=== PATIENT | male | born 1975 | race African-American/Black ===

== ENCOUNTER 2016-11-06 13:46 | Inpatient (IN) | payer MEDICAID ==
[~2016-11-06] VITALS: Ht 182.9 cm; Wt 66.1 kg
[~2016-11-06 13:46] MED LIST: BACTRIM DS TABL1 TAB PO; BENADRYL25 MG PO; DIFLUCAN PREMI100 MG PO; DIFLUCAN100 MG PO; DIFLUCAN150 MG PO; DILAUDID2 MG PO; FLAGYL500 MG PO; HUMALOG 30100 UNITS/ SC; HUMULIN R100 U/ML; HYDROCODONE-APA1 TAB PO; LANTUS INSULIN10 ML SC; LISINOPRIL5 MG PO; NICODERM C1 PATCH .1 TRANSDERM; NOVOLIN 70/30 110 ML; NOVOLOG100 U/M1 SC; PROTONIX40 MG PO; REGLAN5 MG PO; ZOFRAN ODT4 MG/UDTAB PO
[2016-11-06 16:22] LABS: HEMATOCRIT 36.4 % (42.0-54.0); HEMOGLOBIN 11.4 g/dL (13.5-17.5); IMMATURE GRANULOCYTES 0.2 % (0-5); MCH 25.7 pg (26.0-34.0); MCHC 31.3 g/dL (31.0-37.0); MCV 82.2 fL (80.0-100.0); MEAN PLATELET VOLUME 9.8 fL (7.4-10.4); MONOCYTES 7.1 % (2-11); NEUTROPHILS 57.7 % (40-80); PLATELET COUNT 349 10x3/uL (130-400); RBC 4.43 10x6/uL (4.20-6.10); RDW 14.9 % (11.5-14.5); WBC 8.4 10x3/uL (4.8-10.8)
[2016-11-06 16:32] LABS: APPEARANCE CLEAR (CLEAR); BILIRUBIN NEGATIVE (NEGATIVE); COLOR YELLOW (YELLOW); GLUCOSE 1000 mg/dL (NEGATIVE); KETONE MODERATE mg/dL (NEGATIVE); LEUKOCYTE ESTERASE NEGATIVE (NEGATIVE); NITRITE NEGATIVE (NEGATIVE); PROTEIN NEGATIVE (NEGATIVE); SPECIFIC GRAVITY 1.015 (1.005-1.020); UROBILINOGEN NORMAL (NORMAL)
[2016-11-06 16:36] LABS: KETONE - SERUM MODERATE mg/dL (NEGATIVE)
[2016-11-06 16:37] LABS: ALBUMIN 2.4 g/dL (3.4-5.0); ALKALINE PHOSPHATASE 188 U/L (46-116); ALT (SGPT) 97 U/L (10-68); BILIRUBIN - TOTAL 0.36 mg/dL (0.2-1.3); CALC OSMOLALITY 294 mosm/kg (275-300); CALCIUM 8.3 mg/dL (8.5-10.1); CARBON DIOXIDE 15.1 mmol/L (21.0-32.0); CHLORIDE - SERUM 101 mmol/L (98-107); CREATININE - SERUM 1.4 mg/dL (0.6-1.3); POTASSIUM - SERUM 3.5 mmol/L (3.5-5.1); PROTEIN - SERUM 6.2 g/dL (6.4-8.2); SODIUM 137 mmol/L (136-145); UREA NITROGEN 22 mg/dL (7-18); eGFR NON AFRICAN AMERICAN 60 mL/min (90-120)
[2016-11-06 16:38] LABS: GLUCOSE 427 mg/dL (74-106)
[2016-11-06 18:31] LABS: MAGNESIUM - SERUM 1.9 mg/dL (1.8-2.4); PHOSPHOROUS 3.7 mg/dL (2.5-4.9)
[2016-11-06 19:00] VITALS: BP 114/85
--- NOTE | 2016-11-06 19:09 | NUR ---
PAGED DR. HOLLINGSWORTH PT REQUESTING PAIN MEDICATION FOR KIDNEY PAIN 08/16.
--- NOTE | 2016-11-06 19:30 | NUR ---
ADMISSION ASSESSMENT COMPLETED AND NOTED AT THIS TIME. PT IS ON INSULIN DRIP WITH INSULIN CHECKS EVERY HOUR WITH ADJUSTMENTS TO INSULIN FLOW. FIRST BLOOD SUGER IS 426 AND INSULIN IS SET AT 11 UNITS/HR. PT HAS C/O DISCOMFORT AND PAIN TO THE ABDOMEN. WILL CHECK FOR PAIN AND NAUSEA MEDICATION. WILL CONTINUE TO MONITOR PER ICU PROTOCOL
[2016-11-06 20:00] VITALS: BP 92/68
[2016-11-06 20:23] VITALS: BP 114/85; BMI 17.6
[2016-11-06 21:00] VITALS: BP 120/93
--- NOTE | 2016-11-06 21:00 | NUR ---
ORDERS FOR MORPHINE AND ZOFRAM RECEIVED AND GIVEN TO PT ORDERED. BLOOD SUGAR AT THIS TIME IS 169 AND INSULIN WAS TURNED DOWN TO 5.4 UNITS/HR. WILL CONTINUE TO MONITOR PER ICU PROTOCOL
[2016-11-06 22:00] VITALS: BP 104/79
--- NOTE | 2016-11-06 22:14 | NUR ---
BLOOD SUGAR WAS 78 AT THIS TIME AND PER INSULIN PROTOCOL THE RATE IS NOW AT 0.7. WILL RECHECK AT 2300. PT ALSO ASK FOR SOMETHING TO EAT AND WAS GIVEN CHICKEN BROTH. WILL CONTINUE TO MONITOR PER ICU PROTOCOL.
--- NOTE | 2016-11-06 22:47 | NUR ---
GAVE 125 [address] PER [address]'S ORDERS WITH APPLE JUICE. WILL CONTINUE TO MONITOR
[2016-11-06 23:00] VITALS: BP 91/51
--- NOTE | 2016-11-06 23:04 | NUR ---
BLOOD SUGAR WAS 119. PER DKA PROTOCOL CHANGED RATE TO 2.3. WILL CONTINUE TO MONITOR
[2016-11-07] VITALS (14 sets, daily range): BP systolic 78–117; BP diastolic 48–92
--- NOTE | 2016-11-07 01:16 | NUR ---
PT'S BLOOD SUGAR WAS 116 AT THIS TIME. INSULIN DRIP PLACED AT 2.2 AT THIS TIME. WILL RECHECK AT 0200. PT CONTINUES TO SLEEP.
--- NOTE | 2016-11-07 02:22 | NUR ---
PT HAD LARGE BM IN THE BED. CLEANED PT UP WELL CHANGED ALL BEDDING. BLOOD SUGAR WAS 88 AT 0200 AND INSULIN DRIP DOWN TO 0.8 AT THIS TIME. WILL CONTINUE TO MONITOR
--- NOTE | 2016-11-07 02:42 | NUR ---
PT HAS ASK FOR PAIN MEDICATION AND THIS WAS GIVEN PER 'S ORDERS. WILL CONTINUE TO MONITOR
--- NOTE | 2016-11-07 04:46 | NUR ---
PT JUST HAD ANOTHER BM IN THE BED. GOWN CHANGED WELL BEDDING. WILL CONTINUE TO MONITOR
--- NOTE | 2016-11-07 05:05 | NUR ---
PTS BLOOD SUGAR WAS 132 AT THIS TIME AND INSULIN PROTOCOL CALLS FOR 2.1 UNITS FOR NEXT HOUR
[2016-11-07 05:46] LABS: BASOPHILS 0.7 % (0.0-2.0); EOSINOPHILS 5.3 % (0-7); HEMATOCRIT 31.8 % (42.0-54.0); HEMOGLOBIN 10.2 g/dL (13.5-17.5); IMMATURE GRANULOCYTES 0.2 % (0-5); LYMPHOCYTES 34.9 % (15-50); MCH 25.6 pg (26.0-34.0); MCHC 32.1 g/dL (31.0-37.0); MEAN PLATELET VOLUME 9.7 fL (7.4-10.4); MONOCYTES 8.9 % (2-11); PLATELET COUNT 297 10x3/uL (130-400); RBC 3.99 10x6/uL (4.20-6.10); RDW 14.9 % (11.5-14.5)
[2016-11-07 05:50] LABS: MCV 79.7 fL (80.0-100.0); WBC 5.8 10x3/uL (4.8-10.8)
[2016-11-07 05:51] LABS: CALCIUM 7.5 mg/dL (8.5-10.1); CHLORIDE - SERUM 108 mmol/L (98-107); POTASSIUM - SERUM 3.2 mmol/L (3.5-5.1); SODIUM 141 mmol/L (136-145)
[2016-11-07 05:53] LABS: CALC OSMOLALITY 281 mosm/kg (275-300); CARBON DIOXIDE 23.3 mmol/L (21.0-32.0); CREATININE - SERUM 0.9 mg/dL (0.6-1.3); GLUCOSE 104 mg/dL (74-106); UREA NITROGEN 15 mg/dL (7-18); eGFR NON AFRICAN AMERICAN > 90 mL/min (90-120)
--- NOTE | 2016-11-07 06:34 | NUR ---
0600 BLOOD SUGAR WAS 75 AND INSULIN DRIP IS NOW AT 0.3 UNITS/HR. PT CONTINUES TO WANT HIS DIET CHANGED TO SOLIDS. WILL PASS ON TO NURSE COMMOING ON. CONTINUE TO MONITO
--- NOTE | 2016-11-07 06:58 | NUR ---
0700 BLOOD SUGAR WAS 80 AND INSULIN DRIP IS NOW AT 0.04. PASSED ON TO ON COMMING NURSE THAT PT WOULD LIKE TO HAVE DIET CHANGED HE IS VERY HUNGRY.
[2016-11-07 12:06] LABS: KETONE - SERUM NEGATIVE (NEGATIVE)
[2016-11-07 12:11] LABS: CALC OSMOLALITY 286 mosm/kg (275-300); CALCIUM 7.9 mg/dL (8.5-10.1); CHLORIDE - SERUM 111 mmol/L (98-107); CREATININE - SERUM 0.8 mg/dL (0.6-1.3); GLUCOSE 94 mg/dL (74-106); MAGNESIUM - SERUM 1.6 mg/dL (1.8-2.4); POTASSIUM - SERUM 3.4 mmol/L (3.5-5.1); SODIUM 144 mmol/L (136-145); UREA NITROGEN 13 mg/dL (7-18); eGFR NON AFRICAN AMERICAN > 90 mL/min (90-120)
--- NOTE | 2016-11-07 13:41 | NUR ---
AWAITING MEAL TRAY. AWAITING FLOOR BED.
[2016-11-07 16:42] LABS: KETONE - SERUM SMALL mg/dL (NEGATIVE)
[2016-11-07 16:47] LABS: CALCIUM 7.9 mg/dL (8.5-10.1); CHLORIDE - SERUM 108 mmol/L (98-107); CREATININE - SERUM 0.8 mg/dL (0.6-1.3); MAGNESIUM - SERUM 1.5 mg/dL (1.8-2.4); SODIUM 140 mmol/L (136-145); UREA NITROGEN 14 mg/dL (7-18); eGFR NON AFRICAN AMERICAN > 90 mL/min (90-120)
[2016-11-07 16:55] LABS: CALC OSMOLALITY 291 mosm/kg (275-300); GLUCOSE 319 mg/dL (74-106); POTASSIUM - SERUM 4.3 mmol/L (3.5-5.1)
--- NOTE | 2016-11-07 20:48 | NUR ---
PT ARRIVED TO FLOOR FROM ICU BY WHEELCHAIR PT AMBULATORY WITH NO DISTRESS OBSERVED OR NOTED. PT REQUESTING PAIN MEDS FOR FLANK AREA ON RIGHT SIDE DR HOLLINGSWORTH CALLED AND PAIN MEDS ORDERED NORCO 10/325 Q4HP ADMIN TO PT ORDERED AND WILL MONITOR. IVP SALINE LOCKED AND FLUCHED WITH 10CC NS. BED LOW AND LOCKED CALL LIGHT IN REACH SRX2
[2016-11-07 20:58] LABS: KETONE - SERUM NEGATIVE (NEGATIVE)
[2016-11-07 20:59] LABS: CALC OSMOLALITY 291 mosm/kg (275-300); CALCIUM 8.1 mg/dL (8.5-10.1); CARBON DIOXIDE 21.8 mmol/L (21.0-32.0); CHLORIDE - SERUM 107 mmol/L (98-107); GLUCOSE 311 mg/dL (74-106); MAGNESIUM - SERUM 1.5 mg/dL (1.8-2.4); SODIUM 140 mmol/L (136-145); UREA NITROGEN 16 mg/dL (7-18); eGFR NON AFRICAN AMERICAN 79 mL/min (90-120)
[2016-11-07 21:04] LABS: CREATININE - SERUM 1.1 mg/dL (0.6-1.3)
[2016-11-08 00:30] VITALS: BP 110/74
[2016-11-08 04:30] VITALS: BP 114/72
[2016-11-08 06:20] LABS: BASOPHILS 1.2 % (0.0-2.0); EOSINOPHILS 6.3 % (0-7); HEMATOCRIT 30.5 % (42.0-54.0); HEMOGLOBIN 9.7 g/dL (13.5-17.5); IMMATURE GRANULOCYTES 0.2 % (0-5); LYMPHOCYTES 35.6 % (15-50); MCH 25.8 pg (26.0-34.0); MCHC 31.8 g/dL (31.0-37.0); MCV 81.1 fL (80.0-100.0); MEAN PLATELET VOLUME 10.3 fL (7.4-10.4); MONOCYTES 9.9 % (2-11); NEUTROPHILS 46.8 % (40-80); PLATELET COUNT 291 10x3/uL (130-400); RBC 3.76 10x6/uL (4.20-6.10); RDW 15.1 % (11.5-14.5); WBC 4.9 10x3/uL (4.8-10.8)
[2016-11-08 07:03] LABS: CALCIUM 7.9 mg/dL (8.5-10.1); CARBON DIOXIDE 24.8 mmol/L (21.0-32.0); CHLORIDE - SERUM 109 mmol/L (98-107); POTASSIUM - SERUM 4.2 mmol/L (3.5-5.1); SODIUM 142 mmol/L (136-145); UREA NITROGEN 18 mg/dL (7-18)
[2016-11-08 07:07] LABS: CALC OSMOLALITY 286 mosm/kg (275-300); CREATININE - SERUM 0.8 mg/dL (0.6-1.3); GLUCOSE 140 mg/dL (74-106); eGFR NON AFRICAN AMERICAN > 90 mL/min (90-120)
--- NOTE | 2016-11-08 07:15 | NUR ---
RECIEVED REPORT ON PATIENT, PATIENT IS ALERT AND ORIENTED AT THIS TIME. PATIENT HAS A R FA IV WITH NS INFUSING AT 100ML/HR. PATIENT IS SITTING UP IN BED, DENIES ANY NEEDS AT THIS TIME, REQUESTING PAIN MEDICATION FOR PAIN IN BACK 06/16. WILL GIVE NORCO. BED LOW AND LOCKED. CPOC
[2016-11-08 07:35] VITALS: BP 117/78
--- NOTE | 2016-11-08 09:30 | NUR ---
LEAVING FLOOR. SAUL NUR TAKING OVER. REPORT GIVEN. CPOC
--- NOTE | 2016-11-08 10:12 | NUR ---
PATIENT AMBULATING IN THE STRINGER WITH . RESP WITH EASE.
[2016-11-08 11:22] VITALS: BP 97/91
--- NOTE | 2016-11-08 13:12 | NUR ---
NICODERM PATCH PLACED ON R UPPER ARM. SLEEPING PAIN EASING/
--- NOTE | 2016-11-08 13:30 | NUR ---
RETURNED TO FLOOR, RESUME CARE OF PATIENT. PATIENT IS ALERT AND ORIENTED AT THIS TIME. PATIENT AMBULATING AROUND ROOM. DENIES ANY NEEDS. CPOC
--- NOTE | 2016-11-08 13:31 | NUR ---
RETURNED TO RESUME CARE, PATIENT SITTING UP IN BED. DENIES ANY NEEDS OR COMPLAINTS AT THIS TIME. CPOC
--- NOTE | 2016-11-08 14:00 | NUR ---
PATIENT PUT ON ENTERIC ISOLATION FOR CDIFF. CPOC
[2016-11-08 14:23] VITALS: Ht 182.9 cm; Wt 66.1 kg
[2016-11-08 15:34] VITALS: BP 133/85
--- NOTE | 2016-11-08 16:30 | NUR ---
NORCO GIVEN FOR PAIN 8/10 IN BACK. PATIENT FSBS 176, WILL GIVE 4 UNITS OF HUMALOG. CPOC
--- NOTE | 2016-11-08 18:27 | NUR ---
PATIENT SLEEPING, NAD NOTED. CHEST RISES AND FALLS EQUALLY. CPOC
[2016-11-08 22:42] VITALS: BP 119/79
--- NOTE | 2016-11-09 03:30 | NUR ---
NURSE ROUNDS 21:00 - PT AWAKE, ALERT, ORIENTED, DENIED NAUSEA, REQUESTING PRN PAIN MEDICATION. CONTINUE TO MONITOR CLOSELY.
--- NOTE | 2016-11-09 05:23 | NUR ---
PT LYING IN BED, EYES CLOSED, RESPIRATIONS EVEN AND UNLABORED. PT IS EASILY ROUSABLE TO VERBAL STIMULI. CONTINUE TO MONITOR CLOSELY.
[2016-11-09 05:35] VITALS: BP 105/73
[2016-11-09 06:33] LABS: BASOPHILS 0.8 % (0.0-2.0); EOSINOPHILS 3.9 % (0-7); HEMATOCRIT 28.3 % (42.0-54.0); HEMOGLOBIN 9.6 g/dL (13.5-17.5); IMMATURE GRANULOCYTES 0.4 % (0-5); LYMPHOCYTES 33.1 % (15-50); MCH 26.8 pg (26.0-34.0); MCHC 33.9 g/dL (31.0-37.0); MEAN PLATELET VOLUME 10.1 fL (7.4-10.4); MONOCYTES 10.4 % (2-11); NEUTROPHILS 51.4 % (40-80); PLATELET COUNT 274 10x3/uL (130-400); RBC 3.58 10x6/uL (4.20-6.10); RDW 14.8 % (11.5-14.5); WBC 5.2 10x3/uL (4.8-10.8)
[2016-11-09 06:39] LABS: MCV 79.1 fL (80.0-100.0)
[2016-11-09 06:50] LABS: CALC OSMOLALITY 269 mosm/kg (275-300); CALCIUM 8.4 mg/dL (8.5-10.1); CARBON DIOXIDE 27.7 mmol/L (21.0-32.0); CHLORIDE - SERUM 102 mmol/L (98-107); CREATININE - SERUM 0.8 mg/dL (0.6-1.3); POTASSIUM - SERUM 4.1 mmol/L (3.5-5.1); SODIUM 134 mmol/L (136-145); UREA NITROGEN 22 mg/dL (7-18); eGFR NON AFRICAN AMERICAN > 90 mL/min (90-120)
[2016-11-09 06:51] LABS: GLUCOSE 77 mg/dL (74-106)
[2016-11-09 07:25] VITALS: BP 122/81
--- NOTE | 2016-11-09 07:45 | NUR ---
PATIENT IS RESTING QUIETLY WITH EYES CLOSED. HIS IVF AREN'T INFUSING PER HIS REQUEST PER REPORT. DID NOT AWAKEN HIM. DAILY PLAN BOARD FILLED OUT.
--- NOTE | 2016-11-09 09:55 | NUR ---
MAGALY BACK TO HIS ROOM FROM XRAY. HE REQUESTS MEAL. HE'D REFUSED HIS BREAKFAST AND IS NOW HUNGRY. DECLINES BREAKFAST FOODS. REQUEST TO KITCHEN. MEDICATIONS GIVEN. HE STATE SHTAT HE JUST FEELS LIKE SLEEPING TODAY. HE C/O HIS BACK AND HEAD HURTING. NORCO WAS GIVEN. WILL WAIT FOR IT TO BE EFFECTIVE. IVF INFUSING TO RIGHT FA IV AT THIS TIME. INSERTION SITE IS WITHOUT EVIDENCE OF INFILTRATION OR INFECTION. HE WANTS IT OFF SOON THE ABT IS INFUSED. HE STATES HE IS DROWNING ON NS INFUSION.
--- NOTE | 2016-11-09 10:19 | NUR ---
PATIENT IS RESTING QUIETLY WITH EYES CLOSED.
[2016-11-09 11:21] VITALS: BP 121/70
--- NOTE | 2016-11-09 11:50 | NUR ---
PATIENT IS AWAKE AND ALERT. FSBS 56. LUNCH TRAY GIVEN IMMEDIATELY.
--- NOTE | 2016-11-09 12:15 | NUR ---
PATIENT IS SITTING UP IN THE BEDSIDE. HE HAS EATEN ALL OF HIS LUNCH. HE IS ASYMPTOMATIC AT THIS TIME.
--- NOTE | 2016-11-09 13:45 | NUR ---
PATIENT'S FSBS IS 125 TWO HOURS POST PARANDIAL. HE REQUESTS MORE FOOD, C/O HUNGER. TRAY REQUESTED FROM KITCHEN. REPORTED TO DIETITIAN HERE ON THE UNIT.
--- NOTE | 2016-11-09 14:59 | NUR ---
PATIENT RESTING QUIETLY WITH COVERS PULLED UP TO HIS CHIN. RESPIRATIONS DEEP AND EVEN.
[2016-11-09 15:33] VITALS: BP 123/83
[2016-11-09 22:28] VITALS: BP 119/74
--- NOTE | 2016-11-09 22:35 | HP ---
PATIENT: JODI WEISS MEDICAL RECORD: [id number] ACCOUNT: [id number] LOCATION:[address] : 77 ADMISSION DATE: 11/06/16 HISTORY AND PHYSICAL EXAMINATION DATE OF ADMISSION: 11/06/2016 REASON FOR ADMISSION: Abdominal pain. HISTORY OF PRESENT ILLNESS: This is a 41-year-old male with a long time history of type 1 diabetes who has had multiple admissions into the hospital for DKA. He has had some abdominal pain and diarrhea for about 3 weeks. He states he just ran out of his insulin a couple days ago and has an appointment with his [facility] doctor soon for that. His sugar was 648 when he came into the ER. His serum ketones were positive. His stool test for C. diff was positive. He was admitted to ICU for close monitoring of his DKA. PAST MEDICAL HISTORY: Again, multiple admissions for DKA. He has a history of pancreatitis. PAST SURGICAL HISTORY: Cholecystectomy in 2013. HOME MEDICATIONS: Only Lantus insulin 30 units twice a day and sliding scale ____. SOCIAL HISTORY: Single, disabled due to his diabetes. FAMILY HISTORY: His father was murdered at unknown age. Mother is reportedly healthy. HABITS: He smokes cigarettes. He admits to marijuana. Denies alcohol or drug use, but has tested positive in the past for drugs. REVIEW OF SYSTEMS: GENERAL: No major weight changes. HEENT: No sinus or allergy problems. RESPIRATORY: No history of asthma or emphysema. CARDIAC: No diagnosis of heart disease. No chest pain or palpitations. GASTROINTESTINAL: He has had some nausea and vomiting. ____. GENITOURINARY: Has polyuria. ENDOCRINE: Uncontrolled diabetes. MUSCULOSKELETAL: He states his back hurts. SKIN: No rash. PSYCHIATRIC: Denies depression or melancholia. PHYSICAL EXAMINATION: VITAL SIGNS: Today, temperature 97.9, pulse 105, respirations 20, blood pressure 114/85. GENERAL: He is a thin male, does not appear in distress at this time. HEENT: Grossly within normal limits. NECK: Supple. HEART: Regular rate and rhythm. LUNGS: Fairly clear. ABDOMEN: Soft. EXTREMITIES: No edema. HISTORY AND PHYSICAL [id number] JODI WEISS BACK: He admits to some back pain. LABORATORY WORK: Glucose 648. ABG: pH is 7.35, pCO2 of 26, pO2 of 120. Urinalysis yellow, clear, moderate ketones, 1000 mg per deciliter of glucose or higher. Serum ketones were positive. Sodium 137, potassium 3.5, chloride 101, CO2 of 15, BUN 22, creatinine 1.4, AST was normal at 42, ALT a little elevated at 97, alkaline phosphatase elevated at 188. CBC showed a white count of 8400, hemoglobin 11.4, hematocrit 36.4, and platelets 349,000. ASSESSMENT: 1. Diabetic ketoacidosis. 2. Clostridium difficile diarrhea. PLAN: Admit to the ICU for protocol for diabetic ketoacidosis. We will start oral vancomycin for his Clostridium difficile. Other tests and procedures as warranted. TRANSINT:[id number] Voice Confirmation ID: [id number] DOCUMENT ID: [id number] BUD HOLLINGSWORTH MD at 2235 CC: [id number] DICTATION DATE: 11/07/16 1331 RIBBON BLOCKMAKER: 11/07/16 1420 ADM IN [place] [id number] [place] [id number]
--- NOTE | 2016-11-10 00:29 | NUR ---
NURSE ROUNDS 19:30 - PT AWAKE, ALERT, ORIENTED, DENIES ANY ACUTE NEEDS AT THIS TIME. PT STATES HE IS FEELING BETTER SINCE STARTING FLAGYL IV. CONTINUE TO MONITOR CLOSELY.
[2016-11-10 00:59] VITALS: BP 113/69
[2016-11-10 05:21] VITALS: BP 141/75
[2016-11-10 06:57] LABS: BASOPHILS 0.8 % (0.0-2.0); EOSINOPHILS 2.4 % (0-7); HEMATOCRIT 28.7 % (42.0-54.0); HEMOGLOBIN 9.3 g/dL (13.5-17.5); IMMATURE GRANULOCYTES 0.3 % (0-5); LYMPHOCYTES 30.9 % (15-50); MCH 25.8 pg (26.0-34.0); MCHC 32.4 g/dL (31.0-37.0); MCV 79.7 fL (80.0-100.0); MEAN PLATELET VOLUME 10.1 fL (7.4-10.4); MONOCYTES 9.5 % (2-11); NEUTROPHILS 56.1 % (40-80); PLATELET COUNT 258 10x3/uL (130-400); RDW 14.8 % (11.5-14.5)
[2016-11-10 07:08] LABS: WBC 3.7 10x3/uL (4.8-10.8)
[2016-11-10 08:00] VITALS: BP 86/55
--- NOTE | 2016-11-10 10:00 | NUR ---
Sitting on side of bed, reports pain is better now, educated patient on NPO now for procedure scheduled for 1500, which includes no pills, water or food. Agreeable stating " I'll probaly sleep until then." food and water removed from bedside table.
[2016-11-10 12:00] VITALS: BP 114/74
--- NOTE | 2016-11-10 15:40 | NUR ---
PATIENT REFUSED GASTRIC SCAN. SCAN RESCHEDULED FOR AM.
[2016-11-10 16:00] VITALS: BP 103/74
--- NOTE | 2016-11-10 16:39 | NUR ---
NEBULIZER DELIVERED. PATIENT HAS O2 @ HOME. IV OUT AND MONITOR OFF. PATIENT RIDE HERE. PATIENT TAKEN TO CAR VIA WC.
--- NOTE | 2016-11-10 19:48 | NUR ---
PT SITTING UP BED, EATING SOUP. DENIES ANY NEEDS. AWAKE, ALERT, ORIENTED. CONTINUE TO MONITOR CLOSELY.
[2016-11-10 20:26] VITALS: BP 120/72
--- NOTE | 2016-11-10 23:09 | NUR ---
PAGED DR. HOLLINGSWORTH PER PTS REQUEST FOR SLEEP RX. DR. HOLLINGSWORTH AUTHORIZED AMBIEN 10MG 1 PO Q HS PRN. CONTINUE TO MONITOR CLOSELY.
[2016-11-11 00:38] VITALS: BP 115/67
[2016-11-11 00:55] VITALS: BP 171/108
--- NOTE | 2016-11-11 04:30 | NUR ---
PT LYING IN BED ON RIGHT SIDE, EYES CLOSED, RESPIRATIONS EVEN AND UNLABORED. PT IS EASILY ROUSABLE TO VERBAL STIMULI. CONTINUE TO MONITOR CLOSELY.
[2016-11-11 04:40] VITALS: BP 112/63
[2016-11-11 05:43] LABS: EOSINOPHILS 3.7 % (0-7); HEMATOCRIT 30.5 % (42.0-54.0); HEMOGLOBIN 9.8 g/dL (13.5-17.5); IMMATURE GRANULOCYTES 0.2 % (0-5); LYMPHOCYTES 40.2 % (15-50); MCH 25.8 pg (26.0-34.0); MCHC 32.1 g/dL (31.0-37.0); MCV 80.3 fL (80.0-100.0); MEAN PLATELET VOLUME 10.9 fL (7.4-10.4); MONOCYTES 12.1 % (2-11); NEUTROPHILS 42.8 % (40-80); PLATELET COUNT 287 10x3/uL (130-400); RDW 14.9 % (11.5-14.5); WBC 4.1 10x3/uL (4.8-10.8)
[2016-11-11 07:15] LABS: CALC OSMOLALITY 276 mosm/kg (275-300); CHLORIDE - SERUM 97 mmol/L (98-107); CREATININE - SERUM 0.9 mg/dL (0.6-1.3); POTASSIUM - SERUM 4.5 mmol/L (3.5-5.1); SODIUM 135 mmol/L (136-145); UREA NITROGEN 23 mg/dL (7-18); eGFR NON AFRICAN AMERICAN > 90 mL/min (90-120)
[2016-11-11 07:17] LABS: GLUCOSE 154 mg/dL (74-106)
--- NOTE | 2016-11-11 07:58 | NUR ---
AM ROUNDING- PT CURRENTLY ABOUT TO GO TO GASTRIC EMPTYING SCAN IN RADIOLOGY. PT IS FSBS ACHS, 154 THIS AM WITH NO COVERAGE VIA RADIO ADJUSTER NURSE, KATINA, RADIO ADJUSTER NURSE STATES PT USUALLY REFUSES INSULIN. IV SEEN TO RIGHT FOREARM WITH NS RUNNING AT 100CC. PT IS IN CONTACT ISOLATION FOR C.DIFF. ON ROOM AIR. NO MONITOR. PT IS ALERT AND ORIENTED. NPO CURRENTLY FOR GASTRIC EMPYTING SCAN. PT IS UP AD GUI. 0700- PT TO RADIOLOGY VIA WHEELCHAIR FOR GASTRIC EMPTYING SCAN.
--- NOTE | 2016-11-11 08:23 | NUR ---
0816- PT BACK FROM PROCEDURE VIA WHEELCHAIR. PT CAME OUT OF ROOM UP TO [facility] INFORMED PT THAT HE NEEDS TO GET BACK TO HIS ROOM DUE TO BEING IN CONTACT ISOLATION. INFORMED PT THAT I WILL PUT ORDERS IN FOR DIET TRAY. WILL CONTINUE TO MONITOR.
--- NOTE | 2016-11-11 08:28 | NUR ---
CALLED DIETARY TO INFORM THEM THAT PT IS SUPPOSE TO BE ON CLEAR LIQUID DIET.
--- NOTE | 2016-11-11 08:53 | NUR ---
PT REFUSES RUSSELL CATHETER.
--- NOTE | 2016-11-11 09:39 | NUR ---
PT STANDING AT DOOR DEMANDING TO HAVE HIS REGULAR DIET. INFORMED PT THAT I WOULD HAVE TO CALL AND GET ORDERS FROM DOCTOR HOLLINGSWORTH. CALLED DR. LEBLANC OFFICE. SPOKE WITH DR. HOLLINGSWORTH. DR. HOLLINGSWORTH STATED HE CAN HAVE A DIABETIC DIET AND TO HOLD PTS LOMOTIL. WILL CONTINUE TO MONITOR.
--- NOTE | 2016-11-11 11:59 | NUR ---
Nutrition follow-up: Diet advanced to ADA consistent CHO post-gastric emptying scan. Pt now with severe gastroparesis. Labs reviewed In isolation for C.Diff Wt: 132# PO intake fair to good at this time. RDN following.
[2016-11-11 12:00] VITALS: BP 106/75
--- NOTE | 2016-11-11 12:38 | NUR ---
1209- CALLED DR. HOLLINGSWORTH TO INFORM HIM OF PTS BS BEING 402 ORDERED PER SLIDING SCALE. DR. HOLLINGSWORTH NOTIFIED. NO NEW ORDERS. WILL CONTINUE TO MONITOR.
--- NOTE | 2016-11-11 14:19 | NUR ---
PT REFUSES IV FLUIDS.
[2016-11-11 16:00] VITALS: BP 106/68
[2016-11-11 16:50] LABS: HIV 1 & 2- RAPID SCREEN NEGATIVE (NEGATIVE)
--- NOTE | 2016-11-11 18:05 | NUR ---
1400- WHILE GIVING PT HIS ORDERED MEDICINE, PT GOT LOUD AND SHOUTED, WHILE DOING SO DROPLETS OF PTS SALIVA WENT IN AND AROUND MY MOUTH DUE TO BEING CLOSE TO PT GIVING HIM HIS MEDICINE. INFORMED SCREEN AND CYCLONE REPAIRER SAUL GERMAN. MIREILLE FROM [employer] WAS CALLED AND I FILLED OUT PAPERWORK. MIREILLE STATED SHE WOULD UPDATE ME WITH WHATEVER ELSE I NEEDED TO DO.
--- NOTE | 2016-11-11 18:15 | NUR ---
PT LAYING IN BED ON BACK WATCHING TV. DENIES ANY NEED AT THIS CURRENT TIME. WILL CONTINUE TO MONITOR.
--- NOTE | 2016-11-11 20:09 | NUR ---
PT LYING IN BED TALKING ON PHONE STATED TO WHOM EVER ON OTHER END "YEAH THAT LIVIA*ALAN IS RE*ARDED". PT PREVIOUSLY STATED TO PICKLER HELPER THAT HE WAS WAITING ON SOMEONE TO PICK HIM UP SO THAT HE COULD LEAVE. PT UPSET BECAUSE HE WAS DENIED SOUP BECAUSE HIS PREVIOUS FSBS 418, AND PRIOR TO THAT FSBS 402. PT PREVIOUSLY RECEIVED 20UNITS OF INSULIN BOTH TIMES. CURRENT FSBS 345, PT INFORMED PICKLER HELPER THAT HE HAD SOMEONE BRINGING HIM PIZZA.
[2016-11-11 20:34] VITALS: BP 107/64
[2016-11-12] VITALS: BP 108/58
--- NOTE | 2016-11-12 01:30 | NUR ---
PT ON ISOLATION FOR C DIFF. PT WALKED UP TO NURSES STATION AND ASKED FOR "PAIN PILL". PT DEMONSTRATES NO OUTWARD SIGNS OR SYMPTOMS OF DISTRESS OR PAIN. PT THEN ASKED TO WAIT AT DESK. PT WAS THEN INFORMED THAT MEDICATION WOULD BE BROUGHT TO HIM. UPON ENTERING ROOM PT WAS FOUND LYING IN BED WITH HANDS BEHIND HIS HEAD STRETCHED OUT WATCHING TV.
[2016-11-12 04:00] VITALS: BP 111/68
[2016-11-12 05:16] LABS: BASOPHILS 1.3 % (0.0-2.0); EOSINOPHILS 5.2 % (0-7); HEMATOCRIT 32.4 % (42.0-54.0); HEMOGLOBIN 10.3 g/dL (13.5-17.5); IMMATURE GRANULOCYTES 0.6 % (0-5); MCH 26.2 pg (26.0-34.0); MCHC 31.8 g/dL (31.0-37.0); MEAN PLATELET VOLUME 10.3 fL (7.4-10.4); MONOCYTES 13.3 % (2-11); NEUTROPHILS 35.6 % (40-80); PLATELET COUNT 329 10x3/uL (130-400); RBC 3.93 10x6/uL (4.20-6.10); RDW 15.5 % (11.5-14.5)
[2016-11-12 05:22] LABS: MCV 82.4 fL (80.0-100.0); WBC 5.3 10x3/uL (4.8-10.8)
--- NOTE | 2016-11-12 05:28 | NUR ---
CALL LIGHT IN REACH. WILL CONTINUE WITH PLAN OF CARE.
--- NOTE | 2016-11-12 05:40 | NUR ---
PT DEMONSTRATES NO OUTER SIGNS OR SYMPTOMS OF PAIN. REQUESTING NORCO AGAIN. PT HAS EATEN MULTIPLE TIMES THROUGH OUT THE NIGHT. BECOMES LOUD AND VERBALLY DISRUPTIVE WHEN HE DOESNT GET HIS WAY
--- NOTE | 2016-11-12 07:26 | NUR ---
AM ROUNDING- PT LAYING IN BED ON BACK WITH LIGHTS OFF SLEEPING. NO NEED AT CURRENT TIME. PT IS ON ROOM AIR. NO MONITOR. IV SEEN TO RIGHT FOREARM SALINE LOCKED AND PATENT. PER REPORT FROM CUTTER HELPER NURSEBABAR, PT REFUSED IV FLUIDS AND FLAGYL. IN CONTACT ISOLATION FOR C.DIFF. CLEAN, DRY, AND INTACT DRESSING SEEN TO RIGHT LOWER ANKLE AREA. PT IS UP AD GUI PER REPORT FROM CUTTER HELPER NURSEBABAR. WILL CONTINUE TO MONITOR.
--- NOTE | 2016-11-12 07:53 | NUR ---
CALLED INTO PTS ROOM WITH PT DEMANDING A SANDWICH AND CHIPS WITH VEGTABLE SOUP AND CRACKERS. I INFOMRED PT THAT I WILL CALL AND SEE IF DIETRY CAN GET HIM A SANDWICH AND CHIPS HE YELLED AT ME AND STATED " WHAT DO YOU MEAN YOU ARE GOING TO SEE IF THEY CAN". PT TOLD ME TO JUST GO HE DOES NOT NEED ANYTHING.
[2016-11-12] MEDS ORDERED: LANTUS INSULIN10 ML SC (08:26)
[2016-11-12] MEDS ORDERED: FLAGYL500 MG PO (08:28)
[2016-11-12] MEDS ORDERED: HUMALOG 30100 UNITS/ SC (08:29)
[2016-11-12] MEDS ORDERED: LOMOTIL TABLET1 TAB PO (08:29)
[2016-11-12 09:01] VITALS: BP 124/71
--- NOTE | 2016-11-12 09:53 | NUR ---
Patient Name: JODI WEISS Admission Status: ER Accout number: [id number] Admission Date: 11-06-2016 : 1975 Admission Diagnosis:OTH DIABETES MELLITUS WITH KETOACIDOSIS WITHOUT COMA Attending: LINUS Current LOS: 6 Anticipated DC Date: 11-12-2016 Planned Disposition: Home Primary Insurance: MEDICAID [place] Discharge Planning Comments: CM met with patient to discuss discharge planning/needs. The patient's plan is to discharge home where he resides with his friend "Nicky Henderson" ([phone]). The patient states he is independent of all ADL's and is ambulating in room at time of CM visit. However, he states he has a walker at home but denies additional DME needs at this time. The patient denies Home Health services. He states his home environment is safe to return to. The patient's transportation home will be his friend "Nicky Henderson" ([phone]). CM will continue to follow and assist as needed with discharge planning/needs. Hospitality Workers: Amanda Castro RN/ROXANA stion Answer Score * Is the patient Alert and Oriented? Yes 0 * How many steps to enter\\exit or inside your home? 3 0 * PCP Dr. Lopez ([place]) 0 * Pharmacy [facility] [phone] 0 * Preadmission Environment Home with Family 0 * ADLs Independent 0 * Equipment Rolling Walker 0 * List name and contact numbers for known caregivers / representatives who currently or will assist patient after discharge: Nicky Henderson 0 * Community resources currently utilized None 0 * Please name any agencies selected above. The patient states he was previously on [facility] but had been discharged from their services prior to this admission. 0 * Additional services required to return to the preadmission environment? No 0 * Can the patient safely return to the preadmission environment? Yes 0 * Has this patient been hospitalized within the prior 30 days at any hospital? No 0
[2016-11-12 12:15] LABS: HEPATITIS C ANTIBODY <0.1 (0.0-0.9)
--- NOTE | 2016-11-12 13:06 | NUR ---
1255-PATIENT TO COME TO DESK AND ASK IF HIS DISCHARGE PAPERWORK IS READY HIS RIDE IS ON THE WAY. I ASKED PAULY, DISCHARGE CORDINATOR, AND SHE WILL WORK ON HIS NEXT. THIS IS RELAYED TO THE PATIENT WHO REPLIES, "JUST TAKE MY IV OUT AND I WILL GO AMA, MY RIDE WONT WAIT". DR HOLLINGSWORTH IS HERE AND PERSCRIPTIONS ARE SIGNED. SALINE LOCK IS REMOVED WITH CATH TIP INTACT. PATIENT DID NOT WANT TO WAIT ON THE REST OF HIS PAPERWORK SO PAULY JUST PRINTED HIS MEDICATION LIST AND THE PATIENT WALKED OUT.
== END 2016-11-12 13:17 | disposition home or self-care (01) | DRG 638 ==
LOC: D.ER 13:46 → D.M2 18:00 → D.ICU 18:00 → D.M2 11-07 20:37
PROVIDERS: Emergency Medicine; ADMIT Family Medicine
DX: E10.10 Type 1 diabetes mellitus with ketoacidosis without coma (principal); A04.7 Enterocolitis due to Clostridium difficile; Z79.4 Long term (current) use of insulin; I10 Essential (primary) hypertension

== ENCOUNTER 2016-11-17 18:40 | Emergency (ER) | payer MEDICAID ==
[2016-11-08 14:23] VITALS: BMI 17.5
[~2016-11-17 18:40] MED LIST changes: +LOMOTIL TABLET1 TAB PO
[2016-11-17 20:18] LABS: BASOPHILS 0.5 % (0.0-2.0); EOSINOPHILS 1.8 % (0-7); HEMATOCRIT 34.9 % (42.0-54.0); HEMOGLOBIN 11.1 g/dL (13.5-17.5); IMMATURE GRANULOCYTES 0.4 % (0-5); LYMPHOCYTES 21.4 % (15-50); MCHC 31.8 g/dL (31.0-37.0); MCV 81.7 fL (80.0-100.0); MEAN PLATELET VOLUME 9.5 fL (7.4-10.4); MONOCYTES 4.6 % (2-11); NEUTROPHILS 71.3 % (40-80); PLATELET COUNT 389 10x3/uL (130-400); RBC 4.27 10x6/uL (4.20-6.10); RDW 14.7 % (11.5-14.5); WBC 8.4 10x3/uL (4.8-10.8)
[2016-11-17 20:24] LABS: APPEARANCE CLEAR (CLEAR); BILIRUBIN NEGATIVE (NEGATIVE); COLOR YELLOW (YELLOW); GLUCOSE 1000 mg/dL (NEGATIVE); KETONE NEGATIVE (NEGATIVE); LEUKOCYTE ESTERASE NEGATIVE (NEGATIVE); NITRITE NEGATIVE (NEGATIVE); PROTEIN NEGATIVE (NEGATIVE); SPECIFIC GRAVITY 1.025 (1.005-1.020); UROBILINOGEN NORMAL (NORMAL)
[2016-11-17 20:39] LABS: ALBUMIN 2.5 g/dL (3.4-5.0); ANION GAP 11.8 mmol/L (8-16); BILIRUBIN - TOTAL 0.23 mg/dL (0.2-1.3); CALCIUM 8.8 mg/dL (8.5-10.1); CARBON DIOXIDE 26.5 mmol/L (21.0-32.0); CREATININE - SERUM 1.3 mg/dL (0.6-1.3); POTASSIUM - SERUM 5.3 mmol/L (3.5-5.1); PROTEIN - SERUM 6.5 g/dL (6.4-8.2)
[2016-11-17 22:01] LABS: KETONE - SERUM SMALL mg/dL (NEGATIVE)
[2016-11-17 22:04] LABS: MAGNESIUM - SERUM 1.6 mg/dL (1.8-2.4)
== END 2016-11-17 23:20 | disposition left against medical advice (07) ==
LOC: D.ER 18:40
PROVIDERS: Emergency Medicine
DX: E11.65 Type 2 diabetes mellitus with hyperglycemia (principal); A04.7 Enterocolitis due to Clostridium difficile; E83.42 Hypomagnesemia; R79.89 Other specified abnormal findings of blood chemistry; Z91.19 Patient's noncompliance with other medical treatment and regimen

== ENCOUNTER 2016-11-22 20:38 | Emergency (ER) | payer MEDICAID ==
[2016-11-08 14:23] VITALS: BMI 17.5
[2016-11-22 21:34] LABS: BASOPHILS 0.4 % (0.0-2.0); EOSINOPHILS 1.5 % (0-7); HEMATOCRIT 29.9 % (42.0-54.0); HEMOGLOBIN 9.3 g/dL (13.5-17.5); IMMATURE GRANULOCYTES 0.3 % (0-5); LYMPHOCYTES 19.5 % (15-50); MCH 25.6 pg (26.0-34.0); MCHC 31.1 g/dL (31.0-37.0); MCV 82.4 fL (80.0-100.0); MEAN PLATELET VOLUME 9.9 fL (7.4-10.4); MONOCYTES 3.4 % (2-11); NEUTROPHILS 74.9 % (40-80); RBC 3.63 10x6/uL (4.20-6.10); RDW 15.1 % (11.5-14.5); WBC 7.1 10x3/uL (4.8-10.8)
[2016-11-22 21:40] LABS: PLATELET COUNT 310 10x3/uL (130-400)
[2016-11-22 21:58] LABS: KETONE - SERUM NEGATIVE (NEGATIVE)
[2016-11-22 22:08] LABS: ALBUMIN 2.2 g/dL (3.4-5.0); ALKALINE PHOSPHATASE 252 U/L (46-116); ALT (SGPT) 175 U/L (10-68); CARBON DIOXIDE 25.8 mmol/L (21.0-32.0); CHLORIDE - SERUM 98 mmol/L (98-107); CREATININE - SERUM 1.1 mg/dL (0.6-1.3); PROTEIN - SERUM 5.8 g/dL (6.4-8.2); SODIUM 131 mmol/L (136-145); UREA NITROGEN 20 mg/dL (7-18); eGFR NON AFRICAN AMERICAN 79 mL/min (90-120)
[2016-11-22 22:18] LABS: CALC OSMOLALITY 295 mosm/kg (275-300); GLUCOSE 646 mg/dL (74-106)
== END 2016-11-23 02:37 | disposition home or self-care (01) ==
LOC: D.ER 20:38
PROVIDERS: Emergency Medicine
DX: E11.65 Type 2 diabetes mellitus with hyperglycemia (principal); Z79.4 Long term (current) use of insulin; Z91.14 Patient's other noncompliance with medication regimen; E83.42 Hypomagnesemia; R79.89 Other specified abnormal findings of blood chemistry; F17.200 Nicotine dependence, unspecified, uncomplicated

== ENCOUNTER 2016-11-25 20:24 | Emergency (ER) | payer MEDICAID ==
[2016-11-08 14:23] VITALS: BMI 17.5
[2016-11-25 20:52] LABS: BASOPHILS 0.6 % (0.0-2.0); EOSINOPHILS 2.7 % (0-7); HEMATOCRIT 34.8 % (42.0-54.0); IMMATURE GRANULOCYTES 0.1 % (0-5); LYMPHOCYTES 24.2 % (15-50); MCH 26.3 pg (26.0-34.0); MCHC 31.6 g/dL (31.0-37.0); MCV 83.1 fL (80.0-100.0); MEAN PLATELET VOLUME 10.1 fL (7.4-10.4); MONOCYTES 5.6 % (2-11); NEUTROPHILS 66.8 % (40-80); RBC 4.19 10x6/uL (4.20-6.10); RDW 15.5 % (11.5-14.5); WBC 7.8 10x3/uL (4.8-10.8)
[2016-11-25 20:53] LABS: APPEARANCE CLEAR (CLEAR); BILIRUBIN NEGATIVE (NEGATIVE); COLOR YELLOW (YELLOW); GLUCOSE 1000 mg/dL (NEGATIVE); KETONE MODERATE mg/dL (NEGATIVE); LEUKOCYTE ESTERASE NEGATIVE (NEGATIVE); NITRITE NEGATIVE (NEGATIVE); PLATELET COUNT 475 10x3/uL (130-400); PROTEIN NEGATIVE (NEGATIVE); SPECIFIC GRAVITY 1.015 (1.005-1.020); UROBILINOGEN NORMAL (NORMAL)
[2016-11-25 21:06] LABS: UDS - AMPHET POSITIVE QUAL (NEGATIVE); UDS - BARB NEGATIVE QUAL (NEGATIVE); UDS - BENZO NEGATIVE QUAL (NEGATIVE); UDS - COCAINE POSITIVE QUAL (NEGATIVE); UDS - METH NEGATIVE QUAL (NEGATIVE); UDS - OPIATE POSITIVE QUAL (NEGATIVE); UDS - PCP NEGATIVE QUAL (NEGATIVE); UDS - THC NEGATIVE QUAL (NEGATIVE)
[2016-11-25 21:09] LABS: KETONE - SERUM SMALL mg/dL (NEGATIVE)
[2016-11-25 21:13] LABS: ALBUMIN 2.7 g/dL (3.4-5.0); ALKALINE PHOSPHATASE 310 U/L (46-116); ALT (SGPT) 222 U/L (10-68); BILIRUBIN - TOTAL 0.29 mg/dL (0.2-1.3); CALCIUM 9.6 mg/dL (8.5-10.1); CARBON DIOXIDE 28.5 mmol/L (21.0-32.0); CHLORIDE - SERUM 98 mmol/L (98-107); MAGNESIUM - SERUM 1.9 mg/dL (1.8-2.4); POTASSIUM - SERUM 5.1 mmol/L (3.5-5.1); PROTEIN - SERUM 6.6 g/dL (6.4-8.2); SODIUM 136 mmol/L (136-145); UREA NITROGEN 14 mg/dL (7-18); eGFR NON AFRICAN AMERICAN 88 mL/min (90-120)
[2016-11-25 21:14] LABS: CALC OSMOLALITY 297 mosm/kg (275-300)
[2016-11-25 21:15] LABS: GLUCOSE 549 mg/dL (74-106)
[2016-11-25 22:02] LABS: AMYLASE - SERUM 54 U/L (25-115); LIPASE 196 U/L (73-393)
== END 2016-11-25 22:40 | disposition home or self-care (01) ==
LOC: D.ER 20:24
PROVIDERS: Nurse Practitioner Family; Physician Assistant
DX: E11.65 Type 2 diabetes mellitus with hyperglycemia (principal); Z79.4 Long term (current) use of insulin; R10.13 Epigastric pain; A04.7 Enterocolitis due to Clostridium difficile; F19.10 Other psychoactive substance abuse, uncomplicated; R79.89 Other specified abnormal findings of blood chemistry; F17.200 Nicotine dependence, unspecified, uncomplicated

== ENCOUNTER 2016-11-29 01:26 | Emergency (ER) | payer MEDICAID ==
[2016-11-08 14:23] VITALS: BMI 17.5
[2016-11-29 01:48] LABS: BASOPHILS 0.6 % (0.0-2.0); EOSINOPHILS 3.9 % (0-7); HEMATOCRIT 32.3 % (42.0-54.0); HEMOGLOBIN 10.2 g/dL (13.5-17.5); IMMATURE GRANULOCYTES 0.2 % (0-5); LYMPHOCYTES 34.6 % (15-50); MCH 25.7 pg (26.0-34.0); MCHC 31.6 g/dL (31.0-37.0); MCV 81.4 fL (80.0-100.0); MEAN PLATELET VOLUME 9.2 fL (7.4-10.4); MONOCYTES 14.1 % (2-11); NEUTROPHILS 46.6 % (40-80); PLATELET COUNT 462 10x3/uL (130-400); RBC 3.97 10x6/uL (4.20-6.10); WBC 4.8 10x3/uL (4.8-10.8)
--- NOTE | 2016-11-29 01:49 | NUR ---
PATIENT REFUSED CXR @5300. NOTIFIED.
[2016-11-29 02:00] LABS: ALBUMIN 2.6 g/dL (3.4-5.0); ALKALINE PHOSPHATASE 256 U/L (46-116); ALT (SGPT) 213 U/L (10-68); CALC OSMOLALITY 280 mosm/kg (275-300); CALCIUM 8.5 mg/dL (8.5-10.1); CARBON DIOXIDE 27.8 mmol/L (21.0-32.0); CHLORIDE - SERUM 104 mmol/L (98-107); CREATININE - SERUM 0.8 mg/dL (0.6-1.3); GLUCOSE 80 mg/dL (74-106); POTASSIUM - SERUM 3.3 mmol/L (3.5-5.1); PROTEIN - SERUM 6.4 g/dL (6.4-8.2); SODIUM 141 mmol/L (136-145); UREA NITROGEN 14 mg/dL (7-18); eGFR NON AFRICAN AMERICAN > 90 mL/min (90-120)
[2016-11-29 02:07] LABS: AMYLASE - SERUM 45 U/L (25-115); CREATINE KINASE 77 UL (21-232); LIPASE 107 U/L (73-393); PRO BNP 48 pg/mL (0-125)
== END 2016-11-29 02:57 | disposition home or self-care (01) ==
LOC: D.ER 01:26
PROVIDERS: Family Medicine
DX: E11.649 Type 2 diabetes mellitus with hypoglycemia without coma (principal); Z79.4 Long term (current) use of insulin; E83.42 Hypomagnesemia

== ENCOUNTER 2016-12-29 13:10 | Emergency (ER) | payer MEDICAID ==
[2016-11-08 14:23] VITALS: BMI 17.5
== END 2016-12-29 15:21 | disposition home or self-care (01) ==
LOC: D.ER 13:10
DX: L02.612 Cutaneous abscess of left foot (principal); E11.9 Type 2 diabetes mellitus without complications; Z79.4 Long term (current) use of insulin; F17.200 Nicotine dependence, unspecified, uncomplicated

== ENCOUNTER 2017-02-02 08:47 | Emergency (ER) | payer MEDICAID ==
[2016-11-08 14:23] VITALS: BMI 17.5
[2017-02-02 09:26] LABS: BASOPHILS 0.6 % (0.0-2.0); EOSINOPHILS 1.6 % (0-7); HEMATOCRIT 37.1 % (42.0-54.0); HEMOGLOBIN 12.2 g/dL (13.5-17.5); IMMATURE GRANULOCYTES 0.1 % (0-5); MCH 26.7 pg (26.0-34.0); MCHC 32.9 g/dL (31.0-37.0); MCV 81.2 fL (80.0-100.0); MEAN PLATELET VOLUME 10.9 fL (7.4-10.4); MONOCYTES 5.9 % (2-11); NEUTROPHILS 62.8 % (40-80); RBC 4.57 10x6/uL (4.20-6.10); RDW 13.5 % (11.5-14.5)
[2017-02-02 09:31] LABS: PLATELET COUNT 345 10x3/uL (130-400)
[2017-02-02 09:34] LABS: ALBUMIN 3.1 g/dL (3.4-5.0); ANION GAP 25.1 mmol/L (8-16); BILIRUBIN - TOTAL 0.47 mg/dL (0.2-1.3); CALCIUM 9.2 mg/dL (8.5-10.1); CREATININE - SERUM 1.3 mg/dL (0.6-1.3); POTASSIUM - SERUM 5.1 mmol/L (3.5-5.1); PROTEIN - SERUM 7.6 g/dL (6.4-8.2)
== END 2017-02-02 12:40 | disposition home or self-care (01) ==
LOC: D.ER 08:47
PROVIDERS: Emergency Medicine
DX: E11.65 Type 2 diabetes mellitus with hyperglycemia (principal); Z79.4 Long term (current) use of insulin; E83.42 Hypomagnesemia; F17.200 Nicotine dependence, unspecified, uncomplicated; R00.0 Tachycardia, unspecified

== ENCOUNTER 2017-02-04 15:50 | Inpatient (IN) | payer MEDICAID ==
[2017-02-04] VITALS (7 sets, daily range): BP systolic 87–115; BP diastolic 74–87; BMI 15.7
[~2017-02-04] VITALS: Ht 182.9 cm; Wt 52.5 kg
[2017-02-04 16:58] LABS: BASOPHILS 0.3 % (0.0-2.0); EOSINOPHILS 0.1 % (0-7); HEMATOCRIT 41.2 % (42.0-54.0); HEMOGLOBIN 12.9 g/dL (13.5-17.5); IMMATURE GRANULOCYTES 0.5 % (0-5); LYMPHOCYTES 18.9 % (15-50); MCH 26.5 pg (26.0-34.0); MCHC 31.3 g/dL (31.0-37.0); MCV 84.6 fL (80.0-100.0); MEAN PLATELET VOLUME 10.8 fL (7.4-10.4); MONOCYTES 2.8 % (2-11); NEUTROPHILS 77.4 % (40-80); RBC 4.87 10x6/uL (4.20-6.10); WBC 16.7 10x3/uL (4.8-10.8)
[2017-02-04 17:07] LABS: PLATELET COUNT 420 10x3/uL (130-400)
[2017-02-04 17:12] LABS: KETONE - SERUM LARGE mg/dL (NEGATIVE)
[2017-02-04 17:21] LABS: ALBUMIN 3.3 g/dL (3.4-5.0); ALKALINE PHOSPHATASE 267 U/L (46-116); ALT (SGPT) 106 U/L (10-68); CALCIUM 9.6 mg/dL (8.5-10.1); CHLORIDE - SERUM 95 mmol/L (98-107); CREATININE - SERUM 1.7 mg/dL (0.6-1.3); POTASSIUM - SERUM 5.8 mmol/L (3.5-5.1); PROTEIN - SERUM 7.6 g/dL (6.4-8.2); SODIUM 134 mmol/L (136-145); UREA NITROGEN 24 mg/dL (7-18); eGFR NON AFRICAN AMERICAN 48 mL/min (90-120)
[2017-02-04 17:36] LABS: CALC OSMOLALITY 308 mosm/kg (275-300); CARBON DIOXIDE 4.3 mmol/L (21.0-32.0); GLUCOSE 756 mg/dL (74-106)
--- NOTE | 2017-02-04 21:55 | NUR ---
ARRIVED TO ROOM 2310 VIA STRETCHER. AMBULATED WEAKLY TO ICU BED. CONNECTED TO ICU MONITORING EQUIPMENT. RT ABOVE AC AREA PIV-18G INTACT WITH INSULIN INFUSING @ 10 UNITS/HR AND NS @ 200ML/HR. TEMPERATURE IN ROOM TURNED UP TO 80 DEGREES PER REQUEST FOR BEING COLD. TEMPORAL TEMP 96.5. WILL REASSESS. SINUS TACHYCARDIA ON THE MONITOR IN THE 110'S. ON ROOM AIR. REPORTING BACK PAIN A 10/10 ON NUMBER SCALE. REPORTS HIS "KIDNEYS HURT". WILL CALL ER MD FOR ORDERS. WILL MONITOR.
--- NOTE | 2017-02-04 22:30 | NUR ---
PO PAIN MED GIVEN. WILL MONITOR.
[2017-02-04 23:10] LABS: CALCIUM 8.3 mg/dL (8.5-10.1); CREATININE - SERUM 1.5 mg/dL (0.6-1.3)
[2017-02-04 23:12] LABS: ANION GAP 29.1 mmol/L (8-16); CARBON DIOXIDE 11.5 mmol/L (21.0-32.0); POTASSIUM - SERUM 3.6 mmol/L (3.5-5.1)
--- NOTE | 2017-02-04 23:37 | NUR ---
CHANGED IV FLUIDS FROM D5 TO NS @ 150ML/HR PER DR. FERRELL ORDERS. D/C'ED INSULIN GTT PER ORDERS. WILL MONITOR CLOSELY.
[2017-02-05] VITALS (21 sets, daily range): BP systolic 91–123; BP diastolic 55–85; Ht 182.9 cm; Wt 52.5 kg
--- NOTE | 2017-02-05 00:30 | NUR ---
EYES CLOSED. NO ACUTE DISTRESS NOTED.
--- NOTE | 2017-02-05 02:05 | NUR ---
AWOKE. VOMITTED 250ML OF MAROON-COLORED LIQUID EMESIS. DR. FERRELL, ER DOC CALLED AND INFORMED OF EMESIS AND COLOR AND REQUEST FOR NAUSEA MEDS. NEW ORDERS OBTAINED. URINAL GIVEN AND URINATED CLEAR, YELLOW URINE-450ML. AFTER ZOFRAN GIVEN, ATTEMPTED TO COMPLETE MED REC. WOULD NOT ANSWER THE LAST TIME HE TOOK THE MEDS. STATES "I JUST WANT TO GO TO SLEEP". WILL MONITOR.
--- NOTE | 2017-02-05 03:00 | NUR ---
SWETA [place] AT BEDSIDE FOR AM LABS. RIGHT BEFORE LAB DRAW HAD MORE EMESIS OF MAROON/BROWN COLORED EMESIS. REASSESSMENT COMPLETED. SEE ASSESSMENT FLOWSHEET. NO NEW ACUTE CHANGES NOTED.
[2017-02-05 03:21] LABS: BASOPHILS 0.2 % (0.0-2.0); EOSINOPHILS 0 % (0-7); HEMATOCRIT 34.3 % (42.0-54.0); HEMOGLOBIN 11.5 g/dL (13.5-17.5); IMMATURE GRANULOCYTES 0.4 % (0-5); LYMPHOCYTES 9.2 % (15-50); MCH 26.4 pg (26.0-34.0); MCHC 33.5 g/dL (31.0-37.0); MEAN PLATELET VOLUME 9.8 fL (7.4-10.4); MONOCYTES 6.6 % (2-11); NEUTROPHILS 83.6 % (40-80); PLATELET COUNT 396 10x3/uL (130-400); RBC 4.35 10x6/uL (4.20-6.10); RDW 13.3 % (11.5-14.5); WBC 16.5 10x3/uL (4.8-10.8)
[2017-02-05 03:22] LABS: MCV 78.9 fL (80.0-100.0)
[2017-02-05 03:30] LABS: ANION GAP 30.1 mmol/L (8-16); CALCIUM 8.1 mg/dL (8.5-10.1); CREATININE - SERUM 1.2 mg/dL (0.6-1.3); POTASSIUM - SERUM 4.1 mmol/L (3.5-5.1)
--- NOTE | 2017-02-05 04:10 | NUR ---
EYES CLOSED. NO ACUTE DISTRESS NOTED. WILL MONITOR.
--- NOTE | 2017-02-05 05:21 | NUR ---
PO PAIN MEDS GIVEN PER REQUEST.
--- NOTE | 2017-02-05 05:30 | NUR ---
FSBS ASSESSED. SUGAR-288
--- NOTE | 2017-02-05 06:00 | NUR ---
DR FERRELL CALLED AND INFORMED OF GLUCOSE AND MORE EMESIS EARLIER. NEW ORDERS RECEIVED.
--- NOTE | 2017-02-05 07:30 | NUR ---
PATIENT REFUSED AM LAB DRAW, NURSE WELL JEWEL CUPPING MACHINE OPERATOR ATTEMPTED TO GET PATIENT TO ALLOW LAB SHARON WITHOUT RESULT. NO LAB DRAWN PER PATIENT REQUEST.
--- NOTE | 2017-02-05 10:40 | NUR ---
X-RAY ATTEPTED TO DO CXR ORDERED, PATIENT ADAMENTLY REFUSES TO ALLOW CXR.
[2017-02-05 10:42] LABS: ALBUMIN 2.5 g/dL (3.4-5.0); BILIRUBIN - DIRECT 0.05 mg/dL (0.00-0.30); BILIRUBIN - INDIRECT 0.3 mg/dL (0.00-1.00); BILIRUBIN - TOTAL 0.35 mg/dL (0.2-1.3); MAGNESIUM - SERUM 1.7 mg/dL (1.8-2.4); PHOSPHOROUS 2.1 mg/dL (2.5-4.9); PROTEIN - SERUM 6.5 g/dL (6.4-8.2)
[2017-02-05 14:10] LABS: ANION GAP 16.9 mmol/L (8-16); CALCIUM 8.1 mg/dL (8.5-10.1); CREATININE - SERUM 1.2 mg/dL (0.6-1.3); POTASSIUM - SERUM 3.6 mmol/L (3.5-5.1)
[2017-02-05 14:13] LABS: CARBON DIOXIDE 17.7 mmol/L (21.0-32.0)
--- NOTE | 2017-02-05 16:00 | NUR ---
NO CHANGE NOTED
[2017-02-05 16:01] LABS: UDS - AMPHET POSITIVE QUAL (NEGATIVE); UDS - BARB NEGATIVE QUAL (NEGATIVE); UDS - BENZO NEGATIVE QUAL (NEGATIVE); UDS - COCAINE NEGATIVE QUAL (NEGATIVE); UDS - METH NEGATIVE QUAL (NEGATIVE); UDS - OPIATE POSITIVE QUAL (NEGATIVE); UDS - PCP NEGATIVE QUAL (NEGATIVE); UDS - THC NEGATIVE QUAL (NEGATIVE)
--- NOTE | 2017-02-05 17:27 | NUR ---
DR. PRABHAKAR NOTIFIED OF FSBS.
--- NOTE | 2017-02-05 17:52 | NUR ---
ATTEMPTED TO GET PATIENT TO EAT WITHOUT SUCCESS. C/O NAUSEA AND ZOFRAN WAS GIVEN.
[2017-02-05 18:14] LABS: KETONE - SERUM MODERATE mg/dL (NEGATIVE)
[2017-02-05 18:18] LABS: CALC OSMOLALITY 282 mosm/kg (275-300); CALCIUM 8.3 mg/dL (8.5-10.1); CARBON DIOXIDE 18.8 mmol/L (21.0-32.0); CHLORIDE - SERUM 106 mmol/L (98-107); CREATININE - SERUM 1.2 mg/dL (0.6-1.3); POTASSIUM - SERUM 3.7 mmol/L (3.5-5.1); SODIUM 139 mmol/L (136-145); UREA NITROGEN 18 mg/dL (7-18); eGFR NON AFRICAN AMERICAN 72 mL/min (90-120)
[2017-02-05 18:19] LABS: GLUCOSE 150 mg/dL (74-106)
--- NOTE | 2017-02-05 18:21 | NUR ---
GLUCOSE ON SERIEL BMP 150 NO INTERVENTION REQUIRED
--- NOTE | 2017-02-05 19:40 | NUR ---
ASSESSMENT COMPLETED. SEE ASSESSMENT. LAYING ON HIS RT SIDE. EYES CLOSED. BARELY OPENED EYES FOR ASSESSMENT. RT UPPER AC AREA 18G PIV INTACT WITH NS @ 5ML/HR. REPORTS BACK PAIN WHEN ASKED AN 8/10 ON NUMBER SCALE. REQUEST PAIN PILL, PILL GIVEN. DENIES NAUSEA BY BARELY SHAKING HEAD "NO". NEW CUP OF WATER GIVEN WITH PAIN MEDS. REPORTS "I DON'T FEEL GOOD". WILL MONITOR.
--- NOTE | 2017-02-05 21:30 | NUR ---
SPOKE WITH DR. NIEVES ON FOR DR. PRABHAKAR HE IS E.R. PHYSICIAN. INFORMED OF LOW SUGARS REQUIRING D50 X2 TODAY AND NOT EATING. NEW ORDERS RECEIVED. D5W @ 75ML/HR HUNG ORDERED.
--- NOTE | 2017-02-05 22:00 | NUR ---
AWAKE. ASKING FOR ME TO CALL HIS MOM. ASHLEY-MOM CALLED AND INFORMED HER HE WAS IN ICU. THANKFUL AND ASKED FOR APPLE JUICE TO TRY TO DRINK. APPLE JUICE X2 CONTAINERS GIVEN. WILL MONITOR.
[2017-02-05 22:13] LABS: CALCIUM 8.3 mg/dL (8.5-10.1); CHLORIDE - SERUM 108 mmol/L (98-107); CREATININE - SERUM 1.2 mg/dL (0.6-1.3); POTASSIUM - SERUM 3.3 mmol/L (3.5-5.1); SODIUM 142 mmol/L (136-145); UREA NITROGEN 16 mg/dL (7-18); eGFR NON AFRICAN AMERICAN 72 mL/min (90-120)
[2017-02-05 22:14] LABS: CALC OSMOLALITY 283 mosm/kg (275-300); CARBON DIOXIDE 23.9 mmol/L (21.0-32.0); GLUCOSE 95 mg/dL (74-106); KETONE - SERUM MODERATE mg/dL (NEGATIVE)
--- NOTE | 2017-02-05 22:43 | NUR ---
PO KCL PLACED IN BEDSIDE APPLE JUICE. INFORMED OF NEED TO DRINK TO GET POTASSIUM UP.
--- NOTE | 2017-02-05 23:30 | NUR ---
REASSESSMENT COMPLETED. SEE ASSESSMENT FLOWSHEET. FSBS ASSESSED. SUGAR-79.
--- NOTE | 2017-02-05 23:42 | NUR ---
IV ABX STARTED PER NEW ORDERS. BEGINS TO MOAN WHEN NURSING IS AT BEDSIDE. WILL MONITOR.
[2017-02-06] VITALS (8 sets, daily range): BP systolic 104–129; BP diastolic 59–88
--- NOTE | 2017-02-06 00:45 | NUR ---
ASKING OTHER NURSING STAFF FOR APPLE JUICE. WILL NOT DRINK APPLE JUICE WITH POTASSIUM IN IT.
--- NOTE | 2017-02-06 02:00 | NUR ---
EMPTIED URINAL OF CLEAR, MASON URINE-350ML. EYES CLOSED. NO ACUTE DISTRESS NOTED. WILL MONITOR.
--- NOTE | 2017-02-06 02:30 | NUR ---
REASSESSMENT COMPLETED. SEE ASSESSMENT FLOWSHEET. SAT ON SIDE OF BED WITH NURSING PRESENT. REPORTS APPLE JUICE "TORE MY STOMACH UP". DENIES NAUSEA. NO EMESIS THIS EVENING. REFUSES PO AND IV POTASSIUM. PRN PAIN PILL GIVEN FOR BACK PAIN PER REQUEST WITH WATER. WILL MONITOR.
--- NOTE | 2017-02-06 02:30 | NUR ---
AWAKE. ASKING FOR PAIN MEDS. STATES HE IS FEELING A LITTLE BIT BETTER. REASSESSMENT COMPLETED. SEE ASSESSMENT. NO NEW ACUTE CHANGES NOTED. WILL MONITOR.
--- NOTE | 2017-02-06 04:00 | NUR ---
REPORT GIVEN TO LASHAWN ON MED-SURG. TO BE TRANSFERRED TO ROOM 2231.
--- NOTE | 2017-02-06 04:50 | NUR ---
UPON ABOUT TO TAKE TO MEDSUR-REPORTS NAUSEA. ZOFRAN TO BE GIVEN AND RT AC PIV HALF WAY OUT THE VEIN AND IV INFILTRATED.
--- NOTE | 2017-02-06 05:15 | NUR ---
NEW IV SITE TO RT LOWER FOREARM 20G PIV X1 STICK PER NIRMALA PANTOJA RN. AM LABS DRAWN AT THIS TIME. WILL MONITOR.
--- NOTE | 2017-02-06 05:30 | NUR ---
TRANSFERRED TO ROOM 2231 VIA . [facility] NURSE MADE AWARE OF ARRIVAL AND CHANGES.
[2017-02-06 05:38] LABS: BASOPHILS 0.2 % (0.0-2.0); EOSINOPHILS 0.4 % (0-7); HEMATOCRIT 31.5 % (42.0-54.0); HEMOGLOBIN 10.6 g/dL (13.5-17.5); IMMATURE GRANULOCYTES 0.3 % (0-5); LYMPHOCYTES 13.2 % (15-50); MCHC 33.7 g/dL (31.0-37.0); MCV 77.4 fL (80.0-100.0); MEAN PLATELET VOLUME 9.3 fL (7.4-10.4); MONOCYTES 5.9 % (2-11); PLATELET COUNT 318 10x3/uL (130-400); RBC 4.07 10x6/uL (4.20-6.10); RDW 13.5 % (11.5-14.5)
[2017-02-06 05:39] LABS: WBC 10.7 10x3/uL (4.8-10.8)
[2017-02-06 05:45] LABS: KETONE - SERUM SMALL mg/dL (NEGATIVE)
[2017-02-06 06:05] LABS: ALBUMIN 2.4 g/dL (3.4-5.0); ALKALINE PHOSPHATASE 174 U/L (46-116); ALT (SGPT) 60 U/L (10-68); AMYLASE - SERUM 62 U/L (25-115); BILIRUBIN - INDIRECT 0.11 mg/dL (0.00-1.00); BILIRUBIN - TOTAL 0.15 mg/dL (0.2-1.3); CALC OSMOLALITY 277 mosm/kg (275-300); CALCIUM 8.4 mg/dL (8.5-10.1); CARBON DIOXIDE 23.9 mmol/L (21.0-32.0); CHLORIDE - SERUM 105 mmol/L (98-107); CREATININE - SERUM 1.2 mg/dL (0.6-1.3); GLUCOSE 91 mg/dL (74-106); LIPASE 90 U/L (73-393); MAGNESIUM - SERUM 1.8 mg/dL (1.8-2.4); PHOSPHOROUS 1.8 mg/dL (2.5-4.9); POTASSIUM - SERUM 3.2 mmol/L (3.5-5.1); PROTEIN - SERUM 6.2 g/dL (6.4-8.2); SODIUM 139 mmol/L (136-145); UREA NITROGEN 12 mg/dL (7-18); eGFR NON AFRICAN AMERICAN 72 mL/min (90-120)
[2017-02-06 06:11] LABS: BILIRUBIN - DIRECT 0.04 mg/dL (0.00-0.30)
--- NOTE | 2017-02-06 11:42 | NUR ---
PT RESTING IN BED WITH EYES CLOSED. PRN NORCO GIVEN PER PT COMPLAINTS OF 7/10 GENERALIZED PAIN. WILL REASSESS. WANTING TO KNOW WHEN HE WILL BE OFF THE CLEAR LIQUIDS. CURRENT FSBS 78. ENCOURAGED PT TO DRINK REGULAR SODA'S I PROVIDED AND LEFT ON BEDSIDE TABLE. STATED HE WOULD IF HE HAD SOME REAL FOOD. NEW BAG OF IVF HUNG. BED LOW, CALL LIGHT IN REACH, DENIES NEEDS. CPOC.
--- NOTE | 2017-02-06 12:15 | NUR ---
RESTING QUIETLY IWTH EYES CLOSED. DENIES NEEDS. IV TO RIGHT AC PATENT WTIHOUT REDNESS AT INSERTION SITE.
--- NOTE | 2017-02-06 19:50 | NUR ---
ASSESSMENT COMPLETED, NO ACUTE DISTRESS NOTED, IV INFUSING WITH EASE, PT DENIES NEEDS AT THIS TIME, CL IN REACH, WILL MONITOR
--- NOTE | 2017-02-06 23:16 | NUR ---
PRN NORCO AND ZOFRAN GIVEN PER REQUEST CARLOS WELL, CL IN REACH
--- NOTE | 2017-02-06 23:27 | NUR ---
20 UNITS INSULIN GIVEN PER SLIDING SCALE FOR BS OF 414, PT HAS BEEN EATING LARGE AMOUNTS OF FOOD, MD AWARE, NO NEW ORDERS
--- NOTE | 2017-02-07 01:34 | NUR ---
RESTING WITH EYES CLOSED, RESP WITH EASE, NO DISTRESS NOTED, CL IN REACH
[2017-02-07 05:37] LABS: BASOPHILS 0.3 % (0.0-2.0); EOSINOPHILS 1.3 % (0-7); HEMATOCRIT 31.1 % (42.0-54.0); HEMOGLOBIN 10.4 g/dL (13.5-17.5); IMMATURE GRANULOCYTES 0.1 % (0-5); LYMPHOCYTES 29.9 % (15-50); MCH 26.1 pg (26.0-34.0); MCHC 33.4 g/dL (31.0-37.0); MCV 78.1 fL (80.0-100.0); MEAN PLATELET VOLUME 10.2 fL (7.4-10.4); MONOCYTES 6.6 % (2-11); NEUTROPHILS 61.8 % (40-80); PLATELET COUNT 274 10x3/uL (130-400); RBC 3.98 10x6/uL (4.20-6.10); RDW 13.5 % (11.5-14.5)
[2017-02-07 06:17] LABS: ALBUMIN 2.2 g/dL (3.4-5.0); ALKALINE PHOSPHATASE 168 U/L (46-116); ALT (SGPT) 58 U/L (10-68); CALCIUM 8.5 mg/dL (8.5-10.1); CARBON DIOXIDE 26.7 mmol/L (21.0-32.0); CHLORIDE - SERUM 102 mmol/L (98-107); CREATININE - SERUM 1.1 mg/dL (0.6-1.3); POTASSIUM - SERUM 3.1 mmol/L (3.5-5.1); PROTEIN - SERUM 5.8 g/dL (6.4-8.2); SODIUM 138 mmol/L (136-145); UREA NITROGEN 14 mg/dL (7-18); eGFR NON AFRICAN AMERICAN 79 mL/min (90-120)
[2017-02-07 06:25] LABS: CALC OSMOLALITY 280 mosm/kg (275-300); GLUCOSE 165 mg/dL (74-106)
--- NOTE | 2017-02-07 06:37 | NUR ---
KCL 3.1, PT REFUSED TREATMENT
[2017-02-07 08:06] VITALS: BP 116/84
[2017-02-07 11:21] VITALS: BP 151/77
--- NOTE | 2017-02-07 13:33 | NUR ---
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 PATIENT STATED HE LIVES WITH HIS MOM (ASHLEY) AND SHE WILL DRIVE HIM HOME AT DISCHARGE. PATIENT HAS 4 STEPS W/RAILS TO ENTER HOME AND NO STAIRS INSIDE. PATIENT STATED HE SEES A DOCTOR AT [facility]. PATIENT HAS A GLUCOMETER (CKS 4X A DAY) AND A WALKER. PATIENT DENIES NEEDS FOR HOME HEALTH AND STATED HE WILL GO HOME WITH HIS MOM AT DISCHARGE. CM WILL CONTINUE TO FOLLOW PATIENT WITH D/C NEEDS AND PLANS. PCP [facility] IN [facility] [address] [phone] ASHLEY (MOM) [phone] Plaster Applicator: Vikki Ballard Is the patient Alert and Oriented? Yes 0 * How many steps to enter\exit or inside your home? 4 W/RAILS 0 * PCP [facility] 0 * [facility] [address] 0 * Preadmission Environment Home with Family 0 * ADLs Independent 0 * Equipment Glucometer Walker 0 * List name and contact numbers for known caregivers / representatives who currently or will assist patient after discharge: ASHLEY CANALES) [phone] 0 * Community resources currently utilized None 0 * Additional services required to return to the preadmission environment? Yes 0 * Can the patient safely return to the preadmission environment? Yes 0 * Has this patient been hospitalized within the prior 30 days at any hospital? No 0 Grand Total: 0
[2017-02-07 15:20] VITALS: BP 130/64
[2017-02-07 19:00] VITALS: BP 123/96
--- NOTE | 2017-02-07 19:55 | NUR ---
PT SITTING UP ON SIDE OF BED, ASSESSMENT COMPLETED, NO DISTRESS NOTED, DENIES NEEDS, CL IN REACH, WILL MONITOR
--- NOTE | 2017-02-07 21:22 | NUR ---
AMBULATING IN STRINGER, NO DISTRESS NOTED
--- NOTE | 2017-02-07 23:10 | NUR ---
NORCO GIVEN FOR C/O BACK PAIN 05/16 ALONG WITH IV AB'S CARLOS WELL, CL IN REACH
--- NOTE | 2017-02-08 01:21 | NUR ---
RESTING WITH EYES CLOSED, RESP WITH EASE, CL IN REACH
[2017-02-08 04:00] VITALS: BP 98/72
[2017-02-08 04:59] LABS: BASOPHILS 0.3 % (0.0-2.0); EOSINOPHILS 1.8 % (0-7); HEMATOCRIT 33.5 % (42.0-54.0); HEMOGLOBIN 11.2 g/dL (13.5-17.5); IMMATURE GRANULOCYTES 0.2 % (0-5); LYMPHOCYTES 30.2 % (15-50); MCH 26.3 pg (26.0-34.0); MCHC 33.4 g/dL (31.0-37.0); MCV 78.6 fL (80.0-100.0); MEAN PLATELET VOLUME 10.2 fL (7.4-10.4); NEUTROPHILS 62.5 % (40-80); PLATELET COUNT 279 10x3/uL (130-400); RBC 4.26 10x6/uL (4.20-6.10); RDW 13.4 % (11.5-14.5); WBC 6.3 10x3/uL (4.8-10.8)
[2017-02-08 05:12] LABS: ALBUMIN 2.6 g/dL (3.4-5.0); ALKALINE PHOSPHATASE 191 U/L (46-116); ALT (SGPT) 67 U/L (10-68); CALCIUM 8.8 mg/dL (8.5-10.1); CARBON DIOXIDE 26.6 mmol/L (21.0-32.0); CHLORIDE - SERUM 98 mmol/L (98-107); PROTEIN - SERUM 6.6 g/dL (6.4-8.2); SODIUM 136 mmol/L (136-145); UREA NITROGEN 17 mg/dL (7-18); eGFR NON AFRICAN AMERICAN 88 mL/min (90-120)
[2017-02-08 05:15] LABS: BILIRUBIN - TOTAL 0.08 mg/dL (0.2-1.3); CALC OSMOLALITY 287 mosm/kg (275-300); GLUCOSE 359 mg/dL (74-106); POTASSIUM - SERUM 3.7 mmol/L (3.5-5.1)
[2017-02-08 08:22] VITALS: BP 117/93
[2017-02-08] MEDS ORDERED: DOXYCYCLINE HY100 M2 PO (09:46)
--- NOTE | 2017-02-08 10:46 | NUR ---
CM REASSESSMENT NOTE: PATIENT IS DISCHARGING HOME TODAY-NO NEEDS PER PATIENT. PATIENT DENIED HOME HEALTH OR ANY OTHER NEEDS. MOTHER TO DRIVE HIM HOME.
--- NOTE | 2017-02-08 11:55 | NUR ---
PT IV D/C PATENT AND CATHETER INTACT.
--- NOTE | 2017-02-08 11:59 | NUR ---
PT LEFT FACILITY VIA WALKING VIA PRIVATE VEHICLE AT THIS TIME
== END 2017-02-08 11:59 | disposition home or self-care (01) | DRG 638 ==
LOC: D.ER 15:50 → D.MS 17:25 → D.ICU 17:25 → D.MS 02-06 05:30
PROVIDERS: Emergency Medicine; Family Medicine; Internal Medicine Pulmonary Disease; Surgery; ADMIT Family Medicine
DX: E10.10 Type 1 diabetes mellitus with ketoacidosis without coma (principal); E87.1 Hypo-osmolality and hyponatremia; Z79.4 Long term (current) use of insulin; E86.0 Dehydration; N28.9 Disorder of kidney and ureter, unspecified; E87.6 Hypokalemia; D64.9 Anemia, unspecified; Z91.19 Patient's noncompliance with other medical treatment and regimen; F15.90 Other stimulant use, unspecified, uncomplicated; F11.90 Opioid use, unspecified, uncomplicated

== ENCOUNTER 2017-02-21 17:18 | Emergency (ER) | payer MEDICAID ==
[2017-02-05 10:42] VITALS: BMI 15.7
[~2017-02-21 17:18] MED LIST changes: +DOXYCYCLINE HY100 M2 PO
== END 2017-02-21 19:51 | disposition left against medical advice (07) ==
LOC: D.ER 17:18
DX: E11.65 Type 2 diabetes mellitus with hyperglycemia (principal)

== ENCOUNTER → 2017-02-23 | Emergency (ER) | payer MEDICAID ==
[2017-02-05 10:42] VITALS: BMI 15.7
== END | disposition home or self-care (01) ==
LOC: D.ER 09:56
DX: E10.65 Type 1 diabetes mellitus with hyperglycemia (principal); Z79.4 Long term (current) use of insulin; L30.9 Dermatitis, unspecified

== ENCOUNTER 2017-03-11 12:30 | Emergency (ER) | payer MEDICAID ==
[2017-02-05 10:42] VITALS: BMI 15.7
[2017-03-11 13:44] LABS: BASOPHILS 1.3 % (0-2); EOSINOPHILS 2.8 % (0-7); HEMATOCRIT 37.8 % (42.0-54.0); HEMOGLOBIN 12.3 g/dL (13.5-17.5); IMMATURE GRANULOCYTES 0.3 % (0-5); LYMPHOCYTES 34.1 % (15-50); MCH 27.3 pg (26.0-34.0); MCHC 32.5 g/dL (31.0-37.0); MCV 83.8 fL (80.0-100.0); MEAN PLATELET VOLUME 10.3 fL (7.4-10.4); MONOCYTES 5.2 % (2-11); NEUTROPHILS 56.3 % (40-80); RBC 4.51 10x6/uL (4.20-6.10); RDW 14.6 % (11.5-14.5); WBC 7.1 10x3/uL (4.8-10.8)
[2017-03-11 13:47] LABS: PLATELET COUNT 367 10x3/uL (130-400)
[2017-03-11 13:53] LABS: KETONE - SERUM NEGATIVE (NEGATIVE)
[2017-03-11 14:01] LABS: ALBUMIN 2.7 g/dL (3.4-5.0); ALKALINE PHOSPHATASE 278 U/L (46-116); ALT (SGPT) 138 U/L (10-68); CALC OSMOLALITY 291 mosm/kg (275-300); CALCIUM 8.7 mg/dL (8.5-10.1); CARBON DIOXIDE 27.7 mmol/L (21.0-32.0); CHLORIDE - SERUM 100 mmol/L (98-107); CREATININE - SERUM 1.3 mg/dL (0.6-1.3); GLUCOSE 339 mg/dL (74-106); POTASSIUM - SERUM 3.6 mmol/L (3.5-5.1); PROTEIN - SERUM 6.5 g/dL (6.4-8.2); SODIUM 138 mmol/L (136-145); UREA NITROGEN 21 mg/dL (7-18); eGFR NON AFRICAN AMERICAN 65 mL/min (90-120)
== END 2017-03-11 15:09 | disposition home or self-care (01) ==
LOC: D.ER 12:30
PROVIDERS: Family Medicine
DX: R13.10 Dysphagia, unspecified (principal); E11.9 Type 2 diabetes mellitus without complications; Z79.4 Long term (current) use of insulin; E83.42 Hypomagnesemia; F17.200 Nicotine dependence, unspecified, uncomplicated

== ENCOUNTER 2017-03-16 05:48 | Inpatient (IN) | payer MEDICAID ==
[~2017-03-16] VITALS: Ht 182.9 cm; Wt 63.5 kg
[2017-03-16 06:25] LABS: EOSINOPHILS 1.6 % (0-7); HEMATOCRIT 35.7 % (42.0-54.0); HEMOGLOBIN 11.7 g/dL (13.5-17.5); IMMATURE GRANULOCYTES 0.2 % (0-5); LYMPHOCYTES 26.4 % (15-50); MCH 27.2 pg (26.0-34.0); MCHC 32.8 g/dL (31.0-37.0); MEAN PLATELET VOLUME 10.6 fL (7.4-10.4); NEUTROPHILS 65.8 % (40-80); PLATELET COUNT 333 10x3/uL (130-400); RDW 14.1 % (11.5-14.5); WBC 6.2 10x3/uL (4.8-10.8)
[2017-03-16 06:30] LABS: APPEARANCE CLEAR (CLEAR); COLOR YELLOW (YELLOW); LEUKOCYTE ESTERASE NEGATIVE (NEGATIVE); NITRITE NEGATIVE (NEGATIVE); PROTEIN NEGATIVE (NEGATIVE); SPECIFIC GRAVITY 1.015 (1.005-1.020)
[2017-03-16 06:31] LABS: BILIRUBIN NEGATIVE (NEGATIVE); GLUCOSE 1000 mg/dL (NEGATIVE); KETONE LARGE mg/dL (NEGATIVE); UROBILINOGEN NORMAL (NORMAL)
[2017-03-16 06:42] LABS: ALBUMIN 2.9 g/dL (3.4-5.0); ALKALINE PHOSPHATASE 315 U/L (46-116); ALT (SGPT) 147 U/L (10-68); AMYLASE - SERUM 32 U/L (25-115); BILIRUBIN - TOTAL 0.47 mg/dL (0.2-1.3); CARBON DIOXIDE 15.3 mmol/L (21.0-32.0); CHLORIDE - SERUM 92 mmol/L (98-107); CREATININE - SERUM 1.2 mg/dL (0.6-1.3); LIPASE 144 U/L (73-393); PROTEIN - SERUM 6.6 g/dL (6.4-8.2); SODIUM 128 mmol/L (136-145); UREA NITROGEN 24 mg/dL (7-18); eGFR NON AFRICAN AMERICAN 72 mL/min (90-120)
[2017-03-16 06:48] LABS: KETONE - SERUM LARGE mg/dL (NEGATIVE)
[2017-03-16 07:21] LABS: CALC OSMOLALITY 300 mosm/kg (275-300); GLUCOSE 816 mg/dL (74-106)
[2017-03-16 11:13] LABS: UDS - AMPHET POSITIVE QUAL (NEGATIVE); UDS - BARB NEGATIVE QUAL (NEGATIVE); UDS - BENZO NEGATIVE QUAL (NEGATIVE); UDS - COCAINE NEGATIVE QUAL (NEGATIVE); UDS - METH NEGATIVE QUAL (NEGATIVE); UDS - OPIATE NEGATIVE QUAL (NEGATIVE); UDS - PCP NEGATIVE QUAL (NEGATIVE); UDS - THC NEGATIVE QUAL (NEGATIVE)
[2017-03-16 17:35] LABS: CALCIUM 8.9 mg/dL (8.5-10.1); CREATININE - SERUM 1.3 mg/dL (0.6-1.3); POTASSIUM - SERUM 4.6 mmol/L (3.5-5.1)
[2017-03-16 17:44] LABS: CARBON DIOXIDE 26.6 mmol/L (21.0-32.0)
[2017-03-16 18:01] VITALS: BP 122/84
[2017-03-16 18:54] VITALS: BMI 19.0
[2017-03-16] MEDS ORDERED: NOVOLOG100 U/M1 SC (18:57)
[2017-03-16] MEDS ORDERED: LANTUS SOL100 UNIT/1 SC (18:58)
[2017-03-16 19:00] VITALS: BP 104/70
[2017-03-17 04:00] VITALS: BP 106/81
[2017-03-17 06:34] LABS: BASOPHILS 0.6 % (0-2); EOSINOPHILS 5.2 % (0-7); HEMATOCRIT 34.6 % (42.0-54.0); HEMOGLOBIN 11.4 g/dL (13.5-17.5); IMMATURE GRANULOCYTES 0.1 % (0-5); LYMPHOCYTES 44.1 % (15-50); MCH 26.8 pg (26.0-34.0); MCHC 32.9 g/dL (31.0-37.0); MCV 81.4 fL (80.0-100.0); MEAN PLATELET VOLUME 11.3 fL (7.4-10.4); MONOCYTES 4.8 % (2-11); NEUTROPHILS 45.2 % (40-80); PLATELET COUNT 358 10x3/uL (130-400); RBC 4.25 10x6/uL (4.20-6.10); WBC 7.8 10x3/uL (4.8-10.8)
[2017-03-17 06:55] LABS: ALBUMIN 2.7 g/dL (3.4-5.0); ALKALINE PHOSPHATASE 239 U/L (46-116); BILIRUBIN - TOTAL 0.16 mg/dL (0.2-1.3); CALCIUM 9.1 mg/dL (8.5-10.1); CARBON DIOXIDE 24.7 mmol/L (21.0-32.0); CHLORIDE - SERUM 107 mmol/L (98-107); PROTEIN - SERUM 6.3 g/dL (6.4-8.2); SODIUM 140 mmol/L (136-145); UREA NITROGEN 22 mg/dL (7-18)
[2017-03-17 07:01] LABS: ALT (SGPT) 110 U/L (10-68); CALC OSMOLALITY 280 mosm/kg (275-300); CREATININE - SERUM 0.8 mg/dL (0.6-1.3); GLUCOSE 88 mg/dL (74-106); eGFR NON AFRICAN AMERICAN > 90 mL/min (90-120)
[2017-03-17 08:44] VITALS: BP 116/80
[2017-03-17 12:57] VITALS: BP 132/90
[2017-03-17 14:15] VITALS: Ht 182.9 cm; Wt 63.5 kg
[2017-03-17 17:00] VITALS: BP 116/87
[2017-03-17 20:00] VITALS: BP 128/94
[2017-03-18] VITALS: BP 128/98
[2017-03-18 04:00] VITALS: BP 133/73
[2017-03-18 05:28] LABS: BASOPHILS 0.7 % (0-2); EOSINOPHILS 5.2 % (0-7); HEMATOCRIT 32.2 % (42.0-54.0); HEMOGLOBIN 10.7 g/dL (13.5-17.5); IMMATURE GRANULOCYTES 0.2 % (0-5); LYMPHOCYTES 44.8 % (15-50); MCHC 33.2 g/dL (31.0-37.0); MCV 81.3 fL (80.0-100.0); MEAN PLATELET VOLUME 10.5 fL (7.4-10.4); MONOCYTES 6.4 % (2-11); NEUTROPHILS 42.7 % (40-80); PLATELET COUNT 308 10x3/uL (130-400); RBC 3.96 10x6/uL (4.20-6.10); WBC 6.1 10x3/uL (4.8-10.8)
[2017-03-18 05:56] LABS: ALBUMIN 2.6 g/dL (3.4-5.0); ALKALINE PHOSPHATASE 211 U/L (46-116); ALT (SGPT) 97 U/L (10-68); CALCIUM 8.9 mg/dL (8.5-10.1); CARBON DIOXIDE 30.8 mmol/L (21.0-32.0); CHLORIDE - SERUM 108 mmol/L (98-107); CREATININE - SERUM 0.7 mg/dL (0.6-1.3); POTASSIUM - SERUM 4.4 mmol/L (3.5-5.1); PROTEIN - SERUM 6.2 g/dL (6.4-8.2); SODIUM 142 mmol/L (136-145); UREA NITROGEN 20 mg/dL (7-18); eGFR NON AFRICAN AMERICAN > 90 mL/min (90-120)
[2017-03-18 06:00] LABS: BILIRUBIN - TOTAL 0.08 mg/dL (0.2-1.3); CALC OSMOLALITY 283 mosm/kg (275-300); GLUCOSE 54 mg/dL (74-106)
[2017-03-18 08:58] VITALS: BP 116/80
[2017-03-18 12:21] VITALS: BP 119/81
[2017-03-18 15:47] VITALS: BP 120/86
[2017-03-18 20:29] VITALS: BP 115/79
== END 2017-03-18 21:21 | disposition left against medical advice (07) | DRG 638 ==
LOC: D.ER 05:48 → D.ICU 13:18 → D.ER 13:18 → D.MS 13:18 → OBSVTIME 13:18 → D.ICU 14:30 → D.MS 14:30 → D.ICU 14:58 → D.SDCHOLD 14:58 → D.MS 15:39
PROVIDERS: Family Medicine; ADMIT Family Medicine
DX: E10.10 Type 1 diabetes mellitus with ketoacidosis without coma (principal); E87.1 Hypo-osmolality and hyponatremia; F15.20 Other stimulant dependence, uncomplicated; F17.203 Nicotine dependence unspecified, with withdrawal; Z79.4 Long term (current) use of insulin; K59.00 Constipation, unspecified; I10 Essential (primary) hypertension; N28.9 Disorder of kidney and ureter, unspecified; Z91.19 Patient's noncompliance with other medical treatment and regimen

== ENCOUNTER 2017-03-23 01:55 | Emergency (ER) | payer MEDICAID ==
[2017-03-17 14:15] VITALS: BMI 19.0
[~2017-03-23 01:55] MED LIST changes: +LANTUS SOL100 UNIT/1 SC
== END 2017-03-23 04:08 | disposition home or self-care (01) ==
LOC: D.ER 01:55
DX: E10.65 Type 1 diabetes mellitus with hyperglycemia (principal); Z79.4 Long term (current) use of insulin; F17.200 Nicotine dependence, unspecified, uncomplicated; R00.0 Tachycardia, unspecified; I45.10 Unspecified right bundle-branch block

== ENCOUNTER 2017-03-28 20:14 | Emergency (ER) | payer MEDICAID ==
[2017-03-17 14:15] VITALS: BMI 19.0
[2017-03-28 21:26] LABS: EOSINOPHILS 3.2 % (0-7); HEMATOCRIT 31.5 % (42.0-54.0); HEMOGLOBIN 10.4 g/dL (13.5-17.5); IMMATURE GRANULOCYTES 0.2 % (0-5); LYMPHOCYTES 30.4 % (15-50); MCH 27.5 pg (26.0-34.0); MCV 83.3 fL (80.0-100.0); MEAN PLATELET VOLUME 10.3 fL (7.4-10.4); NEUTROPHILS 58.2 % (40-80); PLATELET COUNT 333 10x3/uL (130-400); RBC 3.78 10x6/uL (4.20-6.10); RDW 14.3 % (11.5-14.5)
[2017-03-28 21:51] LABS: ALBUMIN 2.4 g/dL (3.4-5.0); ANION GAP 18.8 mmol/L (8-16); CALCIUM 7.6 mg/dL (8.5-10.1); CARBON DIOXIDE 19.2 mmol/L (21.0-32.0); CREATININE - SERUM 1.3 mg/dL (0.6-1.3); PROTEIN - SERUM 5.7 g/dL (6.4-8.2)
[2017-03-28 22:03] LABS: BILIRUBIN - TOTAL 0.07 mg/dL (0.2-1.3)
== END 2017-03-28 22:00 | disposition left against medical advice (07) ==
LOC: D.ER 20:14
PROVIDERS: Physician Assistant
DX: E10.65 Type 1 diabetes mellitus with hyperglycemia (principal); Z79.4 Long term (current) use of insulin; F17.200 Nicotine dependence, unspecified, uncomplicated

== ENCOUNTER 2017-04-02 06:23 | Emergency (ER) | payer MEDICAID ==
[2017-03-17 14:15] VITALS: BMI 19.0
[2017-04-02 07:05] LABS: BASOPHILS 1.6 % (0-2); EOSINOPHILS 1.3 % (0-7); HEMATOCRIT 35.2 % (42.0-54.0); HEMOGLOBIN 11.1 g/dL (13.5-17.5); IMMATURE GRANULOCYTES 0.3 % (0-5); LYMPHOCYTES 42.2 % (15-50); MCH 27.1 pg (26.0-34.0); MCHC 31.5 g/dL (31.0-37.0); MCV 85.9 fL (80.0-100.0); MEAN PLATELET VOLUME 10.6 fL (7.4-10.4); NEUTROPHILS 49.6 % (40-80); PLATELET COUNT 294 10x3/uL (130-400); RDW 14.7 % (11.5-14.5); WBC 3.8 10x3/uL (4.8-10.8)
[2017-04-02 07:12] LABS: KETONE - SERUM SMALL mg/dL (NEGATIVE)
[2017-04-02 07:25] LABS: ALKALINE PHOSPHATASE 331 U/L (46-116); ALT (SGPT) 668 U/L (10-68); BILIRUBIN - TOTAL 0.33 mg/dL (0.2-1.3); CALCIUM 8.9 mg/dL (8.5-10.1); CARBON DIOXIDE 22.3 mmol/L (21.0-32.0); CHLORIDE - SERUM 92 mmol/L (98-107); CREATININE - SERUM 1.6 mg/dL (0.6-1.3); POTASSIUM - SERUM 5.8 mmol/L (3.5-5.1); PROTEIN - SERUM 6.8 g/dL (6.4-8.2); SODIUM 127 mmol/L (136-145); UREA NITROGEN 22 mg/dL (7-18); eGFR NON AFRICAN AMERICAN 51 mL/min (90-120)
[2017-04-02 07:30] LABS: CALC OSMOLALITY 297 mosm/kg (275-300); GLUCOSE 818 mg/dL (74-106)
[2017-04-02 07:54] LABS: APPEARANCE CLEAR (CLEAR); BILIRUBIN NEGATIVE (NEGATIVE); COLOR STRAW (YELLOW); GLUCOSE 1000 mg/dL (NEGATIVE); KETONE SMALL mg/dL (NEGATIVE); LEUKOCYTE ESTERASE NEGATIVE (NEGATIVE); NITRITE NEGATIVE (NEGATIVE); PROTEIN NEGATIVE (NEGATIVE); UROBILINOGEN NORMAL (NORMAL)
[2017-04-02 08:03] LABS: UDS - AMPHET POSITIVE QUAL (NEGATIVE); UDS - BARB NEGATIVE QUAL (NEGATIVE); UDS - BENZO NEGATIVE QUAL (NEGATIVE); UDS - COCAINE NEGATIVE QUAL (NEGATIVE); UDS - METH NEGATIVE QUAL (NEGATIVE); UDS - OPIATE NEGATIVE QUAL (NEGATIVE); UDS - PCP NEGATIVE QUAL (NEGATIVE); UDS - THC NEGATIVE QUAL (NEGATIVE)
[2017-04-02 11:00] LABS: CALCIUM 8.4 mg/dL (8.5-10.1); CREATININE - SERUM 1.3 mg/dL (0.6-1.3)
== END 2017-04-02 12:00 | disposition home or self-care (01) ==
LOC: D.ER 06:23
PROVIDERS: Emergency Medicine
DX: E11.65 Type 2 diabetes mellitus with hyperglycemia (principal); Z79.4 Long term (current) use of insulin; Z91.14 Patient's other noncompliance with medication regimen; F15.10 Other stimulant abuse, uncomplicated

== ENCOUNTER 2017-04-10 15:40 | Inpatient (IN) | payer MEDICAID ==
[~2017-04-10] VITALS: Ht 182.9 cm; Wt 59.6 kg
[2017-04-10 16:37] LABS: BASOPHILS 1.3 % (0-2); EOSINOPHILS 2.1 % (0-7); HEMATOCRIT 36.5 % (42.0-54.0); HEMOGLOBIN 11.9 g/dL (13.5-17.5); IMMATURE GRANULOCYTES 0.1 % (0-5); LYMPHOCYTES 28.9 % (15-50); MCH 27.2 pg (26.0-34.0); MCHC 32.6 g/dL (31.0-37.0); MCV 83.5 fL (80.0-100.0); MEAN PLATELET VOLUME 9.9 fL (7.4-10.4); MONOCYTES 4.5 % (2-11); NEUTROPHILS 63.1 % (40-80); PLATELET COUNT 317 10x3/uL (130-400); RBC 4.37 10x6/uL (4.20-6.10); RDW 14.4 % (11.5-14.5); WBC 6.7 10x3/uL (4.8-10.8)
[2017-04-10 16:54] LABS: APPEARANCE CLEAR (CLEAR); BACTERIA FEW /hpf (NONE SEEN); BILIRUBIN NEGATIVE (NEGATIVE); COLOR STRAW (YELLOW); EPITHELIAL CELLS 0-5 /hpf (0-5); GLUCOSE 1000 mg/dL (NEGATIVE); KETONE MODERATE mg/dL (NEGATIVE); LEUKOCYTE ESTERASE TRACE (NEGATIVE); NITRITE NEGATIVE (NEGATIVE); PROTEIN NEGATIVE (NEGATIVE); RED CELLS - URINE OCC /hpf (0-5); UROBILINOGEN NORMAL (NORMAL); WHITE CELLS - URINE 0-5 /hpf (0-5); YEAST OCC /hpf (NONE SEEN)
[2017-04-10 17:10] LABS: KETONE - SERUM MODERATE mg/dL (NEGATIVE)
[2017-04-10 17:19] LABS: ALKALINE PHOSPHATASE 255 U/L (46-116); ALT (SGPT) 149 U/L (10-68); BILIRUBIN - TOTAL 0.41 mg/dL (0.2-1.3); CALCIUM 8.9 mg/dL (8.5-10.1); CHLORIDE - SERUM 92 mmol/L (98-107); CREATININE - SERUM 1.2 mg/dL (0.6-1.3); POTASSIUM - SERUM 5.3 mmol/L (3.5-5.1); PROTEIN - SERUM 7.2 g/dL (6.4-8.2); SODIUM 128 mmol/L (136-145); UREA NITROGEN 27 mg/dL (7-18); eGFR NON AFRICAN AMERICAN 72 mL/min (90-120)
[2017-04-10 17:22] LABS: CALC OSMOLALITY 299 mosm/kg (275-300); GLUCOSE 778 mg/dL (74-106)
[2017-04-10 22:15] VITALS: BP 101/70; Ht 182.9 cm; Wt 59.6 kg
--- NOTE | 2017-04-10 23:06 | NUR ---
PT ARRIVED VIA W/C FROM ER AT 2200 HRS. PT DENIED ANY DISCOMFORT. VSS. IV TO R HAND SL. ADMISSION ASSESSMENT, HISTORY AND HOME MED LIST COMPLETED. ST PER CM HR 105. BS "HI" PER GLUCOMETER. AWAITING LAB DRAW. PT REFUSES IV FLUIDS. WILL CONTINUE TO MONITOR. SR UP X2, CALL LIGHT WITHIN REACH.
--- NOTE | 2017-04-10 23:34 | NUR ---
DILAUDID 0.5MG IV GIVEN FOR C/O KIDNEY PAIN. 12 UNITS REG INSULIN GIVEN SUB-Q TO UPPER R ARM FOR READING OF "HI". ON GLUCOMETER. AWAITING LAB RESLUTS.
[2017-04-11] VITALS (7 sets, daily range): BP systolic 98–117; BP diastolic 64–83
--- NOTE | 2017-04-11 00:24 | NUR ---
LAB FSBS 881. ADDITINAL 8 UNITS REG INSULIN GIVNE SUB-Q TO UPPER L ARM FROM INTERMEDIATE S/S. 10 UNITS REG INSULIN GIVNE IV TO R HAND. WILL RECHECK IN 1 HR. WILL CONTINUE TO MONITOR.
--- NOTE | 2017-04-11 01:14 | NUR ---
FSBS 495 AND 467 RESPECTIVELY. STAT LAB GLUCOSE ORDERED.
--- NOTE | 2017-04-11 02:16 | NUR ---
REG INSULIN 20 UNITS GIVEN SUB-Q TO UPPER L ARM FOR BS 467. WILL CONTINUE TO MONITOR.
--- NOTE | 2017-04-11 04:25 | NUR ---
PT RESTING WITH EYES CLOSED. RESP EVEN AND REGULAR. SR UP X2, CALL LIGHT WITHIN REACH.
--- NOTE | 2017-04-11 04:45 | NUR ---
FSBS 165. PT DECLINES COVERAGE. WILL CONTINUE TO MONITOR.
--- NOTE | 2017-04-11 06:04 | NUR ---
VSS THROUGHOUT NGIHT. BS DOWN TO 165. PT STATES PAIN NOW 7/10 AFTER IV DILAUDID ADMINISTRATION. NEEDS MET; WILL CONTINUE TO MONITOR.
--- NOTE | 2017-04-11 07:21 | NUR ---
AM ROUNDS - PT APPEARS TO BE SLEEPING IN BED. BREATHS ARE EQUAL AND NON LABORED. BED AT LOWEST PSOTION. SIDE RAIL UP X1. CALL AWAN IN REACH. MONITOR SHOWING SR, HR 92. PT REFUSSES IV FLUIDS. WILL CONTINUE TO MONITOR
--- NOTE | 2017-04-11 10:01 | NUR ---
RATIONALE FOR SCD'S EXPLAINED. REFUSED SCD'S.
--- NOTE | 2017-04-11 13:38 | NUR ---
FSBS 281. 10 UNITS GIVEN PER SS INSULIN. PT SITTING UP IN BED RESTING AND DENIES ANY FURTHER NEEDS AT THIS TIME. CL IN REACH. WILL CTM.
--- NOTE | 2017-04-11 17:40 | NUR ---
PROVIDED PT WITH PRN DILAUDID REQUESTED FOR SHARP BACK PAINS. PT JUST FINISHED DINNER AND IS SITTING UP IN BED RESTING AND DENIES ANY FURTHER NEEDS AT THIS TIME. CL IN REACH, WILL CTM.
--- NOTE | 2017-04-11 18:21 | NUR ---
PAGED CHERYL LUNA PT REQUESTED FOR STRONGER OR MORE OFTEN PAIN MEDICATION. SWETA CALLED BACK AND OKAY'D FOR PT TO HAVE HIS DILAUDID Q4H BUT DID NOT UP THE DOSE, SHE ALSO WANTED A US OF KIDNEYS ORDERED AND DRUG SCREEN WHICH I ORDERED. NO FURTHER NEEDS WILL CTM.
--- NOTE | 2017-04-11 20:51 | NUR ---
PT AWAKE, ALERT, ORIENTED, WALKING AROUND THE UNIT, ASKING FOR CRACKERS AND MILK. PT ASKED ME IF I WOULD GO AHEAD AND GIVE HIM THE FULL 1MG OF DILAUDID SINCE I WAS GOING TO WASTE THE UNUSED AMOUNT. 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 PT WILL CONTINUE TO BE MONITORED CLOSELY AND FREQUENTLY.
--- NOTE | 2017-04-11 23:31 | NUR ---
PT SITTING ON SIDE OF BED, AWAKE, ALERT, ORIENTED, EATING CHICKEN NOODLE SOUP AND CRACKERS. DENIES ANY NEEDS AT THIS TIME. CONTINUE TO MONITOR CLOSELY.
[2017-04-12 03:43] VITALS: BP 112/77
--- NOTE | 2017-04-12 04:51 | NUR ---
PT HAS BEEN AWAKE MOST OF THIS SHIFT, REQUESTING LARGE AMOUNTS OF FOOD MAINLY, CHICKEN NOODLE SOUP AND DOZENS OF SALTINE CRACKERS WITH AT LEAST 8 CARTONS OF MILK SO FAR. I HAVE ASKED PT TO TRY AND REST. CONTINUE TO MONITOR CLOSELY.
--- NOTE | 2017-04-12 07:30 | NUR ---
PT RESITNG IN BED WITH EYES CLOSED. AWOKE EASILY TO VERBAL STIMULI. NO ACUTE DISTRESS NOTED. PT VOICED COMPLAINT OF KIDNEY PAIN , WHICH HE STATES NEVER GOES AWAY. SALINE LOCK NOTED TO RIGHT HAND. CALL LIGHT IN REACH.
[2017-04-12 09:26] VITALS: BP 103/70
--- NOTE | 2017-04-12 09:38 | NUR ---
UP SOB WITH CALL LIGHT IN REACH. NO NEEDS VOICED AT THIS TIME. WILL MONITOR.
[2017-04-12 11:21] LABS: UDS - AMPHET NEGATIVE QUAL (NEGATIVE); UDS - BARB NEGATIVE QUAL (NEGATIVE); UDS - BENZO NEGATIVE QUAL (NEGATIVE); UDS - COCAINE NEGATIVE QUAL (NEGATIVE); UDS - METH NEGATIVE QUAL (NEGATIVE); UDS - OPIATE NEGATIVE QUAL (NEGATIVE); UDS - PCP NEGATIVE QUAL (NEGATIVE); UDS - THC NEGATIVE QUAL (NEGATIVE)
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
--- NOTE | 2017-04-12 12:10 | NUR ---
PT IS RESTING IN HIS ROOM FEEDING SELF LUNCH. NO ACUTE DISTRESS NOTED.
[2017-04-12 12:21] VITALS: BP 104/66
[2017-04-12 12:37] LABS: BASOPHILS 0.6 % (0-2); EOSINOPHILS 6.2 % (0-7); HEMATOCRIT 35.1 % (42.0-54.0); HEMOGLOBIN 11.5 g/dL (13.5-17.5); IMMATURE GRANULOCYTES 0.1 % (0-5); LYMPHOCYTES 37.4 % (15-50); MCH 27.4 pg (26.0-34.0); MCHC 32.8 g/dL (31.0-37.0); MCV 83.8 fL (80.0-100.0); MEAN PLATELET VOLUME 9.5 fL (7.4-10.4); MONOCYTES 6.3 % (2-11); NEUTROPHILS 49.4 % (40-80); PLATELET COUNT 309 10x3/uL (130-400); RBC 4.19 10x6/uL (4.20-6.10); RDW 14.7 % (11.5-14.5); WBC 7.1 10x3/uL (4.8-10.8)
[2017-04-12 12:45] LABS: CALCIUM 8.9 mg/dL (8.5-10.1); CARBON DIOXIDE 26.3 mmol/L (21.0-32.0); CHLORIDE - SERUM 105 mmol/L (98-107); SODIUM 139 mmol/L (136-145); UREA NITROGEN 21 mg/dL (7-18); eGFR NON AFRICAN AMERICAN > 90 mL/min (90-120)
[2017-04-12 12:46] LABS: CALC OSMOLALITY 280 mosm/kg (275-300); GLUCOSE 91 mg/dL (74-106)
[2017-04-12 12:47] LABS: CREATININE - SERUM 0.8 mg/dL (0.6-1.3); POTASSIUM - SERUM 4.2 mmol/L (3.5-5.1)
--- NOTE | 2017-04-12 14:16 | NUR ---
PT IS RESTING QUIETLY IN BED WITH EYES CLOSED. RESPS ARE EVEN AND UNLABORED. NO ACUTE DISTRESS NOTED.
[2017-04-12 14:47] LABS: APPEARANCE CLEAR (CLEAR); BILIRUBIN NEGATIVE (NEGATIVE); COLOR YELLOW (YELLOW); GLUCOSE 250 mg/dL (NEGATIVE); KETONE NEGATIVE (NEGATIVE); LEUKOCYTE ESTERASE TRACE (NEGATIVE); NITRITE NEGATIVE (NEGATIVE); PROTEIN TRACE mg/dL (NEGATIVE); UROBILINOGEN NORMAL (NORMAL)
[2017-04-12 14:48] LABS: AMORPHOUS SEDIMENT <1+ /lpf (NONE SEEN); BACTERIA MODERATE /hpf (NONE SEEN); EPITHELIAL CELLS 0-5 /hpf (0-5); GRANULAR CAST NONE SEEN /lpf (NONE SEEN); HYALINE CAST NONE SEEN /lpf (NONE SEEN); MUCUS NONE SEEN /lpf (NONE SEEN); RED CELL CAST NONE SEEN /lpf (NONE SEEN); RED CELLS - URINE NONE SEEN /hpf (0-5); SPERMATOZOA NONE SEEN /hpf (NONE SEEN); WAXY CAST NONE SEEN /lpf (NONE SEEN); WHITE CELLS - URINE OCC /hpf (0-5); YEAST OCC /hpf (NONE SEEN)
[2017-04-12 15:32] VITALS: BP 143/103
--- NOTE | 2017-04-12 15:57 | NUR ---
PT RESTING IN HIS ROOM TALKING TO A FRIEND. NO NEEDS VOICED.
--- NOTE | 2017-04-12 19:30 | NUR ---
PT AAOX4 UP AD GUI IN HALLS DENIES ANY NEEDS OR DISCOMFORT AT THIS TIME
[2017-04-12 20:20] VITALS: BP 112/79
--- NOTE | 2017-04-12 21:56 | NUR ---
FSBS 334 REG INSULIN 12 UNITS GIVEN SQ RT ARM SCHEDULED LANTUS 24 UNIT GIVEN SQ RT ARM
[2017-04-12 23:52] VITALS: BP 127/95
[2017-04-13 03:53] VITALS: BP 109/70
--- NOTE | 2017-04-13 04:48 | NUR ---
FSBS 164 REFUSED COVERAGE STATES HE WILL BOTTOM OUT
--- NOTE | 2017-04-13 07:33 | NUR ---
0723-AM ROUNDING DONE WITH PATIENT REQUESTING HIS PAIN MEDICATION. DILAUDID 4 MG SLOW IVP WITH NS GIVEN TO RIGHT HAND SALINE LOCK. RATES PAIN TO KIDNEY AREA 06/16. UP AD GUI. WILL MONITOR.
--- NOTE | 2017-04-13 09:23 | NUR ---
0900-FSBS IS 88. ENCOURAGED PATIENT TO EAT.
--- NOTE | 2017-04-13 10:12 | NUR ---
FSBS IS NOW 63. I CC IM OF GLUCOGON GIVEN PATIENT STATES THAT HE CAN'T EAT.
[2017-04-13 16:03] VITALS: BP 107/76
--- NOTE | 2017-04-13 17:33 | NUR ---
COMPLAINTS OF NAUSEA STILL, UNABLE TO GIVE ZOFRAN. WILL CONTINUE TO MONITOR.
--- NOTE | 2017-04-13 20:00 | NUR ---
PT SITTING ON SIDE OF BED. EATING DINNER. ALERT & ORIENTED. RIGHT HAND SALINE LOC. NO 02. FSBS. PT STATES HE HAS A PAIN LEVEL OF 8/10 IN HIS KIDNEYS. BED IN LOWEST POSITION AND CALL LIGHT WITHIN REACH.
[2017-04-14] VITALS: BP 101/70
--- NOTE | 2017-04-14 | NUR ---
PT IN BED. WATCHING TV. BED IN LOWEST POSITION AND CALL LIGHT WITHIN REACH.
--- NOTE | 2017-04-14 03:41 | NUR ---
FINAL CLEANER AT BEDSIDE TO OBTAIN VITALS, CALL LIGHT IN REACH. WILL CONTINUE WITH PLAN OF CARE.
[2017-04-14 04:00] VITALS: BP 128/82
--- NOTE | 2017-04-14 05:46 | NUR ---
PT LYING IN BED. WATCHING TV. BED IN LOWEST POSITION AND CALL LIGHT WITHIN REACH.
--- NOTE | 2017-04-14 07:17 | NUR ---
AM ROUNDING DONE WITH PATIENT HAVING NO NEEDS VOICED AT THIS TIME. STATES THAT HE FEELS MUCH BETTER THAN YESTERDAY. SALINE LOCK SEEN TO RIGHT HAND. ON ROOM AIR, UP AD GUI. WILL MONITOR SUGARS TODAY.
[2017-04-14 08:16] VITALS: BP 127/88
--- NOTE | 2017-04-14 10:10 | NUR ---
0900-REQUESTING PAIN MEDICATION FOR HIS BACK/KIDNEY AREA. RATES PAIN 8, IV DILAUDID GIVEN PER REQUEST.
[2017-04-14 11:42] VITALS: BP 111/79
--- NOTE | 2017-04-14 13:03 | NUR ---
VERBAL AND WRITTEN DISCHARGE INSTRUCTIONS GIVEN TO PATIENT. SALINE LOCK REMOVED WITH CATH TIP INTACT. I WALKED WITH THE PATIENT TO THE FRONT DOOR OF HOSPITAL AND HIS MOTHER PICKED HIM UP.
== END 2017-04-14 13:10 | disposition home or self-care (01) | DRG 638 ==
LOC: D.ER 15:40 → D.M2 21:23
PROVIDERS: Emergency Medicine; ADMIT Family Medicine
DX: E10.65 Type 1 diabetes mellitus with hyperglycemia (principal); F17.203 Nicotine dependence unspecified, with withdrawal; I10 Essential (primary) hypertension; G89.4 Chronic pain syndrome; Z79.4 Long term (current) use of insulin; N20.0 Calculus of kidney; Z91.19 Patient's noncompliance with other medical treatment and regimen

== ENCOUNTER 2017-04-23 16:13 | Inpatient (IN) | payer MEDICAID ==
[~2017-04-23] VITALS: Ht 182.9 cm; Wt 67.1 kg
[2017-04-23 16:48] LABS: BASOPHILS 0.5 % (0-2); HEMATOCRIT 35.1 % (42.0-54.0); HEMOGLOBIN 10.8 g/dL (13.5-17.5); IMMATURE GRANULOCYTES 0.2 % (0-5); LYMPHOCYTES 18.6 % (15-50); MCH 27.5 pg (26.0-34.0); MCHC 30.8 g/dL (31.0-37.0); MCV 89.3 fL (80.0-100.0); MEAN PLATELET VOLUME 9.7 fL (7.4-10.4); MONOCYTES 4.7 % (2-11); PLATELET COUNT 362 10x3/uL (130-400); RBC 3.93 10x6/uL (4.20-6.10); RDW 13.8 % (11.5-14.5)
[2017-04-23 16:58] LABS: HEMOGLOBIN A1C 12.6 % (4.8-6.0)
[2017-04-23 17:00] LABS: KETONE - SERUM SMALL mg/dL (NEGATIVE)
[2017-04-23 17:06] LABS: ALBUMIN 2.7 g/dL (3.4-5.0); ALKALINE PHOSPHATASE 190 U/L (46-116); ALT (SGPT) 136 U/L (10-68); BILIRUBIN - TOTAL 0.39 mg/dL (0.2-1.3); CALCIUM 8.2 mg/dL (8.5-10.1); CARBON DIOXIDE 18.9 mmol/L (21.0-32.0); CHLORIDE - SERUM 93 mmol/L (98-107); CREATININE - SERUM 1.3 mg/dL (0.6-1.3); MAGNESIUM - SERUM 1.4 mg/dL (1.8-2.4); PHOSPHOROUS 3.6 mg/dL (2.5-4.9); POTASSIUM - SERUM 4.1 mmol/L (3.5-5.1); PROTEIN - SERUM 6.3 g/dL (6.4-8.2); SODIUM 125 mmol/L (136-145); UREA NITROGEN 16 mg/dL (7-18); eGFR NON AFRICAN AMERICAN 65 mL/min (90-120)
[2017-04-23 17:10] LABS: CALC OSMOLALITY 298 mosm/kg (275-300); GLUCOSE 924 mg/dL (74-106)
[2017-04-23 18:22] LABS: APPEARANCE HAZY (CLEAR); BILIRUBIN NEGATIVE (NEGATIVE); COLOR STRAW (YELLOW); GLUCOSE 1000 mg/dL (NEGATIVE); KETONE NEGATIVE (NEGATIVE); LEUKOCYTE ESTERASE TRACE (NEGATIVE); NITRITE NEGATIVE (NEGATIVE); PROTEIN NEGATIVE (NEGATIVE); UROBILINOGEN NORMAL (NORMAL)
[2017-04-23 18:29] LABS: UDS - AMPHET POSITIVE QUAL (NEGATIVE); UDS - BARB NEGATIVE QUAL (NEGATIVE); UDS - BENZO NEGATIVE QUAL (NEGATIVE); UDS - COCAINE NEGATIVE QUAL (NEGATIVE); UDS - METH NEGATIVE QUAL (NEGATIVE); UDS - OPIATE NEGATIVE QUAL (NEGATIVE); UDS - PCP NEGATIVE QUAL (NEGATIVE); UDS - THC NEGATIVE QUAL (NEGATIVE)
[2017-04-23 18:35] LABS: BACTERIA FEW /hpf (NONE SEEN); EPITHELIAL CELLS 0-5 /hpf (0-5); HYALINE CAST OCC /lpf (NONE SEEN); RED CELLS - URINE OCC /hpf (0-5); YEAST >1+ WITH HYPHAE /hpf (NONE SEEN)
[2017-04-23] MEDS ORDERED: DOXYCYCLINE HY100 M2 PO (19:25)
--- NOTE | 2017-04-23 19:25 | NUR ---
REC FROM ER VIA WC. AMBULATED TO BED WITH STEADY GAIT. ALERT/ORIENTED X 4. IV IV IN RT FA INTACT SL. C/O "KIDNEY PAIN" REQUESTED PAIN MEDICATION. DOSE OF DILAUDID 2 MG IV GIVEN IN ER AT 1648. NO ORDERS FOR PAIN CONTROL NOTED. ADMITTED FOR HYPERGLYCEMIC CONTROL. REQUESTED DIET SODA AND SCRUBS. ORIENTED TO ROOM AND CALL LIGHT.
[2017-04-23 20:02] VITALS: BP 98/69; BMI 19.0
[2017-04-23 21:00] VITALS: BP 85/53
--- NOTE | 2017-04-23 21:10 | NUR ---
AMBULATING IN ROOM. REQUESTED MORE BROTH AND A SANDWICH. CHECKED BS AT 563. ADMIN 12 UNITS HUMULIN R.
--- NOTE | 2017-04-24 02:57 | NUR ---
TOOK STOOL SAMPLE TO LAB. REQUESTED MORE SCRUBS, DUE TO DIARRHEA.
[2017-04-24 04:00] VITALS: BP 94/60
[2017-04-24 05:07] LABS: BASOPHILS 1.1 % (0-2); EOSINOPHILS 5.7 % (0-7); HEMATOCRIT 30.9 % (42.0-54.0); HEMOGLOBIN 10.3 g/dL (13.5-17.5); LYMPHOCYTES 35.3 % (15-50); MCH 27.7 pg (26.0-34.0); MCHC 33.3 g/dL (31.0-37.0); MCV 83.1 fL (80.0-100.0); MONOCYTES 5.9 % (2-11); PLATELET COUNT 364 10x3/uL (130-400); RBC 3.72 10x6/uL (4.20-6.10); RDW 13.5 % (11.5-14.5); WBC 5.4 10x3/uL (4.8-10.8)
[2017-04-24 05:18] LABS: CALC OSMOLALITY 290 mosm/kg (275-300); CALCIUM 8.2 mg/dL (8.5-10.1); CARBON DIOXIDE 19.2 mmol/L (21.0-32.0); CHLORIDE - SERUM 110 mmol/L (98-107); CREATININE - SERUM 1.1 mg/dL (0.6-1.3); POTASSIUM - SERUM 3.7 mmol/L (3.5-5.1); SODIUM 141 mmol/L (136-145); UREA NITROGEN 13 mg/dL (7-18); eGFR NON AFRICAN AMERICAN 79 mL/min (90-120)
[2017-04-24 05:20] LABS: GLUCOSE 273 mg/dL (74-106)
--- NOTE | 2017-04-24 06:15 | NUR ---
CHECKED BS AT 158. ADMIN HUMULIN R 2 UNITS. DENIES ANY NEEDS.
--- NOTE | 2017-04-24 07:43 | NUR ---
0715-ROUNDING DONE WITH PATIENT APPEARING ASLEEP LAYING ON RIGHT SIDE. RESP ARE EVEN AND NON LABORED. ON ROOM AIR. WILL MONITOR.
[2017-04-24 08:00] VITALS: BP 119/89
[2017-04-24 11:45] VITALS: BP 122/89
--- NOTE | 2017-04-24 13:48 | NUR ---
POC GLUCOSE IS 482. WILL COVER WITH 12 U HUMULIN AND NOTIFY SYED SOLORIO WHO IS ON THE FLOOR.
--- NOTE | 2017-04-24 15:16 | NUR ---
PATIENT REFUSES TO WEAR HEART MONITOR.
[2017-04-24 15:56] VITALS: BP 139/99
--- NOTE | 2017-04-24 16:01 | NUR ---
CALLED TO ROOM WITH PATIENT WANTING MORE CHICKEN BROTH, MILK, AND CRACKERS. I INFORMED PATIENT THAT THIS WILL MAKE HIS BLOOD SUGAR GO UP MORE AND COULD HE POSSIBLE WAIT UNTIL I CHECK HIS SUGAR AT 4:30. PATIENT COMPLAINTS THAT HE IS "HUNGRY, ALL I WANT TO DO IS EAT". FOOD GIVEN HE DOES NOT WANT TO WAIT.
--- NOTE | 2017-04-24 19:20 | NUR ---
AWAKE, ALERT AND ORIENTED X 4. DENIES ANY NEEDS. IV IN R FA INTACT SL. ORIENTED TO CALL LIGHT FOR ANY NEEDS.
[2017-04-24 21:30] VITALS: BP 131/74
--- NOTE | 2017-04-24 21:58 | NUR ---
CHECKED BS WITH GLUCOMETER AT 408. ADMIN SCHED LANTUS 30 UNITS AND HUMALOG 16 UNITS PER SLIDING SCALE. REQUESTED MILK AND SALTINE CRACKERS.
[2017-04-25 00:55] VITALS: BP 116/83
[2017-04-25 05:55] VITALS: BP 130/99
--- NOTE | 2017-04-25 06:20 | NUR ---
CHECKED BS AT 114. NO INSULIN REQUIRED PER SLIDING SCALE. DENIES ANY NEEDS.
[2017-04-25 07:05] LABS: BASOPHILS 0.8 % (0-2); EOSINOPHILS 5.7 % (0-7); HEMATOCRIT 29.8 % (42.0-54.0); HEMOGLOBIN 10.1 g/dL (13.5-17.5); IMMATURE GRANULOCYTES 0.2 % (0-5); MCH 27.8 pg (26.0-34.0); MCHC 33.9 g/dL (31.0-37.0); MCV 82.1 fL (80.0-100.0); MEAN PLATELET VOLUME 9.5 fL (7.4-10.4); MONOCYTES 6.2 % (2-11); NEUTROPHILS 44.1 % (40-80); PLATELET COUNT 315 10x3/uL (130-400); RBC 3.63 10x6/uL (4.20-6.10); RDW 13.4 % (11.5-14.5); WBC 6.1 10x3/uL (4.8-10.8)
[2017-04-25 07:14] LABS: CALCIUM 7.9 mg/dL (8.5-10.1); CARBON DIOXIDE 22.7 mmol/L (21.0-32.0); CHLORIDE - SERUM 109 mmol/L (98-107); POTASSIUM - SERUM 3.7 mmol/L (3.5-5.1); SODIUM 139 mmol/L (136-145); UREA NITROGEN 15 mg/dL (7-18)
[2017-04-25 07:15] LABS: CALC OSMOLALITY 279 mosm/kg (275-300); CREATININE - SERUM 0.8 mg/dL (0.6-1.3); GLUCOSE 111 mg/dL (74-106); eGFR NON AFRICAN AMERICAN > 90 mL/min (90-120)
[2017-04-25 08:22] VITALS: BP 119/89
[2017-04-25 11:00] VITALS: Ht 182.9 cm; Wt 67.1 kg
--- NOTE | 2017-04-25 11:04 | NUR ---
AWAKE IN ROOM THIS AM. NO APPARENT DISTRESS. WILL CONTINUE TO MONITOR.
[2017-04-25 11:46] VITALS: BP 132/96
[2017-04-25 16:00] VITALS: BP 121/79
--- NOTE | 2017-04-25 18:06 | NUR ---
PATIENT HAS BEEN AMBULATING AND EATING ALOT.
--- NOTE | 2017-04-25 19:40 | NUR ---
RECEIVED REPORT, PT STANDING AT BEDSIDE TABLE EATING, DENIES ANY NEEDS, CALL LIGHT IN REACH, WILL CONTINUE PLAN OF CARE
[2017-04-25 20:16] VITALS: BP 96/65
--- NOTE | 2017-04-26 02:56 | NUR ---
ASSESSMENT COMPLETE, SEE FLOWSHEET, PT SLEEPING, BED IS LOW, SRX2, CALL LIGHT IN REACH, WILL CONTINUE TO MONITOR
[2017-04-26 05:15] VITALS: BP 131/99
[2017-04-26 05:55] LABS: BASOPHILS 0.9 % (0-2); EOSINOPHILS 4.7 % (0-7); HEMATOCRIT 29.2 % (42.0-54.0); HEMOGLOBIN 9.9 g/dL (13.5-17.5); IMMATURE GRANULOCYTES 0.3 % (0-5); LYMPHOCYTES 46.4 % (15-50); MCH 27.6 pg (26.0-34.0); MCHC 33.9 g/dL (31.0-37.0); MCV 81.3 fL (80.0-100.0); MEAN PLATELET VOLUME 10.3 fL (7.4-10.4); MONOCYTES 7.3 % (2-11); NEUTROPHILS 40.4 % (40-80); PLATELET COUNT 309 10x3/uL (130-400); RBC 3.59 10x6/uL (4.20-6.10); RDW 13.5 % (11.5-14.5); WBC 6.5 10x3/uL (4.8-10.8)
[2017-04-26 06:14] LABS: HEMOGLOBIN A1C 12.8 % (4.8-6.0)
[2017-04-26 06:15] LABS: CALC OSMOLALITY 280 mosm/kg (275-300); CALCIUM 8.3 mg/dL (8.5-10.1); CARBON DIOXIDE 27.8 mmol/L (21.0-32.0); CHLORIDE - SERUM 106 mmol/L (98-107); CREATININE - SERUM 0.7 mg/dL (0.6-1.3); POTASSIUM - SERUM 3.5 mmol/L (3.5-5.1); SODIUM 141 mmol/L (136-145); UREA NITROGEN 17 mg/dL (7-18); eGFR NON AFRICAN AMERICAN > 90 mL/min (90-120)
[2017-04-26 06:17] LABS: GLUCOSE 55 mg/dL (74-106)
--- NOTE | 2017-04-26 07:00 | NUR ---
RECEIVED REPORT. ASSUMED CARE OF PATIENT. CALL LIGHT WITHIN REACH. PATIENT RESTING ON RIGHT LATERAL SIDE. RESP EVEN AND UNLABORED. EASILY AROUSED. NO DISTRESS.
[2017-04-26 07:57] VITALS: BP 101/69
--- NOTE | 2017-04-26 08:16 | NUR ---
SITTING TO SIDE OF BED CONSUMING AM MEAL AT THIS TIME.
--- NOTE | 2017-04-26 09:26 | NUR ---
REFUSED NICOTINE PATCH. REMOVED CURRENT PATCH FROM RIGHT DELTOID. PATIENT STATES HE WANTS IT OFF AND THAT IT IS GIVING HIM A TERRIBLE HEADACHE AND DOES NOT WANT TO USE THESE PATCHES ANY FURTHER. NO DISTRESS.
--- NOTE | 2017-04-26 11:33 | NUR ---
FSBS 296 PT REC'D 10 UNITS OF INSULIN PER SS. PT SITTING UP IN BED EATING A SNACK DENIES ANY CURRENT NEEDS. WILL CTM.
--- NOTE | 2017-04-26 12:09 | NUR ---
Patient Name: JODI WEISS Admission Status: ER Accout number: [id number] Admission Date: 04-23-2017 : 1975 Admission Diagnosis: Attending: DASHAWN Current LOS: 3 Anticipated DC Date: 04-26-2017 Planned Disposition: Home Primary Insurance: MEDICAID [place] Discharge Planning Comments: * Is the patient Alert and Oriented? Yes 0 * How many steps to enter\exit or inside your home? NONE 0 * PCP DR. DONIS AT [facility] 0 * Pharmacy [facility] ON [address] 0 * Preadmission Environment Homeless 0 * Other Environment STAYS WITH MOTHER WHEN HAS NOWHERE ELSE TO GO 0 * Facility Name NONE 0 * ADLs Independent 0 * Equipment Glucometer 0 * Other Equipment NO MEDICAL EQUIPMENT PROVIDER PREFERENCE 0 * List name and contact numbers for known caregivers / representatives who currently or will assist patient after discharge: ASHLEY OWENSNER, [facility], 0 * Community resources currently utilized None 0 * Please name any agencies selected above. NONE 0 * Additional services required to return to the preadmission environment? No 0 * Can the patient safely return to the preadmission environment? Yes 0 * Has this patient been hospitalized within the prior 30 days at any hospital? Yes 0 CM MET WITH PT IN ROOM TO DISCUSS DISCHARGE PLANNING AND NEEDS. PT REPORTS LIVING AT HOMELESS, ALONE AND INDEPENDENTLY. PT REPORTS HE CAN STAY WITH HIS MOTHER IF HE HAS NOT OTHER PLACE TO GO. PT HAS APPOINTMENT WITH [facility] FOR POSSIBLE ASSISTANCE AND REPORTS ALL OTHER RESOURCES PROVIDED LAST WEEK DID NOT HELP HIM. PT HAS GLUCOMETER AND NO MEDICAL EQUIPMENT PROVIDER PREFERENCE. PT HAS NO OUTSIDE SERVICES ASSISTING IN THE HOME. CM DISCUSSED AVAILABILITY OF HOME HEALTH, REHAB SERVICES AND MEDICAL EQUIPMENT. PT DENIES DISCHARGE NEEDS, REPORTS HE WILL CALL HIS COUSIN WHO WILL PICK HIM UP FOR DISCHARGE TODAY. Contact Person: Ron Prajapati
--- NOTE | 2017-04-26 14:09 | NUR ---
DISCHARGE INSTRUCTIONS GIVEN. TO CAR VIA .
== END 2017-04-26 14:12 | disposition home or self-care (01) | DRG 638 ==
LOC: D.ER 16:13 → D.M2 18:41
PROVIDERS: Emergency Medicine; Family Medicine; ADMIT Family Medicine Adult Medicine
DX: E10.65 Type 1 diabetes mellitus with hyperglycemia (principal); B37.49 Other urogenital candidiasis; F17.203 Nicotine dependence unspecified, with withdrawal; E10.40 Type 1 diabetes mellitus with diabetic neuropathy, unspecified; Z79.4 Long term (current) use of insulin; D64.9 Anemia, unspecified; I10 Essential (primary) hypertension; F15.10 Other stimulant abuse, uncomplicated; Z91.19 Patient's noncompliance with other medical treatment and regimen

== ENCOUNTER 2017-05-18 07:46 | Emergency (ER) | payer MEDICAID ==
[2017-04-25 11:00] VITALS: BMI 18.4
== END 2017-05-18 10:04 | disposition home or self-care (01) ==
LOC: D.ER 07:46
DX: M54.5 Low back pain (principal); F17.200 Nicotine dependence, unspecified, uncomplicated; E11.9 Type 2 diabetes mellitus without complications; Z79.4 Long term (current) use of insulin

== ENCOUNTER 2017-05-28 10:19 | Emergency (ER) | payer MEDICAID ==
[2017-04-25 11:00] VITALS: BMI 18.4
[2017-05-28 11:23] LABS: BASOPHILS 1.2 % (0-2); EOSINOPHILS 2.7 % (0-7); HEMATOCRIT 32.7 % (42.0-54.0); HEMOGLOBIN 10.8 g/dL (13.5-17.5); IMMATURE GRANULOCYTES 0.2 % (0-5); LYMPHOCYTES 32.1 % (15-50); MCH 27.2 pg (26.0-34.0); MCV 82.4 fL (80.0-100.0); MEAN PLATELET VOLUME 10.4 fL (7.4-10.4); MONOCYTES 7.8 % (2-11); RBC 3.97 10x6/uL (4.20-6.10); RDW 13.3 % (11.5-14.5)
[2017-05-28 11:25] LABS: PLATELET COUNT 247 10x3/uL (130-400)
[2017-05-28 11:31] LABS: KETONE - SERUM SMALL mg/dL (NEGATIVE)
[2017-05-28 11:31] LABS: APPEARANCE CLEAR (CLEAR); BILIRUBIN NEGATIVE (NEGATIVE); COLOR YELLOW (YELLOW); GLUCOSE 1000 mg/dL (NEGATIVE); KETONE NEGATIVE (NEGATIVE); LEUKOCYTE ESTERASE NEGATIVE (NEGATIVE); NITRITE NEGATIVE (NEGATIVE); PROTEIN TRACE mg/dL (NEGATIVE); RED CELLS - URINE 0-5 /hpf (0-5); SPECIFIC GRAVITY 1.015 (1.005-1.020); UROBILINOGEN NORMAL (NORMAL); WHITE CELLS - URINE NSEEN /hpf (0-5)
[2017-05-28 11:41] LABS: ALBUMIN 2.8 g/dL (3.4-5.0); ALKALINE PHOSPHATASE 200 U/L (46-116); ALT (SGPT) 181 U/L (10-68); BILIRUBIN - TOTAL 0.19 mg/dL (0.2-1.3); CALC OSMOLALITY 283 mosm/kg (275-300); CALCIUM 8.6 mg/dL (8.5-10.1); CARBON DIOXIDE 20.9 mmol/L (21.0-32.0); CHLORIDE - SERUM 102 mmol/L (98-107); GLUCOSE 288 mg/dL (74-106); POTASSIUM - SERUM 3.8 mmol/L (3.5-5.1); PROTEIN - SERUM 6.7 g/dL (6.4-8.2); SODIUM 135 mmol/L (136-145); UREA NITROGEN 20 mg/dL (7-18); eGFR NON AFRICAN AMERICAN 88 mL/min (90-120)
== END 2017-05-28 15:25 | disposition home or self-care (01) ==
LOC: D.ER 10:19
PROVIDERS: Emergency Medicine
DX: E11.65 Type 2 diabetes mellitus with hyperglycemia (principal); Z79.4 Long term (current) use of insulin; Z91.19 Patient's noncompliance with other medical treatment and regimen; F17.200 Nicotine dependence, unspecified, uncomplicated

== ENCOUNTER 2017-07-01 05:33 | Emergency (ER) | payer MEDICAID ==
[2017-04-25 11:00] VITALS: BMI 18.4
[2017-07-01 06:14] LABS: HEMATOCRIT 34.6 % (42.0-54.0); LYMPHOCYTES 22.9 % (15-50); MCHC 34.7 g/dL (31.0-37.0); MCV 80.8 fL (80.0-100.0); MEAN PLATELET VOLUME 10.6 fL (7.4-10.4); NEUTROPHILS 75.1 % (40-80); PLATELET COUNT 226 10x3/uL (130-400); RBC 4.28 10x6/uL (4.20-6.10); RDW 14.1 % (11.5-14.5)
[2017-07-01 06:27] LABS: ALBUMIN 2.9 g/dL (3.4-5.0); ALKALINE PHOSPHATASE 265 U/L (46-116); ALT (SGPT) 244 U/L (10-68); BILIRUBIN - TOTAL 0.31 mg/dL (0.2-1.3); CALCIUM 8.5 mg/dL (8.5-10.1); CARBON DIOXIDE 23.4 mmol/L (21.0-32.0); CHLORIDE - SERUM 94 mmol/L (98-107); CREATININE - SERUM 0.8 mg/dL (0.6-1.3); PROTEIN - SERUM 6.4 g/dL (6.4-8.2); SODIUM 128 mmol/L (136-145); UREA NITROGEN 22 mg/dL (7-18); eGFR NON AFRICAN AMERICAN > 90 mL/min (90-120)
[2017-07-01 06:29] LABS: CALC OSMOLALITY 281 mosm/kg (275-300)
[2017-07-01 06:30] LABS: POTASSIUM - SERUM 5.4 mmol/L (3.5-5.1)
[2017-07-01 06:32] LABS: GLUCOSE 488 mg/dL (74-106)
[2017-07-01 06:54] LABS: KETONE - SERUM SMALL mg/dL (NEGATIVE)
== END 2017-07-01 10:25 | disposition home or self-care (01) ==
LOC: D.ER 05:33
PROVIDERS: Emergency Medicine
DX: F19.10 Other psychoactive substance abuse, uncomplicated (principal); R44.0 Auditory hallucinations; F32.9 Major depressive disorder, single episode, unspecified

== ENCOUNTER 2017-07-02 01:37 | Emergency (ER) | payer MEDICAID ==
[2017-04-25 11:00] VITALS: BMI 18.4
[2017-07-02 02:01] LABS: BASOPHILS 0.8 % (0-2); EOSINOPHILS 1.6 % (0-7); HEMATOCRIT 34.7 % (42.0-54.0); HEMOGLOBIN 11.1 g/dL (13.5-17.5); IMMATURE GRANULOCYTES 0.2 % (0-5); LYMPHOCYTES 30.1 % (15-50); MCH 27.5 pg (26.0-34.0); MEAN PLATELET VOLUME 10.6 fL (7.4-10.4); MONOCYTES 7.2 % (2-11); NEUTROPHILS 60.1 % (40-80); PLATELET COUNT 237 10x3/uL (130-400); RBC 4.03 10x6/uL (4.20-6.10); RDW 13.8 % (11.5-14.5)
[2017-07-02 02:02] LABS: MCV 86.1 fL (80.0-100.0); WBC 4.9 10x3/uL (4.8-10.8)
[2017-07-02 02:12] LABS: KETONE - SERUM SMALL mg/dL (NEGATIVE)
[2017-07-02 02:14] LABS: ALBUMIN 2.5 g/dL (3.4-5.0); ALKALINE PHOSPHATASE 246 U/L (46-116); ALT (SGPT) 211 U/L (10-68); CALCIUM 7.9 mg/dL (8.5-10.1); CARBON DIOXIDE 23.3 mmol/L (21.0-32.0); CHLORIDE - SERUM 92 mmol/L (98-107); POTASSIUM - SERUM 5.1 mmol/L (3.5-5.1); PROTEIN - SERUM 5.9 g/dL (6.4-8.2); SODIUM 126 mmol/L (136-145); UREA NITROGEN 19 mg/dL (7-18); eGFR NON AFRICAN AMERICAN 55 mL/min (90-120)
[2017-07-02 02:17] LABS: CREATININE - SERUM 1.5 mg/dL (0.6-1.3)
[2017-07-02 02:26] LABS: CALC OSMOLALITY 307 mosm/kg (275-300); GLUCOSE 1059 mg/dL (74-106)
== END 2017-07-02 06:26 | disposition home or self-care (01) ==
LOC: D.ER 01:37
PROVIDERS: Emergency Medicine
DX: E11.65 Type 2 diabetes mellitus with hyperglycemia (principal)

== ENCOUNTER 2017-07-21 14:22 | Emergency (ER) | payer MEDICAID ==
[2017-04-25 11:00] VITALS: BMI 18.4
[2017-07-21 15:21] LABS: BASOPHILS 0.9 % (0-2); EOSINOPHILS 4.3 % (0-7); HEMATOCRIT 32.2 % (42.0-54.0); HEMOGLOBIN 10.4 g/dL (13.5-17.5); IMMATURE GRANULOCYTES 0.1 % (0-5); LYMPHOCYTES 30.2 % (15-50); MCHC 32.3 g/dL (31.0-37.0); MCV 83.6 fL (80.0-100.0); MEAN PLATELET VOLUME 9.9 fL (7.4-10.4); MONOCYTES 6.9 % (2-11); NEUTROPHILS 57.6 % (40-80); RBC 3.85 10x6/uL (4.20-6.10); WBC 6.7 10x3/uL (4.8-10.8)
[2017-07-21 15:27] LABS: PLATELET COUNT 336 10x3/uL (130-400)
[2017-07-21 15:42] LABS: ALBUMIN 2.9 g/dL (3.4-5.0); ALKALINE PHOSPHATASE 202 U/L (46-116); ALT (SGPT) 106 U/L (10-68); AMYLASE - SERUM 43 U/L (25-115); BILIRUBIN - TOTAL 0.18 mg/dL (0.2-1.3); CALC OSMOLALITY 286 mosm/kg (275-300); CALCIUM 8.8 mg/dL (8.5-10.1); CARBON DIOXIDE 24.2 mmol/L (21.0-32.0); CHLORIDE - SERUM 103 mmol/L (98-107); CREATININE - SERUM 0.9 mg/dL (0.6-1.3); GLUCOSE 322 mg/dL (74-106); LIPASE 127 U/L (73-393); POTASSIUM - SERUM 4.2 mmol/L (3.5-5.1); PROTEIN - SERUM 6.7 g/dL (6.4-8.2); SODIUM 137 mmol/L (136-145); UREA NITROGEN 16 mg/dL (7-18); eGFR NON AFRICAN AMERICAN > 90 mL/min (90-120)
[2017-07-21 15:56] LABS: APPEARANCE CLEAR (CLEAR); COLOR YELLOW (YELLOW); GLUCOSE 1000 mg/dL (NEGATIVE); KETONE NEGATIVE (NEGATIVE); LEUKOCYTE ESTERASE NEGATIVE (NEGATIVE); NITRITE NEGATIVE (NEGATIVE); PROTEIN TRACE mg/dL (NEGATIVE); SPECIFIC GRAVITY 1.025 (1.005-1.020)
[2017-07-21 15:57] LABS: BILIRUBIN NEGATIVE (NEGATIVE); UROBILINOGEN NORMAL (NORMAL)
[2017-07-21 15:58] LABS: BACTERIA FEW /hpf (NONE SEEN); MUCUS <1+ /lpf (NONE SEEN); RED CELLS - URINE 0-5 /hpf (0-5); WHITE CELLS - URINE 0-5 /hpf (0-5); YEAST RARE /hpf (NONE SEEN)
== END 2017-07-21 16:10 | disposition left against medical advice (07) ==
LOC: D.ER 14:22
PROVIDERS: Family Medicine
DX: R42 Dizziness and giddiness (principal); E10.8 Type 1 diabetes mellitus with unspecified complications; Z79.4 Long term (current) use of insulin; F17.200 Nicotine dependence, unspecified, uncomplicated

== ENCOUNTER 2017-08-28 13:00 | Emergency (ER) | payer MEDICAID ==
[2017-04-25 11:00] VITALS: BMI 18.4
[2017-08-28 13:34] LABS: APPEARANCE CLEAR (CLEAR); BILIRUBIN NEGATIVE (NEGATIVE); COLOR STRAW (YELLOW); GLUCOSE 1000 mg/dL (NEGATIVE); KETONE NEGATIVE (NEGATIVE); NITRITE NEGATIVE (NEGATIVE); PROTEIN NEGATIVE (NEGATIVE); SPECIFIC GRAVITY 1.015 (1.005-1.020); UROBILINOGEN NORMAL (NORMAL)
[2017-08-28 13:59] LABS: BASOPHILS 0.8 % (0-2); EOSINOPHILS 7.2 % (0-7); HEMATOCRIT 32.6 % (42.0-54.0); HEMOGLOBIN 10.9 g/dL (13.5-17.5); IMMATURE GRANULOCYTES 0.2 % (0-5); LYMPHOCYTES 24.2 % (15-50); MCHC 33.4 g/dL (31.0-37.0); MCV 80.7 fL (80.0-100.0); MONOCYTES 5.1 % (2-11); NEUTROPHILS 62.5 % (40-80); RBC 4.04 10x6/uL (4.20-6.10); RDW 12.2 % (11.5-14.5); WBC 8.7 10x3/uL (4.8-10.8)
[2017-08-28 14:00] LABS: PLATELET COUNT 263 10x3/uL (130-400)
[2017-08-28 14:08] LABS: KETONE - SERUM SMALL mg/dL (NEGATIVE)
[2017-08-28 14:09] LABS: UDS - AMPHET NEGATIVE QUAL (NEGATIVE); UDS - BARB NEGATIVE QUAL (NEGATIVE); UDS - BENZO NEGATIVE QUAL (NEGATIVE); UDS - COCAINE NEGATIVE QUAL (NEGATIVE); UDS - OPIATE NEGATIVE QUAL (NEGATIVE); UDS - PCP NEGATIVE QUAL (NEGATIVE); UDS - THC NEGATIVE QUAL (NEGATIVE)
[2017-08-28 14:19] LABS: ALBUMIN 3.1 g/dL (3.4-5.0); ALKALINE PHOSPHATASE 204 U/L (46-116); ALT (SGPT) 71 U/L (10-68); AMYLASE - SERUM 65 U/L (25-115); BILIRUBIN - TOTAL 0.15 mg/dL (0.2-1.3); CALC OSMOLALITY 290 mosm/kg (275-300); CALCIUM 9.3 mg/dL (8.5-10.1); CHLORIDE - SERUM 95 mmol/L (98-107); LIPASE 315 U/L (73-393); POTASSIUM - SERUM 4.2 mmol/L (3.5-5.1); PROTEIN - SERUM 6.8 g/dL (6.4-8.2); SODIUM 132 mmol/L (136-145); UREA NITROGEN 12 mg/dL (7-18); eGFR NON AFRICAN AMERICAN 88 mL/min (90-120)
[2017-08-28 14:21] LABS: GLUCOSE 574 mg/dL (74-106)
== END 2017-08-28 15:44 | disposition home or self-care (01) ==
LOC: D.ER 13:00
PROVIDERS: Family Medicine
DX: E11.65 Type 2 diabetes mellitus with hyperglycemia (principal); Z79.4 Long term (current) use of insulin

== ENCOUNTER 2017-10-13 12:19 | Inpatient (IN) | payer MEDICAID ==
[~2017-10-13] VITALS: Ht 182.9 cm; Wt 65.2 kg
[2017-10-13] VITALS (10 sets, daily range): BP systolic 122–147; BP diastolic 77–99; BMI 22.4
[2017-10-13 13:07] LABS: APPEARANCE HAZY (CLEAR); BILIRUBIN NEGATIVE (NEGATIVE); COLOR YELLOW (YELLOW); GLUCOSE 1000 mg/dL (NEGATIVE); KETONE LARGE mg/dL (NEGATIVE); NITRITE NEGATIVE (NEGATIVE); PROTEIN NEGATIVE (NEGATIVE); UROBILINOGEN NORMAL (NORMAL)
[2017-10-13 13:34] LABS: BASOPHILS 1.1 % (0-2); EOSINOPHILS 2.8 % (0-7); HEMATOCRIT 34.5 % (42.0-54.0); HEMOGLOBIN 11.2 g/dL (13.5-17.5); IMMATURE GRANULOCYTES 0.1 % (0-5); LYMPHOCYTES 26.6 % (15-50); MCH 26.7 pg (26.0-34.0); MCHC 32.5 g/dL (31.0-37.0); MCV 82.3 fL (80.0-100.0); MEAN PLATELET VOLUME 10.4 fL (7.4-10.4); MONOCYTES 4.2 % (2-11); NEUTROPHILS 65.2 % (40-80); RBC 4.19 10x6/uL (4.20-6.10); RDW 12.8 % (11.5-14.5); WBC 8.3 10x3/uL (4.8-10.8)
[2017-10-13 13:38] LABS: PLATELET COUNT 320 10x3/uL (130-400)
[2017-10-13 13:51] LABS: ALBUMIN 3.3 g/dL (3.4-5.0); ALKALINE PHOSPHATASE 142 U/L (46-116); ALT (SGPT) 57 U/L (10-68); BILIRUBIN - TOTAL 0.44 mg/dL (0.2-1.3); CARBON DIOXIDE 16.7 mmol/L (21.0-32.0); CHLORIDE - SERUM 96 mmol/L (98-107); CREATININE - SERUM 1.1 mg/dL (0.6-1.3); POTASSIUM - SERUM 4.1 mmol/L (3.5-5.1); PROTEIN - SERUM 7.1 g/dL (6.4-8.2); SODIUM 137 mmol/L (136-145); UREA NITROGEN 18 mg/dL (7-18); eGFR NON AFRICAN AMERICAN 79 mL/min (90-120)
[2017-10-13 13:52] LABS: CALC OSMOLALITY 300 mosm/kg (275-300)
[2017-10-13 13:55] LABS: GLUCOSE 543 mg/dL (74-106)
[2017-10-13 14:16] LABS: UDS - AMPHET POSITIVE QUAL (NEGATIVE); UDS - BARB NEGATIVE QUAL (NEGATIVE); UDS - BENZO NEGATIVE QUAL (NEGATIVE); UDS - COCAINE NEGATIVE QUAL (NEGATIVE); UDS - OPIATE NEGATIVE QUAL (NEGATIVE); UDS - PCP NEGATIVE QUAL (NEGATIVE); UDS - THC NEGATIVE QUAL (NEGATIVE)
--- NOTE | 2017-10-13 16:03 | NUR ---
REC'D PT TO ICU, VSS, AFEBRILE. ALL ALARMS AND MONITORING EQUIPENT ATTACHED. INSULIN GTT AT 4U/HR. PT C/O PAIN TO BILAT FLANK AREAS. WILL CALL DR CONSTANTINO AND REPORT PAIN LEVVEL.
[2017-10-13 16:13] LABS: ANION GAP 20.3 mmol/L (8-16); CALCIUM 8.7 mg/dL (8.5-10.1); CREATININE - SERUM 1.2 mg/dL (0.6-1.3); MAGNESIUM - SERUM 1.8 mg/dL (1.8-2.4)
[2017-10-13 16:14] LABS: POTASSIUM - SERUM 3.3 mmol/L (3.5-5.1)
--- NOTE | 2017-10-13 16:18 | NUR ---
REPORTED TO DR CONSTANTINO RE: PT ASKING FOR DILAUDID AND ZOFRAN. REC'D ORDERS FOR ELECTROLYTE PROTOCOL AND BMP Q4H. ANSWERED QUESTIONS RE: LABS AND ORDERS.
--- NOTE | 2017-10-13 17:55 | NUR ---
PT REQUESTING FOOD. PAGED AND REC'D CALL BACK DR CONSTANTINO. CL DIET ORDER RECEIVED. PT GIVEN CLEAR LIQUIDS AND EXPLANED ORDER AND DX PROCESS. PT REQUESTING FOR E TO GIVE HIM FOOD THAT IS CONTRARY TO PHYSICIAN ORDERS. PT STATES THAT HE WILL NOT TELL AND NO ONE WILL KNOW. EXPLANED IMPORTANCE OF FOLLOWING ORDERS. PT BEGINS TO ASK THIS RN TO REARRANGE THEROOM AND CLOSE DOOR.
--- NOTE | 2017-10-13 17:59 | NUR ---
PT CALLS THIS RN INTO THE [facility] AND ASKED WHO THE PHYSICIAN THAT JUST WALKED BY. IS ASKING AGAIN FOR THIS RN TO GIVE HIM FOOD THAT IS AGNIST CL DIET ORDERS.
--- NOTE | 2017-10-13 18:47 | NUR ---
DR CONSTANTINO HERE. DR CONSTANTINO AT AND HE INSTRUCTS PT POC. PT CALLS THIS RN IN ROOM AND ASK FOR CRACKERS. EXPLANE THAT HIS DIET IS NOW FL. PT REPORTS THAT HE IS GOING HOME IF HE CAN'S HAVE CRACKERS. EXPLANE TO PT RE FL DIET. PT ASK THIS RN TO TELL THE PHYSICIAN TO COME BACK INTO THE ROOM. DR CONSTANTINO ORDERS AGAIN VERBALLY TO THIS RN THAT THE POC STILL REMAINS THE SAME.
--- NOTE | 2017-10-13 19:30 | NUR ---
REPORT RECEIVED. SHIFT ASSESSMENT COMPLETED PER FLOW SHEET, PATIENT AAOX4. TELEMETRY MONITORING HR 98. REQUESTING SWEETS AND STATING HE IS HUNGRY AND HAS NOT HAD ANYTHING TO EAT EXCEPT CHICKEN BROTH, TEACHING WAS PROVIDED THAT HE IS DIABETIC AND DUE TO HIGH BLOOD SUGAR HE CAN NOT HAVE ANY SWEETS, ALSO TOLD HIM THAT HE IS CURRENTLY ON A FULL LIQUID DIET AND CANNOT HAVE SOLID FOOD AT THIS TIME. HE VERBALIZED UNDERSTANDING BUT STATED THAT "I DO NOT FOLLOW A DIABETIC DIET AT HOME, I CAN EAT A WHOLE CAKE BY MYSELF AT HOME IN ONE DAY, I CANNOT HELP THAT I HAVE A SWEET TOOTH" AGAIN, TEACHING WAS PROVIDED ON THE IMPORTANCE OF FOLLOWING A DIBETIC DIET, HE VERBALIZED UNDERSTANDING AND ASKED FOR DOOR TO BE CLOSED.
--- NOTE | 2017-10-13 20:02 | NUR ---
PT UP TO BEDSIDE COMMODE, GAIT STEADY, NO PROBLEMS WITH AMBULATING. 400 MLS OF BROWN/GREEN DIARRHEA NOTED. CHICKEN BROTH PROVIDED PER REQUEST. WILL CONTINUE TO MONITOR. CALL LIGHT WITHIN REACH.
[2017-10-13 20:03] LABS: CALC OSMOLALITY 287 mosm/kg (275-300); CALCIUM 8.3 mg/dL (8.5-10.1); CARBON DIOXIDE 23.2 mmol/L (21.0-32.0); CHLORIDE - SERUM 107 mmol/L (98-107); MAGNESIUM - SERUM 1.5 mg/dL (1.8-2.4); POTASSIUM - SERUM 3.7 mmol/L (3.5-5.1); SODIUM 143 mmol/L (136-145); UREA NITROGEN 15 mg/dL (7-18); eGFR NON AFRICAN AMERICAN 88 mL/min (90-120)
[2017-10-13 20:08] LABS: GLUCOSE 140 mg/dL (74-106)
--- NOTE | 2017-10-13 21:00 | NUR ---
LAYING IN BED RESTING, WATCHING TV. NO DISTRESS NOTED. WILL CONTINUE TO MONITOR.
--- NOTE | 2017-10-13 22:15 | NUR ---
PT LAYING IN BED WATCHING TV. WATER PROVIDED PER REQUEST. CALL LIGHT WITHIN REACH. BED IN LOWEST POSITION. WILL CONTINUE TO MONITOR.
--- NOTE | 2017-10-13 22:57 | NUR ---
REASSESSMENT COMPLETED PER FLOW SHEET, SEE FOR DETAILS. WILL CONTINUE TO MONITOR.
[2017-10-14] VITALS (13 sets, daily range): BP systolic 111–145; BP diastolic 74–800; Ht 182.9 cm; Wt 65.2 kg
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
--- NOTE | 2017-10-14 01:37 | NUR ---
FSBS CONTINUES TO BE ELEVATED, INSULIN ADMINISTERED, SEE EMAR FOR DETAILS. WILL CONTINUE TO REASSESS IN AN HOUR PER ORDERS.
--- NOTE | 2017-10-14 02:03 | NUR ---
PT SQL DATA ARCHITECT LIGHT, REQUESTING CLEAN BED LINENS AND CLEAN PANT SCRUBS DUE TO FECAL INSIDENT. DIARREAH NOTED TO BED LINENS AND BEDSIDE COMMODE EMPTIED. DIARRHEA NOTED. BED LINENS CHANGED AND CLEAN SCRUB PANTS PROVIDED. LIGHTS OFF PER REQUEST.
--- NOTE | 2017-10-14 02:57 | NUR ---
INSULIN GIVEN PER SLIDING SCALE, SEE EMAR FOR DETAILS. WILL RECHECK FSBS IN 2H. BLANKET PROVIDED PER REQUEST. PT ASKING IF I WILL CHANGE HIS ORDERS TO A DIBETIC DIET BEFORE BREAKFAST SO HE CAN HAVE SOLID FOOD, TOLD HIM THAT I COULD NOT CHANGE ORDERS UNTIL THE DOCTORS REEVALUATE HIM. HE VERBAZLIZED UNDERSTANDING AND STATED HE WANTED HIS LIGHTS OFF AND DOOR CLOSED.
--- NOTE | 2017-10-14 03:10 | NUR ---
REASSESSMENT COMPLETED PER FLOW SHEET, SEE FOR DETAILS. WILL CONTINUE TO MONITOR.
--- NOTE | 2017-10-14 04:42 | NUR ---
2% MILK PROVIDED PER REQUEST, DENIES OTHER NEEDS. WILL CONTINUE TO MONITOR.
--- NOTE | 2017-10-14 06:00 | NUR ---
PT LAYING IN BED RESTING, DENIES NEEDS. WILL CONTINUE TO MONITOR.
--- NOTE | 2017-10-14 07:33 | HP ---
PATIENT: JODI WEISS MEDICAL RECORD: [id number] ACCOUNT: [id number] LOCATION:[facility] D.2301 : [birth year] ADMISSION DATE: 10/13/17 HISTORY AND PHYSICAL EXAMINATION HISTORY OF PRESENT ILLNESS: A 42-year-old male admitted to the Emergency Room as unassigned medicine patient is a poorly compliant insulin-dependent diabetic type 1, history of numerous admissions, numerous ER visits, also history of methamphetamine abuse, presented with signs of DKA worked up in the ER, found significantly elevated glucose at 536, mildly acidotic with a pH of 7.327. Positive for serum ketones. His primary care physician is reportedly through [facility]. PAST MEDICAL HISTORY: Significant as above. ALLERGIES: GABAPENTIN. REVIEW OF SYSTEMS: GENERAL: No reported change in weight or appetite. HEENT: No cephalgia, visual changes, tinnitus, epistaxis or dysphagia. CARDIOVASCULAR: Denies chest pain, denies palpitations. PULMONARY: Denies hemoptysis, denies night sweats. GASTROINTESTINAL: Denies hematemesis, hematochezia, or melena. GENITOURINARY: Admits frequency. MUSCULOSKELETAL: No acute changes. ENDOCRINE: Denies polyuria, polydipsia, or polyphagia. PHYSICAL EXAMINATION: VITAL SIGNS: Temp 98.8, blood pressure is 134/77, heart rate 98, respirations 16 and O2 sats 97% on room air. GENERAL: Alert and oriented, no present distress. HEENT: Head is normocephalic, atraumatic. Eyes: Pupils are equally round and reactive to light and accommodation. Extraocular muscles intact. Conjunctiva was not injected. Ears: Canals patent, TMs are intact. Nose: Nares patent without drainage. Throat: No erythema, no exudates. NECK: Supple. No lymphadenopathy, no JVD. HEART: Regular rate and rhythm. No S3, S4, no rub. LUNGS: Clear to auscultation bilaterally. Breathing is nonlabored. ABDOMEN: Soft, nontender, bowel sounds positive. EXTREMITIES: Present times 4, no edema. NEUROLOGIC: Intact. SKIN: Warm and dry. No rash. LABORATORY DATA: Sodium 139, potassium 3.3, chloride 102, bicarbonate 20, BUN 17, creatinine 1.2. Glucose on admission was 536. Serum ketones large. Urine drug screen positive for amphetamines. ASSESSMENT AND PLAN: Diabetic ketoacidosis. The patient admitted, insulin drip, monitor electrolytes. Electrolyte protocol. Clear liquid diet, advance as tolerated. We will consult case management for drug rehabilitation. I counseled the patient on the importance of compliance with his medications and monitoring his blood sugars and follow up with his primary care physician at [facility]. TRANSINT:[id number] Voice Confirmation ID: [id number] DOCUMENT ID: [id number] HISTORY AND PHYSICAL [id number] JODI WEISS, REMA KAYE at 0733 CC: [id number] DICTATION DATE: 10/13/17 183 OB/GYN NURSE: 10/13/172120 ADM IN [facility] [address] [id number]
--- NOTE | 2017-10-14 07:35 | NUR ---
DR. ROCK AT BEDSIDE.
[2017-10-14 09:09] LABS: CALC OSMOLALITY 292 mosm/kg (275-300); CALCIUM 8.3 mg/dL (8.5-10.1); CARBON DIOXIDE 21.6 mmol/L (21.0-32.0); CHLORIDE - SERUM 107 mmol/L (98-107); CREATININE - SERUM 1.1 mg/dL (0.6-1.3); MAGNESIUM - SERUM 1.4 mg/dL (1.8-2.4); POTASSIUM - SERUM 3.8 mmol/L (3.5-5.1); SODIUM 141 mmol/L (136-145); UREA NITROGEN 14 mg/dL (7-18); eGFR NON AFRICAN AMERICAN 79 mL/min (90-120)
--- NOTE | 2017-10-14 09:10 | NUR ---
SET UP FOR HYGIENE CARE. NEW SCRUBS PROVIDED.
[2017-10-14 09:11] LABS: GLUCOSE 299 mg/dL (74-106)
--- NOTE | 2017-10-14 11:40 | NUR ---
INSULIN PER EMAR.
--- NOTE | 2017-10-14 13:10 | NUR ---
* Is the patient Alert and Oriented? Yes 0 * How many steps to enter\\exit or inside your home? 0 0 * PCP Dr. Chip ARANA 0 * Pharmacy [facility] [address] * Preadmission Environment Home with Family 0 * ADLs Partial Dependent 0 * Equipment Glucometer Rolling Walker 0 * Additional services required to return to the preadmission environment? Yes 0 * Can the patient safely return to the preadmission environment? Yes 0 * Has this patient been hospitalized within the prior 30 days at any hospital? No Patient Name: JODI WEISS Admission Status: ER Accout number: [id number] Admission Date: 10-13-2017 : 1975 Admission Diagnosis: Attending: REMA CONSTANTINO Current LOS: 1 Anticipated DC Date: 10-14-2017 Planned Disposition: Home Primary Insurance: MEDICAID [place] Discharge Planning Comments: CM met with patient to assess dc plans/needs. Patient states he lives with a friend. He states his mother will drive him home. He reports he uses a rolling walker for mobility. He has had home health in the past with [facility], but is not currently receiving services. Discussed drug treatment programs, both inpatient & outpatient - he declines at this time. He states, "I've been many times. They don't work. You have to want to quit for them to help". He states he only uses when his pain gets out of control because he has ran out of his pain medications. Advised CM will meet with him again before discharge. CM will follow. Envelope Stamping Machine Operator: Rachel Trammell
--- NOTE | 2017-10-14 13:57 | NUR ---
ROOM 2124 FOR TRANSFER. PT NOTIFIED.
--- NOTE | 2017-10-14 14:04 | NUR ---
ATTEMPTED TO CALL REPORT. NURSE UNAVAILABLE. TO RETURN CALL.
--- NOTE | 2017-10-14 14:22 | NUR ---
REPORT GIVEN TO AGUSTO CHAN.
--- NOTE | 2017-10-14 14:27 | NUR ---
PT REQUESTS TO TRANSFER "IN A LITTLE BIT"
--- NOTE | 2017-10-14 15:44 | NUR ---
TRANSFERRED TO ROOM 2124 VIA WHEELCHAIR AND ALL PERSONAL BELONGINGS.
--- NOTE | 2017-10-14 16:14 | NUR ---
RECIEVED FROM ICU. ALERT AND ORIENTED. IV TO LEFT HAND. IV FLUID OF NS WITH 20 MEQ OF K INFUSING AT 100CC AN HOUR. DENIES ANY NEEDS. SR UP WITH CALL LIGHT IN REAC. C/O BEING HUNGRY. FOOD ORDERED. WILL MONITOR
--- NOTE | 2017-10-14 18:04 | NUR ---
WALKING IN HALLWAY. C/O BEING HUNGRY AGAIN. KITCHEN NOTIFIED. WILL MONITOR
--- NOTE | 2017-10-14 19:30 | NUR ---
ROUNDING NOTE: AT CHANGE OF SHIFT, PT IS NOT HOOKED UP TO HIS IV. THIS NURSE ATTEMPTED TO RESTART PT'S IVF, BUT PT IS REFUSING. PER REPORT, PT'S 1800 FINGERSTICK WAS 450. PT IS CONSUMING EXTRA MEAL TRAYS AND REQUESTING EXTRA MEALS AND SNACKS. HE IS LEAVING THE FLOOR TO SMOKE WELL. THIS NURSE NOTES THAT THERE ARE CIGARETTES AND A ASSEMBLY MACHINE OFFBEARER ON THE PATIENTS BEDSIDE STAND. I REMINDED THE PATIENT THAT HE CANNOT SMOKE IN HIS ROOM. I ALSO ENCOUARGED THE PATIENT TO FOLLOW HIS MEDICAL PLAN OF CARE SO THAT HE DOES NOT END UP BACK IN THE ICU WITH DKA ON AN INSULIN DRIP. WILL CONTINUE TO MONITOR PATIENT. CHARGE NURSE IS AWARE OF PATIENT'S CONTINUED NONCOMPLIANCE.
--- NOTE | 2017-10-14 19:45 | NUR ---
ROUNDING NOTE: AT CHANGE OF SHIFT PT IS REQUESTING TO UPGRADE DIET FROM NPO TO ICE CHIPS OR CLEARS. DAY SHIFT NURSE HAD ALREADY CALLED BAT BOY/GIRL TO ASK ABOUT THIS, BUT DID NOT RECEIVE A RETURN CALL BACK. AFTER REVIEW OF PT'S LABS I ADVISED PT AGAINST UPGRADE OF DIET. PT'S LIPASE AND LIPASE ARE DRAMATICALLY TRENDING UP AND W/ DX OF PANCREATITIS ADVANCING DIET WOULD NOT BE RECOMMENDING AT THIS TIME. PT UNDERSTANDS AND AGREES. OFFERED PT MOUTHSWABS FOR COMFORT AND HE AGREED TO THIS. PAIN LEVEL 5/10, WHICH IS ACCEPTABLE TO PT AT THIS TIME. HE WOULD LIKE TO CONTINUE TO ALTERNATE ATIVAN AND MORPHINE TO CONTROL PAIN. HE WILL LET ME KNOW WHEN HE WANTS ATIVAN NEXT. HE JUST RECEIVED MORPHINE AT AROUND 1830. WILL CONTINUE TO CLOSELY MONITOR PT'S PAIN LEVEL.
[2017-10-15] VITALS: BP 130/94
[2017-10-15] MEDS ORDERED: HUMULIN R100 U/ML SC (03:40)
[2017-10-15 04:00] VITALS: BP 130/93
[2017-10-15 04:52] LABS: BASOPHILS 0.9 % (0-2); HEMATOCRIT 31.9 % (42.0-54.0); HEMOGLOBIN 10.5 g/dL (13.5-17.5); IMMATURE GRANULOCYTES 0.1 % (0-5); LYMPHOCYTES 36.5 % (15-50); MCH 26.7 pg (26.0-34.0); MCHC 32.9 g/dL (31.0-37.0); MCV 81.2 fL (80.0-100.0); MEAN PLATELET VOLUME 10.4 fL (7.4-10.4); NEUTROPHILS 48.5 % (40-80); PLATELET COUNT 306 10x3/uL (130-400); RBC 3.93 10x6/uL (4.20-6.10); RDW 12.6 % (11.5-14.5)
[2017-10-15 05:20] LABS: CALC OSMOLALITY 290 mosm/kg (275-300); CALCIUM 8.8 mg/dL (8.5-10.1); CARBON DIOXIDE 25.7 mmol/L (21.0-32.0); CHLORIDE - SERUM 107 mmol/L (98-107); CREATININE - SERUM 0.9 mg/dL (0.6-1.3); GLUCOSE 311 mg/dL (74-106); POTASSIUM - SERUM 3.7 mmol/L (3.5-5.1); SODIUM 141 mmol/L (136-145); eGFR NON AFRICAN AMERICAN > 90 mL/min (90-120)
[2017-10-15 05:21] LABS: UREA NITROGEN 8 mg/dL (7-18)
--- NOTE | 2017-10-15 07:10 | NUR ---
RECIEVED REPORT ON PATIENT, PATIENT IS ALERT AND ORIENTED AT THIS TIME. PATIENT HAS A R AC IV WITH NS INFUSING AT 50ML/HR. CANVAS WORKER AT BEDSIDE GETTING VITAL SIGNS. PATIENT DENIES ANY NEEDS AT THIS TIME. BED LOW AND LOCKED. CPOC
--- NOTE | 2017-10-15 07:29 | NUR ---
PT REFUSED HIS 2100 LANTUS UNTIL 0000 DUE TO CONCERNS ABOUT BOTTOMING OUT. PT HAS BEEN EATING CONSTANTLY ALL NIGHT LONG, 40 PACKAGES OF SALTINE CRACKERS, 10 CARTONS OF MILK, AND SEVERAL CUPS OF BROTH. PT FEELS CONSTANTLY HUNGRY. I TRIED TO EXPLAIN TO PT THAT THIS IS BECAUSE HIS BLOOD SUGARS ARE TOO HIGH BUT HE IS NOT LISTENING. WILL CONTINUE TO MONITOR.
[2017-10-15 07:56] VITALS: BP 145/106
--- NOTE | 2017-10-15 08:54 | NUR ---
PATIENT AMBULATING HALLWAY, DENIES ANY NEEDS. CPOC
--- NOTE | 2017-10-15 10:45 | NUR ---
PATIENT REQUESTING TO GO HOME, DR DOUGIE SMYTH PATIENT TO [facility]. CPOC
--- NOTE | 2017-10-15 11:20 | NUR ---
PATIENT AMBULATING HALLWAY. CPOC
--- NOTE | 2017-10-15 12:14 | NUR ---
PATIENT IS OUTSIDE STILL, WAITING FOR RETURN SO I CAN CHECK BS. CPOC
--- NOTE | 2017-10-15 13:10 | NUR ---
WENT OUTSIDE TO LOOK FOR PATIENT, COULD NOT FIND PATIENT, TRIED TO CALL PATIENT, NO ANSWER. WILL CONT TO TRY TO FIND PATIENT AND CALL. CPOC
--- NOTE | 2017-10-15 13:28 | NUR ---
TRIED TO CALL MOTHERASHLEY. PHONE NUMBER DOES NOT WORK. NOTIFIED. STRIKER OUT. CPOC
--- NOTE | 2017-10-15 14:37 | NUR ---
TRIED TO CALL PATIENT AGAIN. NO ANSWER. NOTIFIED SALES FLOOR ASSOCIATE. WILL TAKE PATIENT OUT OF SYSTEM.
--- NOTE | 2017-10-16 14:06 | DS ---
PATIENT:JODI WEISS :[birth year] MEDICAL RECORD: [id number] DISCHARGE SUMMARY ADMISSION DATE: 10/13/17 DISCHARGE DATE: 10/15/17 DATE OF ADMISSION: 10/13/2017 DATE OF DISCHARGE: 10/15/2017 ADMISSION DIAGNOSES: Diabetic ketoacidosis, methamphetamine abuse, type 1 diabetic. DISCHARGE DIAGNOSES: Diabetic ketoacidosis, type 1 diabetes, methamphetamine abuse. HOSPITAL COURSE: The patient had an uneventful hospital course. He was admitted through the Emergency Room unassigned medicine. His primary care physician is reportedly at [facility]. His glucose on admission was 536. He was alert and oriented. His pH was mildly acidotic at 7.327. His urine drug screen was positive for methamphetamine. He was admitted to the unit. Aggressive IV hydration, insulin drip. He was able to quickly come off insulin drip, changed to sliding scale. He was tolerating a regular diet, anxious to go home. The patient is discharged home in significantly improved condition. PHYSICAL EXAMINATION: VITAL SIGNS: Temperature 98.4, heart rate 93, respirations 18, blood pressure 145/106, O2 sats 99% on room air. GENERAL: Alert and oriented, in no present distress. Again, tolerating diet. LABORATORY DATA: Glucose is 309. CBC; white count 7, hemoglobin 10.5, hematocrit 31.9, and platelets 306. Chemistry shows sodium of 141, potassium 3.7, chloride 107, bicarbonate 25.7. BUN 8, creatinine 0.9. DISPOSITION: The patient is discharged home in a significantly improved condition. We will resume his home insulin regimen. He will follow up with his primary care at [facility]. Again counseled on the importance of compliance with medications, avoiding methamphetamines, diabetic diet. Recommend outpatient drug rehabilitation, the patient will consider. TRANSINT:[id number] Voice Confirmation ID: [id number] DOCUMENT ID: [id number] REMA CONSTANTINO DO at 1406 CC: [id number] DICTATION DATE: 10/15/17 1055 OTHER SPORTS COACH OR INSTRUCTOR: 10/16/17 0338 DIS IN 10/15/[id number] [place] [address]
== END 2017-10-15 14:38 | disposition home or self-care (01) | DRG 639 ==
LOC: D.ER 12:19 → D.ICU 15:00 → D.M2 10-14 15:44
PROVIDERS: Family Medicine; ADMIT Family Medicine
DX: E10.10 Type 1 diabetes mellitus with ketoacidosis without coma (principal); Z79.4 Long term (current) use of insulin; F15.10 Other stimulant abuse, uncomplicated

== ENCOUNTER 2017-10-28 17:25 | Emergency (ER) | payer MEDICAID ==
[2017-10-14 09:42] VITALS: BMI 17.7
[~2017-10-28 17:25] MED LIST changes: +HUMULIN R100 U/ML SC
== END 2017-10-28 17:51 | disposition home or self-care (01) ==
LOC: D.ER 17:25
DX: E10.65 Type 1 diabetes mellitus with hyperglycemia (principal); Z79.4 Long term (current) use of insulin; F17.200 Nicotine dependence, unspecified, uncomplicated

== ENCOUNTER 2017-11-06 05:13 | Inpatient (IN) | payer MEDICAID ==
[~2017-11-06] VITALS: Ht 185.4 cm; Wt 59.6 kg
[2017-11-06] VITALS (16 sets, daily range): BP systolic 73–120; BP diastolic 46–82; BMI 16.1; BMI 16.0
--- NOTE | ~2017-11-06 | HP ---
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 The patient is a well-known patient to our Emergency Room, has had at least 6 different admissions over the last year for recurrent DKA. He is noncompliant type 1 diabetic and has Lantus insulin, but does not use it on a regular basis. He also has a history of methamphetamine abuse, stated that he had some methamphetamine within the last 2 days and did not feel well, came into the Emergency Room for evaluation and was found to have evidence of very high blood sugar, was in acidosis and admission to the ICU to be obtained. PAST MEDICAL HISTORY: Significant for recurrent type 1 diabetes mellitus, admissions DKA multiple times, on compliance. He also has history of neuropathy, chronic renal insufficiency, nicotine dependence. PAST SURGICAL HISTORY: Gallbladder surgery. ALLERGIES: HE IS ALLERGIC TO GABAPENTIN. MEDICATIONS: Only medication includes Humulin R on a sliding scale and Lantus Pen, he is supposed to be on 24 units at night. SOCIAL HISTORY: The patient does smoke at least a half pack per day. No alcohol use. He does use marijuana and methamphetamines on a routine basis. REVIEW OF SYSTEMS: The patient indicates no fever or chills. No chest pain. He is having some abdominal cramps. No nausea, vomiting, diarrhea, diaphoresis, but is having increased urine output. The patient was found to have evidence of large ketones and has been admitted to the ICU. PHYSICAL EXAMINATION: VITAL SIGNS: At the time of history and physical as below. GENERAL: He is a thin 42-year-old black male with multiple tattoos that is resting comfortably. HEENT: Pupils are equal, round and reactive to light. Extraocular movements are intact. Oral cavity, oropharynx shows tacky mucous membranes. NECK: No cervical or pharyngeal adenopathy. No nuchal rigidity. LUNGS: Coarse breath sounds, but clear easily. HEART: Regular rate and rhythm with tachycardia. ABDOMEN: Soft, nontender, positive bowel sounds. No hepatosplenomegaly, no masses. EXTREMITIES: Again, tattoos are noted. No edema is noted. NEUROLOGIC: Sensation is intact and able to move all 4 extremities. LABORATORY DATA: Initial CO2 was 2.7. He has been started on a bicarbonate in his IV fluids. Initial sugar was 727. He has been started on large bolus of fluids, admitted to the ICU and DKA protocol has been followed. Other laboratory shows creatinine elevated at 1.8, BUN of 30. His anion gap of 30, pH of 7.08, pCO2 of 8.6, pO2 of 150, 98% saturation. He has pseudohyponatremia with sodium of 125. White count of 12,000, H&H 12 and 39, and platelets of 387. Potassium was initially elevated at 6. This was repeated and was 4.1, HISTORY AND PHYSICAL [id number] JODI WEISS nonhemolyzed. ASSESSMENT: 1. Diabetic ketoacidosis. 2. Type 1 diabetes mellitus. 3. Noncompliance. 4. Acidosis. 5. Pseudohyponatremia. 6. Hyperkalemia, now resolved. 7. Renal insufficiency. PLAN: The patient will be admitted to the ICU. Nephrology consultation to assist with IV fluids and electrolytes protocol. We will check laboratory appropriately. TRANSINT:[id number] Voice Confirmation ID: [id number] DOCUMENT ID: [id number] BABAR MCKEON MD at 1551 CC: [id number] DICTATION DATE: 11/06/17 1011 BOBBIN CLEANING MACHINE OPERATOR: 11/06/17 1116 ADM IN [address] [place] [address]
[2017-11-06 05:43] LABS: BASOPHILS 0.3 % (0-2); EOSINOPHILS 0.1 % (0-7); HEMATOCRIT 39.9 % (42.0-54.0); HEMOGLOBIN 12.5 g/dL (13.5-17.5); IMMATURE GRANULOCYTES 0.3 % (0-5); LYMPHOCYTES 14.8 % (15-50); MCH 26.4 pg (26.0-34.0); MCHC 31.3 g/dL (31.0-37.0); MCV 84.4 fL (80.0-100.0); MEAN PLATELET VOLUME 10.7 fL (7.4-10.4); MONOCYTES 2.6 % (2-11); NEUTROPHILS 81.9 % (40-80); RBC 4.73 10x6/uL (4.20-6.10); RDW 13.7 % (11.5-14.5); WBC 12.2 10x3/uL (4.8-10.8)
[2017-11-06 05:49] LABS: PLATELET COUNT 384 10x3/uL (130-400)
[2017-11-06 05:55] LABS: KETONE - SERUM MODERATE mg/dL (NEGATIVE)
[2017-11-06 06:12] LABS: ALBUMIN 3.5 g/dL (3.4-5.0); ALKALINE PHOSPHATASE 176 U/L (46-116); ALT (SGPT) 30 U/L (10-68); BILIRUBIN - TOTAL 0.45 mg/dL (0.2-1.3); CALCIUM 9.1 mg/dL (8.5-10.1); CHLORIDE - SERUM 92 mmol/L (98-107); MAGNESIUM - SERUM 2.2 mg/dL (1.8-2.4); PHOSPHOROUS 6.9 mg/dL (2.5-4.9); PROTEIN - SERUM 7.5 g/dL (6.4-8.2); SODIUM 134 mmol/L (136-145); UREA NITROGEN 30 mg/dL (7-18); eGFR NON AFRICAN AMERICAN 39 mL/min (90-120)
[2017-11-06 06:17] LABS: CALC OSMOLALITY 308 mosm/kg (275-300); CARBON DIOXIDE 2.7 mmol/L (21.0-32.0); GLUCOSE 727 mg/dL (74-106)
[2017-11-06 07:01] LABS: APPEARANCE CLEAR (CLEAR); BILIRUBIN NEGATIVE (NEGATIVE); COLOR YELLOW (YELLOW); GLUCOSE 1000 mg/dL (NEGATIVE); KETONE LARGE mg/dL (NEGATIVE); NITRITE NEGATIVE (NEGATIVE); PROTEIN 1+ mg/dL (NEGATIVE); UROBILINOGEN NORMAL (NORMAL)
[2017-11-06 07:02] LABS: BACTERIA NONE SEEN /hpf (NONE SEEN); EPITHELIAL CELLS 0-5 /hpf (0-5); RED CELLS - URINE 0-5 /hpf (0-5); WHITE CELLS - URINE NSEEN /hpf (0-5)
[2017-11-06 08:29] LABS: CALCIUM 8.3 mg/dL (8.5-10.1); CREATININE - SERUM 1.8 mg/dL (0.6-1.3)
[2017-11-06 08:30] LABS: ANION GAP 30.4 mmol/L (8-16); POTASSIUM - SERUM 4.1 mmol/L (3.5-5.1)
[2017-11-06 08:31] LABS: CARBON DIOXIDE 8.7 mmol/L (21.0-32.0)
[2017-11-06 10:26] LABS: UDS - AMPHET POSITIVE QUAL (NEGATIVE); UDS - BARB NEGATIVE QUAL (NEGATIVE); UDS - BENZO NEGATIVE QUAL (NEGATIVE); UDS - COCAINE NEGATIVE QUAL (NEGATIVE); UDS - OPIATE NEGATIVE QUAL (NEGATIVE); UDS - PCP NEGATIVE QUAL (NEGATIVE); UDS - THC NEGATIVE QUAL (NEGATIVE)
[2017-11-06 13:14] LABS: KETONE - SERUM MODERATE mg/dL (NEGATIVE)
[2017-11-06 13:33] LABS: CALC OSMOLALITY 286 mosm/kg (275-300); CALCIUM 8.3 mg/dL (8.5-10.1); CARBON DIOXIDE 16.8 mmol/L (21.0-32.0); CHLORIDE - SERUM 112 mmol/L (98-107); CREATININE - SERUM 1.4 mg/dL (0.6-1.3); GLUCOSE 94 mg/dL (74-106); MAGNESIUM - SERUM 1.9 mg/dL (1.8-2.4); POTASSIUM - SERUM 4.3 mmol/L (3.5-5.1); SODIUM 142 mmol/L (136-145); UREA NITROGEN 25 mg/dL (7-18); eGFR NON AFRICAN AMERICAN 60 mL/min (90-120)
[2017-11-06 16:19] LABS: KETONE - SERUM MODERATE mg/dL (NEGATIVE)
[2017-11-06 16:22] LABS: CALC OSMOLALITY 288 mosm/kg (275-300); CARBON DIOXIDE 19.2 mmol/L (21.0-32.0); CHLORIDE - SERUM 111 mmol/L (98-107); CREATININE - SERUM 1.4 mg/dL (0.6-1.3); GLUCOSE 94 mg/dL (74-106); MAGNESIUM - SERUM 1.8 mg/dL (1.8-2.4); SODIUM 143 mmol/L (136-145); UREA NITROGEN 24 mg/dL (7-18); eGFR NON AFRICAN AMERICAN 60 mL/min (90-120)
[2017-11-06 20:09] LABS: CALC OSMOLALITY 295 mosm/kg (275-300); CALCIUM 8.8 mg/dL (8.5-10.1); CARBON DIOXIDE 17.4 mmol/L (21.0-32.0); CHLORIDE - SERUM 108 mmol/L (98-107); CREATININE - SERUM 1.4 mg/dL (0.6-1.3); MAGNESIUM - SERUM 1.8 mg/dL (1.8-2.4); POTASSIUM - SERUM 3.8 mmol/L (3.5-5.1); SODIUM 144 mmol/L (136-145); UREA NITROGEN 23 mg/dL (7-18); eGFR NON AFRICAN AMERICAN 60 mL/min (90-120)
[2017-11-06 20:10] LABS: GLUCOSE 196 mg/dL (74-106)
[2017-11-06 20:19] LABS: KETONE - SERUM MODERATE mg/dL (NEGATIVE)
[2017-11-07] VITALS (17 sets, daily range): BP systolic 106–141; BP diastolic 64–97
[2017-11-07 05:21] LABS: BASOPHILS 0.3 % (0-2); EOSINOPHILS 0.9 % (0-7); HEMOGLOBIN 10.3 g/dL (13.5-17.5); IMMATURE GRANULOCYTES 0.1 % (0-5); LYMPHOCYTES 17.5 % (15-50); MCH 26.5 pg (26.0-34.0); MCHC 33.7 g/dL (31.0-37.0); MEAN PLATELET VOLUME 10.2 fL (7.4-10.4); MONOCYTES 4.4 % (2-11); NEUTROPHILS 76.8 % (40-80); PLATELET COUNT 352 10x3/uL (130-400); RBC 3.89 10x6/uL (4.20-6.10); RDW 13.4 % (11.5-14.5); WBC 9.5 10x3/uL (4.8-10.8)
[2017-11-07 05:25] LABS: HEMOGLOBIN A1C 12.9 % (4.8-6.0)
[2017-11-07 05:26] LABS: HEMATOCRIT 30.6 % (42.0-54.0); MCV 78.7 fL (80.0-100.0)
[2017-11-07 05:49] LABS: BILIRUBIN - TOTAL 0.27 mg/dL (0.2-1.3); CALCIUM 8.5 mg/dL (8.5-10.1); CREATININE - SERUM 1.3 mg/dL (0.6-1.3); POTASSIUM - SERUM 3.3 mmol/L (3.5-5.1); PROTEIN - SERUM 6.1 g/dL (6.4-8.2); THYROID STIMULATING HORMONE 0.32 uIU/mL (0.36-3.74)
[2017-11-07 05:50] LABS: ALBUMIN 2.6 g/dL (3.4-5.0); ANION GAP 14.9 mmol/L (8-16); CARBON DIOXIDE 23.4 mmol/L (21.0-32.0)
[2017-11-07 08:41] LABS: CREATININE - SERUM 1.3 mg/dL (0.6-1.3)
[2017-11-07 08:49] LABS: ANION GAP 12.7 mmol/L (8-16); CALCIUM 8.6 mg/dL (8.5-10.1); CARBON DIOXIDE 24.5 mmol/L (21.0-32.0); MAGNESIUM - SERUM 1.9 mg/dL (1.8-2.4); POTASSIUM - SERUM 3.2 mmol/L (3.5-5.1)
[2017-11-07 13:17] LABS: ANION GAP 16.1 mmol/L (8-16); CALCIUM 8.6 mg/dL (8.5-10.1); CARBON DIOXIDE 21.5 mmol/L (21.0-32.0); CREATININE - SERUM 1.3 mg/dL (0.6-1.3); MAGNESIUM - SERUM 1.8 mg/dL (1.8-2.4); POTASSIUM - SERUM 3.6 mmol/L (3.5-5.1)
[2017-11-08 04:00] VITALS: BP 118/84
[2017-11-08 06:57] LABS: BASOPHILS 0.3 % (0-2); HEMATOCRIT 29.5 % (42.0-54.0); HEMOGLOBIN 10.1 g/dL (13.5-17.5); IMMATURE GRANULOCYTES 0.2 % (0-5); LYMPHOCYTES 27.5 % (15-50); MCH 26.6 pg (26.0-34.0); MCHC 34.2 g/dL (31.0-37.0); MCV 77.8 fL (80.0-100.0); MEAN PLATELET VOLUME 10.5 fL (7.4-10.4); MONOCYTES 6.3 % (2-11); NEUTROPHILS 63.7 % (40-80); PLATELET COUNT 328 10x3/uL (130-400); RBC 3.79 10x6/uL (4.20-6.10); RDW 13.2 % (11.5-14.5)
[2017-11-08 07:14] LABS: ALBUMIN 2.6 g/dL (3.4-5.0); ALKALINE PHOSPHATASE 115 U/L (46-116); ALT (SGPT) 18 U/L (10-68); BILIRUBIN - TOTAL 0.13 mg/dL (0.2-1.3); CALCIUM 8.6 mg/dL (8.5-10.1); CARBON DIOXIDE 26.6 mmol/L (21.0-32.0); CHLORIDE - SERUM 103 mmol/L (98-107); CREATININE - SERUM 1.1 mg/dL (0.6-1.3); PROTEIN - SERUM 6.1 g/dL (6.4-8.2); SODIUM 140 mmol/L (136-145); UREA NITROGEN 15 mg/dL (7-18); eGFR NON AFRICAN AMERICAN 79 mL/min (90-120)
[2017-11-08 07:15] LABS: CALC OSMOLALITY 289 mosm/kg (275-300); GLUCOSE 282 mg/dL (74-106)
[2017-11-08 07:30] LABS: WBC 6.4 10x3/uL (4.8-10.8)
[2017-11-08 08:30] VITALS: BP 90/57
[2017-11-08 12:16] VITALS: BP 120/89
[2017-11-08 14:55] VITALS: BP 131/88
[2017-11-08 19:20] VITALS: Ht 185.4 cm; Wt 59.6 kg
[2017-11-08 20:00] VITALS: BP 108/80
[2017-11-09] VITALS: BP 139/93
[2017-11-09 04:00] VITALS: BP 133/82
[2017-11-09 09:06] VITALS: BP 116/84
[2017-11-09 13:19] VITALS: BP 139/94
== END 2017-11-09 14:50 | disposition home or self-care (01) | DRG 638 ==
LOC: D.ER 05:13 → D.MS 07:25 → D.ICU 07:25 → D.MS 11-07 17:25
PROVIDERS: Emergency Medicine; Family Medicine
DX: E10.10 Type 1 diabetes mellitus with ketoacidosis without coma (principal); F17.203 Nicotine dependence unspecified, with withdrawal; N17.9 Acute kidney failure, unspecified; E87.1 Hypo-osmolality and hyponatremia; Z79.4 Long term (current) use of insulin; F19.10 Other psychoactive substance abuse, uncomplicated; D50.9 Iron deficiency anemia, unspecified; N28.9 Disorder of kidney and ureter, unspecified; Z91.14 Patient's other noncompliance with medication regimen; G89.29 Other chronic pain; R13.10 Dysphagia, unspecified; F15.10 Other stimulant abuse, uncomplicated

== ENCOUNTER 2017-11-24 15:17 | Inpatient (IN) | payer MEDICAID ==
[~2017-11-24] VITALS: Ht 185.4 cm; Wt 66.8 kg
[2017-11-24 16:02] LABS: BASOPHILS 0.7 % (0-2); EOSINOPHILS 0.6 % (0-7); HEMATOCRIT 35.5 % (42.0-54.0); HEMOGLOBIN 11.3 g/dL (13.5-17.5); IMMATURE GRANULOCYTES 0.2 % (0-5); LYMPHOCYTES 13.9 % (15-50); MCH 26.4 pg (26.0-34.0); MCHC 31.8 g/dL (31.0-37.0); MCV 82.9 fL (80.0-100.0); MEAN PLATELET VOLUME 10.4 fL (7.4-10.4); MONOCYTES 6.9 % (2-11); NEUTROPHILS 77.7 % (40-80); PLATELET COUNT 326 10x3/uL (130-400); RBC 4.28 10x6/uL (4.20-6.10); RDW 14.4 % (11.5-14.5); WBC 9.9 10x3/uL (4.8-10.8)
[2017-11-24 16:07] LABS: APPEARANCE CLEAR (CLEAR); BILIRUBIN NEGATIVE (NEGATIVE); COLOR YELLOW (YELLOW); GLUCOSE 1000 mg/dL (NEGATIVE); KETONE MODERATE mg/dL (NEGATIVE); NITRITE NEGATIVE (NEGATIVE); PROTEIN NEGATIVE (NEGATIVE); UROBILINOGEN NORMAL (NORMAL)
[2017-11-24 16:09] LABS: WHITE CELLS - URINE OCC /hpf (0-5)
[2017-11-24 16:13] LABS: KETONE - SERUM MODERATE mg/dL (NEGATIVE)
[2017-11-24 16:17] LABS: ALBUMIN 3.2 g/dL (3.4-5.0); ALKALINE PHOSPHATASE 171 U/L (46-116); ALT (SGPT) 61 U/L (10-68); CALCIUM 8.6 mg/dL (8.5-10.1); CARBON DIOXIDE 16.6 mmol/L (21.0-32.0); CHLORIDE - SERUM 89 mmol/L (98-107); CREATINE KINASE 142 UL (21-232); CREATININE - SERUM 1.7 mg/dL (0.6-1.3); MAGNESIUM - SERUM 1.8 mg/dL (1.8-2.4); POTASSIUM - SERUM 4.5 mmol/L (3.5-5.1); PROTEIN - SERUM 7.3 g/dL (6.4-8.2); SODIUM 129 mmol/L (136-145); UREA NITROGEN 17 mg/dL (7-18); eGFR NON AFRICAN AMERICAN 48 mL/min (90-120)
[2017-11-24 16:22] LABS: CALC OSMOLALITY 307 mosm/kg (275-300)
[2017-11-24 16:23] LABS: GLUCOSE 953 mg/dL (74-106)
[2017-11-24 18:22] VITALS: BP 113/76; BMI 19.8
[2017-11-24 18:25] LABS: HEMOGLOBIN A1C 12.9 % (4.8-6.0)
[2017-11-24 18:35] LABS: ANION GAP 29.8 mmol/L (8-16); CARBON DIOXIDE 13.1 mmol/L (21.0-32.0); CREATININE - SERUM 1.7 mg/dL (0.6-1.3); MAGNESIUM - SERUM 1.5 mg/dL (1.8-2.4)
[2017-11-24 19:00] VITALS: BP 113/76; BP 84/60
[2017-11-24 19:01] LABS: POTASSIUM - SERUM 2.9 mmol/L (3.5-5.1)
[2017-11-24 19:38] LABS: UDS - AMPHET POSITIVE QUAL (NEGATIVE); UDS - BARB NEGATIVE QUAL (NEGATIVE); UDS - BENZO NEGATIVE QUAL (NEGATIVE); UDS - COCAINE NEGATIVE QUAL (NEGATIVE); UDS - OPIATE NEGATIVE QUAL (NEGATIVE); UDS - PCP NEGATIVE QUAL (NEGATIVE); UDS - THC NEGATIVE QUAL (NEGATIVE)
[2017-11-24 20:00] VITALS: BP 97/66
[2017-11-24 21:00] VITALS: BP 103/71
[2017-11-24 22:00] VITALS: BP 104/65
[2017-11-24 22:18] LABS: MAGNESIUM - SERUM 1.8 mg/dL (1.8-2.4)
[2017-11-24 22:22] LABS: ANION GAP 18.2 mmol/L (8-16); CARBON DIOXIDE 23.7 mmol/L (21.0-32.0); CREATININE - SERUM 1.2 mg/dL (0.6-1.3); POTASSIUM - SERUM 3.9 mmol/L (3.5-5.1)
[2017-11-24 23:00] VITALS: BP 114/75
[2017-11-24 23:06] LABS: APPEARANCE HAZY (CLEAR); BILIRUBIN NEGATIVE (NEGATIVE); COLOR YELLOW (YELLOW); GLUCOSE 1000 mg/dL (NEGATIVE); KETONE LARGE mg/dL (NEGATIVE); NITRITE NEGATIVE (NEGATIVE); PROTEIN NEGATIVE (NEGATIVE); SPECIFIC GRAVITY 1.015 (1.005-1.020); UROBILINOGEN NORMAL (NORMAL)
[2017-11-24 23:08] LABS: WHITE CELLS - URINE 0-5 /hpf (0-5)
[2017-11-24 23:09] LABS: BACTERIA FEW /hpf (NONE SEEN); YEAST >1+ /hpf (NONE SEEN)
[2017-11-25] VITALS (13 sets, daily range): BP systolic 110–137; BP diastolic 77–94; BMI 19.3
[2017-11-25 06:07] LABS: BASOPHILS 0.6 % (0-2); EOSINOPHILS 4.7 % (0-7); HEMATOCRIT 29.1 % (42.0-54.0); HEMOGLOBIN 9.6 g/dL (13.5-17.5); IMMATURE GRANULOCYTES 0.1 % (0-5); MCH 26.2 pg (26.0-34.0); MEAN PLATELET VOLUME 9.8 fL (7.4-10.4); MONOCYTES 9.8 % (2-11); NEUTROPHILS 65.8 % (40-80); PLATELET COUNT 264 10x3/uL (130-400); RBC 3.66 10x6/uL (4.20-6.10); RDW 13.9 % (11.5-14.5)
[2017-11-25 06:18] LABS: MCV 79.5 fL (80.0-100.0); WBC 7.1 10x3/uL (4.8-10.8)
[2017-11-25 06:39] LABS: CALC OSMOLALITY 285 mosm/kg (275-300); CALCIUM 7.8 mg/dL (8.5-10.1); CARBON DIOXIDE 27.6 mmol/L (21.0-32.0); CHLORIDE - SERUM 104 mmol/L (98-107); GLUCOSE 218 mg/dL (74-106); MAGNESIUM - SERUM 1.6 mg/dL (1.8-2.4); SODIUM 140 mmol/L (136-145); UREA NITROGEN 12 mg/dL (7-18); eGFR NON AFRICAN AMERICAN 88 mL/min (90-120)
[2017-11-26 04:00] VITALS: BP 122/85
[2017-11-26 08:26] VITALS: BP 125/85
[2017-11-26 11:40] VITALS: BP 129/91
[2017-11-26 16:11] VITALS: BP 120/86
[2017-11-26 19:00] VITALS: BP 118/75
[2017-11-27 03:34] VITALS: BP 132/89
[2017-11-27 06:29] LABS: BASOPHILS 0.3 % (0-2); HEMATOCRIT 27.1 % (42.0-54.0); HEMOGLOBIN 8.8 g/dL (13.5-17.5); IMMATURE GRANULOCYTES 0.2 % (0-5); LYMPHOCYTES 22.3 % (15-50); MCHC 32.5 g/dL (31.0-37.0); MCV 80.2 fL (80.0-100.0); MEAN PLATELET VOLUME 10.3 fL (7.4-10.4); MONOCYTES 7.2 % (2-11); PLATELET COUNT 264 10x3/uL (130-400); RBC 3.38 10x6/uL (4.20-6.10); WBC 6.4 10x3/uL (4.8-10.8)
[2017-11-27 06:49] LABS: CALCIUM 8.1 mg/dL (8.5-10.1); CARBON DIOXIDE 25.4 mmol/L (21.0-32.0); CHLORIDE - SERUM 102 mmol/L (98-107); CREATININE - SERUM 0.9 mg/dL (0.6-1.3); SODIUM 136 mmol/L (136-145); UREA NITROGEN 11 mg/dL (7-18); eGFR NON AFRICAN AMERICAN > 90 mL/min (90-120)
[2017-11-27 06:50] LABS: CALC OSMOLALITY 284 mosm/kg (275-300); GLUCOSE 345 mg/dL (74-106); POTASSIUM - SERUM 4.8 mmol/L (3.5-5.1)
[2017-11-27 08:32] VITALS: BP 148/103
[2017-11-27 11:24] VITALS: BP 144/98
[2017-11-27 15:46] VITALS: BP 126/93
[2017-11-27 20:00] VITALS: BP 136/94
[2017-11-28] VITALS: BP 130/81
[2017-11-28 04:00] VITALS: BP 120/86
[2017-11-28 07:55] VITALS: BP 133/96
[2017-11-28 12:00] VITALS: BP 138/88
[2017-11-28 14:16] LABS: ALP - ISO (ALP) 149 IU/L (39-117); ALP - ISO (BONE) FRACTION 22 % (12-68); ALP - ISO (LIVER) FRACTION 75 % (13-88); ALP - ISO(INTESTINAL) FRACTION 3 % (0-18)
[2017-11-28 16:17] VITALS: BP 126/70
[2017-11-28 17:59] VITALS: Ht 185.4 cm; Wt 66.8 kg
[2017-11-28 19:00] VITALS: BP 118/79
[2017-11-29 04:00] VITALS: BP 116/70
== END 2017-11-29 08:16 | disposition left against medical advice (07) | DRG 638 ==
LOC: D.ER 15:17 → D.ICU 16:58 → D.M2 16:58
PROVIDERS: Emergency Medicine; Family Medicine; Internal Medicine Nephrology
DX: E10.10 Type 1 diabetes mellitus with ketoacidosis without coma (principal); F17.203 Nicotine dependence unspecified, with withdrawal; Z79.4 Long term (current) use of insulin; Z91.14 Patient's other noncompliance with medication regimen; F15.10 Other stimulant abuse, uncomplicated; D50.9 Iron deficiency anemia, unspecified; E10.40 Type 1 diabetes mellitus with diabetic neuropathy, unspecified; Z72.0 Tobacco use

== ENCOUNTER 2018-01-08 16:41 | Emergency (ER) | payer MEDICAID ==
[2017-11-28 17:59] VITALS: BMI 19.3
[2018-01-08 17:29] LABS: BASOPHILS 1.4 % (0-2); EOSINOPHILS 5.4 % (0-7); HEMATOCRIT 38.1 % (42.0-54.0); HEMOGLOBIN 12.4 g/dL (13.5-17.5); LYMPHOCYTES 41.8 % (15-50); MCH 26.2 pg (26.0-34.0); MCHC 32.5 g/dL (31.0-37.0); MCV 80.4 fL (80.0-100.0); MEAN PLATELET VOLUME 10.6 fL (7.4-10.4); MONOCYTES 5.1 % (2-11); NEUTROPHILS 46.3 % (40-80); PLATELET COUNT 371 10x3/uL (130-400); RBC 4.74 10x6/uL (4.20-6.10); RDW 13.4 % (11.5-14.5); WBC 6.2 10x3/uL (4.8-10.8)
[2018-01-08 17:51] LABS: ALBUMIN 3.6 g/dL (3.4-5.0); ANION GAP 13.6 mmol/L (8-16); BILIRUBIN - TOTAL 0.37 mg/dL (0.2-1.3); CALCIUM 9.4 mg/dL (8.5-10.1); CARBON DIOXIDE 26.8 mmol/L (21.0-32.0); CREATININE - SERUM 1.3 mg/dL (0.6-1.3); POTASSIUM - SERUM 3.4 mmol/L (3.5-5.1); PROTEIN - SERUM 7.7 g/dL (6.4-8.2)
[2018-01-08 17:55] LABS: INR 1.12 (0.85-1.17)
[2018-01-08 17:59] LABS: KETONE - SERUM SMALL mg/dL (NEGATIVE)
[2018-01-08 18:17] LABS: CREATINE KINASE 70 UL (21-232); MAGNESIUM - SERUM 1.7 mg/dL (1.8-2.4); THYROID STIMULATING HORMONE 1.19 uIU/mL (0.36-3.74)
[2018-01-08 18:24] LABS: TROPONIN-I < 0.017 ng/mL (0.000-0.060)
== END 2018-01-08 18:15 | disposition left against medical advice (07) ==
LOC: D.ER 16:41
PROVIDERS: Family Medicine; Nurse Practitioner Family
DX: E11.65 Type 2 diabetes mellitus with hyperglycemia (principal)

== ENCOUNTER 2018-01-16 09:28 | Emergency (ER) | payer MEDICAID ==
[2017-11-28 17:59] VITALS: BMI 19.3
[2018-01-16 10:09] LABS: BASOPHILS 0.8 % (0-2); EOSINOPHILS 6.2 % (0-7); HEMATOCRIT 34.5 % (42.0-54.0); HEMOGLOBIN 11.3 g/dL (13.5-17.5); IMMATURE GRANULOCYTES 0.3 % (0-5); LYMPHOCYTES 29.8 % (15-50); MCH 25.6 pg (26.0-34.0); MCHC 32.8 g/dL (31.0-37.0); MCV 78.2 fL (80.0-100.0); MEAN PLATELET VOLUME 10.4 fL (7.4-10.4); NEUTROPHILS 55.9 % (40-80); PLATELET COUNT 397 10x3/uL (130-400); RBC 4.41 10x6/uL (4.20-6.10); RDW 13.4 % (11.5-14.5)
[2018-01-16 10:24] LABS: APPEARANCE HAZY (CLEAR); BILIRUBIN NEGATIVE (NEGATIVE); COLOR YELLOW (YELLOW); GLUCOSE 50 mg/dL (NEGATIVE); KETONE NEGATIVE (NEGATIVE); NITRITE NEGATIVE (NEGATIVE); PROTEIN TRACE mg/dL (NEGATIVE); UROBILINOGEN NORMAL (NORMAL)
[2018-01-16 10:25] LABS: RED CELLS - URINE 0-5 /hpf (0-5)
[2018-01-16 10:27] LABS: ALBUMIN 3.1 g/dL (3.4-5.0); ALKALINE PHOSPHATASE 122 U/L (46-116); ALT (SGPT) 33 U/L (10-68); CALCIUM 8.5 mg/dL (8.5-10.1); CARBON DIOXIDE 27.7 mmol/L (21.0-32.0); CHLORIDE - SERUM 104 mmol/L (98-107); CREATININE - SERUM 1.1 mg/dL (0.6-1.3); PROTEIN - SERUM 6.5 g/dL (6.4-8.2); SODIUM 139 mmol/L (136-145); UREA NITROGEN 13 mg/dL (7-18); eGFR NON AFRICAN AMERICAN 79 mL/min (90-120)
[2018-01-16 10:27] LABS: BACTERIA MODERATE /hpf (NONE SEEN); EPITHELIAL CELLS 0-5 /hpf (0-5); MUCUS >1+ /lpf (NONE SEEN)
[2018-01-16 10:29] LABS: CALC OSMOLALITY 279 mosm/kg (275-300); GLUCOSE 134 mg/dL (74-106)
[2018-01-16 10:30] LABS: POTASSIUM - SERUM 2.9 mmol/L (3.5-5.1)
== END 2018-01-16 12:03 | disposition home or self-care (01) ==
LOC: D.ER 09:28
PROVIDERS: Emergency Medicine
DX: R53.1 Weakness (principal)

== ENCOUNTER 2018-02-10 16:01 | Emergency (ER) | payer MEDICAID ==
[2017-11-28 17:59] VITALS: BMI 19.3
[2018-02-10 18:32] LABS: EOSINOPHILS 4.6 % (0-7); HEMATOCRIT 37.1 % (42.0-54.0); IMMATURE GRANULOCYTES 0.1 % (0-5); LYMPHOCYTES 31.2 % (15-50); MCH 25.6 pg (26.0-34.0); MCHC 32.3 g/dL (31.0-37.0); MCV 79.1 fL (80.0-100.0); MEAN PLATELET VOLUME 11.4 fL (7.4-10.4); MONOCYTES 4.5 % (2-11); NEUTROPHILS 58.6 % (40-80); PLATELET COUNT 352 10x3/uL (130-400); RBC 4.69 10x6/uL (4.20-6.10); RDW 13.4 % (11.5-14.5); WBC 6.7 10x3/uL (4.8-10.8)
[2018-02-10 18:38] LABS: KETONE - SERUM MODERATE mg/dL (NEGATIVE)
[2018-02-10 18:44] LABS: ALBUMIN 3.5 g/dL (3.4-5.0); ALKALINE PHOSPHATASE 190 U/L (46-116); ALT (SGPT) 52 U/L (10-68); CALCIUM 9.7 mg/dL (8.5-10.1); CARBON DIOXIDE 19.6 mmol/L (21.0-32.0); CHLORIDE - SERUM 89 mmol/L (98-107); CREATININE - SERUM 1.5 mg/dL (0.6-1.3); POTASSIUM - SERUM 5.1 mmol/L (3.5-5.1); PROTEIN - SERUM 7.8 g/dL (6.4-8.2); SODIUM 128 mmol/L (136-145); UREA NITROGEN 26 mg/dL (7-18); eGFR NON AFRICAN AMERICAN 55 mL/min (90-120)
[2018-02-10 18:50] LABS: APPEARANCE CLEAR (CLEAR); BILIRUBIN NEGATIVE (NEGATIVE); COLOR YELLOW (YELLOW); GLUCOSE 1000 mg/dL (NEGATIVE); KETONE MODERATE mg/dL (NEGATIVE); NITRITE NEGATIVE (NEGATIVE); PROTEIN NEGATIVE (NEGATIVE); UROBILINOGEN NORMAL (NORMAL)
[2018-02-10 18:52] LABS: CALC OSMOLALITY 301 mosm/kg (275-300); GLUCOSE 825 mg/dL (74-106)
== END 2018-02-10 19:32 | disposition left against medical advice (07) ==
LOC: D.ER 16:01
PROVIDERS: Family Medicine
DX: E11.65 Type 2 diabetes mellitus with hyperglycemia (principal); Z79.4 Long term (current) use of insulin; Z91.14 Patient's other noncompliance with medication regimen

== ENCOUNTER 2018-03-20 21:10 | Emergency (ER) | payer MEDICAID ==
[2017-11-28 17:59] VITALS: BMI 19.3
[2018-03-20 22:05] LABS: BASOPHILS 0.6 % (0-2); EOSINOPHILS 3.3 % (0-7); HEMATOCRIT 37.6 % (42.0-54.0); HEMOGLOBIN 12.5 g/dL (13.5-17.5); IMMATURE GRANULOCYTES 0.2 % (0-5); LYMPHOCYTES 33.9 % (15-50); MCH 25.8 pg (26.0-34.0); MCHC 33.2 g/dL (31.0-37.0); MCV 77.5 fL (80.0-100.0); MEAN PLATELET VOLUME 10.2 fL (7.4-10.4); MONOCYTES 5.6 % (2-11); NEUTROPHILS 56.4 % (40-80); PLATELET COUNT 323 10x3/uL (130-400); RBC 4.85 10x6/uL (4.20-6.10); RDW 13.6 % (11.5-14.5); WBC 9.4 10x3/uL (4.8-10.8)
[2018-03-20 22:19] LABS: ALBUMIN 3.6 g/dL (3.4-5.0); ALKALINE PHOSPHATASE 168 U/L (46-116); ALT (SGPT) 139 U/L (10-68); BILIRUBIN - TOTAL 0.19 mg/dL (0.2-1.3); CALC OSMOLALITY 281 mosm/kg (275-300); CARBON DIOXIDE 32.7 mmol/L (21.0-32.0); CHLORIDE - SERUM 102 mmol/L (98-107); CREATININE - SERUM 1.2 mg/dL (0.6-1.3); MAGNESIUM - SERUM 1.8 mg/dL (1.8-2.4); POTASSIUM - SERUM 3.5 mmol/L (3.5-5.1); PROTEIN - SERUM 7.9 g/dL (6.4-8.2); SODIUM 142 mmol/L (136-145); UREA NITROGEN 7 mg/dL (7-18); eGFR NON AFRICAN AMERICAN 71 mL/min (90-120)
[2018-03-20 22:27] LABS: GLUCOSE 115 mg/dL (74-106); KETONE - SERUM NEGATIVE (NEGATIVE)
== END 2018-03-21 00:48 | disposition home or self-care (01) ==
LOC: D.ER 21:10
PROVIDERS: Family Medicine
DX: E11.9 Type 2 diabetes mellitus without complications (principal); Z79.4 Long term (current) use of insulin; I95.9 Hypotension, unspecified; F17.200 Nicotine dependence, unspecified, uncomplicated

== ENCOUNTER 2018-04-03 15:30 | Emergency (ER) | payer MEDICAID ==
[2017-11-28 17:59] VITALS: BMI 19.3
[2018-04-03 16:29] LABS: EOSINOPHILS 6.1 % (0-7); HEMATOCRIT 29.6 % (42.0-54.0); HEMOGLOBIN 9.3 g/dL (13.5-17.5); IMMATURE GRANULOCYTES 0.1 % (0-5); LYMPHOCYTES 19.6 % (15-50); MCH 25.1 pg (26.0-34.0); MCHC 31.4 g/dL (31.0-37.0); MCV 79.8 fL (80.0-100.0); MEAN PLATELET VOLUME 10.1 fL (7.4-10.4); MONOCYTES 5.8 % (2-11); NEUTROPHILS 67.4 % (40-80); PLATELET COUNT 261 10x3/uL (130-400); RBC 3.71 10x6/uL (4.20-6.10); RDW 14.3 % (11.5-14.5)
[2018-04-03 16:34] LABS: KETONE - SERUM NEGATIVE (NEGATIVE)
[2018-04-03 16:40] LABS: APPEARANCE CLEAR (CLEAR); BILIRUBIN NEGATIVE (NEGATIVE); COLOR STRAW (YELLOW); GLUCOSE 1000 mg/dL (NEGATIVE); KETONE NEGATIVE (NEGATIVE); NITRITE NEGATIVE (NEGATIVE); PROTEIN NEGATIVE (NEGATIVE); UROBILINOGEN NORMAL (NORMAL)
[2018-04-03 17:33] LABS: ALBUMIN 2.7 g/dL (3.4-5.0); ALKALINE PHOSPHATASE 190 U/L (46-116); ALT (SGPT) 130 U/L (10-68); CALCIUM 7.7 mg/dL (8.5-10.1); CARBON DIOXIDE 26.3 mmol/L (21.0-32.0); CHLORIDE - SERUM 99 mmol/L (98-107); CREATININE - SERUM 1.1 mg/dL (0.6-1.3); POTASSIUM - SERUM 4.6 mmol/L (3.5-5.1); PROTEIN - SERUM 5.7 g/dL (6.4-8.2); SODIUM 131 mmol/L (136-145); UREA NITROGEN 7 mg/dL (7-18); eGFR NON AFRICAN AMERICAN 79 mL/min (90-120)
[2018-04-03 17:34] LABS: CALC OSMOLALITY 296 mosm/kg (275-300); GLUCOSE 754 mg/dL (74-106)
== END 2018-04-03 18:10 | disposition left against medical advice (07) ==
LOC: D.ER 15:30
PROVIDERS: Emergency Medicine
DX: E11.65 Type 2 diabetes mellitus with hyperglycemia (principal)

== ENCOUNTER 2018-05-11 19:22 | Emergency (ER) | payer MEDICAID ==
[~2018-05-11] VITALS: Ht 185.4 cm; Wt 71.8 kg
[2018-05-11 19:38] VITALS: BP 128/82; Ht 185.4 cm; Wt 71.8 kg
[2018-05-11 20:42] LABS: BASOPHILS 1.3 % (0-2); EOSINOPHILS 5.1 % (0-7); HEMATOCRIT 34.4 % (42.0-54.0); IMMATURE GRANULOCYTES 0.1 % (0-5); LYMPHOCYTES 27.1 % (15-50); MCH 25.5 pg (26.0-34.0); MCV 79.6 fL (80.0-100.0); MEAN PLATELET VOLUME 9.7 fL (7.4-10.4); MONOCYTES 6.7 % (2-11); NEUTROPHILS 59.7 % (40-80); PLATELET COUNT 349 10x3/uL (130-400); RBC 4.32 10x6/uL (4.20-6.10); RDW 14.4 % (11.5-14.5); WBC 8.6 10x3/uL (4.8-10.8)
[2018-05-11 21:02] LABS: APPEARANCE SLT CLOUDY (CLEAR); BILIRUBIN 1+ (NEGATIVE); COLOR DK YELLOW (YELLOW); GLUCOSE 1000 mg/dL (NEGATIVE); KETONE NEGATIVE (NEGATIVE); NITRITE NEGATIVE (NEGATIVE); PROTEIN NEGATIVE (NEGATIVE); SPECIFIC GRAVITY 1.025 (1.005-1.020); UROBILINOGEN NORMAL (NORMAL)
[2018-05-11 21:03] LABS: BACTERIA MODERATE /hpf (NONE SEEN); EPITHELIAL CELLS 0-5 /hpf (0-5); RED CELLS - URINE 0-5 /hpf (0-5)
[2018-05-11 21:04] LABS: SPERMATOZOA 0-5 /hpf (NONE SEEN)
[2018-05-11 21:10] LABS: ALBUMIN 3.5 g/dL (3.4-5.0); ALKALINE PHOSPHATASE 145 U/L (46-116); ALT (SGPT) 75 U/L (10-68); BILIRUBIN - TOTAL 0.28 mg/dL (0.2-1.3); CALC OSMOLALITY 293 mosm/kg (275-300); CALCIUM 9.4 mg/dL (8.5-10.1); CARBON DIOXIDE 30.1 mmol/L (21.0-32.0); CHLORIDE - SERUM 102 mmol/L (98-107); CREATININE - SERUM 1.1 mg/dL (0.6-1.3); POTASSIUM - SERUM 4.3 mmol/L (3.5-5.1); PROTEIN - SERUM 7.8 g/dL (6.4-8.2); SODIUM 139 mmol/L (136-145); UREA NITROGEN 26 mg/dL (7-18); eGFR NON AFRICAN AMERICAN 79 mL/min (90-120)
[2018-05-11 21:10] LABS: UDS - AMPHET POSITIVE QUAL (NEGATIVE); UDS - BARB NEGATIVE QUAL (NEGATIVE); UDS - BENZO NEGATIVE QUAL (NEGATIVE); UDS - COCAINE POSITIVE QUAL (NEGATIVE); UDS - OPIATE NEGATIVE QUAL (NEGATIVE); UDS - PCP NEGATIVE QUAL (NEGATIVE); UDS - THC NEGATIVE QUAL (NEGATIVE)
[2018-05-11 21:11] LABS: GLUCOSE 299 mg/dL (74-106)
[2018-05-11 21:15] LABS: KETONE - SERUM NEGATIVE (NEGATIVE)
== END 2018-05-12 00:01 | disposition left against medical advice (07) ==
LOC: D.ER 19:22
PROVIDERS: Family Medicine
DX: E10.65 Type 1 diabetes mellitus with hyperglycemia (principal); Z79.4 Long term (current) use of insulin; Z91.14 Patient's other noncompliance with medication regimen; F41.9 Anxiety disorder, unspecified; F17.200 Nicotine dependence, unspecified, uncomplicated

== ENCOUNTER 2018-05-12 14:04 | Observation (INO) | payer MEDICAID ==
[~2018-05-12] VITALS: Ht 185.4 cm; Wt 68.2 kg
[2018-05-12 14:53] LABS: BASOPHILS 1.6 % (0-2); EOSINOPHILS 6.7 % (0-7); HEMATOCRIT 34.3 % (42.0-54.0); HEMOGLOBIN 10.9 g/dL (13.5-17.5); IMMATURE GRANULOCYTES 0.2 % (0-5); LYMPHOCYTES 21.9 % (15-50); MCH 25.7 pg (26.0-34.0); MCHC 31.8 g/dL (31.0-37.0); MCV 80.9 fL (80.0-100.0); MEAN PLATELET VOLUME 9.8 fL (7.4-10.4); MONOCYTES 7.8 % (2-11); NEUTROPHILS 61.8 % (40-80); PLATELET COUNT 362 10x3/uL (130-400); RBC 4.24 10x6/uL (4.20-6.10); RDW 14.8 % (11.5-14.5)
[2018-05-12 15:05] LABS: KETONE - SERUM SMALL mg/dL (NEGATIVE)
[2018-05-12 15:07] LABS: WBC 6.4 10x3/uL (4.8-10.8)
[2018-05-12 15:09] LABS: ALBUMIN 3.4 g/dL (3.4-5.0); ALKALINE PHOSPHATASE 147 U/L (46-116); ALT (SGPT) 65 U/L (10-68); BILIRUBIN - TOTAL 0.52 mg/dL (0.2-1.3); CALCIUM 9.7 mg/dL (8.5-10.1); CARBON DIOXIDE 24.1 mmol/L (21.0-32.0); CHLORIDE - SERUM 94 mmol/L (98-107); PROTEIN - SERUM 7.6 g/dL (6.4-8.2); SODIUM 131 mmol/L (136-145); UREA NITROGEN 30 mg/dL (7-18)
[2018-05-12 15:11] LABS: CALC OSMOLALITY 309 mosm/kg (275-300); CREATININE - SERUM 1.7 mg/dL (0.6-1.3); GLUCOSE 842 mg/dL (74-106); POTASSIUM - SERUM 5.2 mmol/L (3.5-5.1); eGFR NON AFRICAN AMERICAN 48 mL/min (90-120)
[2018-05-12 15:35] LABS: AMYLASE - SERUM 101 U/L (25-115); LIPASE 111 U/L (73-393)
[2018-05-12 15:40] LABS: APPEARANCE CLEAR (CLEAR); BILIRUBIN NEGATIVE (NEGATIVE); COLOR YELLOW (YELLOW); GLUCOSE 1000 mg/dL (NEGATIVE); KETONE MODERATE mg/dL (NEGATIVE); NITRITE NEGATIVE (NEGATIVE); PROTEIN NEGATIVE (NEGATIVE); SPECIFIC GRAVITY 1.015 (1.005-1.020); UROBILINOGEN NORMAL (NORMAL)
[2018-05-12 19:04] VITALS: BP 110/72
[2018-05-12 20:50] LABS: ANION GAP 14.7 mmol/L (8-16); CALCIUM 9.3 mg/dL (8.5-10.1); CARBON DIOXIDE 26.5 mmol/L (21.0-32.0); CREATININE - SERUM 1.5 mg/dL (0.6-1.3)
[2018-05-12 20:53] LABS: POTASSIUM - SERUM 4.2 mmol/L (3.5-5.1)
[2018-05-12 23:00] VITALS: BP 98/42
[2018-05-13 04:25] VITALS: BP 87/48
[2018-05-13 07:08] VITALS: BP 84/49
[2018-05-13 09:05] VITALS: BP 93/50
[2018-05-13 10:15] VITALS: Ht 185.4 cm; Wt 68.2 kg
[2018-05-13 11:09] VITALS: BP 96/55
== END 2018-05-13 14:04 | disposition home or self-care (01) ==
LOC: D.ER 14:04 → OBSVTIME 17:14 → D.EDHOLD 17:14 → D.ER 17:40 → D.EDHOLD 17:40
PROVIDERS: Emergency Medicine
DX: E10.10 Type 1 diabetes mellitus with ketoacidosis without coma (principal); E10.40 Type 1 diabetes mellitus with diabetic neuropathy, unspecified; Z91.14 Patient's other noncompliance with medication regimen; F12.10 Cannabis abuse, uncomplicated; F15.10 Other stimulant abuse, uncomplicated; Z72.0 Tobacco use; E86.0 Dehydration; D50.9 Iron deficiency anemia, unspecified

== ENCOUNTER 2018-06-15 07:56 | Day surgery (SDC) | payer MEDICAID ==
[~2018-06-15] VITALS: Ht 185.4 cm; Wt 68.0 kg
[2018-06-15 09:28] LABS: BASOPHILS 1.1 % (0-2); EOSINOPHILS 6.2 % (0-7); HEMATOCRIT 30.2 % (42.0-54.0); HEMOGLOBIN 9.7 g/dL (13.5-17.5); LYMPHOCYTES 33.6 % (15-50); MCH 25.3 pg (26.0-34.0); MCHC 32.1 g/dL (31.0-37.0); MCV 78.9 fL (80.0-100.0); MEAN PLATELET VOLUME 9.2 fL (7.4-10.4); MONOCYTES 9.2 % (2-11); NEUTROPHILS 49.9 % (40-80); PLATELET COUNT 310 10x3/uL (130-400); RBC 3.83 10x6/uL (4.20-6.10); RDW 14.9 % (11.5-14.5); WBC 6.1 10x3/uL (4.8-10.8)
[2018-06-15 09:45] LABS: ANION GAP 11.7 mmol/L (8-16); BILIRUBIN - TOTAL 0.11 mg/dL (0.2-1.3); CALCIUM 8.9 mg/dL (8.5-10.1); CARBON DIOXIDE 32.1 mmol/L (21.0-32.0); CREATININE - SERUM 1.2 mg/dL (0.6-1.3); MAGNESIUM - SERUM 1.9 mg/dL (1.8-2.4); POTASSIUM - SERUM 3.8 mmol/L (3.5-5.1); PROTEIN - SERUM 7.1 g/dL (6.4-8.2)
[2018-06-15 10:00] LABS: APPEARANCE CLEAR (CLEAR); COLOR DK YELLOW (YELLOW); NITRITE NEGATIVE (NEGATIVE); PROTEIN NEGATIVE (NEGATIVE); SPECIFIC GRAVITY 1.025 (1.005-1.020); UROBILINOGEN NORMAL (NORMAL)
[2018-06-15 10:01] LABS: BILIRUBIN NEGATIVE (NEGATIVE)
[2018-06-15 10:02] LABS: UDS - AMPHET POSITIVE QUAL (NEGATIVE); UDS - BARB NEGATIVE QUAL (NEGATIVE); UDS - BENZO NEGATIVE QUAL (NEGATIVE); UDS - COCAINE NEGATIVE QUAL (NEGATIVE); UDS - OPIATE POSITIVE QUAL (NEGATIVE); UDS - PCP NEGATIVE QUAL (NEGATIVE); UDS - THC POSITIVE QUAL (NEGATIVE)
[2018-06-15 10:25] LABS: GLUCOSE 1000 mg/dL (NEGATIVE)
[2018-06-15 10:26] LABS: KETONE SMALL mg/dL (NEGATIVE)
[2018-06-15 13:46] VITALS: BP 145/107; BMI 19.8
[2018-06-15 16:54] VITALS: BP 119/90
[2018-06-15 20:00] VITALS: BP 132/92
[2018-06-15 22:57] LABS: ALBUMIN 2.7 g/dL (3.4-5.0); ALKALINE PHOSPHATASE 141 U/L (46-116); ALT (SGPT) 46 U/L (10-68); BILIRUBIN - TOTAL 0.18 mg/dL (0.2-1.3); CALCIUM 8.3 mg/dL (8.5-10.1); CARBON DIOXIDE 32.7 mmol/L (21.0-32.0); CHLORIDE - SERUM 105 mmol/L (98-107); POTASSIUM - SERUM 3.8 mmol/L (3.5-5.1); PROTEIN - SERUM 6.7 g/dL (6.4-8.2); SODIUM 144 mmol/L (136-145); UREA NITROGEN 23 mg/dL (7-18)
[2018-06-15 23:05] LABS: CALC OSMOLALITY 287 mosm/kg (275-300); CREATININE - SERUM 0.8 mg/dL (0.6-1.3); GLUCOSE 41 mg/dL (74-106); eGFR NON AFRICAN AMERICAN > 90 mL/min (90-120)
[2018-06-16] VITALS (11 sets, daily range): BP systolic 111–132; BP diastolic 47–91; Ht 185.4 cm; Wt 68.0 kg
[2018-06-16 06:00] LABS: BASOPHILS 0.4 % (0-2); EOSINOPHILS 3.3 % (0-7); HEMATOCRIT 28.9 % (42.0-54.0); HEMOGLOBIN 9.1 g/dL (13.5-17.5); IMMATURE GRANULOCYTES 0.1 % (0-5); LYMPHOCYTES 19.2 % (15-50); MCH 25.2 pg (26.0-34.0); MCHC 31.5 g/dL (31.0-37.0); MCV 80.1 fL (80.0-100.0); MEAN PLATELET VOLUME 9.9 fL (7.4-10.4); MONOCYTES 8.7 % (2-11); NEUTROPHILS 68.3 % (40-80); PLATELET COUNT 321 10x3/uL (130-400); RBC 3.61 10x6/uL (4.20-6.10); RDW 14.7 % (11.5-14.5); WBC 7.2 10x3/uL (4.8-10.8)
[2018-06-16 06:33] LABS: ALBUMIN 2.5 g/dL (3.4-5.0); ALKALINE PHOSPHATASE 130 U/L (46-116); ALT (SGPT) 44 U/L (10-68); BILIRUBIN - TOTAL 0.11 mg/dL (0.2-1.3); CALC OSMOLALITY 291 mosm/kg (275-300); CALCIUM 8.2 mg/dL (8.5-10.1); CARBON DIOXIDE 29.4 mmol/L (21.0-32.0); CHLORIDE - SERUM 104 mmol/L (98-107); CREATININE - SERUM 0.9 mg/dL (0.6-1.3); GLUCOSE 213 mg/dL (74-106); POTASSIUM - SERUM 4.2 mmol/L (3.5-5.1); PROTEIN - SERUM 6.2 g/dL (6.4-8.2); SODIUM 142 mmol/L (136-145); UREA NITROGEN 22 mg/dL (7-18); eGFR NON AFRICAN AMERICAN > 90 mL/min (90-120)
[2018-06-17 04:00] VITALS: BP 137/86
[2018-06-17 05:36] LABS: BASOPHILS 0.2 % (0-2); EOSINOPHILS 0 % (0-7); HEMATOCRIT 29.2 % (42.0-54.0); HEMOGLOBIN 8.8 g/dL (13.5-17.5); IMMATURE GRANULOCYTES 0.1 % (0-5); LYMPHOCYTES 11.4 % (15-50); MCH 25.1 pg (26.0-34.0); MCHC 30.1 g/dL (31.0-37.0); MEAN PLATELET VOLUME 9.9 fL (7.4-10.4); MONOCYTES 11.9 % (2-11); NEUTROPHILS 76.4 % (40-80); PLATELET COUNT 316 10x3/uL (130-400); WBC 8.6 10x3/uL (4.8-10.8)
[2018-06-17 05:37] LABS: MCV 83.4 fL (80.0-100.0)
[2018-06-17 05:57] LABS: ALBUMIN 2.6 g/dL (3.4-5.0); ANION GAP 18.2 mmol/L (8-16); BILIRUBIN - TOTAL 0.11 mg/dL (0.2-1.3); CALCIUM 7.5 mg/dL (8.5-10.1); POTASSIUM - SERUM 4.2 mmol/L (3.5-5.1); PROTEIN - SERUM 6.5 g/dL (6.4-8.2)
[2018-06-17 06:00] LABS: CREATININE - SERUM 1.9 mg/dL (0.6-1.3)
[2018-06-17 08:02] VITALS: BP 110/77
[2018-06-17 13:35] VITALS: BP 130/71
[2018-06-17 16:36] VITALS: BP 135/62
[2018-06-17 20:00] VITALS: BP 110/81
[2018-06-18] VITALS: BP 104/60
[2018-06-18 08:55] VITALS: BP 129/91
[2018-06-18 12:52] VITALS: BP 119/83
[2018-06-18] MEDS ORDERED: NORCO 7.5/325 T1 TA1 PO (13:29)
[2018-06-18] MEDS ORDERED: KEFLEX500 MG PO (13:29)
== END 2018-06-18 13:45 | disposition home or self-care (01) ==
LOC: D.ER 07:56 → D.OPS 07:56 → D.MS 07:56 → EDSTATUS 10:34 → D.MS 11:07 → D.OPS 06-18 13:45
PROVIDERS: Family Medicine; Family Medicine Adult Medicine
DX: S52.501A Unspecified fracture of the lower end of right radius, initial encounter for closed fracture (principal); W19.XXXA Unspecified fall, initial encounter; Y92.008 Other place in unspecified non-institutional (private) residence as the place of occurrence of the external cause; E11.9 Type 2 diabetes mellitus without complications; S52.614A Nondisplaced fracture of right ulna styloid process, initial encounter for closed fracture

== ENCOUNTER 2018-06-24 07:43 | Emergency (ER) | payer MEDICAID ==
[~2018-06-24] VITALS: Ht 185.4 cm; Wt 70.5 kg
[~2018-06-24 07:43] MED LIST changes: +KEFLEX500 MG PO; +NORCO 7.5/325 T1 TA1 PO
[2018-06-24 07:56] VITALS: Ht 185.4 cm; Wt 70.5 kg
[2018-06-24] MEDS ORDERED: NORCO 7.5/325 T1 TA1 PO (08:06)
[2018-06-24 08:40] VITALS: BP 114/78
== END 2018-06-24 08:41 | disposition home or self-care (01) ==
LOC: D.ER 07:43
DX: G89.18 Other acute postprocedural pain (principal); E11.9 Type 2 diabetes mellitus without complications; F17.200 Nicotine dependence, unspecified, uncomplicated

== ENCOUNTER 2018-07-18 16:21 | Emergency (ER) | payer MEDICAID ==
[~2018-07-18] VITALS: Ht 185.4 cm; Wt 72.7 kg
[2018-07-18 16:54] VITALS: Ht 185.4 cm; Wt 72.7 kg
[2018-07-18 17:46] LABS: BASOPHILS 0.5 % (0-2); EOSINOPHILS 2.8 % (0-7); HEMOGLOBIN 12.7 g/dL (13.5-17.5); IMMATURE GRANULOCYTES 0.3 % (0-5); LYMPHOCYTES 21.1 % (15-50); MCH 25.6 pg (26.0-34.0); MCHC 33.4 g/dL (31.0-37.0); MCV 76.5 fL (80.0-100.0); MEAN PLATELET VOLUME 11.3 fL (7.4-10.4); MONOCYTES 5.9 % (2-11); NEUTROPHILS 69.4 % (40-80); PLATELET COUNT 262 10x3/uL (130-400); RBC 4.97 10x6/uL (4.20-6.10); RDW 13.8 % (11.5-14.5); WBC 10.9 10x3/uL (4.8-10.8)
[2018-07-18 17:58] LABS: APPEARANCE CLEAR (CLEAR); BILIRUBIN NEGATIVE (NEGATIVE); COLOR YELLOW (YELLOW); GLUCOSE 100 mg/dL (NEGATIVE); KETONE NEGATIVE (NEGATIVE); NITRITE NEGATIVE (NEGATIVE); PROTEIN NEGATIVE (NEGATIVE); SPECIFIC GRAVITY 1.015 (1.005-1.020); UROBILINOGEN NORMAL (NORMAL)
[2018-07-18 18:00] VITALS: BP 106/62
[2018-07-18 18:16] LABS: KETONE - SERUM NEGATIVE (NEGATIVE)
[2018-07-18 18:29] LABS: ALBUMIN 3.5 g/dL (3.4-5.0); ANION GAP 13.7 mmol/L (8-16); BILIRUBIN - TOTAL 0.23 mg/dL (0.2-1.3); CALCIUM 9.4 mg/dL (8.5-10.1); CARBON DIOXIDE 27.1 mmol/L (21.0-32.0); CREATININE - SERUM 1.3 mg/dL (0.6-1.3); POTASSIUM - SERUM 4.8 mmol/L (3.5-5.1)
[2018-07-18 18:29] LABS: UDS - AMPHET POSITIVE QUAL (NEGATIVE); UDS - BARB NEGATIVE QUAL (NEGATIVE); UDS - BENZO NEGATIVE QUAL (NEGATIVE); UDS - COCAINE NEGATIVE QUAL (NEGATIVE); UDS - OPIATE NEGATIVE QUAL (NEGATIVE); UDS - PCP NEGATIVE QUAL (NEGATIVE); UDS - THC NEGATIVE QUAL (NEGATIVE)
[2018-07-18 18:39] LABS: MAGNESIUM - SERUM 1.8 mg/dL (1.8-2.4)
== END 2018-07-18 19:23 | disposition left against medical advice (07) ==
LOC: D.ER 16:21
PROVIDERS: Family Medicine
DX: E11.65 Type 2 diabetes mellitus with hyperglycemia (principal); R53.1 Weakness; Z91.14 Patient's other noncompliance with medication regimen; F19.10 Other psychoactive substance abuse, uncomplicated; R42 Dizziness and giddiness; F17.200 Nicotine dependence, unspecified, uncomplicated

== ENCOUNTER 2018-10-04 08:52 | Emergency (ER) | payer MEDICAID | END 2018-10-04 09:20 | disposition left against medical advice (07) | LOC: D.ER 08:52 | DX: Z91.81 History of falling (principal) ==

== ENCOUNTER 2018-11-28 19:56 | Inpatient (IN) | payer MEDICAID ==
[~2018-11-28] VITALS: Ht 185.4 cm; Wt 68.0 kg
[2018-11-28 20:44] LABS: BASOPHILS 0.6 % (0-2); EOSINOPHILS 1.5 % (0-7); HEMATOCRIT 40.1 % (42.0-54.0); HEMOGLOBIN 13.5 g/dL (13.5-17.5); IMMATURE GRANULOCYTES 0.2 % (0-5); LYMPHOCYTES 13.1 % (15-50); MCH 25.5 pg (26.0-34.0); MCHC 33.7 g/dL (31.0-37.0); MCV 75.7 fL (80.0-100.0); MEAN PLATELET VOLUME 10.8 fL (7.4-10.4); MONOCYTES 3.6 % (2-11); PLATELET COUNT 296 10x3/uL (130-400); RDW 13.4 % (11.5-14.5); WBC 12.9 10x3/uL (4.8-10.8)
[2018-11-28 20:57] LABS: APTT 24.9 SECONDS (22.8-39.4); INR 1.05 (0.85-1.17); PROTIME 13.2 SECONDS (11.6-15.0)
[2018-11-28 21:14] LABS: ALBUMIN 3.5 g/dL (3.4-5.0); ALKALINE PHOSPHATASE 199 U/L (46-116); ALT (SGPT) 123 U/L (10-68); BILIRUBIN - TOTAL 0.49 mg/dL (0.2-1.3); CARBON DIOXIDE 10.8 mmol/L (21.0-32.0); CHLORIDE - SERUM 96 mmol/L (98-107); CKMB 3.4 U/L (0.0-3.6); CREATINE KINASE 292 UL (21-232); CREATININE - SERUM 1.6 mg/dL (0.6-1.3); MAGNESIUM - SERUM 1.8 mg/dL (1.8-2.4); POTASSIUM - SERUM 4.7 mmol/L (3.5-5.1); PROTEIN - SERUM 7.7 g/dL (6.4-8.2); SODIUM 134 mmol/L (136-145); UREA NITROGEN 25 mg/dL (7-18); eGFR NON AFRICAN AMERICAN 51 mL/min (90-120)
[2018-11-28 21:21] LABS: KETONE - SERUM LARGE mg/dL (NEGATIVE)
[2018-11-28 21:22] LABS: CALC OSMOLALITY 294 mosm/kg (275-300); GLUCOSE 515 mg/dL (74-106); TROPONIN-I < 0.017 ng/mL (0.000-0.060)
[2018-11-28 21:53] VITALS: BP 114/70
--- NOTE | 2018-11-28 21:54 | NUR ---
PT RESTING IN ROOM, DENIES NEEDS, WHEN ASKED. CALL LIGHT WITHIN REACH, ASHLEY WEISS CONTACT INFORMATION: [phone]. WILL CONTINUE TO MONITOR.
[2018-11-28 22:32] VITALS: BP 106/60
--- NOTE | 2018-11-28 22:35 | NUR ---
URINE COLLECTED AND SENT TO LAB AT THIS TIME.
--- NOTE | 2018-11-28 22:35 | NUR ---
PT REPORT HANDED OFF TO ICU NURSE VY. PT STABLE, CALL LIGHT WITHIN REACH, INSULIN TITRATION SENT WITH FOLDER.
--- NOTE | 2018-11-28 23:00 | NUR ---
PT TO ICU ROOM 2316 AT THIS TIME. PT STABLE. DENIES OTHER NEEDS.
[2018-11-28 23:03] LABS: UDS - AMPHET POSITIVE QUAL (NEGATIVE); UDS - BARB NEGATIVE QUAL (NEGATIVE); UDS - BENZO NEGATIVE QUAL (NEGATIVE); UDS - COCAINE NEGATIVE QUAL (NEGATIVE); UDS - OPIATE POSITIVE QUAL (NEGATIVE); UDS - PCP NEGATIVE QUAL (NEGATIVE); UDS - THC NEGATIVE QUAL (NEGATIVE)
[2018-11-29] VITALS (8 sets, daily range): BP systolic 105–118; BP diastolic 64–95; Ht 185.4 cm; Wt 68.0 kg
[2018-11-29 04:53] LABS: BASOPHILS 0.8 % (0-2); EOSINOPHILS 1.9 % (0-7); HEMATOCRIT 33.6 % (42.0-54.0); HEMOGLOBIN 11.5 g/dL (13.5-17.5); IMMATURE GRANULOCYTES 0.2 % (0-5); LYMPHOCYTES 26.2 % (15-50); MCH 25.4 pg (26.0-34.0); MCHC 34.2 g/dL (31.0-37.0); MCV 74.2 fL (80.0-100.0); MEAN PLATELET VOLUME 10.8 fL (7.4-10.4); MONOCYTES 6.2 % (2-11); NEUTROPHILS 64.7 % (40-80); PLATELET COUNT 292 10x3/uL (130-400); RBC 4.53 10x6/uL (4.20-6.10); RDW 13.3 % (11.5-14.5); WBC 10.1 10x3/uL (4.8-10.8)
[2018-11-29 05:25] LABS: MAGNESIUM - SERUM 1.7 mg/dL (1.8-2.4); PHOSPHOROUS 2.4 mg/dL (2.5-4.9)
--- NOTE | 2018-11-29 07:00 | NUR ---
REPORT RECIEVED, SHIFT ASSESSMENT COMPLETE, PT IS ALERT AND ORIENTED, ALL PPP, VSS, CALL LIGHT IN REACH
--- NOTE | 2018-11-29 07:50 | NUR ---
ATTEMPTED TO EXPLAIN WHY PT COULDN'T EAT, PT BECAME AGITATED AND THREW TRAY ACROSS THE ROOM, AND YELLED "GET THAT BITCH OUT OF MY ROOM", PT REASSIGNED AT THIS TIME,
--- NOTE | 2018-11-29 08:01 | NUR ---
DR. CONSTANTINO AT BEDSIDE, PT WANTING OFF INSULIN GTT, DR. CONSTANTINO EXPLAINED REASON FOR NEED OF INSULIN GTT, PT STATES " I WANT TO ", PSYCH CONSULT ORDERED
[2018-11-29 09:37] LABS: CALCIUM 8.3 mg/dL (8.5-10.1); CHLORIDE - SERUM 102 mmol/L (98-107); POTASSIUM - SERUM 4.5 mmol/L (3.5-5.1); SODIUM 132 mmol/L (136-145); UREA NITROGEN 21 mg/dL (7-18)
[2018-11-29 09:40] LABS: CALC OSMOLALITY 275 mosm/kg (275-300); CARBON DIOXIDE 18.3 mmol/L (21.0-32.0); CREATININE - SERUM 1.1 mg/dL (0.6-1.3); GLUCOSE 234 mg/dL (74-106); eGFR NON AFRICAN AMERICAN 78 mL/min (90-120)
[2018-11-29 09:51] LABS: APPEARANCE CLOUDY (CLEAR); BILIRUBIN NEGATIVE (NEGATIVE); COLOR ST (YELLOW); GLUCOSE 1000 mg/dL (NEGATIVE); KETONE LARGE mg/dL (NEGATIVE); NITRITE NEGATIVE (NEGATIVE); PROTEIN NEGATIVE (NEGATIVE); UROBILINOGEN NORMAL (NORMAL)
--- NOTE | 2018-11-29 10:19 | NUR ---
0820 REPORT RECIEVED AND CARE ADDUMED OF PATIENT.. PT IS VOCAL ABOUT BEING LEFT ALONE, HE HAS SELF REMOVED BP CUFF AND ALL MONITORING EQUIPMENT PIV STILL INTACT AND D51/2 NS WITH KCL INFUSING AT 125CC/HR.. LABIN TO DRAW BMP PT REFUSES TO ALLOW A BLOOD DRAW, PT STATES HE WILL DO IT IN AN HOUR. 0910 LAB IN AND BLOOD DRAWN PT REMAINS WITHOUT MONITORING EQUIPMENT..
--- NOTE | 2018-11-29 10:45 | NUR ---
1030 DR ROCK RETURNED CALL UPDATE GIVEN RE LABS AND PT BEHAVIOR ORDERS RECIEVED..
--- NOTE | 2018-11-29 11:42 | NUR ---
1130 PT OOB TO BSC WITHOUT RESULTS.. PT IS BACK IKN BED WITH EYES CLOSED..
--- NOTE | 2018-11-29 12:26 | NUR ---
1200 LAB IN TO DRAW BLOOD.. BS 303 INSULIN COVER PER SS.. ADA DIET SERVED FOR LUNCH
[2018-11-29 12:38] LABS: ANION GAP 16.6 mmol/L (8-16); CALCIUM 8.1 mg/dL (8.5-10.1); CARBON DIOXIDE 20.4 mmol/L (21.0-32.0); CREATININE - SERUM 1.2 mg/dL (0.6-1.3)
--- NOTE | 2018-11-29 13:36 | NUR ---
1330 PT IS WITH EYES CLOSED.. HAS NOT EATEN LUNCH.. STATES HE WILL EAT WHEN HE IS READY.. CONTINUES TO REFUSE MONITORING EQUIPMENT BUTREMAINS WITH IV FLUIDS
--- NOTE | 2018-11-29 16:14 | MORECARE ---
CASE MANAGEMENT DISCHARGE SUMMARY PATIENT: JODI WEISS UNIT: [id number] ADM DATE: 11/28/18 AGE: 43 : [birth year] SEX: M ROOM/BED: D.2316 AUTHOR: JENI GREEN PHYSICIAN: REFERRING PHYSICIAN: REMA CONSTANTINO DO DATE OF SERVICE: 11/29/18 Discharge Plan Patient Name: JODI WEISS [facility] [facility] 1975 Planned Disposition: Anticipated Discharge Date: Discharge Date: Expected LOS: Initial Reviewer: [email or web address] Initial Review Date: 11/29/2018 Generated: 11/29/18 5:13 pm DCPIA - Discharge Planning Initial Assessment Updated by [email or web address]: Sharifa Ryan on 11/29/18 4:12 pm * Is the patient Alert and Oriented? Yes * How many steps to enter\exit or inside your home? * PCP SKYLAR PIERCE * Pharmacy [facility] * Preadmission Environment Home with Family * ADLs Independent * Equipment Glucometer * List name and contact numbers for known caregivers / representatives who currently or will assist patient after discharge: ASHLEY WEISS - [facility] [phone] * Verbal permission to speak to the caregivers and representatives has been obtained from the patient. N/A * Community resources currently utilized None * Additional services required to return to the preadmission environment? No * Can the patient safely return to the preadmission environment? Yes * Has this patient been hospitalized within the prior 30 days at any hospital? No Patient Name: JODI WEISS Page [id number] at 1614 All edits/amendments must be made on the electronic document DICTATION DATE: 11/29/18 1613 SAW GRINDER: DEMETRIS 11/29/18 161 RPT#: [id number] DC DATE: STATUS: ADM IN [facility] [address] [place] [address] END OF REPORT
--- NOTE | 2018-11-29 16:21 | MORECARE ---
CASE MANAGEMENT DISCHARGE SUMMARY PATIENT: JODI WEISS UNIT: [id number] ADM DATE: 11/28/18 AGE: 43 : [birth year] SEX: M ROOM/BED: D.2316 AUTHOR: PETER,DOC PHYSICIAN: REFERRING PHYSICIAN: REMA CONSTANTINO DO DATE OF SERVICE: 11/29/18 Discharge Plan Patient Name: JODI WEISS Facility: [facility]:[place] : 1975 Planned Disposition: Anticipated Discharge Date: Discharge Date: Expected LOS: Initial Reviewer: [email or web address] Initial Review Date: 11/29/2018 Generated: 11/29/18 5:20 pm Comments DCP- Discharge Planning Updated by [email or web address]: Sharifa Ryan on 11/29/18 3:[address] Patient Name: JODI WEISS Admission Status: ER Accout number: [id number] Admission Date: 11-28-2018 : 1975 Admission Diagnosis: Attending: REMA CONSTANTINO Current LOS: 1 Anticipated DC Date: Planned Disposition: Primary Insurance: MEDICAID [place] Discharge Planning Comments: CM met with patient at bedside. Patient states he lives with his mother and plans to return there upon discharge. Patient states he does have a glucometer at home. He denies any discharge needs at this time. CM will continue to follow and assist as needed with discharge planning / needs. Haz Tech: Sharifa Ryan DCPIA - Discharge Planning Initial Assessment Updated by [email or web address]: Sharifa Ryan on 11/29/18 4:12 pm * Is the patient Alert and Oriented? Yes * How many steps to enter\exit or inside your home? * PCP SKYLAR PIERCE * Pharmacy [facility] * Preadmission Environment Home with Family * ADLs Independent * Equipment Glucometer * List name and contact numbers for known caregivers / representatives who currently or will assist patient after discharge: ASHLEY WEISS - MOTHER- [phone] * Verbal permission to speak to the caregivers and representatives has been obtained from the patient. N/A * Community resources currently utilized None * Additional services required to return to the preadmission environment? No * Can the patient safely return to the preadmission environment? Yes * Has this patient been hospitalized within the prior 30 days at any hospital? No Last DP export: 11/29/18 3:14 p Patient Name: JODI WEISS Page [id number] at 1621 All edits/amendments must be made on the electronic document DICTATION DATE: 11/29/181619 ATTACHE: DEMETRIS 11/29/181619 RPT#: [id number] DC DATE: STATUS: ADM IN [facility] [address] [place] [address] END OF REPORT
[2018-11-29 17:20] LABS: CALCIUM 7.5 mg/dL (8.5-10.1); CARBON DIOXIDE 20.9 mmol/L (21.0-32.0); CHLORIDE - SERUM 96 mmol/L (98-107); SODIUM 127 mmol/L (136-145); UREA NITROGEN 19 mg/dL (7-18)
[2018-11-29 17:21] LABS: CALC OSMOLALITY 262 mosm/kg (275-300); CREATININE - SERUM 0.4 mg/dL (0.6-1.3); GLUCOSE 203 mg/dL (74-106); POTASSIUM - SERUM 3.6 mmol/L (3.5-5.1); eGFR NON AFRICAN AMERICAN > 90 mL/min (90-120)
--- NOTE | 2018-11-29 17:51 | NUR ---
1500 PT REMAINS SLEEPING .. HAS STILL NOT EATEN LUNCH TRAY THAT IS STILL AT THE BEDSIDE.. 1545 CASE MANAGMENT IN TO SEE PT.. PT NOW AWAKE, FSBS DONE 174 INSULIN COVER 4 UNITS.. PT IS AWAKE AND NOW EATING LUNCH TRAY 1630 REQUESTING MORE FOOD INFORMED THAT DINNER TRAYS WOULD BE HERE SOON.. 1700 DINNER SERVED AND PT HOB ELEVATED SITTING UP IN BED FEEDING SELF.. 1730 PT IS WITHOUT C/O OR CHANGES.. DIET TRAY REMOVED 100% EATEN.. PT IS RESTING COMFORTABLY..
[2018-11-29 20:11] LABS: ANION GAP 13.3 mmol/L (8-16); CALCIUM 8.1 mg/dL (8.5-10.1); CARBON DIOXIDE 23.9 mmol/L (21.0-32.0)
[2018-11-29 20:16] LABS: CREATININE - SERUM 1.3 mg/dL (0.6-1.3); POTASSIUM - SERUM 4.2 mmol/L (3.5-5.1)
--- NOTE | 2018-11-29 20:40 | NUR ---
PT CAME TO DOOR AND STATES "IM GOING HOME". EXPLAINED AMA HE STATES "I KNOW - GIVE ME THE FORM". AMA FORM SIGNED. PIV D/C'D INTACT.
--- NOTE | 2018-11-29 20:45 | NUR ---
DR. HERNANDEZ NOTIFIED OF PT LEAVING AMA. PT LEFT THE ICU. KIMBERLY BOLANOSROLLER REPAIRER NOTIFIED.
--- NOTE | 2018-11-30 10:27 | MORECARE ---
CASE MANAGEMENT DISCHARGE SUMMARY PATIENT: JODI WEISS UNIT: [id number] ADM DATE: 11/28/18 AGE: 43 : 79 SEX: M ROOM/BED: D.2316 AUTHOR: PETERDOC PHYSICIAN: REFERRING PHYSICIAN: REMA CONSTANTINO DO DATE OF SERVICE: 11/30/18 Discharge Plan Patient Name: JODI WEISS Facility: [facility]:[place] : 1975 Planned Disposition: Anticipated Discharge Date: Discharge Date: 11/29/2018 Expected LOS: Initial Reviewer: [email or web address] Initial Review Date: 11/29/2018 Generated: 11/30/18 11:27 am Comments DCP- Discharge Planning Updated by [email or web address]: Sharifa Ryan on 11/29/18 3:[address] Patient Name: JODI WEISS Admission Status: ER Accout number: [id number] Admission Date: 11-28-2018 : 1975 Admission Diagnosis: Attending: REMA CONSTANTINO Current LOS: 1 Anticipated DC Date: Planned Disposition: Primary Insurance: MEDICAID [place] Discharge Planning Comments: CM met with patient at bedside. Patient states he lives with his mother and plans to return there upon discharge. Patient states he does have a glucometer at home. He denies any discharge needs at this time. CM will continue to follow and assist as needed with discharge planning / needs. Manager Home Healthcare: Sharifa Ryan DCPIA - Discharge Planning Initial Assessment Updated by [email or web address]: Sharifa Ryan on 11/29/18 4:12 pm * Is the patient Alert and Oriented? Yes * How many steps to enter\exit or inside your home? * PCP SKYLAR PIERCE * Pharmacy [facility] * Preadmission Environment Home with Family * ADLs Independent * Equipment Glucometer * List name and contact numbers for known caregivers / representatives who currently or will assist patient after discharge: ASHLEY WEISS - MOTHER- [phone] * Verbal permission to speak to the caregivers and representatives has been obtained from the patient. N/A * Community resources currently utilized None * Additional services required to return to the preadmission environment? No * Can the patient safely return to the preadmission environment? Yes * Has this patient been hospitalized within the prior 30 days at any hospital? No Last DP export: 11/29/18 3:20 p Patient Name: JODI WEISS Page [phone] at 1027 All edits/amendments must be made on the electronic document DICTATION DATE: 11/30/18 1027 CERTIFIED CORPORATE TRAVEL EXECUTIVE: DEMETRIS 11/30/18 1027 RPT#: [id number] DC DATE:11/29/18 STATUS: DIS IN [facility] [address] [place] [address] END OF REPORT
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
== END 2018-11-29 20:54 | disposition left against medical advice (07) | DRG 639 ==
LOC: D.ER 19:56 → D.ICU 22:23
PROVIDERS: Family Medicine; ADMIT Family Medicine
DX: E11.10 Type 2 diabetes mellitus with ketoacidosis without coma (principal); Z79.4 Long term (current) use of insulin; F15.10 Other stimulant abuse, uncomplicated; F12.10 Cannabis abuse, uncomplicated; F91.9 Conduct disorder, unspecified; F17.200 Nicotine dependence, unspecified, uncomplicated

== ENCOUNTER 2018-12-05 07:32 | Inpatient (IN) | payer MEDICAID ==
[~2018-12-05] VITALS: Ht 185.4 cm; Wt 66.8 kg
[2018-12-05] VITALS (8 sets, daily range): BP systolic 98–140; BP diastolic 57–109; BMI 19.8
[2018-12-05 08:04] LABS: BASOPHILS 0.5 % (0-2); EOSINOPHILS 2.1 % (0-7); HEMATOCRIT 33.7 % (42.0-54.0); IMMATURE GRANULOCYTES 0.1 % (0-5); MCH 25.5 pg (26.0-34.0); MCHC 32.6 g/dL (31.0-37.0); MEAN PLATELET VOLUME 10.2 fL (7.4-10.4); MONOCYTES 5.7 % (2-11); NEUTROPHILS 71.6 % (40-80); PLATELET COUNT 291 10x3/uL (130-400); RBC 4.32 10x6/uL (4.20-6.10); RDW 13.9 % (11.5-14.5); WBC 8.4 10x3/uL (4.8-10.8)
--- NOTE | 2018-12-05 08:12 | NUR ---
PT RATED CP 10/10 PRIOR TO FIRST SL NITRO TABLET, PT STATES THAT CP REMAINS 10/10. BP 98/57, UNABLE TO ADMINISTER SECOND PRN NITRO AT THIS TIME D/T BP.
[2018-12-05 08:32] LABS: ALBUMIN 2.8 g/dL (3.4-5.0); ALKALINE PHOSPHATASE 166 U/L (46-116); ALT (SGPT) 65 U/L (10-68); BILIRUBIN - TOTAL 0.21 mg/dL (0.2-1.3); CALCIUM 8.5 mg/dL (8.5-10.1); CARBON DIOXIDE 24.9 mmol/L (21.0-32.0); CHLORIDE - SERUM 100 mmol/L (98-107); CKMB 3.7 U/L (0.0-3.6); CREATINE KINASE 571 UL (21-232); CREATININE - SERUM 1.2 mg/dL (0.6-1.3); POTASSIUM - SERUM 4.5 mmol/L (3.5-5.1); PROTEIN - SERUM 6.7 g/dL (6.4-8.2); SODIUM 135 mmol/L (136-145); UREA NITROGEN 20 mg/dL (7-18); eGFR NON AFRICAN AMERICAN 71 mL/min (90-120)
[2018-12-05 08:33] LABS: CALC OSMOLALITY 301 mosm/kg (275-300); TROPONIN-I < 0.017 ng/mL (0.000-0.060)
[2018-12-05 08:34] LABS: GLUCOSE 618 mg/dL (74-106)
--- NOTE | 2018-12-05 08:36 | NUR ---
NOTIFIED BY LAB OF GLUCOSE OF 618 AT 0834. EDP NOTIFIED.
[2018-12-05 09:21] LABS: UDS - AMPHET POSITIVE QUAL (NEGATIVE); UDS - BARB NEGATIVE QUAL (NEGATIVE); UDS - BENZO NEGATIVE QUAL (NEGATIVE); UDS - COCAINE NEGATIVE QUAL (NEGATIVE); UDS - OPIATE NEGATIVE QUAL (NEGATIVE); UDS - PCP NEGATIVE QUAL (NEGATIVE); UDS - THC NEGATIVE QUAL (NEGATIVE)
[2018-12-05 09:32] LABS: APPEARANCE CLEAR (CLEAR); COLOR STRAW (YELLOW)
[2018-12-05 09:33] LABS: BILIRUBIN NEGATIVE (NEGATIVE); GLUCOSE 1000 mg/dL (NEGATIVE); KETONE MODERATE mg/dL (NEGATIVE); NITRITE NEGATIVE (NEGATIVE); PROTEIN NEGATIVE (NEGATIVE); UROBILINOGEN NORMAL (NORMAL)
--- NOTE | 2018-12-05 09:41 | NUR ---
BLANKETS PROVIDED AND LIGHTS DIMMED FOR COMFORT. CALL LIGHT IN REACH, WILL CONTINUE TO MONITOR.
--- NOTE | 2018-12-05 10:01 | NUR ---
ADA BREAKFAST TRAY PROVIDED REQUESTED.
--- NOTE | 2018-12-05 12:40 | NUR ---
RECIVED FROM ER PER WC TO ROOM 2120. ADMIT ASSESSMENT PER RN
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
[2018-12-06] VITALS: BP 126/85
[2018-12-06 04:00] VITALS: BP 136/96
[2018-12-06 05:38] LABS: BASOPHILS 0.4 % (0-2); EOSINOPHILS 1.9 % (0-7); HEMOGLOBIN 10.4 g/dL (13.5-17.5); IMMATURE GRANULOCYTES 0.2 % (0-5); LYMPHOCYTES 11.6 % (15-50); MCH 25.2 pg (26.0-34.0); MCHC 32.5 g/dL (31.0-37.0); MCV 77.7 fL (80.0-100.0); MEAN PLATELET VOLUME 10.7 fL (7.4-10.4); MONOCYTES 4.2 % (2-11); NEUTROPHILS 81.7 % (40-80); PLATELET COUNT 321 10x3/uL (130-400); RBC 4.12 10x6/uL (4.20-6.10)
[2018-12-06 05:39] LABS: WBC 11.3 10x3/uL (4.8-10.8)
--- NOTE | 2018-12-06 06:18 | NUR ---
PT CAME OUT TO NURSING STATION AND HANDED ME HIS ANIMAL SERVICES OFFICER, STATING THAT " HERE YOU GO, I REFUSE TO WEAR THIS ANY MORE" MONITOR RETURNED TO STAFF PHARMACIST.
[2018-12-06 06:19] LABS: CALCIUM 8.3 mg/dL (8.5-10.1); CARBON DIOXIDE 22.5 mmol/L (21.0-32.0); CHLORIDE - SERUM 99 mmol/L (98-107); CREATININE - SERUM 1.1 mg/dL (0.6-1.3); SODIUM 133 mmol/L (136-145); UREA NITROGEN 23 mg/dL (7-18); eGFR NON AFRICAN AMERICAN 78 mL/min (90-120)
[2018-12-06 06:25] LABS: CALC OSMOLALITY 301 mosm/kg (275-300); POTASSIUM - SERUM 5.5 mmol/L (3.5-5.1)
[2018-12-06 06:26] LABS: GLUCOSE 668 mg/dL (74-106)
--- NOTE | 2018-12-06 06:28 | NUR ---
BLOOD SUGAR RESULTED HI ON GLUCOMETER, LAB CALLED CRITICAL LAB RESULT OF 668, COVERED PER S/S.
--- NOTE | 2018-12-06 07:56 | NUR ---
RESTING QUIETLY. REFUSES TO WEAR MONITOR. NO APPARENT DISTRESS.
[2018-12-06 08:58] VITALS: BP 106/73
[2018-12-06 11:55] VITALS: BP 147/107
--- NOTE | 2018-12-06 12:23 | NUR ---
PT LYING IN BED. CALL LIGHT W/I REACH. BEN INFUSING. FSBS [id number]. PT RECEIVED ORDERED DOSE OF REGULAR INSULIN. NOTIFIED. WILL CTM.
[2018-12-06 12:59] LABS: CALCIUM 8.8 mg/dL (8.5-10.1); CARBON DIOXIDE 26.4 mmol/L (21.0-32.0); CHLORIDE - SERUM 101 mmol/L (98-107); CREATININE - SERUM 1.1 mg/dL (0.6-1.3); SODIUM 134 mmol/L (136-145); UREA NITROGEN 24 mg/dL (7-18); eGFR NON AFRICAN AMERICAN 78 mL/min (90-120)
[2018-12-06 13:05] LABS: CALC OSMOLALITY 287 mosm/kg (275-300); GLUCOSE 388 mg/dL (74-106); POTASSIUM - SERUM 4.5 mmol/L (3.5-5.1)
[2018-12-06 15:05] VITALS: Ht 185.4 cm; Wt 66.8 kg
[2018-12-06 15:55] VITALS: BP 155/87
[2018-12-06 16:32] LABS: CALC OSMOLALITY 282 mosm/kg (275-300); CALCIUM 8.6 mg/dL (8.5-10.1); CARBON DIOXIDE 26.5 mmol/L (21.0-32.0); CHLORIDE - SERUM 98 mmol/L (98-107); CREATININE - SERUM 1.1 mg/dL (0.6-1.3); POTASSIUM - SERUM 4.9 mmol/L (3.5-5.1); SODIUM 133 mmol/L (136-145); UREA NITROGEN 23 mg/dL (7-18); eGFR NON AFRICAN AMERICAN 78 mL/min (90-120)
[2018-12-06 16:34] LABS: GLUCOSE 324 mg/dL (74-106)
--- NOTE | 2018-12-06 18:21 | NUR ---
NS INFUSING @100ML/HR VIA R.FOR PIV. RR EVEN AND UNLABORED ON RA. PT DENIES ANY NEEDS AT THIS TIME. WILL PASS REPORT AND CONTINUE WITH POC.
--- NOTE | 2018-12-06 19:56 | NUR ---
RESUMED CARE OF PT, SITTING ON SIDE OF BED RESPIRATIONS EVEN AND UNLABORED ON ROOM AIR. RIGHT FOREARM INFUSING NS @ 100. PLAN OF CARE DISCUSSED. CALL LIGHT IN REACH. NO NEEDS VOICED AT THIS TIME. SEE NURSE ASSESSMENT.
[2018-12-06 20:00] VITALS: BP 107/70
[2018-12-06 21:37] LABS: ANION GAP 14.1 mmol/L (8-16); CALCIUM 8.7 mg/dL (8.5-10.1); CARBON DIOXIDE 26.9 mmol/L (21.0-32.0); CREATININE - SERUM 1.3 mg/dL (0.6-1.3)
[2018-12-07] VITALS (7 sets, daily range): BP systolic 81–144; BP diastolic 47–89
--- NOTE | 2018-12-07 05:15 | NUR ---
SHIVERING UNCONTROLLABLY, STATES HE FEELS AWFUL. BP 80S/40S AND 120 ST. EKG OBTAINED. REFUSING ANY MEDS AND WANTS TO BE TAKEN OFF IV FLUIDS. TREATED FSBS 419. WILL CONTINUE TO MONITOR.
[2018-12-07 05:57] LABS: BASOPHILS 0.3 % (0-2); EOSINOPHILS 1.2 % (0-7); HEMATOCRIT 30.4 % (42.0-54.0); HEMOGLOBIN 9.9 g/dL (13.5-17.5); IMMATURE GRANULOCYTES 0.1 % (0-5); LYMPHOCYTES 15.9 % (15-50); MCH 24.8 pg (26.0-34.0); MCHC 32.6 g/dL (31.0-37.0); MCV 76.2 fL (80.0-100.0); MEAN PLATELET VOLUME 10.4 fL (7.4-10.4); MONOCYTES 6.1 % (2-11); NEUTROPHILS 76.4 % (40-80); PLATELET COUNT 290 10x3/uL (130-400); RBC 3.99 10x6/uL (4.20-6.10); RDW 13.9 % (11.5-14.5)
[2018-12-07 06:09] LABS: ANION GAP 14.6 mmol/L (8-16); CALCIUM 8.6 mg/dL (8.5-10.1); CARBON DIOXIDE 26.4 mmol/L (21.0-32.0); CREATININE - SERUM 1.2 mg/dL (0.6-1.3)
[2018-12-07 06:15] LABS: WBC 7.7 10x3/uL (4.8-10.8)
--- NOTE | 2018-12-07 06:38 | NUR ---
APPEARS TO BE RESTING COMFORTABLLY, LYING IN BED WITH EYES CLOSED RESPIRATIONS EVEN AND UNLABORED.
--- NOTE | 2018-12-07 07:54 | NUR ---
AM ROUNDS COMPLETED. INTRODUCED MYSELF TO PT PRIMARY RN FOR TODAYS SHIFT. PT IS A&O SITTING UP IN BED SHAKING AND IN DISTRESS. PT STATES "I DONT FEEL RIGHT SOMETHING IS WRONG, YALL ARE MAKING ME WORSE" EXPLAINED TO PT WE ARE TRYING TO HELP BUT HIS OUTSIDE ACTIVITIES MAKE IT HARDER. PT CANT DESCRIBE HIS FEELINGS BUT DOESNT FEEL RIGHT. VITALS 89/44 HR 136 PULSE OX 92% ON RA AND TEMP OF 101.7. BLOOD SUGAR 429. PAGED AND NEW ORDERS REC'D. PT IS SUPPOSE TO HAVE NS INFUSING @100ML/HR BUT HAS BEEN REFUSING ALL CARE STATING WE ARE KILLING HIM. TALKED PT INTO ALLOWING ME TO DO THE BOLUS THAT HAS BEEN ORDERED AND TAKE TYELNOL FOR HIS FEVER. WILL ALSO TREAT SUGAR AND CTM CLOSELY. PT WANTING TO CANCEL HIS EGD AND STATES HE WANTS OATMEAL SO IM UNSURE HOW MUCH WEIRD FEELINGS HE IS FEELING OR NOT HE IS VERY MANIPULATIVE WITH ADDICTIVE TRAITS. WILL MONITER CLOSELY.
--- NOTE | 2018-12-07 08:51 | NUR ---
ROSALBA CINTRONVOISE TO NOTIFY HIM ABOUT PT DEMANDING TO CANCEL HIS EGD AND EAT AND STATES HE DOESNT FEEL GOOD AND WANTS TO POSTPONE IT FOR TOMORROW. WILL CTM.
--- NOTE | 2018-12-07 09:11 | NUR ---
PT UP AMBULATING TO NURSES STATION DEMANDING TO EAT. RECHECKED VITALS AND BP STILL HYPOTENSIVE AFTER BOLUS WITH READINGS OF 79/50 IN RIGHT ARM AND 81/48 IN LEFT ARM. HR STILL TACHYCARDIC 122, TEMP DID GO DOWN AND PT IS NOW AFEBRILE @98.7. PT STILL C/O BEING DIZZY AND NOT FEELING GOOD BUT IS CONSTANTLY GETTING UP OOB AND RESTLESS HE STATES HE IS DIZZY SO I ASSIST HIM BACK INTO HIS ROOM AND ENCOURAGE HIM TO REST BUT HE REMAINS RESTLESS. WILL PAGE PRIMARY AND INQUIRE IF HE CAN EAT OR NOT BECAUSE HE IS VERY ADAMENT ABOUT NOT DOING THE EGD AND GETTING SOMETHING TO EAT, HE STATES HE IS "STARVING" WILL CTM.
--- NOTE | 2018-12-07 09:50 | NUR ---
CALLED BACK AND STATES IF PT IS NOT WANTING HIM TO PERFORM EGD THEN ITS FINE AND HE WILL PROVIDE RECCOMENDATIONS BUT PT IS VEYR NONCOMPLIANT SO HE WILL SIGN OFF AND BE HERE IF NEEDED FOR FUTURE GI ISSUES.
[2018-12-07 12:43] LABS: CALC OSMOLALITY 277 mosm/kg (275-300); CALCIUM 8.7 mg/dL (8.5-10.1); CARBON DIOXIDE 24.7 mmol/L (21.0-32.0); CHLORIDE - SERUM 103 mmol/L (98-107); GLUCOSE 176 mg/dL (74-106); POTASSIUM - SERUM 4.4 mmol/L (3.5-5.1); SODIUM 135 mmol/L (136-145); UREA NITROGEN 23 mg/dL (7-18); eGFR NON AFRICAN AMERICAN 87 mL/min (90-120)
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
--- NOTE | 2018-12-07 14:39 | NUR ---
FSBS 381 PROVIDED INSULIN PER SS HOWEVER PROVIDED LATE R/T PT SLEEPING AT MEAL TIME AND DIDNT EAT THEN PT DECIDED TO EAT TWO TRAYS. PT C/O HIS BS STAYING HIGH R/T HIM NOT BEING ON HIS HOME LANTUS DOSE. WILL DISCUSS WITH PRIMARY AND INQUIRE ABOUT RESTARTING. ATTEMPTED TO HANG PTS ANBX HOWEVER HE REFUSED AND STATES "NO YALL GIVE ME STUFF THAT MAKES ME WORSE" WILL HOLD AND NOTIFY PRIMARY. PT LYING IN BED WANTING TO REST DENIES ANY FURTHER NEEDS AT THIS TIME. WILL CTM.
[2018-12-07 16:41] LABS: CALC OSMOLALITY 270 mosm/kg (275-300); CALCIUM 8.5 mg/dL (8.5-10.1); CARBON DIOXIDE 23.7 mmol/L (21.0-32.0); CHLORIDE - SERUM 100 mmol/L (98-107); CREATININE - SERUM 1.1 mg/dL (0.6-1.3); GLUCOSE 330 mg/dL (74-106); POTASSIUM - SERUM 4.4 mmol/L (3.5-5.1); SODIUM 127 mmol/L (136-145); UREA NITROGEN 22 mg/dL (7-18); eGFR NON AFRICAN AMERICAN 78 mL/min (90-120)
--- NOTE | 2018-12-07 19:54 | NUR ---
RESUMED CARE OF PT, UP IN ROOM AMBULATING RESPIRATIONS EVEN AND UNLABORED ON ROOM AIR. RIGHT FOREARM INFUSING NS @ 100. STATES HE'S FEELING MUCH BETTER THIS EVENING. NO NEEDS AT THIS TIME, SEE NURSE ASSESSMENT.
[2018-12-08] VITALS: BP 114/82
[2018-12-08 05:00] VITALS: BP 88/58
[2018-12-08 05:26] LABS: CALC OSMOLALITY 278 mosm/kg (275-300); CALCIUM 8.7 mg/dL (8.5-10.1); CARBON DIOXIDE 27.2 mmol/L (21.0-32.0); CHLORIDE - SERUM 100 mmol/L (98-107); GLUCOSE 292 mg/dL (74-106); POTASSIUM - SERUM 4.3 mmol/L (3.5-5.1); SODIUM 132 mmol/L (136-145); UREA NITROGEN 21 mg/dL (7-18); eGFR NON AFRICAN AMERICAN 87 mL/min (90-120)
[2018-12-08 05:39] LABS: BASOPHILS 0.4 % (0-2); EOSINOPHILS 3.5 % (0-7); HEMATOCRIT 28.4 % (42.0-54.0); HEMOGLOBIN 9.3 g/dL (13.5-17.5); IMMATURE GRANULOCYTES 0.2 % (0-5); LYMPHOCYTES 20.8 % (15-50); MCH 24.9 pg (26.0-34.0); MCHC 32.7 g/dL (31.0-37.0); MCV 76.1 fL (80.0-100.0); MEAN PLATELET VOLUME 10.6 fL (7.4-10.4); NEUTROPHILS 69.1 % (40-80); PLATELET COUNT 314 10x3/uL (130-400); RBC 3.73 10x6/uL (4.20-6.10); RDW 14.3 % (11.5-14.5); WBC 10.7 10x3/uL (4.8-10.8)
[2018-12-08 08:45] VITALS: BP 96/64
[2018-12-08 12:01] VITALS: BP 111/74
--- NOTE | 2018-12-08 13:01 | NUR ---
PT WANTING TO BE DISCHARGED BECAUSE HE CANT SLEEP AND WE WONT GIVE HIM NORCOS OR NARCOTICS FOR SLEEP. PT HAS NEWLY FOUND PNEUMONIA AND IS NOT SAFE FOR DISCHARGE EXPLAINED TO HIM AND HE STATES "FINE I WILL STAY AND GET THE ANBX" LEVAQUIN PT HAS ALREADY REFUSED SO I WILL HAVE TO RETIME AND GIVE. UPON GOING TO FLUSH PIV NOTED HIS R.FA PIV WAS COMING OUT, D/C WITH CATHETER TIP FULLY INTACT. WILL RESITE AND HANG ANBX ORDERED. NO FURTHER NEEDS.
--- NOTE | 2018-12-08 14:04 | NUR ---
Nutrition follow-up: Diet: ADA consistent CHO PO intake 100% of meals; pt usually eats 2 meals at once. labs reviewed Wt: 147# RDN following.
--- NOTE | 2018-12-08 14:20 | NUR ---
PT REMAINS VERY NONCOMPLIANT WITH HIS TREATMENT AND EVERYTHING WE DO. RESITED PTS IV TO HIS R.FA X2 STICKS. PT FINALLY AGREED TO ALLOW ME TO HANG ONE OF HIS ANBX. LEVAQUIN CURRENTLY INFUSING. PT C/O HIS BACK HURTING AND STATES HE WANTS TO GET SOMETHING OFF THE "STREET" EXPLAINED TO PT HOW DANGEROUS THAT IS AND THAT WE ARE TRYING TO HELP HIM AND THAT IS ALSO ILLEGAL. PT STATES HE TAKE HYDROCODONE, OXYCODONE OR "ANYTHING HE CAN BUY" FOR PAIN OR TO HELP HIM SLEEP. EXPLAINED TO PT I CAN TRY IN OTHER WAY TO HELP HIS PAIN. OFFERED PT A HOT PACK AND HE AGREED AND IS LYING IN BED WITH IT SEEING IF IT WILL HELP. PT STATES HE WILL NOT GO OUTSIDE OR BRING ANY DRUGS HERE HOWEVER HE IS NONCOMPLIANT SO WE WILL HAVE TO JUST SEE. WILL CTM.
--- NOTE | 2018-12-08 15:09 | EC ---
PATIENT:JODI WEISS DATE OF SERVICE: 12/06/18 SEX: M MEDICAL RECORD: [id number] DATE OF : [birth year] LOCATION:D.M2 D.212 AGE OF PATIENT: 43 ADMISSION DATE: 12/06/18 REFERRING PHYSICIAN: INTERPRETING PHYSICIAN: ADDIS NOONAN MD ECHOCARDIOGRAM REPORT ECHO CHARGES 4 ECHO COMPLETE Date: 12/07/18 CLINICAL DIAGNOSIS: ASESS FOR ENDOCARDITIS,FEVER ECHOCARDIOGRAPHIC MEASUREMENTS (adult normal given) AC root (d.<3.7cm) 4.0 cm LV Septum d (<1.2 cm> 1.3 cm Valve Excursion 1.2 cm LV Septum (systole) 1.5 cm Left Atria (s.<4.0cm> 3.4 cm LVPW d(<1.2cm) 1.1 cm RV (d.<2.3cm) 3.3 cm LVPW (sytole) 1.6 cm LV diastole(<5.6CM) 4.6 cm MV E-F(>70mm/sec) cm LV systole 3.1 cm LVOT Diameter 1.9 cm MV exc.(>10mm) 1.6 cm Est.ejection fraction (50-75%) % DOPPLER: LVIT cm/sec A 82.0 cm/sec E 119 cm/sec LA cm/sec RVSP 32 mmHg LVOT 101 cm/sec AOP1/2T m/s Asc. Ao 134 cm/sec RVOT 99 cm/sec RA cm/sec PA 119 cm/sec AV Gradient Peak 7.23 mmHg AV Mean 3.71 mmHg AV Area 2.1 cm MV Gradient Peak 5.60 mmHg MV Mean 1.86 mmHg MV Area cm COMMENTS: Box Car Bracer: [employer] Gunsmith: 1 Dr. Noonan TAPE# PACS Pericardial Effusion DATE OF SERVICE: 12/07/2018 FINDINGS: 1. Left ventricular chamber size is within normal limits. Left ventricular systolic function is normal. Overall ejection fraction estimated at 60%. 2. Left atrium is within normal limits at 3.4 cm. Right atrium and right ventricular chamber sizes are upper limits of normal. 3. Valvular structures have normal structure and motion. 4. Doppler interrogation reveals no significant valvular insufficiency or stenosis. ECHOCARDIOGRAM REPORT [id number] JODI WEISS 5. No evidence of pericardial effusion or left ventricular thrombus. TRANSINT:[id number] Voice Confirmation ID: [id number] DOCUMENT ID: [id number] ADDIS NOONAN MD at 1509 CC: [id number] DICTATION DATE: 12/08/18 1106 FUNERAL DIRECTOR AND EMBALMER: 12/08/[address] [facility] [address] [place] [address]
[2018-12-08 15:57] VITALS: BP 128/90
--- NOTE | 2018-12-08 16:34 | NUR ---
PTS MOTHER CAME TO TALK AND VISIT AND APPARENTLY PT IS HAVING DRAMA AT HOME AND STATES HE HAS TO LEAVE AND GO PAY BILLS AND TAKE CARE OF STUFF. EXPLAINED TO PT IT WOULD HAVE TO BE AMA AND HE VERBALIZED UNDERSTANDING AND STILL WANTS TO LEAVE. AMA FORM SIGNED AND PT HAS ALL HIS BELONGINGS AND IS READY TO GO. D/C PTS R.FA PIV WITH CATHETER TIP FULLY INTACT. NOTIFIED AND PT IS NOW LEAVING.
--- NOTE | 2018-12-08 18:29 | MORECARE ---
CASE MANAGEMENT DISCHARGE SUMMARY PATIENT: JODI WEISS UNIT: [id number] ADM DATE: 12/06/18 AGE: 43 : [birth year] SEX: M ROOM/BED: D.2120 AUTHOR: JENI GREEN PHYSICIAN: REFERRING PHYSICIAN: TANYA ANDRE MD DATE OF SERVICE: 12/08/18 Discharge Plan Patient Name: JODI WEISS Facility: [facility]:[place] : 1975 Planned Disposition: Home Anticipated Discharge Date: 12/08/18 Discharge Date: 12/08/2018 Expected LOS: 2 Initial Reviewer: [email or web address] Initial Review Date: 12/08/2018 Generated: 12/08/18 7:29 pm DCPIA - Discharge Planning Initial Assessment Updated by [email or web address]: Ron Prajapati on 12/08/18 6:25 pm * Is the patient Alert and Oriented? Yes * How many steps to enter\exit or inside your home? NONE * PCP DR. SKYLAR PIERCE * Pharmacy [facility] [address] * Preadmission Environment Home Alone * ADLs Independent * Equipment Glucometer * Other Equipment NO MEDICAL EQUIPMENT PROVIDER PREFERENCE * List name and contact numbers for known caregivers / representatives who currently or will assist patient after discharge: ASHLEY WEISS, MOTHER, * Verbal permission to speak to the caregivers and representatives has been obtained from the patient. No * Community resources currently utilized None * Please name any agencies selected above. NONE * Additional services required to return to the preadmission environment? No * Can the patient safely return to the preadmission environment? Yes * Has this patient been hospitalized within the prior 30 days at any hospital? Yes Patient Name: JODI WEISS Page [phone] at 1829 All edits/amendments must be made on the electronic document DICTATION DATE: 12/08/181827 TRACTOR ENGINE MECHANIC: DEMETRIS 12/08/181827 RPT#: [id number] DC DATE:12/08/18 STATUS: DIS IN [facility] [address] [place] [address] END OF REPORT
--- NOTE | 2018-12-08 18:38 | MORECARE ---
CASE MANAGEMENT DISCHARGE SUMMARY PATIENT: JODI WEISS UNIT: [id number] ADM DATE: 12/06/18 AGE: 43 : [birth year] SEX: M ROOM/BED: D.1600 AUTHOR: PETER,DOC PHYSICIAN: REFERRING PHYSICIAN: TANYA ANDRE MD DATE OF SERVICE: 12/08/18 Discharge Plan Patient Name: JODI WEISS Facility: [facility]:[place] : 1975 Planned Disposition: Home Anticipated Discharge Date: 12/08/18 Discharge Date: 12/08/2018 Expected LOS: 2 Initial Reviewer: [email or web address] Initial Review Date: 12/08/2018 Generated: 12/08/18 7:38 pm Comments DCP- Discharge Planning Updated by [email or web address]: Ron Prajapati on 12/08/18 5:[address] Patient Name: JODI WEISS Encounter No: [id number] : 1975 Primary Insurance: [place]ID [place] Anticipated DC Date: 12-08-2018 Planned Disposition: LEFT AGAINST MEDICAL ADVICE DISCHARGE PLANNING NOTE: CM MET WITH PT IN ROOM TO DISCUSS DISCHARGE PLANNING AND NEEDS. PT REPORTS LIVING AT HOME INDEPENDENTLY AND ALONE. PT HAS GLUCOMETER WITH NO MEDICAL EQUIPMENT PROVIDER PREFERENCE. PT HAS NO OUTSIDE SERVICES ASSISTING IN THE HOME; PT STATES [facility] WAS SET UP BY [facility] TO SEE HIM AND HE WANTS THAT TO CONTINUE. CM DISCUSSED AVAILABILITY OF HOME HEALTH, REHAB SERVICES AND MEDICAL EQUIPMENT. PT DENIES OTHER THAN HOME HEALTH. CM ADVISED THAT [facility] CALLED AND THEY WILL NOT ACCEPT FOR HOME SERVICES. CM PROVIDED CHOICE LISTING FOR [facility] PROVIDERS, PT REPORTS CHOICE FOR ANY, CHOICE SIGNED. PT REPORTS HE WOULD LIKE HOME HEALTH TO ASSIST WITH DIABETES MANAGEMENT. PT REPORTS HIS MOM WILL PICK HIM UP FOR DISCHARGE HOME. PT ASKED CM ABOUT BEING ABLE TO LIVE IN A PRISON SO HE CAN BE "COMPLIANT" WITH MANAGING HIS DIABETES. PT REPORTS HE JUST EATS WHAT HE WANTS AND HIS SUGER IS OUT OF CONTROL. CM EXPLAINED THAT PT IS TOO HIGH FUNCTIONING FOR PRISON CARE. PT REPORTS HE WAS IN [facility] AND SIGNED HIMSELF IN AND LATER SIGNED OUT TO GO LIVE WITH A GIRLFRIEND AND THAT DID NOT WORK OUT. CM PROVIDED PT WITH LISTING OF [facility] FACILITIES, ADVISED PT THAT HE WAS ABLE TO ARRANGE PLACEMENT IN THE PAST AND CAN CALL THE FACILITIES IF HE WANTS PLACEMENT. PT REPORTS HE HAS HIS CELL PHONE AND HAS LONG DISTANCE SERVICES. PT REPORTS ABILITY TO CALL IF HE DECIDES ON THIS PLAN. PT UNDERSTANDS HE WILL HAVE TO APPLY FOR SENIOR CARE CARE MEDICAID AND THAT THIS PROCESS OF EVALUATION CAN TAKE UP TO 45 DAYS. PT DENIES FURTHER NEEDS. CM LATER ADVISED BY BEDSIDE NURSE THAT PT'S MOTHER ARRIVED TO HOSPITAL AND PT SIGNED HIMSELF OUT AGAINST MEDICAL ADVICE. NO ORDER FOR HOME HEALTH SERVICES WAS RECEIVED, CM DID NOT ARRANGE HOME HEALTH SERVICES PT LEFT HOSPITAL AGAINST MEDICAL ADVISE. Ron Prajapati, CASE MANAGEMENT DCPIA - Discharge Planning Initial Assessment Updated by [email or web address]: Ron Prajapati on 12/08/18 6:25 pm * Is the patient Alert and Oriented? Yes * How many steps to enter\\exit or inside your home? NONE * PCP DR. SKYLAR PIERCE * Pharmacy [facility] [address] * Preadmission Environment Home Alone * ADLs Independent * Equipment Glucometer * Other Equipment NO MEDICAL EQUIPMENT PROVIDER PREFERENCE * List name and contact numbers for known caregivers / representatives who currently or will assist patient after discharge: ASHLEY WEISS, MOTHER, * Verbal permission to speak to the caregivers and representatives has been obtained from the patient. No * Community resources currently utilized None * Please name any agencies selected above. NONE * Additional services required to return to the preadmission environment? No * Can the patient safely return to the preadmission environment? Yes * Has this patient been hospitalized within the prior 30 days at any hospital? Yes Last DP export: 12/08/18 5:29 pm Patient Name: JODI WEISS Page [phone] at 1838 All edits/amendments must be made on the electronic document DICTATION DATE: 12/08/181837 SENIOR IT ASSISTANT: DEMETRIS 12/08/181837 RPT#: [id number] DC DATE:12/08/18 STATUS: DIS IN [facility] [address] [place] [address] END OF REPORT
[2018-12-17 18:06] LABS: AEROBE ID Final report (())
== END 2018-12-08 16:57 | disposition left against medical advice (07) | DRG 391 ==
LOC: D.ER 07:32 → D.M2 09:50 → OBSVTIME 09:50 → D.EDHOLD 09:50 → D.M2 11:58
PROVIDERS: Family Medicine; ADMIT Internal Medicine Nephrology
DX: R13.10 Dysphagia, unspecified (principal); J18.1 Lobar pneumonia, unspecified organism; N17.9 Acute kidney failure, unspecified; E87.1 Hypo-osmolality and hyponatremia; F17.213 Nicotine dependence, cigarettes, with withdrawal; I20.9 Angina pectoris, unspecified; E10.9 Type 1 diabetes mellitus without complications; Z79.4 Long term (current) use of insulin; Z91.19 Patient's noncompliance with other medical treatment and regimen; F15.10 Other stimulant abuse, uncomplicated

== ENCOUNTER 2018-12-17 16:48 | Emergency (ER) | payer MEDICAID ==
[~2018-12-17] VITALS: Ht 185.4 cm; Wt 68.2 kg
[2018-12-17 16:51] VITALS: Ht 185.4 cm; Wt 68.2 kg
[2018-12-17 17:23] LABS: HEMATOCRIT 33.1 % (42.0-54.0); MCH 25.3 pg (26.0-34.0); MCHC 33.2 g/dL (31.0-37.0); MCV 76.1 fL (80.0-100.0); MEAN PLATELET VOLUME 9.3 fL (7.4-10.4); RBC 4.35 10x6/uL (4.20-6.10); RDW 14.2 % (11.5-14.5); WBC 16.2 10x3/uL (4.8-10.8)
[2018-12-17 17:27] LABS: PLATELET COUNT 555 10x3/uL (130-400)
[2018-12-17 17:53] LABS: ALBUMIN 2.5 g/dL (3.4-5.0); ALKALINE PHOSPHATASE 145 U/L (46-116); ALT (SGPT) 33 U/L (10-68); BILIRUBIN - TOTAL 0.43 mg/dL (0.2-1.3); CALCIUM 9.2 mg/dL (8.5-10.1); CARBON DIOXIDE 16.9 mmol/L (21.0-32.0); CHLORIDE - SERUM 96 mmol/L (98-107); CKMB 2.1 U/L (0.0-3.6); CREATINE KINASE 79 UL (21-232); CREATININE - SERUM 1.4 mg/dL (0.6-1.3); POTASSIUM - SERUM 3.4 mmol/L (3.5-5.1); PROTEIN - SERUM 6.7 g/dL (6.4-8.2); SODIUM 137 mmol/L (136-145); UREA NITROGEN 22 mg/dL (7-18); eGFR NON AFRICAN AMERICAN 59 mL/min (90-120)
[2018-12-17 17:55] LABS: CALC OSMOLALITY 295 mosm/kg (275-300); GLUCOSE 436 mg/dL (74-106); TROPONIN-I < 0.017 ng/mL (0.000-0.060)
[2018-12-17 18:21] LABS: APPEARANCE CLEAR (CLEAR); BILIRUBIN NEGATIVE (NEGATIVE); COLOR YELLOW (YELLOW); GLUCOSE 1000 mg/dL (NEGATIVE); KETONE LARGE mg/dL (NEGATIVE); NITRITE NEGATIVE (NEGATIVE); PROTEIN NEGATIVE (NEGATIVE); UROBILINOGEN NORMAL (NORMAL)
[2018-12-17 18:22] LABS: RED CELLS - URINE 0-5 /hpf (0-5)
[2018-12-17 18:23] LABS: BACTERIA MODERATE /hpf (NONE SEEN); YEAST >1+ WITH HYPHAE /hpf (NONE SEEN)
[2018-12-17 18:32] LABS: EOSINOPHILS 2 % (0-7); LYMPHOCYTES 11 % (15-50); MONOCYTES 2 % (2-11); NEUTROPHILS 85 % (40-80); PLATELET ESTIMATE INCREASED; ROULEAUX OCC; TARGET CELLS OCC
[2018-12-17 21:13] VITALS: BP 131/90
== END 2018-12-17 21:13 | disposition home or self-care (01) ==
LOC: D.ER 16:48
PROVIDERS: Family Medicine
DX: E10.65 Type 1 diabetes mellitus with hyperglycemia (principal); Z79.4 Long term (current) use of insulin

== ENCOUNTER 2018-12-23 12:46 | Emergency (ER) | payer MEDICAID ==
[~2018-12-23] VITALS: Ht 185.4 cm; Wt 68.0 kg
[2018-12-23 12:50] VITALS: Ht 185.4 cm; Wt 68.0 kg
[2018-12-23 13:14] LABS: BASOPHILS 0.5 % (0-2); EOSINOPHILS 0.9 % (0-7); HEMOGLOBIN 9.2 g/dL (13.5-17.5); IMMATURE GRANULOCYTES 0.1 % (0-5); LYMPHOCYTES 13.2 % (15-50); MCH 25.1 pg (26.0-34.0); MCHC 32.9 g/dL (31.0-37.0); MCV 76.3 fL (80.0-100.0); MEAN PLATELET VOLUME 9.6 fL (7.4-10.4); MONOCYTES 5.8 % (2-11); NEUTROPHILS 79.5 % (40-80); PLATELET COUNT 450 10x3/uL (130-400); RBC 3.67 10x6/uL (4.20-6.10); RDW 15.1 % (11.5-14.5); WBC 9.2 10x3/uL (4.8-10.8)
[2018-12-23 13:36] LABS: ALBUMIN 2.1 g/dL (3.4-5.0); ALKALINE PHOSPHATASE 158 U/L (46-116); ALT (SGPT) 54 U/L (10-68); BILIRUBIN - TOTAL 0.33 mg/dL (0.2-1.3); CARBON DIOXIDE 19.5 mmol/L (21.0-32.0); CHLORIDE - SERUM 95 mmol/L (98-107); CKMB 1.6 U/L (0.0-3.6); CREATINE KINASE 94 UL (21-232); CREATININE - SERUM 1.4 mg/dL (0.6-1.3); POTASSIUM - SERUM 3.3 mmol/L (3.5-5.1); PROTEIN - SERUM 6.6 g/dL (6.4-8.2); SODIUM 134 mmol/L (136-145); UREA NITROGEN 20 mg/dL (7-18); eGFR NON AFRICAN AMERICAN 59 mL/min (90-120)
[2018-12-23 13:42] LABS: CALC OSMOLALITY 293 mosm/kg (275-300); GLUCOSE 514 mg/dL (74-106); TROPONIN-I < 0.017 ng/mL (0.000-0.060)
[2018-12-23 14:42] LABS: KETONE - SERUM MODERATE mg/dL (NEGATIVE)
[2018-12-23 14:44] LABS: LIPASE 324 U/L (73-393)
[2018-12-23 17:25] VITALS: BP 121/85
== END 2018-12-23 17:25 | disposition left against medical advice (07) ==
LOC: D.ER 12:46
PROVIDERS: Family Medicine
DX: E10.65 Type 1 diabetes mellitus with hyperglycemia (principal); F91.9 Conduct disorder, unspecified; R74.8 Abnormal levels of other serum enzymes; Z76.5 Malingerer [conscious simulation]; F15.10 Other stimulant abuse, uncomplicated; R00.0 Tachycardia, unspecified

== ENCOUNTER 2019-01-03 08:47 | Inpatient (IN) | payer MEDICAID ==
[~2019-01-03] VITALS: Ht 185.4 cm; Wt 68.0 kg
[2019-01-03 10:16] LABS: BASOPHILS 0.1 % (0-2); EOSINOPHILS 1.3 % (0-7); HEMATOCRIT 27.2 % (42.0-54.0); HEMOGLOBIN 9.1 g/dL (13.5-17.5); IMMATURE GRANULOCYTES 0.3 % (0-5); LYMPHOCYTES 21.2 % (15-50); MCH 25.3 pg (26.0-34.0); MCHC 33.5 g/dL (31.0-37.0); MCV 75.6 fL (80.0-100.0); MEAN PLATELET VOLUME 9.3 fL (7.4-10.4); MONOCYTES 7.8 % (2-11); NEUTROPHILS 69.3 % (40-80); RDW 14.6 % (11.5-14.5); WBC 7.5 10x3/uL (4.8-10.8)
[2019-01-03 10:24] LABS: PLATELET COUNT 208 10x3/uL (130-400)
[2019-01-03 10:30] LABS: ALBUMIN 1.8 g/dL (3.4-5.0); ALKALINE PHOSPHATASE 143 U/L (46-116); ALT (SGPT) 51 U/L (10-68); BILIRUBIN - TOTAL 0.15 mg/dL (0.2-1.3); CALC OSMOLALITY 276 mosm/kg (275-300); CALCIUM 8.4 mg/dL (8.5-10.1); CARBON DIOXIDE 26.8 mmol/L (21.0-32.0); CHLORIDE - SERUM 105 mmol/L (98-107); CREATININE - SERUM 0.8 mg/dL (0.6-1.3); PROTEIN - SERUM 6.6 g/dL (6.4-8.2); SODIUM 141 mmol/L (136-145); UREA NITROGEN 9 mg/dL (7-18); eGFR NON AFRICAN AMERICAN > 90 mL/min (90-120)
[2019-01-03 10:38] LABS: PRO BNP 446 pg/mL (0-125); URIC ACID 3.2 mg/dL (2.6-7.2)
[2019-01-03 10:43] LABS: GLUCOSE 51 mg/dL (74-106)
--- NOTE | 2019-01-03 11:02 | NUR ---
IN AND OUT CATH FOR URINE DONE BY LUIS MCCARTNEY AND HAND RUG CLEANER VIOLET.
--- NOTE | 2019-01-03 11:03 | NUR ---
NOTE PUT IN ON WRONG PATIENT
[2019-01-03 15:50] VITALS: BP 115/84; BMI 19.8
--- NOTE | 2019-01-03 15:55 | NUR ---
RECEIVED FROM ER VIA W/C WITH DX OF BILATERAL DVT OF PERONEAL VEINS. HX OBTAINED AND ORIENTED TO BED, NURSE CALL LIGHT AND TV CONTROLS. REQUESTING PAIN MED AT THIS TIME.
--- NOTE | 2019-01-03 16:38 | NUR ---
Pt admitted to [facility] room 2134. He has a deep tissue injury on his sacrum measuring 6cm x 3cm x purple hard blistered area. He states it's been there for a couple weeks. Said he noticed the area being tender after being at another hospital for a week. Recommended mepilex sacral dressing and staying off his bottom. He voiced understanding. Will continue monitoring.
--- NOTE | 2019-01-03 16:42 | MORECARE ---
CASE MANAGEMENT DISCHARGE SUMMARY PATIENT: JODI WEISS UNIT: [id number] ADM DATE: 01/03/19 AGE: 43 : [birth year] SEX: M ROOM/BED: D.2135 AUTHOR: JENI GREEN PHYSICIAN: REFERRING PHYSICIAN: TANYA ANDRE MD DATE OF SERVICE: 01/03/19 Discharge Plan Patient Name: JODI WEISS [facility] [facility] 1975 Planned Disposition: Other Type of Facility Anticipated Discharge Date: Discharge Date: Expected LOS: Initial Reviewer: [email or web address] Initial Review Date: 01/03/2019 Generated: 01/03/19 5:42 pm DCPIA - Discharge Planning Initial Assessment Updated by [email or web address]: Ron Prajapati on 01/03/19 4:42 pm * Is the patient Alert and Oriented? Yes * How many steps to enter\exit or inside your home? NONE * PCP DR. SKYLAR PIERCE * Pharmacy [facility] [address] * Preadmission Environment Home Alone * ADLs Independent * Equipment Glucometer * Other Equipment NO MEDICAL EQUIPMENT PROVIDER PREFERENCE * List name and contact numbers for known caregivers / representatives who currently or will assist patient after discharge: ASHLEY WEISS, MOTHER, * Verbal permission to speak to the caregivers and representatives has been obtained from the patient. N/A * Community resources currently utilized None * Please name any agencies selected above. NONE * Additional services required to return to the preadmission environment? No * Can the patient safely return to the preadmission environment? Yes * Has this patient been hospitalized within the prior 30 days at any hospital? Yes Patient Name: JODI WEISS Page [phone] at 1642 All edits/amendments must be made on the electronic document DICTATION DATE: 01/03/191641 STOCK WORKER: DEMETRIS 01/03/191641 RPT#: [id number] DC DATE: STATUS: [facility] [address] [place] [address] END OF REPORT
--- NOTE | 2019-01-03 16:52 | MORECARE ---
CASE MANAGEMENT DISCHARGE SUMMARY PATIENT: JODI WEISS UNIT: [id number] ADM DATE: 01/03/19 AGE: 43 : 79 SEX: M ROOM/BED: D.6616 AUTHOR: PETER,DOC PHYSICIAN: REFERRING PHYSICIAN: TANYA ANDRE MD DATE OF SERVICE: 01/03/19 Discharge Plan Patient Name: JODI WEISS Facility: [facility]:[place] : 1975 Planned Disposition: Other Type of Facility Anticipated Discharge Date: Discharge Date: Expected LOS: Initial Reviewer: [id number] Initial Review Date: 01/03/2019 Generated: 01/03/19 5:52 pm Comments DCP- Discharge Planning Updated by [id number]: Ron Prajapati on 01/03/19 3:[address] Patient Name: JODI WEISS Admission Status: ER Accout number: [id number] Admission Date: 01-03-2019 : 1975 Admission Diagnosis: Attending: TANYA ANDRE Current LOS: 1 Anticipated DC Date: Planned Disposition: Other Type of Facility Primary Insurance: MEDICAID [place] PLANNED EXTERNAL PROVIDER: TO BE DETERMINED Discharge Planning Comments: CM RECEIVED ORDER FOR DRUG ASSESSMENT. CM MET WITH PT IN ROOM TO DISCUSS DISCHARGE NEEDS AND PLANNING. PT REPORTS LIVING HOME ALONE, PT HAS GLUCOMETER AND NO MEDICAL EQUIPMENT PROVIDER. CM DISCUSSED THAT THE EMERGENCY ROOM DOCTOR ASKED CM TO SEE PT FOR IV DRUG USE. PT STATES HE WOULD LIKE TO TRY TO GET INTO SOMEWHERE FOR REHAB AT DISCHARGE. CM PROVIDED PT WITH LOCAL AND STATEWIDE PROVIDER LISTING FOR REHAB SERVICES WELL COMMUNITY SUPPORT PROGRAMS. PT HAS NOT BEEN ATTENDING ANY COMMUNITY SUPPORT PROGRAMS. PT HAS CELL PHONE WITH LONG DISTANCE SERVICES. PT HAS NOT TRIED TO GET INTO ANY FACILITY SINCE LEAVING THIS HOSPITAL AT THE FIRST OF THE MONTH HE LOST THE LIST CM GAVE HIM. [facility]ICE BUT COULD NOT STAY BECAUSE HIS BLOOD SUGAR GOT UP OVER 500. CM INSTRUCTED PT TO CALL [facility] FOR PHONE SCREENING AND FOLLOW INSTRUCTIONS. CM INSTRUCTED PT THAT IF [facility] CANNOT TAKE PT, TO ASK FOR REFERRAL TO ANOTHER FACILITY. CM PROVIDED PT WITH CM BUSINESS CARD AND OFFERED TO ASSIST PT AND TO HAVE HIS FACILITY OF CHOICE CONTACT CM SO THAT CM CAN ASSIST WITH NEEDED DOCUMENTATION TO ASSIST WITH PLACEMENT IN DRUG REHAB IF PT WANTS PLACEMENT. PT REPORTS UNDERSTANDING. PT HAS BEEN PROVIDED WITH LOCAL AND STATEWIDE LISTINGS FOR DRUG AND ALCOHOL TREATMENT SERVICES, THE SAME INFORMATION THAT WAS PROVIDED ON 12-08-18 ON LAST ADMISSION. PT HAS ACCESS TO PHONE IN ROOM AND CELL PHONE WITH LONG DISTANCE SERVICES TO CALL AND MAKE ARRANGEMENTS FOR ADMISSION TO DRUG ABUSE TREATMENT. CM TO ASSIST PT IF NEEDED. Loss Prevention Detective: Ron Prajapati DCPIA - Discharge Planning Initial Assessment Updated by [id number]: Ron Prajapati on 01/03/19 4:42 pm * Is the patient Alert and Oriented? Yes * How many steps to enter\exit or inside your home? NONE * PCP DR. SKYLAR PIERCE * Pharmacy [facility] [address] * Preadmission Environment Home Alone * ADLs Independent * Equipment Glucometer * Other Equipment NO MEDICAL EQUIPMENT PROVIDER PREFERENCE * List name and contact numbers for known caregivers / representatives who currently or will assist patient after discharge: ASHLEY WIESS, MOTHER, * Verbal permission to speak to the caregivers and representatives has been obtained from the patient. N/A * Community resources currently utilized None * Please name any agencies selected above. NONE * Additional services required to return to the preadmission environment? No * Can the patient safely return to the preadmission environment? Yes * Has this patient been hospitalized within the prior 30 days at any hospital? Yes Last DP export: 01/03/19 3:42 p Patient Name: JODI WEISS Page [id number] at 1652 All edits/amendments must be made on the electronic document DICTATION DATE: 01/03/191651 ELECTRICIAN SUBSTATION SUPERVISOR: DEMETRIS 01/03/191651 RPT#: [id number] DC DATE: STATUS: ADM IN [facility] [address] [facility] [place] [address] END OF REPORT
--- NOTE | 2019-01-03 19:20 | NUR ---
RESUMING CARE. PT SITTING UP IN BED A&O BREATH SOUNDS EVEN , IV IN RT HAND SL , PT ON RA , SWELLING IN BILATERAL FEET , PT COMPLAINT OF PAIN IN FEET , ADVISED PT HE COULD GET NORCO @ 2015 PT VOICED UNDERSTANDING NO OTHER COMPLAINTS @ THIS TIME CL IN REACH WILL CONT TO MONITOR
[2019-01-03 20:30] VITALS: BP 101/71
[2019-01-04 00:30] VITALS: BP 86/61
[2019-01-04 05:16] LABS: APPEARANCE CLOUDY (CLEAR); BILIRUBIN NEGATIVE (NEGATIVE); COLOR YELLOW (YELLOW); GLUCOSE 1000 mg/dL (NEGATIVE); KETONE NEGATIVE (NEGATIVE); NITRITE NEGATIVE (NEGATIVE); PROTEIN NEGATIVE (NEGATIVE); SPECIFIC GRAVITY 1.015 (1.005-1.020); UROBILINOGEN NORMAL (NORMAL)
[2019-01-04 05:18] LABS: BACTERIA FEW /hpf (NONE SEEN); EPITHELIAL CELLS 0-5 /hpf (0-5); RED CELLS - URINE 0-5 /hpf (0-5); WHITE CELLS - URINE NSEEN /hpf (0-5); YEAST >1+ /hpf (NONE SEEN)
[2019-01-04 05:25] LABS: UDS - AMPHET POSITIVE QUAL (NEGATIVE); UDS - BARB NEGATIVE QUAL (NEGATIVE); UDS - BENZO NEGATIVE QUAL (NEGATIVE); UDS - COCAINE NEGATIVE QUAL (NEGATIVE); UDS - OPIATE POSITIVE QUAL (NEGATIVE); UDS - PCP NEGATIVE QUAL (NEGATIVE); UDS - THC NEGATIVE QUAL (NEGATIVE)
[2019-01-04 05:29] VITALS: BP 101/68
[2019-01-04 06:10] LABS: BASOPHILS 0.1 % (0-2); EOSINOPHILS 1.8 % (0-7); HEMATOCRIT 24.9 % (42.0-54.0); HEMOGLOBIN 8.4 g/dL (13.5-17.5); IMMATURE GRANULOCYTES 0.3 % (0-5); LYMPHOCYTES 18.3 % (15-50); MCH 25.6 pg (26.0-34.0); MCHC 33.7 g/dL (31.0-37.0); MCV 75.9 fL (80.0-100.0); MEAN PLATELET VOLUME 9.8 fL (7.4-10.4); MONOCYTES 12.8 % (2-11); NEUTROPHILS 66.7 % (40-80); PLATELET COUNT 233 10x3/uL (130-400); RBC 3.28 10x6/uL (4.20-6.10); RDW 14.7 % (11.5-14.5); WBC 7.3 10x3/uL (4.8-10.8)
[2019-01-04 06:27] LABS: CALCIUM 7.8 mg/dL (8.5-10.1); CARBON DIOXIDE 26.7 mmol/L (21.0-32.0); CHLORIDE - SERUM 100 mmol/L (98-107); CREATININE - SERUM 0.8 mg/dL (0.6-1.3); POTASSIUM - SERUM 3.4 mmol/L (3.5-5.1); SODIUM 137 mmol/L (136-145); eGFR NON AFRICAN AMERICAN > 90 mL/min (90-120)
[2019-01-04 06:28] LABS: CALC OSMOLALITY 281 mosm/kg (275-300); GLUCOSE 249 mg/dL (74-106); UREA NITROGEN 13 mg/dL (7-18)
[2019-01-04 07:53] VITALS: BP 139/49
[2019-01-04 07:59] VITALS: BP 119/86
--- NOTE | 2019-01-04 08:29 | NUR ---
ASSESSMENT COMPLETED. ALERT AND ORIENTED.RIGHT HAND SL. UP AB GUI. BILATERAL SWEELING TO FEET. C/O PAIN TO FEET. W PAIN TREATED WITH NORCO 5MG. WILL MONITOR
[2019-01-04 10:08] VITALS: Ht 185.4 cm; Wt 68.0 kg
[2019-01-04 12:23] VITALS: BP 107/67
--- NOTE | 2019-01-04 13:40 | NUR ---
I have reviewed this patient and I concur with the Shift Assessment completed by the Licensed Practical Nurse today this shift. Patient is more ambulating in hallway than being in the room.
--- NOTE | 2019-01-04 13:51 | NUR ---
UP WALKING IN HALLWAY. STATES PAIN IS BETTER. STILL WITH SWEELING TO FEET. WILL MONITOR
--- NOTE | 2019-01-04 14:36 | NUR ---
PT REFUSED TO HAVE HIS V/S TAKEN UNTIL WE GIVE HIM PAIN MEDS THAT WE ARE ASKING TO MUCH OF HIM. I TOLD HIM I COULD GIVE HIM HIS PAIN MED AT 1600 BUT THAT I NEEDED HIS V/S FIRST. HE SAID THAT WE ASK TO FUCKING MUCH OF HIM. I TOLD HIM THAT HE WAS ASKING TO MUCH OF ME WHEN HE ASKED FOR PAIN MEDS TWO HOURS EARLY. REPORTED TO SAUL MILLER. HE REFUSED TO TAKE TYLENOL .
--- NOTE | 2019-01-04 19:11 | NUR ---
RESUMING PT CARE. PT IS LAYING IN BED WITH EYES CLOSED RESTING COMFORTABLY. RESPIRATIONS EVEN AND UNLABORED. BED IN LOW POSITION WITH CALL LIGHT IN REACH. WILL CONTINUE TO MONITOR PT AND FOLLOW PLAN OF CARE.
[2019-01-04 20:00] VITALS: BP 123/88
--- NOTE | 2019-01-04 21:58 | NUR ---
PT REFUSED LOVENOX INJECTION. PT STATES HE DID NOT WANT THE INJECTION.
[2019-01-05] VITALS: BP 132/83
--- NOTE | 2019-01-05 03:06 | NUR ---
PT LAYING IN BED WITH EYES CLOSED RESTING COMFORTABLY. RESPIRATIONS EVEN AND UNLABORED. BED IN LOW POSITION WITH CALL LIGHT IN REACH. WILL CONTINUE TO MONITOR PT AND FOLLOW PLAN OF CARE.
[2019-01-05 05:40] LABS: BASOPHILS 0.1 % (0-2); EOSINOPHILS 2.2 % (0-7); HEMATOCRIT 24.6 % (42.0-54.0); HEMOGLOBIN 7.9 g/dL (13.5-17.5); IMMATURE GRANULOCYTES 0.1 % (0-5); LYMPHOCYTES 16.6 % (15-50); MCH 24.8 pg (26.0-34.0); MCHC 32.1 g/dL (31.0-37.0); MCV 77.4 fL (80.0-100.0); MEAN PLATELET VOLUME 9.5 fL (7.4-10.4); MONOCYTES 13.9 % (2-11); NEUTROPHILS 67.1 % (40-80); PLATELET COUNT 268 10x3/uL (130-400); RBC 3.18 10x6/uL (4.20-6.10); RDW 14.6 % (11.5-14.5); WBC 7.9 10x3/uL (4.8-10.8)
[2019-01-05 06:03] LABS: ALBUMIN 1.6 g/dL (3.4-5.0); ALKALINE PHOSPHATASE 139 U/L (46-116); ALT (SGPT) 42 U/L (10-68); BILIRUBIN - TOTAL 0.14 mg/dL (0.2-1.3); CALCIUM 7.8 mg/dL (8.5-10.1); CARBON DIOXIDE 23.6 mmol/L (21.0-32.0); CHLORIDE - SERUM 101 mmol/L (98-107); CREATININE - SERUM 0.9 mg/dL (0.6-1.3); MAGNESIUM - SERUM 1.3 mg/dL (1.8-2.4); POTASSIUM - SERUM 3.7 mmol/L (3.5-5.1); SODIUM 136 mmol/L (136-145); eGFR NON AFRICAN AMERICAN > 90 mL/min (90-120)
[2019-01-05 06:09] LABS: CALC OSMOLALITY 287 mosm/kg (275-300); GLUCOSE 342 mg/dL (74-106); UREA NITROGEN 17 mg/dL (7-18)
--- NOTE | 2019-01-05 07:52 | NUR ---
PT IS ASLEEP, DID NOT WAKE WHEN I ENTERED OR SAID GOOD MORNING. DID NOT FURTHER DISTURB. CL IN REACH. SRX2.
--- NOTE | 2019-01-05 07:59 | MORECARE ---
CASE MANAGEMENT DISCHARGE SUMMARY PATIENT: JODI WEISS UNIT: [id number] ADM DATE: 01/03/19 AGE: 43 : 79 SEX: M ROOM/BED: D.2103 AUTHOR: PETER,DOC PHYSICIAN: REFERRING PHYSICIAN: TANYA ANDRE MD DATE OF SERVICE: 01/05/19 Discharge Plan Patient Name: JODI WEISS Facility: [facility]:[place] : 1975 Planned Disposition: Home Anticipated Discharge Date: 01/05/19 Discharge Date: Expected LOS: 2 Initial Reviewer: [id number] Initial Review Date: 01/03/2019 Generated: 01/05/19 8:58 am Comments DCP- Discharge Planning Updated by [id number]: Ron Prajapati on 01/03/19 3:[address] Patient Name: JODI WEISS Admission Status: ER Accout number: [id number] Admission Date: 01-03-2019 : 1975 Admission Diagnosis: Attending: TANYA ANDRE Current LOS: 1 Anticipated DC Date: Planned Disposition: Other Type of Facility Primary Insurance: MEDICAID [place] PLANNED EXTERNAL PROVIDER: TO BE DETERMINED Discharge Planning Comments: CM RECEIVED ORDER FOR DRUG ASSESSMENT. CM MET WITH PT IN ROOM TO DISCUSS DISCHARGE NEEDS AND PLANNING. PT REPORTS LIVING HOME ALONE, PT HAS GLUCOMETER AND NO MEDICAL EQUIPMENT PROVIDER. CM DISCUSSED THAT THE EMERGENCY ROOM DOCTOR ASKED CM TO SEE PT FOR IV DRUG USE. PT STATES HE WOULD LIKE TO TRY TO GET INTO SOMEWHERE FOR REHAB AT DISCHARGE. CM PROVIDED PT WITH LOCAL AND STATEWIDE PROVIDER LISTING FOR REHAB SERVICES WELL COMMUNITY SUPPORT PROGRAMS. PT HAS NOT BEEN ATTENDING ANY COMMUNITY SUPPORT PROGRAMS. PT HAS CELL PHONE WITH LONG DISTANCE SERVICES. PT HAS NOT TRIED TO GET INTO ANY FACILITY SINCE LEAVING THIS HOSPITAL AT THE FIRST OF THE MONTH HE LOST THE LIST CM GAVE HIM. PT HAS BEEN TO [facility] TWICE BUT COULD NOT STAY BECAUSE HIS BLOOD SUGAR GOT UP OVER 500. CM INSTRUCTED PT TO CALL [facility] FOR PHONE SCREENING AND FOLLOW INSTRUCTIONS. CM INSTRUCTED PT THAT IF [facility] CANNOT TAKE PT, TO ASK FOR REFERRAL TO ANOTHER FACILITY. CM PROVIDED PT WITH CM BUSINESS CARD AND OFFERED TO ASSIST PT AND TO HAVE HIS FACILITY OF CHOICE CONTACT CM SO THAT CM CAN ASSIST WITH NEEDED DOCUMENTATION TO ASSIST WITH PLACEMENT IN DRUG REHAB IF PT WANTS PLACEMENT. PT REPORTS UNDERSTANDING. PT HAS BEEN PROVIDED WITH LOCAL AND STATEWIDE LISTINGS FOR DRUG AND ALCOHOL TREATMENT SERVICES, THE SAME INFORMATION THAT WAS PROVIDED ON 12-08-18 ON LAST ADMISSION. PT HAS ACCESS TO PHONE IN ROOM AND CELL PHONE WITH LONG DISTANCE SERVICES TO CALL AND MAKE ARRANGEMENTS FOR ADMISSION TO DRUG ABUSE TREATMENT. CM TO ASSIST PT IF NEEDED. Historiography Professor: Ron Prajapati DCPIA - Discharge Planning Initial Assessment Updated by [id number]: Ron Prajapati on 01/03/19 4:42 pm * Is the patient Alert and Oriented? Yes * How many steps to enter\exit or inside your home? NONE * PCP DR. SKYLAR PIERCE * Pharmacy [facility] [address] * Preadmission Environment Home Alone * ADLs Independent * Equipment Glucometer * Other Equipment NO MEDICAL EQUIPMENT PROVIDER PREFERENCE * List name and contact numbers for known caregivers / representatives who currently or will assist patient after discharge: ASHLEY WEISS, MOTHER, * Verbal permission to speak to the caregivers and representatives has been obtained from the patient. N/A * Community resources currently utilized None * Please name any agencies selected above. NONE * Additional services required to return to the preadmission environment? No * Can the patient safely return to the preadmission environment? Yes * Has this patient been hospitalized within the prior 30 days at any hospital? Yes Last DP export: 01/03/19 3:52 p Patient Name: JODI WEISS Page 12705 at 0759 All edits/amendments must be made on the electronic document DICTATION DATE: 01/05/19757 FILM LIBRARY CLERK: DEMETRIS 01/05/198 RPT#: [id number] DC DATE: STATUS: ADM IN [facility] [address] [place] [address] END OF REPORT
--- NOTE | 2019-01-05 08:11 | MORECARE ---
CASE MANAGEMENT DISCHARGE SUMMARY PATIENT: JODI WEISS UNIT: [id number] ADM DATE: 01/03/19 AGE: 43 : 79 SEX: M ROOM/BED: D.2107 AUTHOR: PETER,DOC PHYSICIAN: REFERRING PHYSICIAN: TANYA ANDRE MD DATE OF SERVICE: 01/05/19 Discharge Plan Patient Name: JODI WEISS Facility: [facility]:[place] : 1975 Planned Disposition: Home Anticipated Discharge Date: 01/05/19 Discharge Date: Expected LOS: 2 Initial Reviewer: [id number] Initial Review Date: 01/03/2019 Generated: 01/05/19 9:11 am Comments DCP- Discharge Planning Updated by [id number]: Ron Prajapati on 01/05/19 7:[address] Patient Name: JODI WEISS Encounter No: [id number] : 1975 Primary Insurance: MEDICAID [place] Anticipated DC Date: 01-05-2019 Planned Disposition: Home DCP follow-up note: CM ATTEMPTED TO SPEAK TO PT IN ROOM REGARDING DISCHARGE PLANNING AND NEEDS. PT DID NOT EXPRESS INTEREST IN DISCUSSING ANYTHING. CM WOKE UP PT SEVERAL TIMES TO ASK IF HE HAS LOCATED HIMSELF A DRUG TREATMENT PROGRAM AND TO FIND OUT WHO HE HAS CONTACTED FOR TREATMENT. PT WOULD LOOK AT CM AND CLOSE HIS EYES. CM AGAIN AROUSED PT AND PROVIDED CONTACT INFORMATION FOR THE [facility] ADDICTION RESOURCE NETWORK TO INCLUDE THE TOLL FREE NUMBER FOR PT TO CALL AND REQUEST HELP AND TREATMENT. HAS PROVIDED PT WITH LOCAL, IN STATE AND OUT OF STATE ADDICTION RESOURCE INFORMATION. PT HAS BEEN EDUCATED BY CM THAT HE HAS TO BE WILLING TO GO TO TREATMENT AND REQUEST HELP WELL PARTICIPATE IN SCREENINGS WITH PROVIDERS; TO CM'S KNOWLEDGE, , PT HAS NOT MADE ANY KNOWN EFFORT OR CONTACTED ANY RESOURCES CM HAS PROVIDED TO PT UPON ADMISSION. PT HAS HAD ACCESS TO PHONE SERVICES, LOCAL AND FREE STATEWIDE CONTACT NUMBERS TO ARRANGE TREATMENT WELL HAVING CM CONTACT INFORMATION TO REQUEST ASSISTANCE IF NEEDED. CM TO CONTINUE TO FOLLOW AND ASSIST IF NEEDED. Ron Prajapati CASE MANAGEMENT DCP- Discharge Planning Updated by [id number]: Ron Prajapati on 01/03/19 3:[address] Patient Name: JODI WEISS Admission Status: ER Accout number: [id number] Admission Date: 01-03-2019 : 1975 Admission Diagnosis: Attending: TANYA ANDRE Current LOS: 1 Anticipated DC Date: Planned Disposition: Other Type of Facility Primary Insurance: MEDICAID [place] PLANNED EXTERNAL PROVIDER: TO BE DETERMINED Discharge Planning Comments: CM RECEIVED ORDER FOR DRUG ASSESSMENT. CM MET WITH PT IN ROOM TO DISCUSS DISCHARGE NEEDS AND PLANNING. PT REPORTS LIVING HOME ALONE, PT HAS GLUCOMETER AND NO MEDICAL EQUIPMENT PROVIDER. CM DISCUSSED THAT THE EMERGENCY ROOM DOCTOR ASKED CM TO SEE PT FOR IV DRUG USE. PT STATES HE WOULD LIKE TO TRY TO GET INTO SOMEWHERE FOR REHAB AT DISCHARGE. CM PROVIDED PT WITH LOCAL AND STATEWIDE PROVIDER LISTING FOR REHAB SERVICES WELL COMMUNITY SUPPORT PROGRAMS. PT HAS NOT BEEN ATTENDING ANY COMMUNITY SUPPORT PROGRAMS. PT HAS CELL PHONE WITH LONG DISTANCE SERVICES. PT HAS NOT TRIED TO GET INTO ANY FACILITY SINCE LEAVING THIS HOSPITAL AT THE FIRST OF THE MONTH HE LOST THE LIST CM GAVE HIM. PT HAS BEEN TO [facility] TWICE BUT COULD NOT STAY BECAUSE HIS BLOOD SUGAR GOT UP OVER 500. CM INSTRUCTED PT TO CALL [facility] FOR PHONE SCREENING AND FOLLOW INSTRUCTIONS. CM INSTRUCTED PT THAT IF [facility] CANNOT TAKE PT, TO ASK FOR REFERRAL TO ANOTHER FACILITY. CM PROVIDED PT WITH CM BUSINESS CARD AND OFFERED TO ASSIST PT AND TO HAVE HIS FACILITY OF CHOICE CONTACT CM SO THAT CM CAN ASSIST WITH NEEDED DOCUMENTATION TO ASSIST WITH PLACEMENT IN DRUG REHAB IF PT WANTS PLACEMENT. PT REPORTS UNDERSTANDING. PT HAS BEEN PROVIDED WITH LOCAL AND STATEWIDE LISTINGS FOR DRUG AND ALCOHOL TREATMENT SERVICES, THE SAME INFORMATION THAT WAS PROVIDED ON 12-08-18 ON LAST ADMISSION. PT HAS ACCESS TO PHONE IN ROOM AND CELL PHONE WITH LONG DISTANCE SERVICES TO CALL AND MAKE ARRANGEMENTS FOR ADMISSION TO DRUG ABUSE TREATMENT. CM TO ASSIST PT IF NEEDED. Health/Safety Job Titles: Ron Prajapati DCPIA - Discharge Planning Initial Assessment Updated by [email or web address]: Ron Prajapati on 01/03/19 4:42 pm * Is the patient Alert and Oriented? Yes * How many steps to enter\exit or inside your home? NONE * PCP DR. SKYLAR PIERCE * Pharmacy [facility] [address] * Preadmission Environment Home Alone * ADLs Independent * Equipment Glucometer * Other Equipment NO MEDICAL EQUIPMENT PROVIDER PREFERENCE * List name and contact numbers for known caregivers / representatives who currently or will assist patient after discharge: ASHLEY WEISS, MOTHER, * Verbal permission to speak to the caregivers and representatives has been obtained from the patient. N/A * Community resources currently utilized None * Please name any agencies selected above. NONE * Additional services required to return to the preadmission environment? No * Can the patient safely return to the preadmission environment? Yes * Has this patient been hospitalized within the prior 30 days at any hospital? Yes Last DP export: 01/05/19 6:58 am Patient Name: JODI WEISS Page 22531 at 0811 All edits/amendments must be made on the electronic document DICTATION DATE: 01/05/19809 SUPPLY CHAIN SPECIALIST: DEMETRIS 01/05/19809 RPT#: [id number] DC DATE: STATUS: ADM IN [facility] [address] [place] [address] END OF REPORT
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
--- NOTE | 2019-01-05 10:19 | NUR ---
WENT IN ROOM TO FIND PT AND GIVE MEDS, PT IS GONE. HOSPITAL CLOTHES IN THE FLOOR. I CAN NOT FIND THE IV BUT ALL PTS BELONGINGS ARE GONE. WILL LOOK FOR PT, BUT PRETTY SURE PT HAS LEFT AMA.
--- NOTE | 2019-01-05 10:23 | NUR ---
TRANSCRIBING OPERATORS SUPERVISOR FROM INSERTING OPERATOR BROUGHT PT BACK.
--- NOTE | 2019-01-05 10:24 | NUR ---
IOS PROGRAMMER STATED PT WAS DOWNSTAIRS IN THE WAITING ROOM. WHEN SHE ASKED WHAT HE WAS DOING, HE SAID HE NEEDED TO GET BACK TO HIS ROOM. PT IS IN ALL HIS HOME CLOTHES.
--- NOTE | 2019-01-05 10:26 | NUR ---
PT STATES HE WAS DOWNSTAIRS SMOKING. I ASKED IF I COULD HANG THE MAGNESIUM. PT SAID OK LONG IT DOESN'T INTERUPT HIS SLEEP. THERE IS EVEDENCE OF PUKE IN THE TRASH CAN. PT STATES IM GOING TO ORDER PIZZA.
--- NOTE | 2019-01-05 10:39 | NUR ---
PT IS LYING IN BED, SHAKING BACK AND FORTH, STATES HE DOESNT FEEL GOOD BUT CAN NOT DESCRIBE HOW. PT STATES HES VERY COLD.
--- NOTE | 2019-01-05 11:14 | NUR ---
OFFERED LORIE, PT STILL SHAKING. CALLED [facility]. PT IGNORED MY OFFERS FOR HELP. CL IN REACH. SRX1. PT ALSO COMPLETELY IGNORED THE TECH. ETIENNE HIS EYES
--- NOTE | 2019-01-05 11:18 | NUR ---
TRIED TO TAKE PTS BLOOD SUGAR. PT IGNORED ME, I SHOOK HIM AND WOKE HIM UP BUT HE STILL CONTINUED TO OPENLY IGNORED ME WITH HIS COVERS PULLED UP OVER HIS HEAD.
[2019-01-05 12:09] VITALS: BP 94/55
--- NOTE | 2019-01-05 12:16 | MORECARE ---
CASE MANAGEMENT DISCHARGE SUMMARY PATIENT: JODI WEISS UNIT: [id number] ADM DATE: 01/03/19 AGE: 43 : [birth year] SEX: M ROOM/BED: D.2102 AUTHOR: PETER,DOC PHYSICIAN: REFERRING PHYSICIAN: TANYA ANDRE MD DATE OF SERVICE: 01/05/19 Discharge Plan Patient Name: JODI WEISS Facility: [facility]:[place] : 1975 Planned Disposition: Home Anticipated Discharge Date: 01/05/19 Discharge Date: Expected LOS: 2 Initial Reviewer: [id number] Initial Review Date: 01/03/2019 Generated: 01/05/19 1:16 pm Comments DCP- Discharge Planning Updated by [email or web address]: Ron Prajapati on 01/05/19 11:[address] Patient Name: JODI WEISS Encounter No: [id number] : 1975 Primary Insurance: MEDICAID [place] Anticipated DC Date: 01-05-2019 Planned Disposition: Home DCP follow-up note: CM RECEIVED ORDER TO DETERMINE IF PT'S INSURANCE COVERS ELIQUIS. CM CALLED [facility], , SPOKE TO ANTONIO WHO INFORMED CM THAT ELIQUIS IS THE PREFERRED DRUG FOR DVT AND IS COVERED BY MEDICAID. CM PROVIDED PT WITH 30 DAY FREE TRIAL CARD JUST IN CASE THERE IS SOME PROBLEM. PT REPORTS HE HAS NOT FILLED ANY MEDICATIONS THIS MONTH AND SHOULD HAVE SLOTS AVAILABLE. CM ASKED ABOUT IF HE HAS CALLED ANY REHAB RESOUCES, PT HAS NOT. PT IS NOW UNDECIDED ON IF HE IS GOING TO REHAB OR NOT. CM NOTIFIED CHERYL PATEL AND DR. ANDRE OF INSURANCE COVERAGE FOR ELIQUIS. CM TO CONTINUE TO FOLLOW AND ASSIST NEEDED. MATTHEW Gupta DCP- Discharge Planning Updated by [id number]: Ron Prajapati on 01/05/19 7:[address] Patient Name: JODI WEISS Encounter No: [id number] : 1975 Primary Insurance: MEDICAID [place] Anticipated DC Date: 01-05-2019 Planned Disposition: Home DCP follow-up note: CM ATTEMPTED TO SPEAK TO PT IN ROOM REGARDING DISCHARGE PLANNING AND NEEDS. PT DID NOT EXPRESS INTEREST IN DISCUSSING ANYTHING. CM WOKE UP PT SEVERAL TIMES TO ASK IF HE HAS LOCATED HIMSELF A DRUG TREATMENT PROGRAM AND TO FIND OUT WHO HE HAS CONTACTED FOR TREATMENT. PT WOULD LOOK AT CM AND CLOSE HIS EYES. CM AGAIN AROUSED PT AND PROVIDED CONTACT INFORMATION FOR THE [facility] ADDICTION RESOURCE NETWORK TO INCLUDE THE TOLL FREE NUMBER FOR PT TO CALL AND REQUEST HELP AND TREATMENT. CM HAS PROVIDED PT WITH LOCAL, IN STATE AND OUT OF STATE ADDICTION RESOURCE INFORMATION. PT HAS BEEN EDUCATED BY CM THAT HE HAS TO BE WILLING TO GO TO TREATMENT AND REQUEST HELP WELL PARTICIPATE IN SCREENINGS WITH PROVIDERS; TO CM'S KNOWLEDGE, , PT HAS NOT MADE ANY KNOWN EFFORT OR CONTACTED ANY RESOURCES CM HAS PROVIDED TO PT UPON ADMISSION. PT HAS HAD ACCESS TO PHONE SERVICES, LOCAL AND FREE STATEWIDE CONTACT NUMBERS TO ARRANGE TREATMENT WELL HAVING CM CONTACT INFORMATION TO REQUEST ASSISTANCE IF NEEDED. CM TO CONTINUE TO FOLLOW AND ASSIST IF NEEDED. Ron Prajapati, CASE MANAGEMENT DCP- Discharge Planning Updated by [id number]: Ron Prajapati on 01/03/19 3:[address] Patient Name: JODI WEISS Admission Status: ER Accout number: [id number] Admission Date: 01-03-2019 : 1975 Admission Diagnosis: Attending: TANYA ANDRE Current LOS: 1 Anticipated DC Date: Planned Disposition: Other Type of Facility Primary Insurance: MEDICAID [place] PLANNED EXTERNAL PROVIDER: TO BE DETERMINED Discharge Planning Comments: CM RECEIVED ORDER FOR DRUG ASSESSMENT. CM MET WITH PT IN ROOM TO DISCUSS DISCHARGE NEEDS AND PLANNING. PT REPORTS LIVING HOME ALONE, PT HAS GLUCOMETER AND NO MEDICAL EQUIPMENT PROVIDER. CM DISCUSSED THAT THE EMERGENCY ROOM DOCTOR ASKED CM TO SEE PT FOR IV DRUG USE. PT STATES HE WOULD LIKE TO TRY TO GET INTO SOMEWHERE FOR REHAB AT DISCHARGE. CM PROVIDED PT WITH LOCAL AND STATEWIDE PROVIDER LISTING FOR REHAB SERVICES WELL COMMUNITY SUPPORT PROGRAMS. PT HAS NOT BEEN ATTENDING ANY COMMUNITY SUPPORT PROGRAMS. PT HAS CELL PHONE WITH LONG DISTANCE SERVICES. PT HAS NOT TRIED TO GET INTO ANY FACILITY SINCE LEAVING THIS HOSPITAL AT THE FIRST OF THE MONTH HE LOST THE LIST CM GAVE HIM. PT HAS BEEN TO [facility] TWICE BUT COULD NOT STAY BECAUSE HIS BLOOD SUGAR GOT UP OVER 500. CM INSTRUCTED PT TO CALL [facility] FOR PHONE SCREENING AND FOLLOW INSTRUCTIONS. CM INSTRUCTED PT THAT IF [facility] CANNOT TAKE PT, TO ASK FOR REFERRAL TO ANOTHER FACILITY. CM PROVIDED PT WITH CM BUSINESS CARD AND OFFERED TO ASSIST PT AND TO HAVE HIS FACILITY OF CHOICE CONTACT CM SO THAT CM CAN ASSIST WITH NEEDED DOCUMENTATION TO ASSIST WITH PLACEMENT IN DRUG REHAB IF PT WANTS PLACEMENT. PT REPORTS UNDERSTANDING. PT HAS BEEN PROVIDED WITH LOCAL AND STATEWIDE LISTINGS FOR DRUG AND ALCOHOL TREATMENT SERVICES, THE SAME INFORMATION THAT WAS PROVIDED ON 12-08-18 ON LAST ADMISSION. PT HAS ACCESS TO PHONE IN ROOM AND CELL PHONE WITH LONG DISTANCE SERVICES TO CALL AND MAKE ARRANGEMENTS FOR ADMISSION TO DRUG ABUSE TREATMENT. CM TO ASSIST PT IF NEEDED. Camera Person: Ron Prajapati DCPIA - Discharge Planning Initial Assessment Updated by [id number]: Ron Prajapati on 01/03/19 4:42 pm * Is the patient Alert and Oriented? Yes * How many steps to enter\exit or inside your home? NONE * PCP DR. SKYLAR PIERCE * Pharmacy [facility] [address] * Preadmission Environment Home Alone * ADLs Independent * Equipment Glucometer * Other Equipment NO MEDICAL EQUIPMENT PROVIDER PREFERENCE * List name and contact numbers for known caregivers / representatives who currently or will assist patient after discharge: ASHLEY WEISS, MOTHER, * Verbal permission to speak to the caregivers and representatives has been obtained from the patient. N/A * Community resources currently utilized None * Please name any agencies selected above. NONE * Additional services required to return to the preadmission environment? No * Can the patient safely return to the preadmission environment? Yes * Has this patient been hospitalized within the prior 30 days at any hospital? Yes Last DP export: 01/05/19 7:11 am Patient Name: JODI WEISS Page 35218 at 1216 All edits/amendments must be made on the electronic document DICTATION DATE: 01/05/19 1215 ASBESTOS HANDLER: DEMETRIS 01/05/19 1215 RPT#: [id number] [place] DATE: STATUS: ADM IN [facility] [address] [place] [address] END OF REPORT
--- NOTE | 2019-01-05 13:27 | NUR ---
I DISAGREE WITH ASSESSMENT FROM ENGINEER CONDUCTOR. PATIENT IS ON NARCOTICS.
[2019-01-05 14:02] LABS: % SATURATION 4 % (15-55); IRON 9 ug/dl (35-150); TOTAL IRON BIND CAPACITY 217 ug/dl (260-445); UNSAT IRON BIND CAPACITY 208 ug/dl (150-375)
[2019-01-05 15:02] VITALS: BP 112/59
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
--- NOTE | 2019-01-05 15:51 | NUR ---
PT STILL REFUSED TO SIGN AMA. ESCORTED PT DOWNSTAIRS. PT ATEMPTED TO PULL 600$ OUT OF THE KADEEM, BUT COULD GET LESS THAN 100 D/T THE KADEEM NOT HAVING ENOUGH MONEY. LEFT PT OUT ON THE BENCH PER HIS REQUEST WHILE HE WAS WAITING ON A CAB. WHEN KADEEM WOULDN'T WORK TO PULL OUT THE LARGER AMOUNT HE WANTED, PT GOT ANGRY WITH ME AND AID NICHOLAS, LIKE IT WAS OUR FAULT THE KADEEM WOULDN'T WORK HOW HE WANTED.
--- NOTE | 2019-01-05 16:08 | MORECARE ---
CASE MANAGEMENT DISCHARGE SUMMARY PATIENT: JODI WEISS UNIT: [id number] ADM DATE: 01/03/19 AGE: 43 : [birth year] SEX: M ROOM/BED: D.2102 AUTHOR: PETER,DOC PHYSICIAN: REFERRING PHYSICIAN: TANYA ANDRE MD DATE OF SERVICE: 01/05/19 Discharge Plan Patient Name: JODI WEISS Facility: [facility]:[place] : 1975 Planned Disposition: Home Anticipated Discharge Date: 01/05/19 Discharge Date: 01/05/2019 Expected LOS: 2 Initial Reviewer: [email or web address] Initial Review Date: 01/03/2019 Generated: 01/05/19 5:08 pm Comments DCP- Discharge Planning Updated by [email or web address]: Ron Prajapati on 01/05/19 3:[address] Patient Name: JODI WEISS Encounter No: [id number] : 1975 Primary Insurance: MEDICAID [place] Anticipated DC Date: 01-05-2019 Planned Disposition: LEFT AGAINST MEDICAL ADVICE DCP follow-up note: CM WAS NOTIFIED THAT PT LEFT AGAINST MEDICAL ADVICE. Ron Prajapati CASE MANAGEMENT DCP- Discharge Planning Updated by [email or web address]: Ron Prajapati on 01/05/19 11:[address] Patient Name: JODI WEISS Encounter No: [id number] : 1975 Primary Insurance: MEDICAID [place] Anticipated DC Date: 01-05-2019 Planned Disposition: Home DCP follow-up note: CM RECEIVED ORDER TO DETERMINE IF PT'S INSURANCE COVERS ELIQUIS. CM CALLED [facility], , SPOKE TO ANTONIO WHO INFORMED CM THAT ELIQUIS IS THE PREFERRED DRUG FOR DVT AND IS COVERED BY MEDICAID. CM PROVIDED PT WITH 30 DAY FREE TRIAL CARD JUST IN CASE THERE IS SOME PROBLEM. PT REPORTS HE HAS NOT FILLED ANY MEDICATIONS THIS MONTH AND SHOULD HAVE SLOTS AVAILABLE. CM ASKED ABOUT IF HE HAS CALLED ANY REHAB RESOUCES, PT HAS NOT. PT IS NOW UNDECIDED ON IF HE IS GOING TO REHAB OR NOT. CM NOTIFIED CHERYL PATEL AND DR. ANDRE OF INSURANCE COVERAGE FOR ELIQUIS. CM TO CONTINUE TO FOLLOW AND ASSIST NEEDED. Ron Prajapati CASE MANAGEMENT DCP- Discharge Planning Updated by [email or web address]: Ron Prajapati on 01/05/19 7:[address] Patient Name: JODI WEISS Encounter No: [id number] : 1975 Primary Insurance: MEDICAID [place] Anticipated DC Date: 01-05-2019 Planned Disposition: Home DCP follow-up note: CM ATTEMPTED TO SPEAK TO PT IN ROOM REGARDING DISCHARGE PLANNING AND NEEDS. PT DID NOT EXPRESS INTEREST IN DISCUSSING ANYTHING. CM WOKE UP PT SEVERAL TIMES TO ASK IF HE HAS LOCATED HIMSELF A DRUG TREATMENT PROGRAM AND TO FIND OUT WHO HE HAS CONTACTED FOR TREATMENT. PT WOULD LOOK AT CM AND CLOSE HIS EYES. CM AGAIN AROUSED PT AND PROVIDED CONTACT INFORMATION FOR THE [facility] ADDICTION RESOURCE NETWORK TO INCLUDE THE TOLL FREE NUMBER FOR PT TO CALL AND REQUEST HELP AND TREATMENT. CM HAS PROVIDED PT WITH LOCAL, IN STATE AND OUT OF STATE ADDICTION RESOURCE INFORMATION. PT HAS BEEN EDUCATED BY CM THAT HE HAS TO BE WILLING TO GO TO TREATMENT AND REQUEST HELP WELL PARTICIPATE IN SCREENINGS WITH PROVIDERS; TO CM'S KNOWLEDGE, , PT HAS NOT MADE ANY KNOWN EFFORT OR CONTACTED ANY RESOURCES CM HAS PROVIDED TO PT UPON ADMISSION. PT HAS HAD ACCESS TO PHONE SERVICES, LOCAL AND FREE STATEWIDE CONTACT NUMBERS TO ARRANGE TREATMENT WELL HAVING CM CONTACT INFORMATION TO REQUEST ASSISTANCE IF NEEDED. CM TO CONTINUE TO FOLLOW AND ASSIST IF NEEDED. MATTHEW Gupta DCP- Discharge Planning Updated by [email or web address]: Ron Prajapati on 01/03/19 3:[address] Patient Name: JODI WEISS Admission Status: ER Accout number: [id number] Admission Date: 01-03-2019 : 1975 Admission Diagnosis: Attending: TANYA ANDRE Current LOS: 1 Anticipated DC Date: Planned Disposition: Other Type of Facility Primary Insurance: MEDICAID [place] PLANNED EXTERNAL PROVIDER: TO BE DETERMINED Discharge Planning Comments: CM RECEIVED ORDER FOR DRUG ASSESSMENT. CM MET WITH PT IN ROOM TO DISCUSS DISCHARGE NEEDS AND PLANNING. PT REPORTS LIVING HOME ALONE, PT HAS GLUCOMETER AND NO MEDICAL EQUIPMENT PROVIDER. CM DISCUSSED THAT THE EMERGENCY ROOM DOCTOR ASKED CM TO SEE PT FOR IV DRUG USE. PT STATES HE WOULD LIKE TO TRY TO GET INTO SOMEWHERE FOR REHAB AT DISCHARGE. CM PROVIDED PT WITH LOCAL AND STATEWIDE PROVIDER LISTING FOR REHAB SERVICES WELL COMMUNITY SUPPORT PROGRAMS. PT HAS NOT BEEN ATTENDING ANY COMMUNITY SUPPORT PROGRAMS. PT HAS CELL PHONE WITH LONG DISTANCE SERVICES. PT HAS NOT TRIED TO GET INTO ANY FACILITY SINCE LEAVING THIS HOSPITAL AT THE FIRST OF THE MONTH HE LOST THE LIST CM GAVE HIM. PT HAS BEEN TO [facility] TWICE BUT COULD NOT STAY BECAUSE HIS BLOOD SUGAR GOT UP OVER 500. CM INSTRUCTED PT TO CALL [facility] FOR PHONE SCREENING AND FOLLOW INSTRUCTIONS. CM INSTRUCTED PT THAT IF [facility] CANNOT TAKE PT, TO ASK FOR REFERRAL TO ANOTHER FACILITY. CM PROVIDED PT WITH CM BUSINESS CARD AND OFFERED TO ASSIST PT AND TO HAVE HIS FACILITY OF CHOICE CONTACT CM SO THAT CM CAN ASSIST WITH NEEDED DOCUMENTATION TO ASSIST WITH PLACEMENT IN DRUG REHAB IF PT WANTS PLACEMENT. PT REPORTS UNDERSTANDING. PT HAS BEEN PROVIDED WITH LOCAL AND STATEWIDE LISTINGS FOR DRUG AND ALCOHOL TREATMENT SERVICES, THE SAME INFORMATION THAT WAS PROVIDED ON 12-08-18 ON LAST ADMISSION. PT HAS ACCESS TO PHONE IN ROOM AND CELL PHONE WITH LONG DISTANCE SERVICES TO CALL AND MAKE ARRANGEMENTS FOR ADMISSION TO DRUG ABUSE TREATMENT. CM TO ASSIST PT IF NEEDED. Director Revenue: Ron Prajapati DCPIA - Discharge Planning Initial Assessment Updated by [id number]: Ron Prajapati on 01/03/19 4:42 pm * Is the patient Alert and Oriented? Yes * How many steps to enter\exit or inside your home? NONE * PCP DR. SKYLAR PIERCE * Pharmacy [facility] [place] * Preadmission Environment Home Alone * ADLs Independent * Equipment Glucometer * Other Equipment NO MEDICAL EQUIPMENT PROVIDER PREFERENCE * List name and contact numbers for known caregivers / representatives who currently or will assist patient after discharge: ASHLEY WEISS, MOTHER, * Verbal permission to speak to the caregivers and representatives has been obtained from the patient. N/A * Community resources currently utilized None * Please name any agencies selected above. NONE * Additional services required to return to the preadmission environment? No * Can the patient safely return to the preadmission environment? Yes * Has this patient been hospitalized within the prior 30 days at any hospital? Yes Last DP export: 01/05/19 11:16 am Patient Name: JODI WEISS Page [phone] at 1608 All edits/amendments must be made on the electronic document DICTATION DATE: 01/05/198 LAYER UP: DEMETRIS 01/05/19 1608 RPT#: [id number] DC DATE:01/05/19 STATUS: DIS IN [facility] [address] [place] [address] END OF REPORT
== END 2019-01-05 15:53 | disposition left against medical advice (07) | DRG 299 ==
LOC: D.ER 08:47 → D.EDHOLD 13:45 → D.M2 13:45
PROVIDERS: Family Medicine; ADMIT Internal Medicine Nephrology; ATTEND Internal Medicine Nephrology
DX: I82.493 Acute embolism and thrombosis of other specified deep vein of lower extremity, bilateral (principal); L89.154 Pressure ulcer of sacral region, stage 4; E87.6 Hypokalemia; Z91.19 Patient's noncompliance with other medical treatment and regimen; F15.10 Other stimulant abuse, uncomplicated; R00.0 Tachycardia, unspecified; E10.622 Type 1 diabetes mellitus with other skin ulcer

== ENCOUNTER 2019-01-23 20:43 | Inpatient (IN) | payer MEDICAID ==
[~2019-01-23] VITALS: Ht 185.4 cm; Wt 52.7 kg
--- NOTE | 2019-01-23 21:02 | NUR ---
POC GLUCOSE READS HIGH
[2019-01-23 21:49] LABS: BASOPHILS 0.2 % (0-2); EOSINOPHILS 0.2 % (0-7); HEMATOCRIT 36.8 % (42.0-54.0); IMMATURE GRANULOCYTES 0.2 % (0-5); LYMPHOCYTES 12.5 % (15-50); MCH 25.3 pg (26.0-34.0); MCHC 32.6 g/dL (31.0-37.0); MCV 77.6 fL (80.0-100.0); MEAN PLATELET VOLUME 9.3 fL (7.4-10.4); MONOCYTES 0.6 % (2-11); NEUTROPHILS 86.3 % (40-80); PLATELET COUNT 445 10x3/uL (130-400); RBC 4.74 10x6/uL (4.20-6.10); RDW 15.1 % (11.5-14.5); WBC 8.7 10x3/uL (4.8-10.8)
[2019-01-23 21:55] LABS: KETONE - SERUM MODERATE mg/dL (NEGATIVE)
[2019-01-23 22:19] LABS: ALBUMIN 2.1 g/dL (3.4-5.0); ALKALINE PHOSPHATASE 166 U/L (46-116); ALT (SGPT) 34 U/L (10-68); BILIRUBIN - TOTAL 0.29 mg/dL (0.2-1.3); CALCIUM 8.4 mg/dL (8.5-10.1); CARBON DIOXIDE 13.5 mmol/L (21.0-32.0); CHLORIDE - SERUM 102 mmol/L (98-107); CKMB 4.7 U/L (0.0-3.6); CREATINE KINASE 67 UL (21-232); CREATININE - SERUM 1.9 mg/dL (0.6-1.3); LIPASE 87 U/L (73-393); MAGNESIUM - SERUM 1.7 mg/dL (1.8-2.4); PROTEIN - SERUM 7.4 g/dL (6.4-8.2); SODIUM 141 mmol/L (136-145); UREA NITROGEN 25 mg/dL (7-18); eGFR NON AFRICAN AMERICAN 42 mL/min (90-120)
[2019-01-23 22:20] LABS: CALC OSMOLALITY 316 mosm/kg (275-300); TROPONIN-I < 0.017 ng/mL (0.000-0.060)
[2019-01-23 22:21] LABS: GLUCOSE 672 mg/dL (74-106)
[2019-01-24] VITALS (16 sets, daily range): BP systolic 83–123; BP diastolic 47–86; BMI 14.0; BMI 14.2
--- NOTE | 2019-01-24 00:08 | NUR ---
FSBS 331.
--- NOTE | 2019-01-24 00:18 | NUR ---
REPORT GIVEN TO DARIEL MILLER IN ICU.
--- NOTE | 2019-01-24 00:43 | NUR ---
NS WITH 40MEQ KCL STOPPED AT 0035.
--- NOTE | 2019-01-24 00:44 | NUR ---
INSULIN DRIP MIXED BY ZACHERY AND MYSELF, 100 UNITS REGULAR INSULIN AND 100MLS OF SODIUM CHLORIDE.
--- NOTE | 2019-01-24 01:19 | NUR ---
Velia LUNA PAGED AND NOTIFIED OF PT C/O CHEST PAIN - "LIKE WHAT I HAD WHEN I CAME IN"....NEW ORDER REC'D.
--- NOTE | 2019-01-24 03:12 | NUR ---
REASSESSMENT PER FLOWSHEET. NO ACUTE CHANGES. PT RESTING QUIETLY. NO SIGN OF DISTRESS. C/L IN REACH.
[2019-01-24 04:05] LABS: BASOPHILS 0.4 % (0-2); EOSINOPHILS 0.7 % (0-7); IMMATURE GRANULOCYTES 0.4 % (0-5); LYMPHOCYTES 16.2 % (15-50); MCH 24.7 pg (26.0-34.0); MCHC 32.9 g/dL (31.0-37.0); MEAN PLATELET VOLUME 9.3 fL (7.4-10.4); MONOCYTES 8.7 % (2-11); NEUTROPHILS 73.6 % (40-80); PLATELET COUNT 374 10x3/uL (130-400); RBC 3.84 10x6/uL (4.20-6.10); RDW 14.9 % (11.5-14.5); WBC 9.7 10x3/uL (4.8-10.8)
[2019-01-24 04:08] LABS: HEMATOCRIT 28.9 % (42.0-54.0); HEMOGLOBIN 9.5 g/dL (13.5-17.5); MCV 75.3 fL (80.0-100.0)
[2019-01-24 07:06] LABS: CALCIUM 7.8 mg/dL (8.5-10.1); CHLORIDE - SERUM 113 mmol/L (98-107); CREATINE KINASE 66 UL (21-232); MAGNESIUM - SERUM 2.1 mg/dL (1.8-2.4); SODIUM 145 mmol/L (136-145); UREA NITROGEN 19 mg/dL (7-18)
[2019-01-24 07:08] LABS: CALC OSMOLALITY 291 mosm/kg (275-300); CREATININE - SERUM 1.4 mg/dL (0.6-1.3); GLUCOSE 123 mg/dL (74-106); eGFR NON AFRICAN AMERICAN 59 mL/min (90-120)
[2019-01-24 07:10] LABS: CARBON DIOXIDE 23.1 mmol/L (21.0-32.0); POTASSIUM - SERUM 2.7 mmol/L (3.5-5.1); TROPONIN-I < 0.017 ng/mL (0.000-0.060)
--- NOTE | 2019-01-24 07:30 | NUR ---
UPDATE CALLED TO DR. MORIN, NEW ORDERS RECIEVED,
[2019-01-24 09:48] LABS: CKMB 3.3 U/L (0.0-3.6); CREATINE KINASE 63 UL (21-232); TROPONIN-I < 0.017 ng/mL (0.000-0.060)
--- NOTE | 2019-01-24 11:00 | NUR ---
DR. PRABHAKAR AT BEDSIDE, UPDATE GIVEN, NEW ORDERS RECIEVED
--- NOTE | 2019-01-24 11:15 | NUR ---
LUNCH TRAY GIVEN TO PT, 45% EATEN
--- NOTE | 2019-01-24 11:30 | NUR ---
PT C/O OF CHEST PAIN AND NAUSEA, PRN PAIN/NAUSEA MED GIVEN
--- NOTE | 2019-01-24 13:03 | NUR ---
PT RESTING AT THIS TIME, WILL CON'T TO MONITOR
--- NOTE | 2019-01-24 13:13 | NUR ---
REPORT CALLED TO ALEX. TRANSFERED VIA BED TO 213
--- NOTE | 2019-01-24 13:20 | NUR ---
PT ARRIVED TO UNIT BY BED, ASSISTED BY ICU NURSES. PT RESTING PEACEFULLY, DENIES ANY NEEDS AT THIS TIME, WILL CONT TO FOLLOW PLAN OF CARE
[2019-01-24 15:35] LABS: CREATINE KINASE 96 UL (21-232)
[2019-01-24 15:39] LABS: TROPONIN-I < 0.017 ng/mL (0.000-0.060)
[2019-01-24 17:46] LABS: ANION GAP 11.9 mmol/L (8-16); CALCIUM 7.4 mg/dL (8.5-10.1); CARBON DIOXIDE 21.7 mmol/L (21.0-32.0); CREATININE - SERUM 1.3 mg/dL (0.6-1.3); MAGNESIUM - SERUM 1.7 mg/dL (1.8-2.4)
[2019-01-24 17:50] LABS: POTASSIUM - SERUM 3.6 mmol/L (3.5-5.1)
--- NOTE | 2019-01-24 23:09 | NUR ---
RESTARTED IV TIMES TWO TRIES ...SUCESS WITH 22 TO RT FORARM FLUSHED WITH SALINE AND OPSITE ARTEM
--- NOTE | 2019-01-25 02:22 | NUR ---
PT LOST CONTROL OF BOWELS HAD ACCIDENT IN BED. STOOL DARK GREEN AND BLACK. PT HAS PRESSURE ULCER TO BUTTOCKS 4INCHES LONG 2INCHES WIDE INCH DEEP. BLACK ESCAR TISSUE HANGING OFF WITH PINK AND WHITE FLESH EXPOSED. PT COMPLAINS OF PAIN IN BUTTOCK AREA AND LAYS ON SIDE TO EASE PAIN. WOUND CONSULT PUT IN. PT WEAK AND UNABLE TO STAND FOR SHORT PERIODS OF TIME. BED LOW CALL LIGHT WITHIN REACH. WILL CONTINUE TO MONITOR.
[2019-01-25 05:27] VITALS: BP 93/63
[2019-01-25 06:06] LABS: BASOPHILS 0.2 % (0-2); EOSINOPHILS 0.9 % (0-7); HEMATOCRIT 26.3 % (42.0-54.0); HEMOGLOBIN 8.8 g/dL (13.5-17.5); IMMATURE GRANULOCYTES 0.3 % (0-5); LYMPHOCYTES 13.4 % (15-50); MCHC 33.5 g/dL (31.0-37.0); MCV 74.7 fL (80.0-100.0); MEAN PLATELET VOLUME 9.4 fL (7.4-10.4); NEUTROPHILS 80.2 % (40-80); RBC 3.52 10x6/uL (4.20-6.10); RDW 15.2 % (11.5-14.5); WBC 11.7 10x3/uL (4.8-10.8)
[2019-01-25 06:08] LABS: PLATELET COUNT 293 10x3/uL (130-400)
--- NOTE | 2019-01-25 07:15 | NUR ---
REPORT RECIEVED FROM SILICA FILTER OPERATOR. PATIENT LAYING IN BED ON RT SIDE WITH EYES CLOSED AND BREATHING EVENLY. WILL CONTINUE WITH PLAN OF CARE. SR UP X 2 BED IN LOW POSTION AND CALL LIGHT IN REACH.
[2019-01-25 09:26] VITALS: BP 96/64
--- NOTE | 2019-01-25 15:53 | NUR ---
PATIENT REFUSED SHOWER . COMPLETE LINEN CHANGE DONE. PATIENT DENIES ANY NEEDS OR PAIN. WILL CONTINUE TO MONITOR. SR UP X 2 BED IN LOW POSTION AND CALL LIGHT IN REACH.
[2019-01-25 16:37] LABS: CKMB 1.4 U/L (0.0-3.6); CREATINE KINASE 80 UL (21-232)
[2019-01-25 16:48] LABS: TROPONIN-I < 0.017 ng/mL (0.000-0.060)
[2019-01-25 17:09] VITALS: BP 106/64
[2019-01-25 20:00] VITALS: BP 103/72
--- NOTE | 2019-01-25 21:45 | NUR ---
PT COMPLAING OF PAIN AND WEAKNESS TEMP 103.0 PAGED CHERYL SOL. NEW ORDERS PUT IN. FLU, BLOOD CULTURES, URINE CULTURES, TYLENOL, AND ZITHROMAX. SEE MAR. PT LAYING IN BED. RR EVEN AND UNLABORED. BED LOW CALL LIGHT WITHIN REEACH. WILL CONTINUE TO MONITOR.
[2019-01-25 22:10] LABS: CREATINE KINASE 64 UL (21-232)
[2019-01-25 22:11] LABS: TROPONIN-I < 0.017 ng/mL (0.000-0.060)
--- NOTE | 2019-01-25 23:15 | NUR ---
PT TEMP 98.8. PT HAS N,V,D. PRN PAIN MEDS GIVEN. WILL CONTINUE TO MONITOR.
[2019-01-26] VITALS: BP 103/67; BP 90/51
--- NOTE | 2019-01-26 01:30 | NUR ---
PT VOMITING IN TRASH CAN. WILL CONTINUE TO MONITOR.
--- NOTE | 2019-01-26 01:34 | NUR ---
PT REQUESTING PAIN MEDICATION. PRN PAIN MED GIVEN. WILL CONTINUE TO MONITOR.
--- NOTE | 2019-01-26 03:30 | NUR ---
PT UP WALKING IN HALLWAY TO BACK OF UNIT WANTING MILK AND CHICKEN BROTH. PT VERY UNPATIENT. ASSISTED PT BACK TO ROOM AND BROUGHT PT MILK AND BROTH WITH CRACKERS. WILL CONTINUE TO MONITOR.
[2019-01-26 04:00] VITALS: BP 92/50
--- NOTE | 2019-01-26 04:16 | NUR ---
I have reviewed this patient and I concur with the Shift Assessment completed by the Licensed Practical Nurse today this shift.
--- NOTE | 2019-01-26 06:37 | NUR ---
CHANGED PT'S MEPIPLEX TO BUTTOCKS. GREEN AND YELLOW DRAINAGE ON PAD. SCAB OF ESCAR BARELY HANGING ON TO WOUND. FOUL ODOR COMING FROM WOUND. WILL CONTINUE TO MONITOR.
[2019-01-26 06:39] LABS: BASOPHILS 0.2 % (0-2); EOSINOPHILS 0.5 % (0-7); HEMATOCRIT 29.1 % (42.0-54.0); HEMOGLOBIN 9.5 g/dL (13.5-17.5); IMMATURE GRANULOCYTES 0.2 % (0-5); LYMPHOCYTES 19.1 % (15-50); MCH 24.6 pg (26.0-34.0); MCHC 32.6 g/dL (31.0-37.0); MCV 75.4 fL (80.0-100.0); MEAN PLATELET VOLUME 9.7 fL (7.4-10.4); PLATELET COUNT 303 10x3/uL (130-400); RBC 3.86 10x6/uL (4.20-6.10); RDW 15.6 % (11.5-14.5); WBC 9.9 10x3/uL (4.8-10.8)
[2019-01-26 07:06] LABS: ALBUMIN 1.8 g/dL (3.4-5.0); ALKALINE PHOSPHATASE 135 U/L (46-116); ALT (SGPT) 24 U/L (10-68); BILIRUBIN - TOTAL 0.12 mg/dL (0.2-1.3); CALCIUM 8.2 mg/dL (8.5-10.1); CARBON DIOXIDE 22.2 mmol/L (21.0-32.0); CHLORIDE - SERUM 108 mmol/L (98-107); CREATINE KINASE 68 UL (21-232); CREATININE - SERUM 1.1 mg/dL (0.6-1.3); GLUCOSE 260 mg/dL (74-106); POTASSIUM - SERUM 3.3 mmol/L (3.5-5.1); PROTEIN - SERUM 6.9 g/dL (6.4-8.2); SODIUM 142 mmol/L (136-145); eGFR NON AFRICAN AMERICAN 78 mL/min (90-120)
[2019-01-26 07:08] LABS: CALC OSMOLALITY 294 mosm/kg (275-300); TROPONIN-I < 0.017 ng/mL (0.000-0.060); UREA NITROGEN 21 mg/dL (7-18)
--- NOTE | 2019-01-26 07:15 | NUR ---
REPORT RECEIVED FROM STORE ADMINISTRATIVE ASSISTANT. PATIENT IS LAYING IN BED WITH EYES CLOSED AND BREATHING EVENLY. VSS. WILL CONTINUE WITH PLAN OF CARE. BED IN LOW POSTION AND CALL LIGHT IN REACH.
[2019-01-26 08:17] VITALS: BP 128/62
--- NOTE | 2019-01-26 08:30 | NUR ---
PATIENT ASKING FOR MULTIPLE SNACKS AND ADDTIONAL FOOD. FBS THIS AM WAS 494. SPOKE WITH FISH HOUSE WORKER GRACE. SHE THEN VISITED WITH PATIENT. PATIENT MAY HAVE FOR SUPPLEMENTAL FOOD IF CONTRACT TECHNICIAN SALAD, BOILED EGGS, EXTRA MEAT ON FOOD TRAYS, SUGAR FREE JELLO/PUDDING.
--- NOTE | 2019-01-26 11:51 | NUR ---
Pt was admitted to hospital on 01/23/19 with an unstageable pressure injury on his coccyx measuring 5cm x 3cm. There is thick leathery brown escar partially covering the wound bed and a moderate serous drainage with no odor. Recommendations: -Have pt turn/reposition himself frequently while in bed (he is able to do so as he is fully ambulatory) -Every other day dressing changes using Plurogel Wound care will continue to monitor
[2019-01-26 12:22] VITALS: BP 122/64
[2019-01-26 13:31] VITALS: Ht 185.4 cm; Wt 52.7 kg
--- NOTE | 2019-01-26 14:41 | NUR ---
Pt is on a diabetic diet and pt is eating 100% of meals and wanting large portions and snacks between meals. Spoke with pt about nutrition and assisted pt with menu. Ordered double and tripled meats and nonstarchy vegetables. Encouraged pt to have noncarbohydrate sources for snacks RD following
--- NOTE | 2019-01-26 14:48 | NUR ---
PATIENT REQUESTED SNACK. DIETARY REQUEST SENT FOR TURKEY SANDWICH AND SUGAR FREE PUDDING.
[2019-01-26 16:08] VITALS: BP 99/62
--- NOTE | 2019-01-26 19:45 | NUR ---
PT IN ROOM STATING, I'M LEAVING MY MOM IS COMING TO PICK ME UP." PT UNDER IMPRESSION THAT PAIN MEDICATION HAD BEEN DC'D. EXPLAINED TO PT I HAVE NO ORDERS STATING THAT PAIN MEDICATION HAS BEEN DC'D. ENCOURGED PT TO STAY. EXPLAINED WE WILL REESTABLISH IV AND CONTINUE TREATMENT. PT STATES HE WILL STAY. WILL CONTINUE TO MONITOR.
[2019-01-26 20:00] VITALS: BP 113/67; BP 158/63
--- NOTE | 2019-01-26 20:01 | NUR ---
PT WALKED UP TO NURSE'S STATION AND REQUESTED CARLIE. GAVE PT CARLIE. WILL CONTINUE TO MONITOR.
--- NOTE | 2019-01-26 20:20 | NUR ---
ANSWERED PT CALL LIGHT. PT REQUESTING CHICKEN BROTH AND CRACKERS. CRACKERS AND BROTH GIVEN. WILL CONTINUE TO MONITOR.
--- NOTE | 2019-01-26 21:25 | NUR ---
22G IV ESTABLISHED IN RIGHT AC. IV PATENT AND DRESSING INTACT. PRN PAIN MEDICATION GIVEN. BED LOW CALL LIGHT WITHIN REACH. WILL CONTINUE TO MONITOR.
--- NOTE | 2019-01-26 22:00 | NUR ---
PT LUIS MANUEL SEXTON. WILL CONTINUE TO MONITOR.
--- NOTE | 2019-01-26 23:02 | NUR ---
PT WALKED UP TO NURSE'S STATION AND REQUESTED PUDDING. EDUCATED PT THAT PUDDING IS HIGH IN SUGAR THAT I WOULD LOOK AND SEE IF WE HAD SUGAR FREE PUDDING IN STOCK. NO SUGAR FREE PUDDING. PT FRUSTRATED. WILL CONTINUE TO MONITOR.
[2019-01-27 00:58] LABS: APPEARANCE CLEAR (CLEAR); BILIRUBIN NEGATIVE (NEGATIVE); COLOR YELLOW (YELLOW); GLUCOSE 1000 mg/dL (NEGATIVE); KETONE NEGATIVE (NEGATIVE); NITRITE NEGATIVE (NEGATIVE); PROTEIN NEGATIVE (NEGATIVE); UROBILINOGEN NORMAL (NORMAL)
--- NOTE | 2019-01-27 01:06 | NUR ---
PT WALKED UP TO NURSE'S STATION AND DEMANDED CHICKEN BROTH AND CRACKERS. ASKED PT TO WAIT IN HIS ROOM. PT STATES, "I DON'T WANT ANY PAIN MEDS OR ANY THING FROM YOU PEOPLE!" PT WALKED BACK TO ROOM AND SLAMMED DOOR TO ROOM. WILL CONTINUE TO MONITOR.
--- NOTE | 2019-01-27 01:42 | NUR ---
WENT TO PT'S ROOM TO BRING REQUESTED CHICKEN BROTH AND PAIN MEDICATION WITH WITNESS DUSTIN CARY. PT STATES, "I DON'T WANT ANY OF THAT SHIT. GET UP OUTTA HERE. YA'LL AIN'T CHECKING MY BLOOD SUGAR OR ANYTHING." PT LAYIN IN BED. BED LOW CALL LIGHT WITHIN REACH. WILL CONTINUE TO MONITOR.
--- NOTE | 2019-01-27 02:51 | NUR ---
PT CAME OUT OF ROOM INTO HALLWAY AND STATES, " DO YOU THINK I CAN GET MY PAIN MEDICINE OR IS THAT GONNA BE TO MUCH TROUBLE FOR YOU?" PT WALKED TO ROOM SLAMMED DOOR. REPLIED TO PT THAT IT WOULD NOT BE IN TROUBLE AT ALL. WILL CONTINUE TO MONITIOR.
[2019-01-27 04:23] VITALS: BP 123/81
--- NOTE | 2019-01-27 04:27 | NUR ---
PT REQUESTEDICE CREAM. SUGAR FREE ICE CREAM GIVEN TO PT. WILL CONTINUE TO MONITOR.
[2019-01-27 05:53] LABS: ALBUMIN 1.7 g/dL (3.4-5.0); ALKALINE PHOSPHATASE 134 U/L (46-116); ALT (SGPT) 27 U/L (10-68); BILIRUBIN - TOTAL 0.03 mg/dL (0.2-1.3); CALCIUM 8.3 mg/dL (8.5-10.1); CARBON DIOXIDE 20.2 mmol/L (21.0-32.0); CHLORIDE - SERUM 113 mmol/L (98-107); CREATININE - SERUM 0.9 mg/dL (0.6-1.3); PROTEIN - SERUM 6.6 g/dL (6.4-8.2); SODIUM 145 mmol/L (136-145); UREA NITROGEN 21 mg/dL (7-18); eGFR NON AFRICAN AMERICAN > 90 mL/min (90-120)
[2019-01-27 05:55] LABS: CALC OSMOLALITY 291 mosm/kg (275-300); GLUCOSE 102 mg/dL (74-106)
[2019-01-27 06:18] LABS: BASOPHILS 0.4 % (0-2); EOSINOPHILS 4.1 % (0-7); HEMATOCRIT 26.1 % (42.0-54.0); HEMOGLOBIN 8.6 g/dL (13.5-17.5); IMMATURE GRANULOCYTES 0.2 % (0-5); LYMPHOCYTES 25.4 % (15-50); MCH 24.8 pg (26.0-34.0); MCV 75.2 fL (80.0-100.0); MEAN PLATELET VOLUME 10.1 fL (7.4-10.4); MONOCYTES 5.9 % (2-11); PLATELET COUNT 247 10x3/uL (130-400); RBC 3.47 10x6/uL (4.20-6.10); RDW 16.1 % (11.5-14.5); WBC 8.5 10x3/uL (4.8-10.8)
--- NOTE | 2019-01-27 06:40 | NUR ---
PT GIVEN CHICKEN BROTH AND CRACKERS WITH 2 MILKS. WILL CONTINUE TO MONITOR.
--- NOTE | 2019-01-27 07:55 | NUR ---
PT AT DESK WANTING PAIN MEDICATION. IV DOES NOT FLUSH. IV RESTARTED IN L FA WITH 20 G 1 11/08. MS 2 MG GIVEN.
[2019-01-27 09:23] VITALS: BP 85/53
[2019-01-27 11:38] VITALS: BP 89/59
--- NOTE | 2019-01-27 12:42 | NUR ---
Velia LUNA APN CALLED ABOUT BS. NO FURTHER ORDERS.
[2019-01-27 16:15] VITALS: BP 88/55
--- NOTE | 2019-01-27 19:15 | NUR ---
WALKING ROUNDS AND REPORT COMPLETED. PT RESTING IN BED. NO DISTRESS. SALINE LOCK TO LFA. NONLABORED RESPIRATIONS ON ROOM AIR. MONITOR AND CPOC.
[2019-01-27 20:00] VITALS: BP 120/74
--- NOTE | 2019-01-27 22:49 | NUR ---
BEDTIME MEDS GIVEN. PT'S FSBS 251, 10 UNITS SLIDING SCALE GIVEN. PT ASKING FOR SANDWHICHES AND MILK AND THEN SAYING HE CANNOT SWALLOW THEM AND SPITTING IT OUT AND THROWING AWAY ALL THE NEWLY BROUGHT FOOD. IV ZITHROMAX STARTED, THEN DECREASED BECAUSE PT SAYS IT IS BURNING. Y-SITED IN TO DECREASE BURNING. OTHERWISE PT SAYING HE WANTS IT STOPPED. WILL SEE IF THIS HELPS.
[2019-01-28] VITALS: BP 118/69
--- NOTE | 2019-01-28 01:00 | NUR ---
PT OUT OF ROOM SAYING HE HAD DIARRHEA ALL OVER ROOM. THAT HE WOKE UP AND GOT UP TO GO TO BATHROOM AND HAD INCONTINENCE OF BOWEL ALL OVER FLOOR AND TOILET. PT'S IV ZITHROMAX INFUSING AT SLOW RATE D/T PT C/O BURNING AND HE NOW FEELS IT CAUSED THE DIARRHEA AND WANTS NO MORE IV ABT UNTIL HE TALKS TO MD. ASSISTANCE PROVIDED FOR PT TO SHOWER AND BED TO BE CHANGED. OPEN WOUND TO LEFT BUTTOCK NOTED. SCABBED AREA OF WOUND HAD SLOUGHED OFF AND WAS HANGING BY A SMALL PIECE OF SKIN. USING A SCAPEL, REMOVED SKIN PIECE AND APPLIED MEPILEX DRESSING TO WOUND.
--- NOTE | 2019-01-28 02:58 | NUR ---
PT MEDICATED WITH IV MORPHINE AND IV ZOFRAN FOR PAIN/NAUSEA. HE HAS BEEN EATING BROTH AND SALTINE CRACKERS.
--- NOTE | 2019-01-28 05:54 | NUR ---
IV TO LFA INFILRATED. REMOVED OLD IV. ATTEMPTS X 3 TO SITE NEW IV. NO SUCCESS. PT NOW OUT AT STATION SAYING HE THREW UP A BURRITO HIS BROTHER BROUGHT HIM AND NOW IS REQUESTING MILK.
[2019-01-28 06:08] LABS: INR 0.96 (0.85-1.17); PROTIME 12.3 SECONDS (11.6-15.0)
[2019-01-28 06:15] LABS: BASOPHILS 0.2 % (0-2); EOSINOPHILS 2.1 % (0-7); HEMATOCRIT 26.3 % (42.0-54.0); HEMOGLOBIN 8.6 g/dL (13.5-17.5); IMMATURE GRANULOCYTES 0.2 % (0-5); LYMPHOCYTES 24.9 % (15-50); MCH 24.7 pg (26.0-34.0); MCHC 32.7 g/dL (31.0-37.0); MCV 75.6 fL (80.0-100.0); MEAN PLATELET VOLUME 9.9 fL (7.4-10.4); MONOCYTES 4.9 % (2-11); NEUTROPHILS 67.7 % (40-80); PLATELET COUNT 289 10x3/uL (130-400); RBC 3.48 10x6/uL (4.20-6.10); RDW 16.1 % (11.5-14.5); WBC 10.3 10x3/uL (4.8-10.8)
[2019-01-28 06:36] LABS: ALBUMIN 1.8 g/dL (3.4-5.0); ALKALINE PHOSPHATASE 156 U/L (46-116); AMYLASE - SERUM 83 U/L (25-115); BILIRUBIN - TOTAL 0.08 mg/dL (0.2-1.3); CALCIUM 8.4 mg/dL (8.5-10.1); CHLORIDE - SERUM 109 mmol/L (98-107); CHOL - HDL RATIO 1.9 ratio (2.3-4.9); CHOLESTEROL, TOTAL 108 mg/dL (0-200); CREATININE - SERUM 0.8 mg/dL (0.6-1.3); FERRITIN 135 ng/mL (3-244); HDL CHOLESTEROL 56 mg/dL (32-96); LDL CHOLESTEROL 40 mg/dL (0-100); LDL-HDL RATIO 0.7 ratio (1.5-3.5); LIPASE 188 U/L (73-393); POTASSIUM - SERUM 3.9 mmol/L (3.5-5.1); PROTEIN - SERUM 6.9 g/dL (6.4-8.2); SODIUM 143 mmol/L (136-145); TRIGLYCERIDE 63 mg/dL (30-200); UREA NITROGEN 18 mg/dL (7-18); eGFR NON AFRICAN AMERICAN > 90 mL/min (90-120)
[2019-01-28 06:37] LABS: % SATURATION 4 % (15-55); IRON 11 ug/dl (35-150); TOTAL IRON BIND CAPACITY 222 ug/dl (260-445); UNSAT IRON BIND CAPACITY 211 ug/dl (150-375)
[2019-01-28 06:39] LABS: ALT (SGPT) 65 U/L (10-68); CALC OSMOLALITY 284 mosm/kg (275-300); CARBON DIOXIDE 26.5 mmol/L (21.0-32.0); GLUCOSE 61 mg/dL (74-106)
--- NOTE | 2019-01-28 06:45 | NUR ---
WHILE THI9S NURSE RECIEVING REPORT FROM LEASING AGENT, PATIENT APPROACHED NURSES STATION ASKING NIGHT NURSE, SUSAN RN, HOW COME SHE HAD NOT RE-SIGHTED IV AND REQUESTING MORPHINE BE RE-INJECTED BECAUSE"IT DID'NT GO IN." SUSAN APOLOGIZED AND STATED THAT SHE WAS GIVING REPORT. I STATED THAT SOON REPORT WAS COMPLETED I WOULD TAKE CARE OF HIM. HE THAN BEGAN PACING AND CURSING. I ASKED PATIENT TO PLEASE STOP AND RETURN TO HIS ROOM HE WAS DISTURBING STAFF AND PATIENTS. PATIENT " FUCK YOU CUNT STUPID BITCH I DONT WANT YOU FOR MY NURSE TODAY. WHERE IS THE NURSE IN CHARGE? ILL TELL HER AND IM GOING HAVE MY SISTER COME UP HERE AND BEAT YOUR ASS." PATIENT WALKED RAPIDLY AROUND NURSES STATION AND SPOKE WITH ANGELA JOHN CHARGE NURSE AND PATIENT WAS RE-ASSIGNED TO ANOTHER RN. PATIENT SAID "FUCK YALL" AND WALKED BACK INTO ROOM.
--- NOTE | 2019-01-28 07:05 | NUR ---
PATIENT WALKED RAPIDLY BACK UP TO COUNTER DEMANDING IV BE RE-STARTED AND HE RECIEVE MORPHINE DOSE AGAIN. LUIS MIGUEL MILLER AWAY FROM COUNTER. ANGELA DAVIS AND I AT NURSES STATION. HE WAS INFORMED THAT LUIS MIGUEL WILL BE WITH HIM SHORTLY. HE LOOKED AT ME AND POINTED HE FINGER AND STATED" GIVE ME THAT PAPER TO LEAVE HERE AND MY SISTER AND I ARE GOING TO BE IN THE PARKING LOT TONIGHT WHEN YOU GET OFF WORK AND BEAT YOUR CUNT ASS." LUIS MIGUEL RN AHD PATIENT SIGN AMA FORM AND SECURITY CAllED . PATIENT TOLD SECURITY THAT HE WAS GOING TO BEAT HIS PUNK ASS. PATIENT WAS ESCORTED BY SECURITY TO FRONT DOOR WERE HE WAS PICKED UP BY A PRIVATE VEHICLE. ALSO NOTED THAT [facility] HEARD AND WITNESSED MOST OF ALL THIS INCIDENT.
--- NOTE | 2019-01-29 09:03 | MORECARE ---
CASE MANAGEMENT DISCHARGE SUMMARY PATIENT: JODI WEISS UNIT: [id number] ADM DATE: 01/23/19 AGE: 43 : 79 SEX: M ROOM/BED: D.2138 AUTHOR: JENI GREEN PHYSICIAN: REFERRING PHYSICIAN: WILI MORIN MD DATE OF SERVICE: 01/29/19 Discharge Plan Patient Name: JODI WEISS Facility: [facility]:[place] : 1975 Planned Disposition: Left Against Medical Advice Anticipated Discharge Date: 01/28/19 Discharge Date: 01/28/2019 Expected LOS: 5 Initial Reviewer: [email or web address] Initial Review Date: 01/29/2019 Generated: 01/29/19 10:03 am Patient Name: JODI WEISS Page 89407 at 0903 All edits/amendments must be made on the electronic document DICTATION DATE: 01/29/19901 WAX PATTERN REPAIRER: DM 01/29/19901 RPT#: [id number] DC DATE:01/28/19 STATUS: DIS IN [facility] [address] [place] [address] END OF REPORT
== END 2019-01-28 07:20 | disposition left against medical advice (07) | DRG 638 ==
LOC: D.ER 20:43 → D.ICU 23:04 → D.EDHOLD 23:04 → D.M2 23:04 → D.ICU 23:16 → D.M2 01-24 13:14
PROVIDERS: Family Medicine; Internal Medicine Gastroenterology; ADMIT Emergency Medicine; ATTEND Emergency Medicine
DX: E10.10 Type 1 diabetes mellitus with ketoacidosis without coma (principal); N17.9 Acute kidney failure, unspecified; I31.3 Pericardial effusion (noninflammatory); Z79.4 Long term (current) use of insulin; E87.6 Hypokalemia; Z91.19 Patient's noncompliance with other medical treatment and regimen; I10 Essential (primary) hypertension; F12.10 Cannabis abuse, uncomplicated; I95.9 Hypotension, unspecified; R55 Syncope and collapse; E86.9 Volume depletion, unspecified; K21.9 Gastro-esophageal reflux disease without esophagitis; R13.12 Dysphagia, oropharyngeal phase; D50.9 Iron deficiency anemia, unspecified

== ENCOUNTER 2019-01-31 20:53 | Inpatient (IN) | payer MEDICAID ==
[~2019-01-31] VITALS: Ht 185.4 cm; Wt 55.5 kg
[2019-01-31 21:29] LABS: APPEARANCE HAZY (CLEAR); BILIRUBIN NEGATIVE (NEGATIVE); COLOR YELLOW (YELLOW); GLUCOSE NEGATIVE (NEGATIVE); KETONE NEGATIVE (NEGATIVE); NITRITE NEGATIVE (NEGATIVE); PROTEIN TRACE mg/dL (NEGATIVE); UROBILINOGEN NORMAL (NORMAL)
[2019-01-31 21:30] LABS: WHITE CELLS - URINE >50 /hpf (0-5)
[2019-01-31 21:31] LABS: BACTERIA MODERATE /hpf (NONE SEEN); RED CELLS - URINE 0-5 /hpf (0-5); YEAST >1+ /hpf (NONE SEEN)
[2019-01-31 21:41] LABS: UDS - AMPHET POSITIVE QUAL (NEGATIVE); UDS - BARB NEGATIVE QUAL (NEGATIVE); UDS - BENZO NEGATIVE QUAL (NEGATIVE); UDS - COCAINE NEGATIVE QUAL (NEGATIVE); UDS - OPIATE NEGATIVE QUAL (NEGATIVE); UDS - PCP NEGATIVE QUAL (NEGATIVE); UDS - THC POSITIVE QUAL (NEGATIVE)
[2019-01-31 21:42] LABS: BASOPHILS 0.2 % (0-2); EOSINOPHILS 0.1 % (0-7); HEMATOCRIT 30.8 % (42.0-54.0); HEMOGLOBIN 10.1 g/dL (13.5-17.5); IMMATURE GRANULOCYTES 0.1 % (0-5); LYMPHOCYTES 7.4 % (15-50); MCH 25.3 pg (26.0-34.0); MCHC 32.8 g/dL (31.0-37.0); MEAN PLATELET VOLUME 9.6 fL (7.4-10.4); MONOCYTES 8.2 % (2-11); RDW 15.8 % (11.5-14.5); WBC 11.6 10x3/uL (4.8-10.8)
[2019-01-31 21:51] LABS: PLATELET COUNT 395 10x3/uL (130-400)
[2019-01-31 21:54] LABS: KETONE - SERUM NEGATIVE (NEGATIVE)
[2019-01-31 21:58] LABS: ALBUMIN 1.9 g/dL (3.4-5.0); ALKALINE PHOSPHATASE 177 U/L (46-116); ALT (SGPT) 61 U/L (10-68); BILIRUBIN - TOTAL 0.21 mg/dL (0.2-1.3); CALC OSMOLALITY 285 mosm/kg (275-300); CALCIUM 8.7 mg/dL (8.5-10.1); CARBON DIOXIDE 28.5 mmol/L (21.0-32.0); CHLORIDE - SERUM 100 mmol/L (98-107); GLUCOSE 174 mg/dL (74-106); POTASSIUM - SERUM 4.2 mmol/L (3.5-5.1); PROTEIN - SERUM 7.5 g/dL (6.4-8.2); SODIUM 140 mmol/L (136-145); UREA NITROGEN 21 mg/dL (7-18); eGFR NON AFRICAN AMERICAN 87 mL/min (90-120)
[2019-01-31 21:59] LABS: MAGNESIUM - SERUM 1.4 mg/dL (1.8-2.4)
--- NOTE | 2019-01-31 22:43 | NUR ---
PERICARE PROVIDED TO PT, BED LINENS CHANGED, PT TOLERATED WELL.
[2019-01-31 23:00] VITALS: BP 108/70
[2019-02-01] VITALS (26 sets, daily range): BP systolic 88–140; BP diastolic 56–106; Ht 185.4 cm; Wt 55.5 kg
--- NOTE | 2019-02-01 03:06 | NUR ---
Reassessment completed per flowsheet, no changes from previous assessment. Patient opens eyes to voice, but does not track. Pupils 5mm with very sluggish response. S1/S2 noted Sinus Tach on telemetry with HR 128. Breathing is shallow/unlabored on room air with O2 sat 94%, lung sounds clear bilateral upper with diminished mid and lower. All pulses palpable with cap refill < 3 sec, skin warm/dry. Unable to assess pain at this time, repositioned for comfort. See flowsheet for details, will continue to monitor.
[2019-02-01 04:49] LABS: BASOPHILS 0.1 % (0-2); EOSINOPHILS 0 % (0-7); HEMATOCRIT 24.7 % (42.0-54.0); HEMOGLOBIN 8.1 g/dL (13.5-17.5); IMMATURE GRANULOCYTES 0.2 % (0-5); LYMPHOCYTES 9.8 % (15-50); MCH 24.8 pg (26.0-34.0); MCHC 32.8 g/dL (31.0-37.0); MCV 75.8 fL (80.0-100.0); MEAN PLATELET VOLUME 9.5 fL (7.4-10.4); MONOCYTES 8.9 % (2-11); RBC 3.26 10x6/uL (4.20-6.10); RDW 15.7 % (11.5-14.5)
[2019-02-01 04:55] LABS: PLATELET COUNT 295 10x3/uL (130-400); WBC 8.1 10x3/uL (4.8-10.8)
[2019-02-01 05:01] LABS: CALC OSMOLALITY 283 mosm/kg (275-300); CALCIUM 7.7 mg/dL (8.5-10.1); CARBON DIOXIDE 27.8 mmol/L (21.0-32.0); CHLORIDE - SERUM 104 mmol/L (98-107); CREATININE - SERUM 0.8 mg/dL (0.6-1.3); GLUCOSE 144 mg/dL (74-106); SODIUM 140 mmol/L (136-145); UREA NITROGEN 18 mg/dL (7-18); eGFR NON AFRICAN AMERICAN > 90 mL/min (90-120)
[2019-02-01 05:05] LABS: POTASSIUM - SERUM 3.3 mmol/L (3.5-5.1)
--- NOTE | 2019-02-01 05:10 | NUR ---
Patient laying in bed with eyes closed, does not respond to commands/track with eyes. Upper extremity movement noted, does not appear purposeful. All pulses palpable, remains Sinus Tach on telemetry. No further needs and will continue to monitor.
--- NOTE | 2019-02-01 13:00 | NUR ---
0700 IN BED APPEARS ASLEEP DOES NOT FOLLOW COMMANDS, NO TRACKING ASSESSMENT COMPLETE
--- NOTE | 2019-02-01 13:01 | NUR ---
0900 WAKING UP CONFUSED PULLING MONITOR WIRES OFF ATTEMPTING TO PULL IV OUT ATTEMPTED TO REORIENT. NO RESPONSE FROM PATIENT
--- NOTE | 2019-02-01 13:03 | NUR ---
1100 WILL NOT KEEP TELEMETRY WIRES OR 02 SAT MONITOR ON CONFUSED REPOSITIONED IN BED PLACED INCOTINENT BRIEFS PLACED ON PATIENT APPLIED TULIO SOFT WRIST RESTRAINTS
--- NOTE | 2019-02-01 13:06 | NUR ---
1300 BECOMING MORE AWAKE CLIMBING OUT OF BED BED ALARM REMAINS ON REPOSITIONED IN BED TOTALLY CONFUSED NO SPEECH NOTED MAKES GROWLING SOUNDS WITH VOICE.
--- NOTE | 2019-02-01 14:49 | MORECARE ---
CASE MANAGEMENT DISCHARGE SUMMARY PATIENT: JODI WEISS UNIT: [id number] ADM DATE: 01/31/19 AGE: 43 : 79 SEX: M ROOM/BED: D.2311 AUTHOR: JENI GREEN PHYSICIAN: REFERRING PHYSICIAN: TANYA ANDRE MD DATE OF SERVICE: 02/01/19 Discharge Plan Patient Name: JODI WEISS [facility] [facility] 1975 Planned Disposition: Anticipated Discharge Date: Discharge Date: Expected LOS: Initial Reviewer: [email or web address] Initial Review Date: 02/01/2019 Generated: 02/01/19 3:49 pm Comments DCP- Discharge Planning Updated by [id number]: Sharifa Ryan on 02/01/19 1:[address] CM attempted to visit with patient regarding discharge planning/ needs. Patient currently confused and unable to answer questions. No family available. CM will continue to follow and assist as needed with discharge planning / needs Patient Name: JODI WEISS Page [phone] at 1449 All edits/amendments must be made on the electronic document DICTATION DATE: 02/01/191448 OILING MACHINE OPERATOR: DEMETRIS 02/01/19 144 RPT#: [id number] DC DATE: STATUS: ADM IN [facility] [address] [place] [address] END OF REPORT
--- NOTE | 2019-02-01 19:10 | NUR ---
Received patient resting in bed with eyes closed, assessment completed per flowsheet. Patient lethargic/disoriented x4, opens eyes to voice but does not track/follow instructions. S1/S2 noted Sinus Tach on telemetry with HR 108, rythmic and regular. Breathing is shallow on room air with O2 sat 96%, lung sounds diminished throughout. Abdomen is flat/soft with bowel sounds active x4, non-tender. All pulses palpable with weakness noted all extremities, skin warm/dry with cap refill < 3 sec. Unable to assess pain at this time, repositioned for comfort. Full bed bath/linen change performed, see flowsheet for details. All VSS and will continue to monitor.
--- NOTE | 2019-02-01 19:25 | NUR ---
1600 DOES NOT FOLLOW COMMANDS CONFUSED
--- NOTE | 2019-02-01 19:27 | NUR ---
1500 AFEBRILE THRASHING IN BED HANGING LEGS OVER RAILS MOUTH WITH IRREGULAR MOVEMENTS AND LIP SMACKING. UNAWARE WHEN SOMEONE IS IN ROOM AND SPEAKING TO HIM
--- NOTE | 2019-02-01 19:30 | NUR ---
1800 DR ANDRE SPOKE WITH PTS MOTHER ON THE PHONE
--- NOTE | 2019-02-01 20:05 | NUR ---
Family at bedside for visitation, discussed plan of care/current status with all questions answered to satisfaction. No further needs and will continue to monitor.
--- NOTE | 2019-02-01 21:00 | NUR ---
Patient laying in bed with eyes closed, opens eyes to voice but does not track/follow instructions. Oral care/repositioning provided, no further needs and will continue to monitor.
[2019-02-01 22:28] LABS: APPEARANCE HAZY (CLEAR); BILIRUBIN NEGATIVE (NEGATIVE); COLOR YELLOW (YELLOW); GLUCOSE NEGATIVE (NEGATIVE); KETONE NEGATIVE (NEGATIVE); NITRITE NEGATIVE (NEGATIVE); PROTEIN 1+ mg/dL (NEGATIVE); SPECIFIC GRAVITY 1.015 (1.005-1.020); UROBILINOGEN NORMAL (NORMAL)
[2019-02-01 22:29] LABS: RED CELLS - URINE 0-5 /hpf (0-5); WHITE CELLS - URINE >50 /hpf (0-5)
[2019-02-01 22:30] LABS: BACTERIA MODERATE /hpf (NONE SEEN); YEAST >1+ /hpf (NONE SEEN)
--- NOTE | 2019-02-01 22:44 | NUR ---
PT PRODUCING URINE AND INCONTINENT OF URINE. PRESSURE ULCER TO COCCYX NOTED. ORDERS FOR RUSSELL RECEIVED AND URINE SAMPLE SENT TO LAB FOR URINALYSIS. PT SITTING UP IN BED, NOT ABLE TO FOLLOW COMMANDS.
--- NOTE | 2019-02-01 23:15 | NUR ---
REASSESSMENT COMPLETED, SEE FLOW SHEET. PT SITTING UP ON SIDE OF BED WHILE RESTRAINED. ATTEMPTS TO PULL AT CATH TUBING. WILL CONTINUE TO OBSERVE.
[2019-02-02] VITALS (26 sets, daily range): BP systolic 80–170; BP diastolic 59–101
--- NOTE | 2019-02-02 01:30 | NUR ---
PT ATTEMPTING TO STAND WHILE RESTRAINED AND GUIDED BACK TO BED WITHOUT DIFFICULTY MULTIPLE TIMES. WILL CONTINUE TO OBSERVE.
[2019-02-02 03:08] LABS: CARBON DIOXIDE 25.5 mmol/L (21.0-32.0); CHLORIDE - SERUM 105 mmol/L (98-107); CREATININE - SERUM 0.9 mg/dL (0.6-1.3); POTASSIUM - SERUM 3.7 mmol/L (3.5-5.1); SODIUM 134 mmol/L (136-145); eGFR NON AFRICAN AMERICAN > 90 mL/min (90-120)
--- NOTE | 2019-02-02 03:10 | NUR ---
REASSESSMENT COMPLETED, SEE FLOW SHEET. CONTINUES TO ATTEMPT TO GET UP BUT EASILY GUIDED BACK TO BED. HAS MOMENTS OF CRYING. WILL CONTINUE TO OBSERVE.
[2019-02-02 03:16] LABS: CALC OSMOLALITY 273 mosm/kg (275-300); GLUCOSE 225 mg/dL (74-106); UREA NITROGEN 9 mg/dL (7-18)
[2019-02-02 03:18] LABS: BASOPHILS 0.3 % (0-2); EOSINOPHILS 0.5 % (0-7); HEMATOCRIT 27.7 % (42.0-54.0); HEMOGLOBIN 8.9 g/dL (13.5-17.5); IMMATURE GRANULOCYTES 0.1 % (0-5); LYMPHOCYTES 16.6 % (15-50); MCH 24.9 pg (26.0-34.0); MCHC 32.1 g/dL (31.0-37.0); MCV 77.4 fL (80.0-100.0); MEAN PLATELET VOLUME 9.6 fL (7.4-10.4); MONOCYTES 10.9 % (2-11); NEUTROPHILS 71.6 % (40-80); PLATELET COUNT 334 10x3/uL (130-400); RBC 3.58 10x6/uL (4.20-6.10); RDW 15.9 % (11.5-14.5); WBC 7.5 10x3/uL (4.8-10.8)
--- NOTE | 2019-02-02 05:33 | NUR ---
PT SITTING ON SIDE OF BED AT THIS TIME MAKING A CRYING SOUNDING MOAN. PT NOT FIGHTING AGAINST RESTRAINTS. PT HAS ATTEMPTED TO PULL RUSSELL. WILL CONTINUE TO OBSERVE.
--- NOTE | 2019-02-02 07:00 | NUR ---
REPORT RECEVED FROM THE OFF GOING RN. SEE FLOW SHEET FOR ASSESSMENT. PT EYES ARE OPEN AND PT MAKES INCOMPREHENSIBLE SOUNDS. PT DOES NOT FOLLOW COMMANDS BUT HE IS ABLE TO FOLLOW SOUNDING OBJECTS THAT MOVE WITH HIS EYS. PT UNABLE TO VOICE NEEDS. PT RESTLESS IN BED MOVING AROUND. PT IN BUE WRIST SOFT RESTRAINTS. FC NOTED WITH YELLOW STRAW URINE. BILATERAL EYES PUPLIS SLUGGISH. PT DOES NOT RESPONDS TO PAIN WITH HIS RIGHT HAND AND BILATERAL FEET. PT DID PULL AWAY FROM PAINFUL STIMULI WITH HIS LEFT HAND. NO POSTURING NOTED. VSS AT THIS TIME. MOTHER AT THE BEDSIDE UPDATED AROUND 0800. CALL LIGHT IN REACH. WILL CONT POC.
--- NOTE | 2019-02-02 10:54 | NUR ---
Nutrition Follow Up: Chart reviewed. Spoke with nursing. Pt continues NPO. No BM since admit Wt stable Labs reviewed Meds noted including D5NS @ 125 ml/hr providing 510 kcal/d Rec advancing LOWELL to ADA if medically feasible. If diet unable to advance within the next 24 hours rec start nutrition support - rec start TF of Glucerna 1.0 @ 20 ml/hr. Advance 10 ml every 6-8 hours as tolerated to goal rate of 75 ml/hr. H2O flushes 15 ml/hr. Goal rate will provide 1800 kcal, 74 g protein per day. Rec if start TF taper IV fluids as TF rate increases. RD following.
--- NOTE | 2019-02-02 11:00 | NUR ---
REASSESSMENT COMPLETED. PT INTERMITTLY FOLLOWING COMMANDS AND ABLE TO MAKE OUT A FEW WORDS, BUT PT PRIMARLY SPEAKS IN GARBLED SPEECH. PT SITTIN UPWRITE AT THE SIDE OF THE BED.
--- NOTE | 2019-02-02 11:17 | NUR ---
PT SITTING AT THE SIDE OF THE BED MUTTERING INCOMPREHENSIBLE SOUNDS BUT ATTEMPTING TO COMMUNICATE. PT REMAINS TO FOLLOW INSTRUCTIONS. GAVE THE PT PEN AND PAPER AND THE PT THREW THE PEN INTENTIONALLY ON THE FLOOR 4 TIMES TRYING WHENEVER I WAS TRYING COMMUNICATE WITH HIM. ONCE THE PEN WAS THROWN AWAY, PT MUMBLED "FUCK YOU". DR ANDRE AT THE PTS BEDSIDE AND ASSESSED THE PT. OK FOR SWALLOW EVAL
--- NOTE | 2019-02-02 11:27 | NUR ---
SPOKE WITH CHAUNCEY REYES WITH ST. HE IS AWARE OF SWALLOW EVAL.
--- NOTE | 2019-02-02 11:50 | NUR ---
SPOKE WITH DR ANDRE ABOUT HIS INSULIN AND THAT OVER NIGHT NURSES HAD TO TREAT HYPOGLYCEMIA X2 LAST NIGHT. HOLD INSULIN FOR 1100.
--- NOTE | 2019-02-02 12:27 | NUR ---
SPEECH THEARPY ASSESSED PT. OK FOR REGULAR FLUIDS AND REGULAR TEXTURE.
--- NOTE | 2019-02-02 12:57 | NUR ---
PT SOMEWHAT FOLLOWING COMMANDS. PT SITTING AT THE SIDE OF THE BED. THIS NURSE FED THE PT WITH NO ISSUES. PT UNRESTRAINED.
--- NOTE | 2019-02-02 14:33 | MORECARE ---
CASE MANAGEMENT DISCHARGE SUMMARY PATIENT: JODI WEISS UNIT: [id number] ADM DATE: 01/31/19 AGE: 43 : [birth year] SEX: M ROOM/BED: D.2311 AUTHOR: JENI GREEN PHYSICIAN: REFERRING PHYSICIAN: TANYA ANDRE MD DATE OF SERVICE: 02/02/19 Discharge Plan Patient Name: JODI WEISS Facility: [facility]:[place] : 1975 Planned Disposition: Nursing Facility M[facility] Cert Anticipated Discharge Date: Discharge Date: Expected LOS: Initial Reviewer: [email or web address] Initial Review Date: 02/02/2019 Generated: 02/02/19 3:33 pm Comments DCP- Discharge Planning Updated by [email or web address]: Sharifa Ryan on 02/01/19 1:[address] CM attempted to visit with patient regarding discharge planning/ needs. Patient currently confused and unable to answer questions. No family available. CM will continue to follow and assist as needed with discharge planning / needs DCPIA - Discharge Planning Initial Assessment Updated by [email or web address]: Sharifa Ryan on 02/02/19 2:30 pm * Is the patient Alert and Oriented? No * How many steps to enter\exit or inside your home? * PCP FRANCHESKA PIERCE * Pharmacy [facility] * Preadmission Environment Home Alone * ADLs Independent * List name and contact numbers for known caregivers / representatives who currently or will assist patient after discharge: ASHLEY WEISS - [facility]- [phone] * Verbal permission to speak to the caregivers and representatives has been obtained from the patient. N/A * Community resources currently utilized None * Additional services required to return to the preadmission environment? No * Can the patient safely return to the preadmission environment? No * Has this patient been hospitalized within the prior 30 days at any hospital? Yes Last DP export: 02/01/19 1:49 p Patient Name: JODI WEISS Page [phone] at 1433 All edits/amendments must be made on the electronic document DICTATION DATE: 02/02/19 143 HYDROLOGIST: DEMETRIS 02/02/191431 RPT#: [id number] DC DATE: STATUS: ADM IN [facility] [address] [facility] [place] [address] END OF REPORT
--- NOTE | 2019-02-02 14:44 | MORECARE ---
CASE MANAGEMENT DISCHARGE SUMMARY PATIENT: JODI WEISS UNIT: [id number] ADM DATE: 01/31/19 AGE: 43 : 79 SEX: M ROOM/BED: D.2311 AUTHOR: PETER,DOC PHYSICIAN: REFERRING PHYSICIAN: TANYA ANDRE MD DATE OF SERVICE: 02/02/19 Discharge Plan Patient Name: JODI WEISS Facility: [facility]:[place] : 1975 Planned Disposition: Nursing Facility [facility] Cert Anticipated Discharge Date: Discharge Date: Expected LOS: Initial Reviewer: [email or web address] Initial Review Date: 02/02/2019 Generated: 02/02/19 3:43 pm Comments DCP- Discharge Planning Updated by [email or web address]: Sharifa Ryan on 02/02/19 1:[address] Patient Name: JODI WEISS Admission Status: ER Accout number: [id number] Admission Date: 01-31-2019 : 1975 Admission Diagnosis:SEPSIS, UNSPECIFIED ORGANISM Attending: TANYA ANDRE Current LOS: 2 Anticipated DC Date: Planned Disposition: Nursing Facility [facility] Cert Primary Insurance: MEDICAID [place] Discharge Planning Comments: CM called and spoke with patients mother Lien Weiss [phone]. Patient isn't able to communicate. CM explained role to Lien and spoke with her regarding discharge planning. CM explained that we had received order for placement to SNF. Lien stated that she didn't have a preference in SNF. She stated she would like a facility local. CM will send out information to all local facilities and first to accept patient. CM gave Lien her contact number if she had any questions. CM will keep in contact with patient's mother regarding placement. CM will continue to follow and assist as needed with discharge planning / needs. Counseling Psychologist: Sharifa Ryan DCP- Discharge Planning Updated by [email or web address]: Sharifa Ryan on 02/01/19 1:[address] CM attempted to visit with patient regarding discharge planning/ needs. Patient currently confused and unable to answer questions. No family available. CM will continue to follow and assist as needed with discharge planning / needs DCPIA - Discharge Planning Initial Assessment Updated by [email or web address]: Sharifa Ryan on 02/02/19 2:30 pm * Is the patient Alert and Oriented? No * How many steps to enter\exit or inside your home? * PCP FRANCHESKA PIERCE * Pharmacy [facility] * Preadmission Environment Home Alone * ADLs Independent * List name and contact numbers for known caregivers / representatives who currently or will assist patient after discharge: LIEN WEISS - [facility]- [phone] * Verbal permission to speak to the caregivers and representatives has been obtained from the patient. N/A * Community resources currently utilized None * Additional services required to return to the preadmission environment? No * Can the patient safely return to the preadmission environment? No * Has this patient been hospitalized within the prior 30 days at any hospital? Yes Last DP export: 02/02/19 1:33 p Patient Name: JODI WEISS Page 50970 at 1444 All edits/amendments must be made on the electronic document DICTATION DATE: 02/02/19 144 VERIFICATION MANAGER: DEMETRIS 02/02/19 1443 RPT#: [id number] DC DATE: STATUS: ADM IN [facility] [address] [place] [address] END OF REPORT
--- NOTE | 2019-02-02 14:46 | NUR ---
PT WAS ABLE TO SAY THAT HE WANTED FOOD AND WATER. SPEACH WAS VERY SLURRED AND HARD TO UNDERSTAND.
--- NOTE | 2019-02-02 15:01 | NUR ---
DRESSING TO BUTTOCKS FELL OFF. HEART SHAPE DRESSING APPLIED TO ST 2 ULCER ON BUTTOCKS WOUND BED PINK WITH NO DRAINAGE.
--- NOTE | 2019-02-02 15:04 | NUR ---
PT ATTEMPTED TO STAND UP AND WALK AROUND X3 TMES. THIS NURSE HAS BEEN BY HIS BEDSIDE OBSERVING FOR GRAHAMDENNISEHeidy. EXPLAINED THAT HE CANNOT STAND UP DUE TO HIM BEING EXTREAMLY UNSTEADY ON HIS FEET. PT ASSISTED TO BED AND PT BECOMING ANGRY. PT RE RESTRAINED USING SOFT WRIST RESTRAINTS. WILL CONT TO MONITOR.
--- NOTE | 2019-02-02 16:32 | NUR ---
PT STILL NOTED TO HAVE GLABAL APASHIA, HOWEVER SPEACH IS IMPROVING.
--- NOTE | 2019-02-02 17:28 | MORECARE ---
CASE MANAGEMENT DISCHARGE SUMMARY PATIENT: JODI WEISS UNIT: [id number] ADM DATE: 01/31/19 AGE: 43 : 79 SEX: M ROOM/BED: D.2311 AUTHOR: PETER,DOC PHYSICIAN: REFERRING PHYSICIAN: TANYA ANDRE MD DATE OF SERVICE: 02/02/19 Discharge Plan Patient Name: JODI WEISS Facility: [facility]:[place] : 1975 Planned Disposition: Nursing Facility [facility] Cert Anticipated Discharge Date: Discharge Date: Expected LOS: Initial Reviewer: [email or web address] Initial Review Date: 02/02/2019 Generated: 02/02/19 6:28 pm Comments DCP- Discharge Planning Updated by [email or web address]: Sharifa Ryan on 02/02/19 1:[address] Patient Name: JODI WEISS Admission Status: ER Accout number: [id number] Admission Date: 01-31-2019 : 1975 Admission Diagnosis:SEPSIS, UNSPECIFIED ORGANISM Attending: TANYA ANDRE Current LOS: 2 Anticipated DC Date: Planned Disposition: Nursing Facility [facility] Cert Primary Insurance: MEDICAID [place] Discharge Planning Comments: CM called and spoke with patients mother Lien Weiss [phone]. Patient isn't able to communicate. CM explained role to Lien and spoke with her regarding discharge planning. CM explained that we had received order for placement to SNF. Lien stated that she didn't have a preference in SNF. She stated she would like a facility local. CM will send out information to all local facilities and first to accept patient. CM gave Lien her contact number if she had any questions. CM will keep in contact with patient's mother regarding placement. CM will continue to follow and assist as needed with discharge planning / needs. Web Ui Software Engineer: Sharifa Ryan DCP- Discharge Planning Updated by [email or web address]: Sharifa Ryan on 02/01/19 1:[address] CM attempted to visit with patient regarding discharge planning/ needs. Patient currently confused and unable to answer questions. No family available. CM will continue to follow and assist as needed with discharge planning / needs DCPIA - Discharge Planning Initial Assessment Updated by [email or web address]: Sharifa Ryan on 02/02/19 2:30 pm * Is the patient Alert and Oriented? No * How many steps to enter\exit or inside your home? * PCP FRANCHESKA PIERCE * Pharmacy [facility] * Preadmission Environment Home Alone * ADLs Independent * List name and contact numbers for known caregivers / representatives who currently or will assist patient after discharge: LIEN WEISS - [facility]- [phone] * Verbal permission to speak to the caregivers and representatives has been obtained from the patient. N/A * Community resources currently utilized None * Additional services required to return to the preadmission environment? No * Can the patient safely return to the preadmission environment? No * Has this patient been hospitalized within the prior 30 days at any hospital? Yes External Providers External Provider: [facility] Next Contact Date: Service Request Date: Service Type: Resolution: Reviewer: Comments: Last DP export: 02/02/19 1:43 p Patient Name: JODI WEISS Page 52319 at 1728 All edits/amendments must be made on the electronic document DICTATION DATE: 02/02/191727 FRENCH DRAWER: DEMETRIS 02/02/191727 RPT#: [id number] DC DATE: STATUS: ADM IN [facility] [address] [place] [address] END OF REPORT
--- NOTE | 2019-02-02 17:30 | NUR ---
MOTHER IN THE PTS ROOM FEEDING THE PT. PT TOLERATED WELL. NO CHANGE NEUROLOGICALY
--- NOTE | 2019-02-02 17:36 | MORECARE ---
CASE MANAGEMENT DISCHARGE SUMMARY PATIENT: JODI WEISS UNIT: [id number] ADM DATE: 01/31/19 AGE: 43 : 79 SEX: M ROOM/BED: D.2311 AUTHOR: PETER,DOC PHYSICIAN: REFERRING PHYSICIAN: TANYA ANDRE MD DATE OF SERVICE: 02/02/19 Discharge Plan Patient Name: JODI WEISS Facility: [facility]:[place] : 1975 Planned Disposition: Nursing Facility [facility] Cert Anticipated Discharge Date: Discharge Date: Expected LOS: Initial Reviewer: [email or web address] Initial Review Date: 02/02/2019 Generated: 02/02/19 6:36 pm Comments DCP- Discharge Planning Updated by [email or web address]: Sharifa Ryan on 02/02/19 1:[address] Patient Name: JODI WEISS Admission Status: ER Accout number: [id number] Admission Date: 01-31-2019 : 1975 Admission Diagnosis:SEPSIS, UNSPECIFIED ORGANISM Attending: TANYA ANDRE Current LOS: 2 Anticipated DC Date: Planned Disposition: Nursing Facility [facility] Cert Primary Insurance: MEDICAID [place] Discharge Planning Comments: CM called and spoke with patients mother Lien Weiss [phone]. Patient isn't able to communicate. CM explained role to Lien and spoke with her regarding discharge planning. CM explained that we had received order for placement to SNF. Lien stated that she didn't have a preference in SNF. She stated she would like a facility local. CM will send out information to all local facilities and first to accept patient. CM gave Lien her contact number if she had any questions. CM will keep in contact with patient's mother regarding placement. CM will continue to follow and assist as needed with discharge planning / needs. Sports Medicine Specialist: Sharifa Ryan DCP- Discharge Planning Updated by [email or web address]: Sharifa Ryan on 02/01/19 1:[address] CM attempted to visit with patient regarding discharge planning/ needs. Patient currently confused and unable to answer questions. No family available. CM will continue to follow and assist as needed with discharge planning / needs DCPIA - Discharge Planning Initial Assessment Updated by [email or web address]: Sharifa Ryan on 02/02/19 2:30 pm * Is the patient Alert and Oriented? No * How many steps to enter\exit or inside your home? * PCP FRANCHESKA PIERCE * Pharmacy [facility] * Preadmission Environment Home Alone * ADLs Independent * List name and contact numbers for known caregivers / representatives who currently or will assist patient after discharge: LIEN WEISS - [facility]- [phone] * Verbal permission to speak to the caregivers and representatives has been obtained from the patient. N/A * Community resources currently utilized None * Additional services required to return to the preadmission environment? No * Can the patient safely return to the preadmission environment? No * Has this patient been hospitalized within the prior 30 days at any hospital? Yes External Providers External Provider: [facility] Next Contact Date: Service Request Date: Service Type: Resolution: Reviewer: Comments: Last DP export: 02/02/19 4:28 p Patient Name: JODI WEISS Page 45623 at 1736 All edits/amendments must be made on the electronic document DICTATION DATE: 02/02/191734 BOOT REPAIRER: DEMETRIS 02/02/191734 RPT#: [id number] DC DATE: STATUS: ADM IN [facility] [address] [place] [address] END OF REPORT
--- NOTE | 2019-02-02 17:43 | MORECARE ---
CASE MANAGEMENT DISCHARGE SUMMARY PATIENT: JODI WEISS UNIT: [id number] ADM DATE: 01/31/19 AGE: 43 : 79 SEX: M ROOM/BED: D.2311 AUTHOR: PETER,DOC PHYSICIAN: REFERRING PHYSICIAN: TANYA ANDRE MD DATE OF SERVICE: 02/02/19 Discharge Plan Patient Name: JODI WEISS Facility: [facility]:[place] : 1975 Planned Disposition: Nursing Facility [facility] Cert Anticipated Discharge Date: Discharge Date: Expected LOS: Initial Reviewer: [email or web address] Initial Review Date: 02/02/2019 Generated: 02/02/19 6:43 pm Comments DCP- Discharge Planning Updated by [email or web address]: Sharifa Ryan on 02/02/19 1:[address] Patient Name: JODI WEISS Admission Status: ER Accout number: [id number] Admission Date: 01-31-2019 : 1975 Admission Diagnosis:SEPSIS, UNSPECIFIED ORGANISM Attending: TANYA ADNRE Current LOS: 2 Anticipated DC Date: Planned Disposition: Nursing Facility [facility] Cert Primary Insurance: MEDICAID [place] Discharge Planning Comments: CM called and spoke with patients mother Lien Weiss [phone]. Patient isn't able to communicate. CM explained role to Lien and spoke with her regarding discharge planning. CM explained that we had received order for placement to SNF. Lien stated that she didn't have a preference in SNF. She stated she would like a facility local. CM will send out information to all local facilities and first to accept patient. CM gave Lien her contact number if she had any questions. CM will keep in contact with patient's mother regarding placement. CM will continue to follow and assist as needed with discharge planning / needs. Assembler Caterpillar Spider: Sharifa Ryan DCP- Discharge Planning Updated by [email or web address]: Sharifa Ryan on 02/01/19 1:[address] CM attempted to visit with patient regarding discharge planning/ needs. Patient currently confused and unable to answer questions. No family available. CM will continue to follow and assist as needed with discharge planning / needs DCPIA - Discharge Planning Initial Assessment Updated by [email or web address]: Sharifa Ryan on 02/02/19 2:30 pm * Is the patient Alert and Oriented? No * How many steps to enter\exit or inside your home? * PCP FRANCHESKA PIERCE * Pharmacy [facility] * Preadmission Environment Home Alone * ADLs Independent * List name and contact numbers for known caregivers / representatives who currently or will assist patient after discharge: LIEN WEISS - [facility]- [phone] * Verbal permission to speak to the caregivers and representatives has been obtained from the patient. N/A * Community resources currently utilized None * Additional services required to return to the preadmission environment? No * Can the patient safely return to the preadmission environment? No * Has this patient been hospitalized within the prior 30 days at any hospital? Yes External Providers External Provider: [facility] Next Contact Date: Service Request Date: Service Type: Resolution: Reviewer: Comments: [facility] Contact Date: Service Request Date: Service Type: Resolution: Reviewer: Comments: Last DP export: 02/02/19 4:36 p Patient Name: JODI WEISS Page [phone] at 1743 All edits/amendments must be made on the electronic document DICTATION DATE: 02/02/191741 RADIATOR CORE TESTER: DEMETRIS 02/02/191741 RPT#: [id number] DC DATE: STATUS: ADM IN [facility] [address] [place] [address] END OF REPORT
--- NOTE | 2019-02-02 17:50 | MORECARE ---
CASE MANAGEMENT DISCHARGE SUMMARY PATIENT: JODI WEISS UNIT: [id number] ADM DATE: 01/31/19 AGE: 43 : [birth year] SEX: M ROOM/BED: D.2311 AUTHOR: PETER,DOC PHYSICIAN: REFERRING PHYSICIAN: TANYA ANDRE MD DATE OF SERVICE: 02/02/19 Discharge Plan Patient Name: JODI WEISS Facility: [facility]:[place] : 1975 Planned Disposition: Nursing Facility [facility] Cert Anticipated Discharge Date: Discharge Date: Expected LOS: Initial Reviewer: [email or web address] Initial Review Date: 02/02/2019 Generated: 02/02/19 6:50 pm Comments DCP- Discharge Planning Updated by [email or web address]: Sharifa Ryan on 02/02/19 1:[address] Patient Name: JODI WEISS Admission Status: ER Accout number: [id number] Admission Date: 01-31-2019 : 1975 Admission Diagnosis:SEPSIS, UNSPECIFIED ORGANISM Attending: TANYA ANDRE Current LOS: 2 Anticipated DC Date: Planned Disposition: Nursing Facility [facility] Cert Primary Insurance: MEDICAID [place] Discharge Planning Comments: CM called and spoke with patients mother Lien Weiss [phone]. Patient isn't able to communicate. CM explained role to Lien and spoke with her regarding discharge planning. CM explained that we had received order for placement to SNF. Lien stated that she didn't have a preference in SNF. She stated she would like a facility local. CM will send out information to all local facilities and first to accept patient. CM gave Lien her contact number if she had any questions. CM will keep in contact with patient's mother regarding placement. CM will continue to follow and assist as needed with discharge planning / needs. Coal Crusher Operator: Sharifa Ryan DCP- Discharge Planning Updated by [email or web address]: Sharifa Ryan on 02/01/19 1:[address] CM attempted to visit with patient regarding discharge planning/ needs. Patient currently confused and unable to answer questions. No family available. CM will continue to follow and assist as needed with discharge planning / needs DCPIA - Discharge Planning Initial Assessment Updated by [email or web address]: Sharifa Ryan on 02/02/19 2:30 pm * Is the patient Alert and Oriented? No * How many steps to enter\exit or inside your home? * PCP FRANCHESKA PIERCE * Pharmacy [facility] * Preadmission Environment Home Alone * ADLs Independent * List name and contact numbers for known caregivers / representatives who currently or will assist patient after discharge: LIEN WEISS - [facility]- [phone] * Verbal permission to speak to the caregivers and representatives has been obtained from the patient. N/A * Community resources currently utilized None * Additional services required to return to the preadmission environment? No * Can the patient safely return to the preadmission environment? No * Has this patient been hospitalized within the prior 30 days at any hospital? Yes External [facility]iders [facility] Next Contact Date: Service Request Date: Service Type: Resolution: Reviewer: Comments: Last DP export: 02/02/19 4:43 p Patient Name: JODI WEISS Page [phone] at 1750 All edits/amendments must be made on the electronic document DICTATION DATE: 02/02/191748 TOPOGRAPHICAL FIELD ASSISTANT: DEMETRIS 02/02/191748 RPT#: [id number] DC DATE: STATUS: ADM IN [facility] [address] [place] [address] END OF REPORT
--- NOTE | 2019-02-02 17:57 | MORECARE ---
CASE MANAGEMENT DISCHARGE SUMMARY PATIENT: JODI WEISS UNIT: [id number] ADM DATE: 01/31/19 AGE: 43 : [birth year] SEX: M ROOM/BED: D.2311 AUTHOR: PETER,DOC PHYSICIAN: REFERRING PHYSICIAN: TANYA ANDRE MD DATE OF SERVICE: 02/02/19 Discharge Plan Patient Name: JODI WEISS Facility: [facility]:[place] : 1975 Planned Disposition: Nursing Facility M[facility] Cert Anticipated Discharge Date: Discharge Date: Expected LOS: Initial Reviewer: [email or web address] Initial Review Date: 02/02/2019 Generated: 02/02/19 6:57 pm Comments DCP- Discharge Planning Updated by [email or web address]: Sharifa Ryan on 02/02/19 1:[address] Patient Name: JODI WEISS Admission Status: ER Accout number: [id number] Admission Date: 01-31-2019 : 1975 Admission Diagnosis:SEPSIS, UNSPECIFIED ORGANISM Attending: TANYA ANDRE Current LOS: 2 Anticipated DC Date: Planned Disposition: Nursing Facility [facility] Cert Primary Insurance: MEDICAID [place] Discharge Planning Comments: CM called and spoke with patients mother Lien Weiss [phone]. Patient isn't able to communicate. CM explained role to Lien and spoke with her regarding discharge planning. CM explained that we had received order for placement to SNF. Lien stated that she didn't have a preference in SNF. She stated she would like a facility local. CM will send out information to all local facilities and first to accept patient. CM gave Lien her contact number if she had any questions. CM will keep in contact with patient's mother regarding placement. CM will continue to follow and assist as needed with discharge planning / needs. High Pressure Cleaner: Sharifa Ryan DCP- Discharge Planning Updated by [email or web address]: Sharifa Ryan on 02/01/19 1:[address] CM attempted to visit with patient regarding discharge planning/ needs. Patient currently confused and unable to answer questions. No family available. CM will continue to follow and assist as needed with discharge planning / needs DCPIA - Discharge Planning Initial Assessment Updated by [email or web address]: Sharifa Ryan on 02/02/19 2:30 pm * Is the patient Alert and Oriented? No * How many steps to enter\exit or inside your home? * PCP FRANCHESKA PIERCE * Pharmacy [facility] * Preadmission Environment Home Alone * ADLs Independent * List name and contact numbers for known caregivers / representatives who currently or will assist patient after discharge: LIEN WEISS - [facility]- [phone] * Verbal permission to speak to the caregivers and representatives has been obtained from the patient. N/A * Community resources currently utilized None * Additional services required to return to the preadmission environment? No * Can the patient safely return to the preadmission environment? No * Has this patient been hospitalized within the prior 30 days at any hospital? Yes External Providers External Provider: [facility] Next Contact Date: Service Request Date: Service Type: Resolution: Reviewer: Comments: Last DP export: 02/02/19 4:50 p Patient Name: JODI WEISS Page [phone] at 1757 All edits/amendments must be made on the electronic document DICTATION DATE: 02/02/191756 ELECTRONIC SALES AND SERVICE TECHNICIAN: DEMETRIS 02/02/191756 RPT#: [id number] DC DATE: STATUS: ADM IN [facility] [address] [place] [address] END OF REPORT
--- NOTE | 2019-02-02 18:04 | MORECARE ---
CASE MANAGEMENT DISCHARGE SUMMARY PATIENT: JODI WEISS UNIT: [id number] ADM DATE: 01/31/19 AGE: 43 : [birth year] SEX: M ROOM/BED: D.2311 AUTHOR: PETER,DOC PHYSICIAN: REFERRING PHYSICIAN: TANYA ANDRE MD DATE OF SERVICE: 02/02/19 Discharge Plan Patient Name: JODI WEISS Facility: [facility]:[place] : 1975 Planned Disposition: Nursing Facility [facility] Cert Anticipated Discharge Date: Discharge Date: Expected LOS: Initial Reviewer: [email or web address] Initial Review Date: 02/02/2019 Generated: 02/02/19 7:04 pm Comments DCP- Discharge Planning Updated by [email or web address]: Sharifa Ryan on 02/02/19 1:[address] Patient Name: JODI WEISS Admission Status: ER Accout number: [id number] Admission Date: 01-31-2019 : 1975 Admission Diagnosis:SEPSIS, UNSPECIFIED ORGANISM Attending: TANYA ANDRE Current LOS: 2 Anticipated DC Date: Planned Disposition: Nursing Facility [facility] Cert Primary Insurance: MEDICAID [place] Discharge Planning Comments: CM called and spoke with patients mother Lien Weiss [phone]. Patient isn't able to communicate. CM explained role to Lien and spoke with her regarding discharge planning. CM explained that we had received order for placement to SNF. Lien stated that she didn't have a preference in SNF. She stated she would like a facility local. CM will send out information to all local facilities and first to accept patient. CM gave Lien her contact number if she had any questions. CM will keep in contact with patient's mother regarding placement. CM will continue to follow and assist as needed with discharge planning / needs. Theatrical Agent: Sharifa Ryan DCP- Discharge Planning Updated by [email or web address]: Sharifa Ryan on 02/01/19 1:[address] CM attempted to visit with patient regarding discharge planning/ needs. Patient currently confused and unable to answer questions. No family available. CM will continue to follow and assist as needed with discharge planning / needs DCPIA - Discharge Planning Initial Assessment Updated by [email or web address]: Sharifa Ryan on 02/02/19 2:30 pm * Is the patient Alert and Oriented? No * How many steps to enter\exit or inside your home? * PCP FRANCHESKA PIERCE * Pharmacy [facility] * Preadmission Environment Home Alone * ADLs Independent * List name and contact numbers for known caregivers / representatives who currently or will assist patient after discharge: LIEN WEISS - [facility]- [phone] * Verbal permission to speak to the caregivers and representatives has been obtained from the patient. N/A * Community resources currently utilized None * Additional services required to return to the preadmission environment? No * Can the patient safely return to the preadmission environment? No * Has this patient been hospitalized within the prior 30 days at any hospital? Yes External Providers External Provider: [facility] Next Contact Date: Service Request Date: Service Type: Resolution: Reviewer: Comments: External Provider: [facility] Next Contact Date: Service Request Date: Service Type: Resolution: Reviewer: Comments: Last DP export: 02/02/19 4:57 p Patient Name: JODI WEISS Page [phone] at 1804 All edits/amendments must be made on the electronic document DICTATION DATE: 02/02/191803 FILE CONVERSION OPERATOR: DEMETRIS 02/02/191803 RPT#: [id number] DC DATE: STATUS: ADM IN [facility] [address] [place] [address] END OF REPORT
--- NOTE | 2019-02-02 18:11 | MORECARE ---
CASE MANAGEMENT DISCHARGE SUMMARY PATIENT: JODI WEISS UNIT: [id number] ADM DATE: 01/31/19 AGE: 43 : [birth year] SEX: M ROOM/BED: D.2311 AUTHOR: PETER,DOC PHYSICIAN: REFERRING PHYSICIAN: TANYA ANDRE MD DATE OF SERVICE: 02/02/19 Discharge Plan Patient Name: JODI WEISS Facility: [facility]:[place] : 1975 Planned Disposition: Nursing Facility [facility] Cert Anticipated Discharge Date: Discharge Date: Expected LOS: Initial Reviewer: [email or web address] Initial Review Date: 02/02/2019 Generated: 02/02/19 7:11 pm Comments DCP- Discharge Planning Updated by [email or web address]: Sharifa Ryan on 02/02/19 5:[address] CM sent patient information packet out to [facility], and [facility]. CM awaiting determination of acceptance or denial from facilities. CM will continue to follow and assist as needed with discharge planning / needs. DCP- Discharge Planning Updated by [email or web address]: Sharifa Ryan on 02/02/19 1:[address] Patient Name: JODI WEISS Admission Status: ER Accout number: [id number] Admission Date: 01-31-2019 : 1975 Admission Diagnosis:SEPSIS, UNSPECIFIED ORGANISM Attending: TANYA ANDRE Current LOS: 2 Anticipated DC Date: Planned Disposition: Nursing Facility [facility] Cert Primary Insurance: MEDICAID [place] Discharge Planning Comments: CM called and spoke with patients mother Lien Weiss [phone]. Patient isn't able to communicate. CM explained role to Lien and spoke with her regarding discharge planning. CM explained that we had received order for placement to SNF. Lien stated that she didn't have a preference in SNF. She stated she would like a facility local. CM will send out information to all local facilities and first to accept patient. CM gave Lien her contact number if she had any questions. CM will keep in contact with patient's mother regarding placement. CM will continue to follow and assist as needed with discharge planning / needs. Occupational Therapy Co Director: Sharifa Ryan DCP- Discharge Planning Updated by [email or web address]: Sharifa Ryan on 02/01/19 1:[address] CM attempted to visit with patient regarding discharge planning/ needs. Patient currently confused and unable to answer questions. No family available. CM will continue to follow and assist as needed with discharge planning / needs DCPIA - Discharge Planning Initial Assessment Updated by [email or web address]: Sharifa Ryan on 02/02/19 2:30 pm * Is the patient Alert and Oriented? No * How many steps to enter\exit or inside your home? * PCP FRANCHESKA PIERCE * Pharmacy [facility] * Preadmission Environment Home Alone * ADLs Independent * List name and contact numbers for known caregivers / representatives who currently or will assist patient after discharge: LIEN WEISS - [facility] [phone] * Verbal permission to speak to the caregivers and representatives has been obtained from the patient. N/A * Community resources currently utilized None * Additional services required to return to the preadmission environment? No * Can the patient safely return to the preadmission environment? No * Has this patient been hospitalized within the prior 30 days at any hospital? Yes Last DP export: 02/02/19 5:04 p Patient Name: JODI WEISS Page [phone] at 1811 All edits/amendments must be made on the electronic document DICTATION DATE: 02/02/191810 SPECIAL TRACKWORK BLACKSMITH: DEMETRIS 02/02/191810 RPT#: [id number] DC DATE: STATUS: ADM IN [facility] [address] [place] [address] END OF REPORT
--- NOTE | 2019-02-02 19:10 | NUR ---
PT CARE RECEIVED SHIFT ASSESSMENT COMPLETED SEE FLOWSHEET
--- NOTE | 2019-02-02 19:40 | NUR ---
BM NOTED. PATIENT CLEANED FULL LINEN CHANGE COMPLETED AT THIS TIME. BLOOD SUGAR TREATED SEE EMAR. PATIENT ABLE TO STATE NAME, REQUESTED FOOD. WILL PROVIDE. VSS CPOC
--- NOTE | 2019-02-02 20:30 | NUR ---
BM NOTED - FULL LINEN CHANGE COMPLETED - PT REQUESTING FOOD PROVIDED WITH SANDWHICH TRAY.
--- NOTE | 2019-02-02 21:14 | NUR ---
PATIENT VOMITING FOOD. PATIENT BECAME VERBALLY AND PHYSICALLY AGGRESSIVE WHEN SANDWHICH TRAY WAS REMOVED FROM ROOM. BILAT SOFT WRIST RESTRAINTS REAPPLIED AT THIS TIME. VSS. CPOC
--- NOTE | 2019-02-02 23:15 | NUR ---
REASSESSMENT COMPLETED SEE FLOWSHEET. PT RESTRAINED, APHASIC ABLE TO SAY HIS NAME.
[2019-02-03] VITALS (21 sets, daily range): BP systolic 87–120; BP diastolic 61–90
--- NOTE | 2019-02-03 02:51 | NUR ---
PATIENT IS REQUESTING ICE CREAM, EDUCATION PROVIDED REGARDING DIABETIC DIET. PATIENT PROVIDED WITH SMALL PORTIONS OF SANDWHICH AT A TIME, INSTRUCTED TO TAKE SMALL BITES AND TO EAT SLOWLY AND DRINK SLOWLY. WILL MONITOR CLOSELY.
[2019-02-03 03:39] LABS: BASOPHILS 0.2 % (0-2); EOSINOPHILS 1.2 % (0-7); HEMATOCRIT 26.8 % (42.0-54.0); HEMOGLOBIN 8.7 g/dL (13.5-17.5); IMMATURE GRANULOCYTES 0.2 % (0-5); LYMPHOCYTES 11.3 % (15-50); MCH 24.7 pg (26.0-34.0); MCHC 32.5 g/dL (31.0-37.0); MCV 76.1 fL (80.0-100.0); MEAN PLATELET VOLUME 9.4 fL (7.4-10.4); MONOCYTES 8.4 % (2-11); NEUTROPHILS 78.7 % (40-80); PLATELET COUNT 342 10x3/uL (130-400); RBC 3.52 10x6/uL (4.20-6.10); RDW 15.9 % (11.5-14.5); WBC 8.3 10x3/uL (4.8-10.8)
[2019-02-03 04:10] LABS: CALC OSMOLALITY 282 mosm/kg (275-300); CARBON DIOXIDE 21.7 mmol/L (21.0-32.0); CHLORIDE - SERUM 105 mmol/L (98-107); CREATININE - SERUM 0.7 mg/dL (0.6-1.3); GLUCOSE 200 mg/dL (74-106); POTASSIUM - SERUM 3.8 mmol/L (3.5-5.1); SODIUM 139 mmol/L (136-145); UREA NITROGEN 10 mg/dL (7-18); eGFR NON AFRICAN AMERICAN > 90 mL/min (90-120)
--- NOTE | 2019-02-03 04:44 | NUR ---
PT RESTING COMFORTABLY EYES CLOSED, AM LABS RECEIVED - NO LYTE REPLETION NEEDED - VSS CPOC
--- NOTE | 2019-02-03 07:30 | NUR ---
PT ALERT X 4. BREATH SOUNDS CLEAR BILAT. IV TO RIGHT FOREARM, PATENT, DRESSING CLEAN DRY AND INTACT. TELEMETRY IN PLACE. PT EXPERIENCING NAUSEA AND VOMITING AT THIS TIME. SPEECH GARBLED. BED LOW, CALL LIGHT IN REACH. NO OTHER NEEDS AT THIS TIME.
--- NOTE | 2019-02-03 09:00 | NUR ---
PT CLEANED UP, LINENS CHANGED. NO OTHER NEEDS AT THIS TIME.
--- NOTE | 2019-02-03 11:02 | NUR ---
PT RESTING IN BED. NO DISTRESS NOTED.
--- NOTE | 2019-02-03 13:00 | NUR ---
FAMILY AT BEDSIDE. PT EATING LUNCH. NO OTHER NEEDS AT THIS TIME.
--- NOTE | 2019-02-03 19:10 | NUR ---
RECEIVED PATIENT CARE - PT UNDER COVERS ASLEEP. REMOVED COVERS FROM HEAD AND GENTLY AWOKE PATIENT. PATIENT IS AGITATED REFUSING ORAL TEMP CHECK. WANTS TO BE LEFT ALONE TO SLEEP. VSS CPOC - SHIFT ASSESSMENT COMPLETED SEE FLOWSHEET
--- NOTE | 2019-02-03 21:14 | NUR ---
patient provided with salvador regalado per request
--- NOTE | 2019-02-03 21:52 | NUR ---
patient refusing temps and bp readings
--- NOTE | 2019-02-03 23:36 | NUR ---
REASSESSMENT COMPLETED SEE FLOWSHEET. PT LETHARGIC - OPENS EYES TO SPEECH REFUSING TO RESPOND TO COMMANDS SPEECH BEGINNING TO CLEAR LESS APHASIA. VSS CPOC
[2019-02-04] VITALS (8 sets, daily range): BP systolic 93–126; BP diastolic 58–87
--- NOTE | 2019-02-04 01:13 | NUR ---
PT AWAKE REQUESTING FOOD AND WATER. PATIENT EDUCATION PROVIDED REGARDING NPO STATUS. PATIENT IRRITATED ABOUT NPO STATUS
--- NOTE | 2019-02-04 02:00 | NUR ---
PATIENT OBSERVED PULLING OUT IV, ATTEMPTING TO EAT FOOD FROM THE TRASH CAN. CHARGE NURSE ASKED THE PATIENT TO GET BACK INTO BED HE STATED "FUCK YOU STUPID BITCH" ATTEMPTED TO PULL RUSSELL AND THREW IV PUMP ACROSS THE ROOM. AN ORDER FOR RESTRAINTS WAS OBTAINED AT THIS TIME. PATIENT PLACED BACK INTTO BILAT SOFT WRIST RESTRAINTS FOR SAFETY.
[2019-02-04 03:25] LABS: BASOPHILS 0.1 % (0-2); EOSINOPHILS 0.2 % (0-7); HEMATOCRIT 29.6 % (42.0-54.0); HEMOGLOBIN 9.7 g/dL (13.5-17.5); IMMATURE GRANULOCYTES 0.3 % (0-5); LYMPHOCYTES 9.8 % (15-50); MCH 24.9 pg (26.0-34.0); MCHC 32.8 g/dL (31.0-37.0); MCV 75.9 fL (80.0-100.0); MEAN PLATELET VOLUME 9.2 fL (7.4-10.4); MONOCYTES 2.9 % (2-11); NEUTROPHILS 86.7 % (40-80); PLATELET COUNT 337 10x3/uL (130-400); RDW 15.8 % (11.5-14.5)
[2019-02-04 03:33] LABS: CALCIUM 8.3 mg/dL (8.5-10.1); CARBON DIOXIDE 24.1 mmol/L (21.0-32.0); CHLORIDE - SERUM 108 mmol/L (98-107); POTASSIUM - SERUM 3.3 mmol/L (3.5-5.1); SODIUM 143 mmol/L (136-145); UREA NITROGEN 9 mg/dL (7-18)
[2019-02-04 03:39] LABS: CALC OSMOLALITY 286 mosm/kg (275-300); CREATININE - SERUM 0.9 mg/dL (0.6-1.3); GLUCOSE 147 mg/dL (74-106); eGFR NON AFRICAN AMERICAN > 90 mL/min (90-120)
--- NOTE | 2019-02-04 04:15 | NUR ---
IV ACCESS REESTABLISHED. PATIENT REFUSING ICU MONITORS REFUSING IV FLUIDS
--- NOTE | 2019-02-04 06:20 | NUR ---
PATIENT RESTING COMFORTABLY WRIST RESTRAINTS IN PLACE
--- NOTE | 2019-02-04 07:15 | NUR ---
SHIFT ASSESSMENT COMPLETED. PT RESTING IN BED. IRRITATED THAT HE CAN'T HAVE SOMETHING TO DRINK. WANTS TO CANCEL SWALLOW STUDY. ABLE TO STATE FULL NAME, DATE OF AND WHERE HE WAS. CURRENTLY ON WRIST RESTRAINTS BECAUSE HE KEEPS PULLING HIS LINE OUT. SHIFT ASSESSMEN COMPLETED. WILL CONTINUE TO MONITOR.
--- NOTE | 2019-02-04 08:06 | NUR ---
PT LEAVING AM. AM PAPERS REVEIVED WITH PATIENT. HE STATED "I KNOW WHAT THE FUCK I AM DOING." DR. ANDRE NOTIFIED. HE SAID TO LET HIM GO IF HE DID NOT WANT TO COOPERATE WITH TREATMENT. EXPLAINED TO HIM THAT HE STILL NEEDED TREATMENT TO WHICH HE RESPONDED. "I DON'T GIVE A FUCK IF I TONIGHT." PT MADE CALL TO MOTHER TO HAVE HER COME PICK HIM UP. PIV ON ESPERANZA DC'D WITH CATHETER TIP INTACT. RUSSELL CATHETER DC'D. PERSONAL BELONGING GIVEN TO PT INCLUDING HIS CELL PHONE.
--- NOTE | 2019-02-04 08:20 | NUR ---
PT LEFT AT THIS TIME.
--- NOTE | 2019-02-05 15:27 | MORECARE ---
CASE MANAGEMENT DISCHARGE SUMMARY PATIENT: JODI WEISS UNIT: [id number] ADM DATE: 01/31/19 AGE: 43 : [birth year] SEX: M ROOM/BED: D.2311 AUTHOR: PETER,DOC PHYSICIAN: REFERRING PHYSICIAN: TANYA ANDRE MD DATE OF SERVICE: 02/05/19 Discharge Plan Patient Name: JODI WEISS Facility: [facility]:[place] : 1975 Planned Disposition: Nursing Facility [facility] Cert Anticipated Discharge Date: Discharge Date: 02/04/2019 Expected LOS: Initial Reviewer: [email or web address] Initial Review Date: 02/02/2019 Generated: 02/05/19 4:27 pm Comments DCP- Discharge Planning Updated by [email or web address]: Sharifa Ryan on 02/02/19 5:[address] CM sent patient information packet out to [facility], [facility], and [facility]. CM awaiting determination of acceptance or denial from facilities. CM will continue to follow and assist as needed with discharge planning / needs. DCP- Discharge Planning Updated by [id number]: Sharifa Ryan on 02/02/19 1:[address] Patient Name: JODI WEISS Admission Status: ER Accout number: [id number] Admission Date: 01-31-2019 : 1975 Admission Diagnosis:SEPSIS, UNSPECIFIED ORGANISM Attending: TANYA ANDRE Current LOS: 2 Anticipated DC Date: Planned Disposition: Nursing Facility [facility] Cert Primary Insurance: MEDICAID [place] Discharge Planning Comments: CM called and spoke with patients mother Lien Weiss [phone]. Patient isn't able to communicate. CM explained role to Lien and spoke with her regarding discharge planning. CM explained that we had received order for placement to SNF. Lien stated that she didn't have a preference in SNF. She stated she would like a facility local. CM will send out information to all local facilities and first to accept patient. CM gave Lien her contact number if she had any questions. CM will keep in contact with patient's mother regarding placement. CM will continue to follow and assist as needed with discharge planning / needs. Splunk Architect: Sharifa Ryan DCP- Discharge Planning Updated by [email or web address]: Sharifa Ryan on 02/01/19 1:[address] CM attempted to visit with patient regarding discharge planning/ needs. Patient currently confused and unable to answer questions. No family available. CM will continue to follow and assist as needed with discharge planning / needs DCPIA - Discharge Planning Initial Assessment Updated by [email or web address]: Sharifa Ryan on 02/02/19 2:30 pm * Is the patient Alert and Oriented? No * How many steps to enter\exit or inside your home? * PCP FRANCHESKA PIERCE * Pharmacy [facility] * Preadmission Environment Home Alone * ADLs Independent * List name and contact numbers for known caregivers / representatives who currently or will assist patient after discharge: LIEN WEISS - [facility]- [phone] * Verbal permission to speak to the caregivers and representatives has been obtained from the patient. N/A * Community resources currently utilized None * Additional services required to return to the preadmission environment? No * Can the patient safely return to the preadmission environment? No * Has this patient been hospitalized within the prior 30 days at any hospital? Yes Last DP export: 02/02/19 5:11 p Patient Name: JODI WEISS Page [phone] at 1527 All edits/amendments must be made on the electronic document DICTATION DATE: 02/05/191526 COMPUTER FORENSICS TECHNICIAN: DEMETRIS 02/05/19 1527 RPT#: [id number] DC DATE:02/04/19 STATUS: DIS IN [facility] [address] [place] [address] END OF REPORT
== END 2019-02-04 08:48 | disposition left against medical advice (07) | DRG 871 ==
LOC: D.ER 20:53 → D.ICU 22:59
PROVIDERS: Emergency Medicine; ADMIT Internal Medicine Nephrology; ATTEND Internal Medicine Nephrology
DX: A41.9 Sepsis, unspecified organism (principal); G93.41 Metabolic encephalopathy; E43 Unspecified severe protein-calorie malnutrition; R40.2123 Coma scale, eyes open, to pain, at hospital admission; R40.2343 Coma scale, best motor response, flexion withdrawal, at hospital admission; R40.2223 Coma scale, best verbal response, incomprehensible words, at hospital admission; N39.0 Urinary tract infection, site not specified; I48.92 Unspecified atrial flutter; I82.4Z9 Acute embolism and thrombosis of unspecified deep veins of unspecified distal lower extremity; F17.203 Nicotine dependence unspecified, with withdrawal; E10.649 Type 1 diabetes mellitus with hypoglycemia without coma; F15.10 Other stimulant abuse, uncomplicated; D50.9 Iron deficiency anemia, unspecified; Z91.14 Patient's other noncompliance with medication regimen; Z68.21 Body mass index [BMI] 21.0-21.9, adult; E83.42 Hypomagnesemia; R13.10 Dysphagia, unspecified; Z78.1 Physical restraint status

== ENCOUNTER 2019-02-27 15:15 | Emergency (ER) | payer MEDICAID ==
[~2019-02-27] VITALS: Ht 185.4 cm; Wt 63.6 kg
[2019-02-27 15:29] VITALS: Ht 185.4 cm; Wt 63.6 kg
[2019-02-27] MEDS ORDERED: SULFAMETHOXAZOL1 TA3 PO (15:32)
[2019-02-27] MEDS ORDERED: PROBIOTIC1 EAC1 PO (15:32)
[2019-02-27] MEDS ORDERED: CARAFATE1 G PO (15:33)
[2019-02-27] MEDS ORDERED: BUSPIRONE HCL7.5 MG PO (15:33)
[2019-02-27] MEDS ORDERED: MELATONIN 3 MG1 TAB PO (15:34)
[2019-02-27] MEDS ORDERED: REGLAN10 MG PO (15:34)
[2019-02-27] MEDS ORDERED: LEVEMIR IN100 UNITS/ SC (15:34)
[2019-02-27] MEDS ORDERED: CALCIUM 250+D T1 TAB PO (15:35)
[2019-02-27] MEDS ORDERED: MOBIC7.5 MG PO (15:35)
[2019-02-27] MEDS ORDERED: PROTONIX40 MG PO (15:36)
[2019-02-27] MEDS ORDERED: ULTRAM50 MG PO (15:36)
[2019-02-27] MEDS ORDERED: HUMULIN R100 U/ML SC (15:37)
[2019-02-27 16:02] LABS: BASOPHILS 0.3 % (0-2); EOSINOPHILS 3.5 % (0-7); HEMOGLOBIN 7.9 g/dL (13.5-17.5); IMMATURE GRANULOCYTES 0.3 % (0-5); LYMPHOCYTES 22.3 % (15-50); MCH 25.1 pg (26.0-34.0); MCHC 31.6 g/dL (31.0-37.0); MCV 79.4 fL (80.0-100.0); MEAN PLATELET VOLUME 8.4 fL (7.4-10.4); MONOCYTES 4.5 % (2-11); NEUTROPHILS 69.1 % (40-80); PLATELET COUNT 313 10x3/uL (130-400); RBC 3.15 10x6/uL (4.20-6.10); WBC 6.9 10x3/uL (4.8-10.8)
[2019-02-27 16:22] LABS: ALBUMIN 1.3 g/dL (3.4-5.0); ALKALINE PHOSPHATASE 188 U/L (46-116); ALT (SGPT) 49 U/L (10-68); CALC OSMOLALITY 284 mosm/kg (275-300); CALCIUM 8.5 mg/dL (8.5-10.1); CARBON DIOXIDE 27.6 mmol/L (21.0-32.0); CHLORIDE - SERUM 107 mmol/L (98-107); CREATININE - SERUM 0.9 mg/dL (0.6-1.3); GLUCOSE 115 mg/dL (74-106); POTASSIUM - SERUM 3.1 mmol/L (3.5-5.1); PROTEIN - SERUM 7.2 g/dL (6.4-8.2); SODIUM 141 mmol/L (136-145); UREA NITROGEN 20 mg/dL (7-18); eGFR NON AFRICAN AMERICAN > 90 mL/min (90-120)
[2019-02-27 16:25] LABS: BILIRUBIN - TOTAL 0.04 mg/dL (0.2-1.3)
[2019-02-27 17:00] VITALS: BP 124/78
== END 2019-02-27 17:49 | disposition left against medical advice (07) ==
LOC: D.ER 15:15
PROVIDERS: Family Medicine
DX: E10.649 Type 1 diabetes mellitus with hypoglycemia without coma (principal); D64.9 Anemia, unspecified; Z91.14 Patient's other noncompliance with medication regimen; Z76.5 Malingerer [conscious simulation]

== ENCOUNTER 2019-03-01 17:17 | Inpatient (IN) | payer MEDICAID ==
[~2019-03-01] VITALS: Ht 185.4 cm; Wt 48.4 kg
[~2019-03-01 17:17] MED LIST changes: +BUSPIRONE HCL7.5 MG PO; +CALCIUM 250+D T1 TAB PO; +CARAFATE1 G PO; +LEVEMIR IN100 UNITS/ SC; +MELATONIN 3 MG1 TAB PO; +MOBIC7.5 MG PO; +PROBIOTIC1 EAC1 PO; +REGLAN10 MG PO; +SULFAMETHOXAZOL1 TA3 PO; +ULTRAM50 MG PO
[2019-03-01 18:16] LABS: BASOPHILS 0.1 % (0-2); EOSINOPHILS 1.2 % (0-7); IMMATURE GRANULOCYTES 0.1 % (0-5); LYMPHOCYTES 12.4 % (15-50); MCH 24.5 pg (26.0-34.0); MCHC 31.9 g/dL (31.0-37.0); MCV 76.9 fL (80.0-100.0); MEAN PLATELET VOLUME 8.6 fL (7.4-10.4); MONOCYTES 2.5 % (2-11); NEUTROPHILS 83.7 % (40-80); RBC 2.08 10x6/uL (4.20-6.10); RDW 17.2 % (11.5-14.5); WBC 15.3 10x3/uL (4.8-10.8)
[2019-03-01 18:17] LABS: HEMOGLOBIN 5.1 g/dL (13.5-17.5)
[2019-03-01 18:18] LABS: KETONE - SERUM NEGATIVE (NEGATIVE); PLATELET COUNT 428 10x3/uL (130-400)
[2019-03-01 18:36] LABS: ALBUMIN 1.6 g/dL (3.4-5.0); ALKALINE PHOSPHATASE 191 U/L (46-116); ALT (SGPT) 52 U/L (10-68); BILIRUBIN - TOTAL 0.24 mg/dL (0.2-1.3); CALC OSMOLALITY 289 mosm/kg (275-300); CARBON DIOXIDE 25.9 mmol/L (21.0-32.0); CHLORIDE - SERUM 105 mmol/L (98-107); CREATININE - SERUM 0.8 mg/dL (0.6-1.3); MAGNESIUM - SERUM 1.4 mg/dL (1.8-2.4); POTASSIUM - SERUM 5.6 mmol/L (3.5-5.1); PROTEIN - SERUM 7.3 g/dL (6.4-8.2); SODIUM 138 mmol/L (136-145); UREA NITROGEN 21 mg/dL (7-18); eGFR NON AFRICAN AMERICAN > 90 mL/min (90-120)
[2019-03-01 18:38] LABS: APPEARANCE CLEAR (CLEAR); BILIRUBIN NEGATIVE (NEGATIVE); COLOR STRAW (YELLOW); GLUCOSE 250 mg/dL (NEGATIVE); KETONE NEGATIVE (NEGATIVE); NITRITE NEGATIVE (NEGATIVE); PROTEIN NEGATIVE (NEGATIVE); UROBILINOGEN NORMAL (NORMAL)
[2019-03-01 18:39] LABS: RED CELLS - URINE 0-5 /hpf (0-5); WHITE CELLS - URINE 0-5 /hpf (0-5)
[2019-03-01 18:40] LABS: BACTERIA FEW /hpf (NONE SEEN); YEAST >1+ /hpf (NONE SEEN)
[2019-03-01 18:45] LABS: GLUCOSE 304 mg/dL (74-106)
--- NOTE | 2019-03-01 19:05 | NUR ---
PT REPORT CALLED TO LUISA IN ICU - ROOM 2308 STILL BEING CLEANED, HE WILL CALL BACK WHEN ROOM IS READY.
--- NOTE | 2019-03-01 19:40 | NUR ---
Received patient to 2308 via Stretcher from ER, positioned in bed and connected to monitor. Patient AO x4, agitated but follows instructions. Sinus Tach on telemetry with HR 104, rythmic and regular. Breathing is even/unlabored on room air with O2 sat 96%, lung sounds clear bilateral upper and mid with diminished lower. All pulses palpable with cap refill < 3 sec, skin warm/dry, full ROM all extremities. Patient c/o chronic generalized pain 06/16, PRN medication provided. Denies further needs, see flowsheet for details. All VSS and will continue to monitor.
[2019-03-01 20:00] VITALS: BP 104/70
--- NOTE | 2019-03-01 20:10 | NUR ---
1 unit PRBC intiated per orders, no immediate s/s of distress at this time. Will continue to monitor.
[2019-03-01 20:40] VITALS: BP 104/70; Ht 185.4 cm; Wt 48.4 kg
[2019-03-01 21:00] VITALS: BP 113/85
--- NOTE | 2019-03-01 21:45 | NUR ---
1 unit PRBC completed, no s/s of reaction at this time.
[2019-03-01 22:00] VITALS: BP 106/79
--- NOTE | 2019-03-01 22:05 | NUR ---
Patient informed of changes to POC, became highly agitated when informed that PRN pain medication was D/C and antibiotics ordered. Patient refused to allow antibiotic infusion, and stated he was going to leave. Explained need for antibiotics and plan for procedure in AM, patient stated understanding but refused to comply stating he is "going to go home and get high". electric mule operator attempted to discuss situation/plans as well, patient insisted on leaving. Attempted to present AMA forms for signature, patient refused to sign and left the unit.
== END 2019-03-01 22:10 | disposition left against medical advice (07) | DRG 811 ==
LOC: D.ER 17:17 → D.ICU 18:58
PROVIDERS: Emergency Medicine; ADMIT Surgery; ATTEND Surgery
DX: D64.9 Anemia, unspecified (principal); J69.0 Pneumonitis due to inhalation of food and vomit; R13.10 Dysphagia, unspecified; E10.9 Type 1 diabetes mellitus without complications; I10 Essential (primary) hypertension; Z79.4 Long term (current) use of insulin

== ENCOUNTER 2019-03-09 05:44 | Inpatient (IN) | payer MEDICAID ==
[2019-03-09] VITALS (13 sets, daily range): BP systolic 84–142; BP diastolic 61–99; BMI 14.5
[~2019-03-09] VITALS: Ht 185.4 cm; Wt 49.9 kg
[2019-03-09 06:23] LABS: BASOPHILS 0.5 % (0-2); EOSINOPHILS 2.3 % (0-7); HEMATOCRIT 24.4 % (42.0-54.0); HEMOGLOBIN 7.9 g/dL (13.5-17.5); IMMATURE GRANULOCYTES 0.2 % (0-5); LYMPHOCYTES 26.5 % (15-50); MCH 25.4 pg (26.0-34.0); MCHC 32.4 g/dL (31.0-37.0); MCV 78.5 fL (80.0-100.0); MEAN PLATELET VOLUME 8.6 fL (7.4-10.4); MONOCYTES 6.6 % (2-11); NEUTROPHILS 63.9 % (40-80); PLATELET COUNT 412 10x3/uL (130-400); RBC 3.11 10x6/uL (4.20-6.10); RDW 17.9 % (11.5-14.5); WBC 6.5 10x3/uL (4.8-10.8)
[2019-03-09 06:30] LABS: ALBUMIN 1.3 g/dL (3.4-5.0); ALKALINE PHOSPHATASE 149 U/L (46-116); ALT (SGPT) 28 U/L (10-68); BILIRUBIN - TOTAL 0.05 mg/dL (0.2-1.3); CALC OSMOLALITY 288 mosm/kg (275-300); CALCIUM 8.5 mg/dL (8.5-10.1); CARBON DIOXIDE 28.9 mmol/L (21.0-32.0); CHLORIDE - SERUM 107 mmol/L (98-107); CREATININE - SERUM 0.8 mg/dL (0.6-1.3); GLUCOSE 192 mg/dL (74-106); POTASSIUM - SERUM 3.5 mmol/L (3.5-5.1); PROTEIN - SERUM 6.7 g/dL (6.4-8.2); SODIUM 141 mmol/L (136-145); UREA NITROGEN 21 mg/dL (7-18); eGFR NON AFRICAN AMERICAN > 90 mL/min (90-120)
[2019-03-09 08:50] LABS: KETONE - SERUM NEGATIVE (NEGATIVE)
[2019-03-09 08:56] LABS: GLUCOSE 131 mg/dL (74-106)
[2019-03-09 12:41] LABS: % SATURATION 34 % (15-55); IRON 61 ug/dl (35-150); TOTAL IRON BIND CAPACITY 175 ug/dl (260-445); UNSAT IRON BIND CAPACITY 114 ug/dl (150-375)
[2019-03-09 14:43] LABS: INR 1.07 (0.85-1.17); PROTIME 13.4 SECONDS (11.6-15.0)
[2019-03-09 14:44] LABS: APTT 34.8 SECONDS (22.8-39.4)
[2019-03-10] VITALS (14 sets, daily range): BP systolic 103–150; BP diastolic 80–104; Ht 185.4 cm; Wt 49.9 kg
[2019-03-10 00:10] LABS: UDS - AMPHET POSITIVE QUAL (NEGATIVE); UDS - BARB NEGATIVE QUAL (NEGATIVE); UDS - BENZO NEGATIVE QUAL (NEGATIVE); UDS - COCAINE POSITIVE QUAL (NEGATIVE); UDS - OPIATE NEGATIVE QUAL (NEGATIVE); UDS - PCP NEGATIVE QUAL (NEGATIVE); UDS - THC NEGATIVE QUAL (NEGATIVE)
[2019-03-10 04:22] LABS: HEMATOCRIT 25.5 % (42.0-54.0); HEMOGLOBIN 8.4 g/dL (13.5-17.5); MCHC 32.9 g/dL (31.0-37.0); MCV 78.9 fL (80.0-100.0); MEAN PLATELET VOLUME 8.5 fL (7.4-10.4); PLATELET COUNT 368 10x3/uL (130-400); RBC 3.23 10x6/uL (4.20-6.10); WBC 7.7 10x3/uL (4.8-10.8)
[2019-03-10 04:39] LABS: ALBUMIN 1.3 g/dL (3.4-5.0); ALKALINE PHOSPHATASE 149 U/L (46-116); ALT (SGPT) 32 U/L (10-68); AMYLASE - SERUM 68 U/L (25-115); CALC OSMOLALITY 283 mosm/kg (275-300); CALCIUM 7.6 mg/dL (8.5-10.1); CARBON DIOXIDE 25.7 mmol/L (21.0-32.0); CHLORIDE - SERUM 109 mmol/L (98-107); CREATININE - SERUM 0.8 mg/dL (0.6-1.3); GLUCOSE 87 mg/dL (74-106); LIPASE 166 U/L (73-393); POTASSIUM - SERUM 3.9 mmol/L (3.5-5.1); PROTEIN - SERUM 6.4 g/dL (6.4-8.2); SODIUM 142 mmol/L (136-145); UREA NITROGEN 17 mg/dL (7-18); eGFR NON AFRICAN AMERICAN > 90 mL/min (90-120)
[2019-03-10 05:14] LABS: BASOPHILS 1 % (0-2); EOSINOPHILS 2 % (0-7); LYMPHOCYTES 23 % (15-50); MONOCYTES 9 % (2-11); NEUTROPHILS 65 % (40-80); PLATELET ESTIMATE NORMAL
[2019-03-10 14:03] LABS: CKMB 1.9 U/L (0.0-3.6); CREATINE KINASE 55 UL (21-232); TROPONIN-I < 0.017 ng/mL (0.000-0.060)
== END 2019-03-10 15:20 | disposition left against medical advice (07) | DRG 637 ==
LOC: D.ER 05:44 → D.ICU 08:45 → D.EDHOLD 08:45 → D.ICU 09:43
PROVIDERS: Family Medicine; Internal Medicine Gastroenterology; ADMIT Family Medicine Adult Medicine; ATTEND Family Medicine Adult Medicine
DX: E10.649 Type 1 diabetes mellitus with hypoglycemia without coma (principal); E43 Unspecified severe protein-calorie malnutrition; Z68.1 Body mass index [BMI] 19.9 or less, adult; D64.9 Anemia, unspecified; R56.9 Unspecified convulsions; F17.200 Nicotine dependence, unspecified, uncomplicated; F19.10 Other psychoactive substance abuse, uncomplicated; R11.2 Nausea with vomiting, unspecified

== ENCOUNTER 2019-03-12 03:44 | Inpatient (IN) | payer MEDICAID ==
[2019-03-12] VITALS (22 sets, daily range): BP systolic 84–134; BP diastolic 41–95; Ht 185.4 cm; Wt 49.9 kg
[~2019-03-12] VITALS: Ht 185.4 cm; Wt 49.9 kg
--- NOTE | 2019-03-12 03:51 | NUR ---
FSBS 96 ON ARRIVAL
--- NOTE | 2019-03-12 03:56 | NUR ---
PT PROVIDED SANDWICH AND ORANGE JUICE.
--- NOTE | 2019-03-12 04:00 | NUR ---
PT ACTIVELY VOMITING ORANGE JUICE. VERBAL ORDER FOR ZOFRAN GIVEN BY EDP OTONIEL.
--- NOTE | 2019-03-12 04:32 | NUR ---
PT REPOSITIONED IN BED. PT PROVIDED WARM BLANKETS. PT ENCOURAGED TO DRINK ORANGE JUICE, PT REFUSING AT THIS TIME.
[2019-03-12 04:35] LABS: BASOPHILS 0.2 % (0-2); EOSINOPHILS 1.4 % (0-7); HEMATOCRIT 27.7 % (42.0-54.0); HEMOGLOBIN 9.2 g/dL (13.5-17.5); IMMATURE GRANULOCYTES 0.2 % (0-5); LYMPHOCYTES 20.4 % (15-50); MCH 26.5 pg (26.0-34.0); MCHC 33.2 g/dL (31.0-37.0); MCV 79.8 fL (80.0-100.0); MEAN PLATELET VOLUME 8.7 fL (7.4-10.4); MONOCYTES 5.3 % (2-11); NEUTROPHILS 72.5 % (40-80); PLATELET COUNT 383 10x3/uL (130-400); RBC 3.47 10x6/uL (4.20-6.10); RDW 16.8 % (11.5-14.5); WBC 9.4 10x3/uL (4.8-10.8)
[2019-03-12 04:46] LABS: ALBUMIN 1.7 g/dL (3.4-5.0); ALKALINE PHOSPHATASE 150 U/L (46-116); ALT (SGPT) 43 U/L (10-68); BILIRUBIN - TOTAL 0.09 mg/dL (0.2-1.3); CALC OSMOLALITY 275 mosm/kg (275-300); CALCIUM 8.8 mg/dL (8.5-10.1); CARBON DIOXIDE 30.4 mmol/L (21.0-32.0); CHLORIDE - SERUM 103 mmol/L (98-107); CREATININE - SERUM 0.7 mg/dL (0.6-1.3); MAGNESIUM - SERUM 1.4 mg/dL (1.8-2.4); POTASSIUM - SERUM 3.7 mmol/L (3.5-5.1); PROTEIN - SERUM 7.2 g/dL (6.4-8.2); SODIUM 139 mmol/L (136-145); UREA NITROGEN 18 mg/dL (7-18); eGFR NON AFRICAN AMERICAN > 90 mL/min (90-120)
--- NOTE | 2019-03-12 04:47 | NUR ---
CRITICAL LAB-GLUCOSE 26. EDP DOWNEN NOTIFIED. ORDER GIVEN FOR D50 AMP.
[2019-03-12 04:48] LABS: GLUCOSE 26 mg/dL (74-106)
[2019-03-12 04:59] LABS: KETONE - SERUM NEGATIVE (NEGATIVE)
--- NOTE | 2019-03-12 05:30 | NUR ---
FSBS 41, EDP NOTIFIED.
--- NOTE | 2019-03-12 05:46 | NUR ---
PT WAKES TO VERBAL STIMULI. WHEN ASKING PT QUESTIONS, ONLY RESPONSE IS "I AM HURTING". PT REFUSES TO SAY WHERE OR ANSWER FURTHER QUESTIONS.
--- NOTE | 2019-03-12 05:52 | NUR ---
PT AWAKE AND ATTEMPTING TO EAT SANDWICH, PT VOMTIING. EDP DOWNEN NOTIFIED. VERBAL ORDER FOR ZOFRAN IV GIVEN.
--- NOTE | 2019-03-12 06:15 | NUR ---
PT AWAKE AND ASKING FOR SOMETHING TO DRINK. PT PROVIDED WATER PER REQUEST.
--- NOTE | 2019-03-12 06:39 | NUR ---
PT LINENS CHANGED. PT AWAKE AND COOPERATIVE. PT PROVIDED WARM BLANKETS.
--- NOTE | 2019-03-12 06:51 | NUR ---
D10 INFUSION RATE INCREASED TO 200ML/HR
--- NOTE | 2019-03-12 07:15 | NUR ---
FSBS=84MG/DL
--- NOTE | 2019-03-12 07:20 | NUR ---
REPORT CALLED TO ANGELA EARL BY SBAR FORMAT
[2019-03-12 08:37] LABS: % SATURATION 7 % (15-55); IRON 17 ug/dl (35-150); TOTAL IRON BIND CAPACITY 217 ug/dl (260-445); UNSAT IRON BIND CAPACITY 200 ug/dl (150-375)
--- NOTE | 2019-03-12 09:20 | NUR ---
PT REFUSES TO EAT UNTIL NARCOTIC PAIN MEDS ARE ADM. PT REFUSES TO PEE IN A URINAL AND STATED WOULD REMAIN INCONTINENT R/T REFUSING U/A. DR ANDRE CALLED GIVEN UPDATE.
--- NOTE | 2019-03-12 11:20 | NUR ---
REASSESSMENT COMPLETE PER FLOW SHEET VSS NO NEW CHANGES WILL CONTINUE TO MONITOR
--- NOTE | 2019-03-12 13:20 | NUR ---
PT R FOREARM PIV INFULTRATED REMOVED CATH INTACT. READM ON L WRIST 20G UPON ONE ATTEMPT FLUIDS RESTARTED
--- NOTE | 2019-03-12 15:20 | NUR ---
REASSESSMENT COMPLETE PER FLOW SHEET. VSS. NO NEW CHANGES WILL CONTINUE TO MONITOR
--- NOTE | 2019-03-12 15:30 | NUR ---
PT SITTING UP IN BED EATING AT THIS TIME, VSS, CALL LIGHT REACH
--- NOTE | 2019-03-12 19:15 | NUR ---
Received patient sitting up in bed eating dinner tray, assessment completed per flowsheet. Patient AO x4, answers appropriately/follows instructions. S1/S2 noted Sinus Tach on telemetry with HR 111, rythmic and regular. Breathing is even/unlabored on room air with O2 sat 95%, lung sounds clear throughout. Abdomen is soft/round with bowel sounds active x4, non-tender. All pulses palpable with cap refill < 3 sec, skin warm/dry. Bilateral buttocks with eschar noted, Stage 4 pressure ulcer coccyx with dressing CDI. Denies pain or other needs at this time, see flowsheet for details. All VSS and will continue to monitor.
--- NOTE | 2019-03-12 21:00 | NUR ---
Patient sitting in bed with eyes open, no visitors at this time. patient incontinent of bowel/bladder in bed, full bed bath linen change performed. Patient provided snack at request, discussed need for diabetic diet with patient unconcerned/non-compliant. No further needs, will continue to monitor.
--- NOTE | 2019-03-12 23:10 | NUR ---
Reassessment completed per flowsheet, no changes noted from previous assessment. S1/S2 noted Sinus Tach on telemetry with HR 118, regular. Breathing is even/unlabored on room air with O2 sat 94%, lung sounds clear throughout. All pulses palpable with cap refill < 3 sec, skin warm/dry. C/O generalized chronic aching 4/10, repositioned with no stated relief. No further needs at this time, see flowsheet for details. All VSS and will continue to monitor.
[2019-03-13] VITALS (13 sets, daily range): BP systolic 86–121; BP diastolic 49–83
--- NOTE | 2019-03-13 01:00 | NUR ---
Patient sitting on bedside eating snack, questioned by RN with patient stating he "got it from another nurse". Patient glucose elevated, paged on-call to request sliding scale for maintenance. Will continue to monitor.
--- NOTE | 2019-03-13 03:10 | NUR ---
Reassessment completed per flowsheet, no changes from previous assessment. S1/S2 noted Sinus Tach on telemetry with HR 120, rythmic and regular. Breathing is even/unlabored on room air with O2 sat 92%, lung sounds clear throughout. All pulses palpable with cap refill < 3 sec, skin warm/dry. See flowsheet for details, all VSS and will continue to monitor.
[2019-03-13 04:46] LABS: BASOPHILS 0.1 % (0-2); EOSINOPHILS 0.1 % (0-7); HEMATOCRIT 27.9 % (42.0-54.0); HEMOGLOBIN 9.2 g/dL (13.5-17.5); IMMATURE GRANULOCYTES 0.2 % (0-5); LYMPHOCYTES 16.5 % (15-50); MCH 25.8 pg (26.0-34.0); MCV 78.4 fL (80.0-100.0); MEAN PLATELET VOLUME 9.1 fL (7.4-10.4); MONOCYTES 2.6 % (2-11); NEUTROPHILS 80.5 % (40-80); PLATELET COUNT 421 10x3/uL (130-400); RBC 3.56 10x6/uL (4.20-6.10); RDW 16.5 % (11.5-14.5); WBC 11.4 10x3/uL (4.8-10.8)
[2019-03-13 05:19] LABS: ALBUMIN 1.5 g/dL (3.4-5.0); ALKALINE PHOSPHATASE 152 U/L (46-116); BILIRUBIN - TOTAL 0.33 mg/dL (0.2-1.3); CALCIUM 8.1 mg/dL (8.5-10.1); CARBON DIOXIDE 29.1 mmol/L (21.0-32.0); CHLORIDE - SERUM 96 mmol/L (98-107); MAGNESIUM - SERUM 1.1 mg/dL (1.8-2.4); POTASSIUM - SERUM 3.6 mmol/L (3.5-5.1); PROTEIN - SERUM 7.1 g/dL (6.4-8.2); SODIUM 131 mmol/L (136-145)
[2019-03-13 05:23] LABS: ALT (SGPT) 31 U/L (10-68); CALC OSMOLALITY 270 mosm/kg (275-300); CREATININE - SERUM 0.9 mg/dL (0.6-1.3); GLUCOSE 251 mg/dL (74-106); UREA NITROGEN 12 mg/dL (7-18); eGFR NON AFRICAN AMERICAN > 90 mL/min (90-120)
--- NOTE | 2019-03-13 07:00 | NUR ---
REPORT RECIEVED, SHIFT ASSESSMENT COMPLETE, PT IS ALERT AND ORIENTED, ON 2L NC, ALL PPP, VSS, CALL LIGHT IN REACH
--- NOTE | 2019-03-13 09:00 | NUR ---
COMPLETE BB LINEN CHANGE ADM. PT INCONTENENT X1. DENIES NEEDS ATE 50% BREAKFAST WILL CONTINUE TO MONITOR
--- NOTE | 2019-03-13 11:00 | NUR ---
PT SLEEPING COMFORTABLY VSS NO NEW CHANGES WILL CONTINUE TO MONTIOR
--- NOTE | 2019-03-13 13:00 | NUR ---
DR ANDRE AT BEDSIDE NEW ORDERS RECEIVED.
--- NOTE | 2019-03-13 13:54 | NUR ---
PT TRANSFERRED TO [facility] AT THIS TIME, REPORT CALLED TO GUDELIA
--- NOTE | 2019-03-13 19:45 | NUR ---
ANSWERED CL. PT STATED THAT HE IS SOB, O2 SATS IN THE 60'S, PLACED PT ON 02 AND CALLED RT. O2 SATS SLOWLY INCREASING. PLACED ON HIGH FLOW CANULA AT 15 LITERS. HIGHEST LEVEL O2 SAT 88%. REVIEWED RECENT LABS AND CHEST X RAY. ATTEMPTED TO CALL DR BURROWS PHONE, RECIEVED VOICE MAIL. CALL PLACED TO SWETA LUNA APN COMBINATION WELDER APPRENTICE.
--- NOTE | 2019-03-13 20:13 | NUR ---
SPOKE WITH SWETA, [facility]. SWETA STATED THAT SHE WILL HAVE DR ANDRE CALL ME BACK.
--- NOTE | 2019-03-13 21:38 | NUR ---
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 BATH AND LINEN CHANGE COMPLETE.
--- NOTE | 2019-03-13 22:57 | NUR ---
SPOKE WITH DR ANDRE, INFORMED HIM OF PTS ABG RESULTS. ORDERS GIVEN TO TRANSFER TO THE UNIT. NOTIFIED [employer] ASSOCIATE [employer] ORDERS.
--- NOTE | 2019-03-13 23:43 | NUR ---
DR. ANDRE NOTIFIED OF PT ARRIVAL, POX 95% ON 15L HF NC. HR AND B/P STABLE. C/O PAIN WITH COUGHING - NEW ORDERS REC'D.
--- NOTE | 2019-03-13 23:45 | NUR ---
RECEIVED TO ICU TRANSFERED IN BED BY [facility] STAFF. REPORT RECEIVED. ASSESSMENT COMPLETED PER FLOW SHEET WITH NO ACUTE DISTRESS OBSERVED. MONITORS CONNECTED TO PATIENT WITH ALARMS SET. VSS. DENIES SOB/DYSPNEA AT THIS TIME. CALL LIGHT IN REACH AND ABLE TO UTILIZE TO MAKE NEEDS KNOWN.
--- NOTE | 2019-03-13 23:50 | NUR ---
PATIENT REPORTS IV IS OUT. CATH INTACT. BANDAGE PLACED.
[2019-03-14] VITALS (7 sets, daily range): BP systolic 91–114; BP diastolic 52–91
--- NOTE | 2019-03-14 | NUR ---
REFUSED TYLENOL FOR PAIN.
--- NOTE | 2019-03-14 01:00 | NUR ---
IV INFILTRATED. DC'D WITH CATH INTACT. BANDAGE APPLIED
--- NOTE | 2019-03-14 03:00 | NUR ---
REASSESSMENT COMPLETED PER FLOW SHEET WITH NO CHANGES OR ACUTE DISTRESS OBSERVED. VSS. CALL LIGHT IN REACH.
--- NOTE | 2019-03-14 05:00 | NUR ---
AWAKE AND ALERT. VSS. NO ACUTE DISTRESS OBSERVED
--- NOTE | 2019-03-14 06:38 | NUR ---
SPOKE WITH DR. ANDRE INFORMED OF FSBS 508. NO NEW ORDERS
[2019-03-14 07:02] LABS: HEMATOCRIT 29.3 % (42.0-54.0); HEMOGLOBIN 9.8 g/dL (13.5-17.5); MCHC 33.4 g/dL (31.0-37.0); MCV 77.7 fL (80.0-100.0); MEAN PLATELET VOLUME 9.1 fL (7.4-10.4); PLATELET COUNT 386 10x3/uL (130-400); RBC 3.77 10x6/uL (4.20-6.10); RDW 16.4 % (11.5-14.5); WBC 9.4 10x3/uL (4.8-10.8)
[2019-03-14 07:08] LABS: ALBUMIN 1.5 g/dL (3.4-5.0); ANION GAP 12.9 mmol/L (8-16); BILIRUBIN - TOTAL 0.47 mg/dL (0.2-1.3); CALCIUM 8.4 mg/dL (8.5-10.1); POTASSIUM - SERUM 3.9 mmol/L (3.5-5.1); PROTEIN - SERUM 7.5 g/dL (6.4-8.2)
[2019-03-14 07:17] LABS: CREATININE - SERUM 1.4 mg/dL (0.6-1.3); MAGNESIUM - SERUM 1.4 mg/dL (1.8-2.4)
--- NOTE | 2019-03-14 07:17 | NUR ---
REPORT RECIEVED, SHIFT ASSESSMENT COMPLETE, PT IS ALERT AND ORIENTED, ON RA WITH 97% O2 SAT. ALL PPP, VSS, CALL LIGHT IN REACH
[2019-03-14 08:41] LABS: LYMPHOCYTES 10 % (15-50); MONOCYTES 3 % (2-11); NEUTROPHILS 69 % (40-80); PLATELET ESTIMATE NORMAL; ROULEAUX 1+
[2019-03-14 08:42] LABS: SMUDGE CELLS OCC
--- NOTE | 2019-03-14 09:00 | NUR ---
LG BM AT THIS TIME, VSS, WILL CON'T TO MONITOR
--- NOTE | 2019-03-14 10:42 | NUR ---
Nutrition follow-up: Pt back in ICU; now in isolation Diet: ADA consistent CHO Pt keeps calling the kitchen for food requests PO intake good at this time Wt: 126# Pt very noncompliant with consistent CHO diet RDN following.
--- NOTE | 2019-03-14 11:00 | NUR ---
PT STATES "MOM IS COMING TO PICK ME UP"
--- NOTE | 2019-03-14 12:00 | NUR ---
PT HAS DECIDED TO GO AMA, RIGHT FA PIC DC'D AT THIS TIME, PT DRESSED, SIGNED AMA FORM, DR. ANDRE NOTIFIED
--- NOTE | 2019-03-14 13:14 | MORECARE ---
CASE MANAGEMENT DISCHARGE SUMMARY PATIENT: JODI WEISS UNIT: [id number] ADM DATE: 03/12/19 AGE: 43 : 79 SEX: M ROOM/BED: D.2309 AUTHOR: JENI GREEN PHYSICIAN: REFERRING PHYSICIAN: BABAR MCKEON MD DATE OF SERVICE: 03/14/19 Discharge Plan Patient Name: JODI WEISS [facility] [facility] 1975 Planned Disposition: Home Anticipated Discharge Date: Discharge Date: 03/14/2019 Expected LOS: Initial Reviewer: [email or web address] Initial Review Date: 03/12/2019 Generated: 03/14/19 2:14 pm Patient Name: JODI WEISS Page [phone] at 1314 All edits/amendments must be made on the electronic document DICTATION DATE: 03/14/19 1314 BARN WORKER: DEMETRIS 03/14/19 1314 RPT#: [id number] DC DATE:03/14/19 STATUS: DIS IN [facility] [address] [place] [address] END OF REPORT
== END 2019-03-14 12:10 | disposition left against medical advice (07) | DRG 637 ==
LOC: D.ER 03:44 → D.ICU 07:05 → D.M2 03-13 13:56 → D.ICU 03-13 23:09
PROVIDERS: Family Medicine; Internal Medicine Nephrology; ADMIT Family Medicine; ATTEND Family Medicine
DX: E10.649 Type 1 diabetes mellitus with hypoglycemia without coma (principal); G93.41 Metabolic encephalopathy; E43 Unspecified severe protein-calorie malnutrition; J18.9 Pneumonia, unspecified organism; F17.203 Nicotine dependence unspecified, with withdrawal; Z79.4 Long term (current) use of insulin; Z91.14 Patient's other noncompliance with medication regimen; E83.42 Hypomagnesemia; Z86.718 Personal history of other venous thrombosis and embolism; D50.9 Iron deficiency anemia, unspecified